=== PATIENT | male | born 1960 | race Caucasian/White ===

== ENCOUNTER 2016-06-06 19:39 | Inpatient (IN) | payer MEDICAID, OTHER ==
[~2016-06-06] VITALS: Ht 177.8 cm; Wt 57.0 kg
[~2016-06-06 19:39] MED LIST: DULO30CA2 PO; FOLI1 PO; GABA-533 PO; LEVE500T53 PO; QUET200T29 PO
[2016-06-06 20:16] LABS: BASOPHILS % (AUTO) 0.7 % (0.0-2.0); EOSINOPHILS % (AUTO) 5.2 % (1.0-6.0); HEMATOCRIT 40.2 % (41-53); HEMOGLOBIN 13.3 g/dL (13.5-17.5); LYMPHOCYTES # (AUTO) 2.5 K/uL (1.0-4.8); LYMPHOCYTES % (AUTO) 46.8 % (22.0-44.0); MEAN CORPUSCULAR HEMOGLOBIN 31.3 pg (26.0-34.0); MEAN CORPUSCULAR HGB CONC 33.2 G/dL (31.0-37.0); MEAN CORPUSCULAR VOLUME 94 fL (80-100); MONOCYTES # (AUTO) 0.4 K/uL (0.1-1.0); MONOCYTES % (AUTO) 8.1 % (2.0-9.0); NEUTROPHILS # (AUTO) 2.1 K/uL (1.8-7.7); NEUTROPHILS % (AUTO) 39.2 % (40.0-70.0); PLATELET COUNT (AUTO) 180 K/uL (150-450); RED BLOOD CELL COUNT(AUTO) 4.25 MIL/uL (4.50-5.90); RED CELL DISTRIBUTION WIDTH 13.9 % (11.5-14.5); WHITE BLOOD COUNT (AUTO) 5.4 K/uL (4.5-11.0)
[2016-06-06 20:26] LABS: ANION GAP 9 mmol/L (8-16); CALCIUM, TOTAL 9.1 mg/dL (8.8-10.5); CARBON DIOXIDE 29 mmol/L (22-29); CHLORIDE 105 mmol/L (98-107); CREATININE 0.81 mg/dL (0.60-1.30); GLOMERULAR FILTR. RATE CALC > 60 mL/min (>60); POTASSIUM 3.5 mmol/L (3.5-5.1); SODIUM SERUM 143 mmol/L (136-145); UREA NITROGEN, BLOOD 10 mg/dL (7-18)
[2016-06-06 20:31] LABS: ALANINE AMINOTRANSFERASE 100 U/L (12-78); ALBUMIN 3.5 g/dL (3.4-5.0); ASPARTATE AMINOTRANSFERASE 111 U/L (15-37); BILIRUBIN,TOTAL 0.5 mg/dL (0.1-1.0); TOTAL PROTEIN, SERUM 6.9 g/dL (6.4-8.2)
[2016-06-06] MEDS ORDERED: ZOLPIDEM TARTRATE 10 MG TABLET PO PRN (21:15)
[2016-06-06] MEDS ORDERED: OLANZapine 5 MG RAPDIS TABLET PO PRN (21:15)
[2016-06-07 00:09] VITALS: BP 123/79
[2016-06-07] MEDS ORDERED: MAGNESIUM HYDROXIDE SUSPENSION 30 ML UDCUP PO PRN ×2 (06:45→11:15)
[2016-06-07 08:30] VITALS: BP 121/75
[2016-06-07] MEDS: BACITRACIN 28.4 GM OINTMENT TP SCH ×2 (09:00→17:00)
[2016-06-07] MEDS ORDERED: MAG HYDROX/AL HYDROX/SIMETH ES 30 ML SUSPENSION UDCUP PO PRN ×2 (09:30→11:15)
[2016-06-07] MEDS ORDERED: ONDANSETRON HCL 4 MG TABLET PO PRN (09:30)
[2016-06-07] MEDS ORDERED: BENZOCAINE/MENTHOL LOZENGE [8 LOZENGES/PACKET] MM PRN (09:30)
[2016-06-07] MEDS ORDERED: PETROLATUM,WHITE 71 GM JELLY TP PRN (09:30)
[2016-06-07] MEDS ORDERED: BACITRACIN 28.4 GM OINTMENT TP PRN (09:30)
[2016-06-07] MEDS ORDERED: ACETAMINOPHEN 325 MG TABLET PO PRN ×2 (09:30→11:15)
[2016-06-07] MEDS ORDERED: CloNIDine HCL 0.1 MG TABLET PO PRN (09:30)
[2016-06-07] MEDS ORDERED: LOPERAMIDE HCL 2 MG CAPSULE PO PRN ×2 (09:30→11:15)
[2016-06-07] MEDS ORDERED: ALBUTEROL SULFATE HFA 90 MCG/PUFF 8 GM INHALER IH PRN (09:30)
[2016-06-07] MEDS: LevETIRAcetam 500 MG TABLET PO SCH ×2 (10:16→16:39)
[2016-06-07] MEDS: DOCUSATE SODIUM 250 MG CAPSULE PO SCH ×2 (10:16→16:39)
[2016-06-07] MEDS: NICOTINE 21 MG/24 HOUR PATCH TD SCH (10:16)
[2016-06-07] MEDS: METHADONE HCL 10 MG TABLET PO SCH (10:17)
[2016-06-07] MEDS: LORazepam 2 MG TABLET PO PRN ×2 (10:25→14:29)
[2016-06-07] MEDS ORDERED: HydrOXYzine PAMOATE 50 MG CAPSULE PO PRN (11:15)
[2016-06-07] MEDS ORDERED: GuaiFENesin/D-METHORPHAN [SUGAR-FREE] 200-20MG/10 ML SYRUP UDCUP PO PRN (11:15)
[2016-06-07] MEDS ORDERED: PROMETHAZINE HCL 25 MG TABLET PO PRN (11:15)
[2016-06-07] MEDS: GABAPENTIN 400 MG CAPSULE PO SCH ×3 (14:03→19:55)
[2016-06-07] MEDS ORDERED: GABAPENTIN 300 MG CAPSULE PO PRN (15:15)
[2016-06-07 16:00] VITALS: BP 107/57
[2016-06-07] MEDS: THIAMINE HCL 100 MG TABLET PO SCH (16:39)
[2016-06-07] MEDS: ARIPiprazole 15 MG TABLET PO SCH (19:55)
[2016-06-07] MEDS: QUEtiapine FUMARATE 100 MG TABLET PO PRN (19:57)
[2016-06-07] MEDS ORDERED: QUEtiapine FUMARATE 200 MG TABLET PO SCH (21:00)
[2016-06-08] MEDS: METHADONE HCL 10 MG TABLET PO SCH (05:53)
[2016-06-08 06:00] VITALS: BP 105/68
[2016-06-08 08:00] VITALS: BP 110/72
[2016-06-08] MEDS ORDERED: GuaiFENesin/D-METHORPHAN/PHENYLEPH 5 ML LIQUID ORAL.SYG PO PRN (08:30)
[2016-06-08] MEDS ORDERED: PERMETHRIN 5% 60 GM CREAM TP ONE ×2 (08:30→17:15)
[2016-06-08] MEDS: FOLIC ACID 1 MG TABLET PO SCH (08:57)
[2016-06-08] MEDS: LevETIRAcetam 500 MG TABLET PO SCH ×2 (08:57→16:09)
[2016-06-08] MEDS: MULTIVITAMINS WITH MINERALS, THERAPEUTIC TABLET PO SCH (08:58)
[2016-06-08] MEDS: GABAPENTIN 400 MG CAPSULE PO SCH (08:59)
[2016-06-08] MEDS: THIAMINE HCL 100 MG TABLET PO SCH ×2 (08:59→16:09)
[2016-06-08] MEDS ORDERED: DULoxetine HCL 30 MG CAPSULE PO SCH (09:00)
[2016-06-08] MEDS: DISULFIRAM 250 MG TABLET PO SCH (09:00)
[2016-06-08] MEDS: DOCUSATE SODIUM 250 MG CAPSULE PO SCH ×2 (09:00→16:09)
[2016-06-08] MEDS: BACITRACIN 28.4 GM OINTMENT TP SCH ×2 (09:00→16:08)
[2016-06-08] MEDS: NICOTINE 21 MG/24 HOUR PATCH TD SCH (09:01)
[2016-06-08 09:55] LABS: ADD UA MICROSCOPIC NO; APPEARANCE,URINE CLEAR (CLEAR); GLUCOSE, URINE (UA) NEGATIVE (NEGATIVE); KETONES,URINE NEGATIVE (NEGATIVE); LEUKOCYTE ESTERASE ,URINE NEGATIVE (NEGATIVE); OCCULT BLOOD,URINE NEGATIVE (NEGATIVE); PROTEIN,URINE NEGATIVE (NEGATIVE)
[2016-06-08 16:00] VITALS: BP 119/71
[2016-06-08] MEDS: GABAPENTIN 300 MG CAPSULE PO SCH ×2 (16:09→20:06)
[2016-06-08] MEDS: ARIPiprazole 15 MG TABLET PO SCH (20:06)
[2016-06-09 06:15] VITALS: BP 118/88
[2016-06-09] MEDS: METHADONE HCL 10 MG TABLET PO SCH (06:18)
[2016-06-09 08:02] VITALS: BP 119/73
[2016-06-09] MEDS: LevETIRAcetam 500 MG TABLET PO SCH ×2 (08:51→17:00)
[2016-06-09] MEDS: GABAPENTIN 300 MG CAPSULE PO SCH ×4 (08:51→21:15)
[2016-06-09] MEDS: DULoxetine HCL 20 MG CAPSULE PO SCH (08:51)
[2016-06-09] MEDS: FOLIC ACID 1 MG TABLET PO SCH (08:52)
[2016-06-09] MEDS: MULTIVITAMINS WITH MINERALS, THERAPEUTIC TABLET PO SCH (08:52)
[2016-06-09] MEDS: THIAMINE HCL 100 MG TABLET PO SCH ×2 (08:52→17:00)
[2016-06-09] MEDS: NICOTINE 21 MG/24 HOUR PATCH TD SCH (08:54)
[2016-06-09] MEDS: DOCUSATE SODIUM 250 MG CAPSULE PO SCH ×2 (08:55→17:00)
[2016-06-09] MEDS: DISULFIRAM 250 MG TABLET PO SCH (08:55)
[2016-06-09] MEDS: BACITRACIN 28.4 GM OINTMENT TP SCH ×2 (12:52→17:00)
[2016-06-09 16:00] VITALS: BP 124/72
[2016-06-09] MEDS: ARIPiprazole 15 MG TABLET PO SCH (21:15)
[2016-06-10] MEDS: METHADONE HCL 10 MG TABLET PO SCH (05:53)
[2016-06-10 08:01] VITALS: BP 124/68
[2016-06-10] MEDS: DOCUSATE SODIUM 250 MG CAPSULE PO SCH ×2 (09:00→17:00)
[2016-06-10] MEDS: DISULFIRAM 250 MG TABLET PO SCH (09:00)
[2016-06-10] MEDS: DULoxetine HCL 20 MG CAPSULE PO SCH (09:15)
[2016-06-10] MEDS: LevETIRAcetam 500 MG TABLET PO SCH ×2 (09:15→17:06)
[2016-06-10] MEDS: GABAPENTIN 300 MG CAPSULE PO SCH ×4 (09:16→21:21)
[2016-06-10] MEDS: MULTIVITAMINS WITH MINERALS, THERAPEUTIC TABLET PO SCH (09:16)
[2016-06-10] MEDS: FOLIC ACID 1 MG TABLET PO SCH (09:16)
[2016-06-10] MEDS: THIAMINE HCL 100 MG TABLET PO SCH ×2 (09:16→17:07)
[2016-06-10] MEDS: NICOTINE 21 MG/24 HOUR PATCH TD SCH (09:17)
[2016-06-10] MEDS: QUEtiapine FUMARATE 100 MG TABLET PO PRN ×2 (12:34→17:06)
[2016-06-10] MEDS: BACITRACIN 28.4 GM OINTMENT TP SCH ×2 (12:35→17:08)
[2016-06-10 18:12] VITALS: BP 106/76
[2016-06-10] MEDS: ARIPiprazole 15 MG TABLET PO SCH (21:21)
[2016-06-11 05:38] VITALS: BP 140/89
[2016-06-11] MEDS: METHADONE HCL 10 MG TABLET PO SCH (06:06)
[2016-06-11] MEDS: FOLIC ACID 1 MG TABLET PO SCH (08:19)
[2016-06-11] MEDS: DULoxetine HCL 20 MG CAPSULE PO SCH (08:19)
[2016-06-11] MEDS: LevETIRAcetam 500 MG TABLET PO SCH ×2 (08:20→16:45)
[2016-06-11] MEDS: THIAMINE HCL 100 MG TABLET PO SCH ×2 (08:21→16:46)
[2016-06-11] MEDS: GABAPENTIN 300 MG CAPSULE PO SCH ×4 (08:21→21:25)
[2016-06-11] MEDS: MULTIVITAMINS WITH MINERALS, THERAPEUTIC TABLET PO SCH (08:21)
[2016-06-11] MEDS: NICOTINE 21 MG/24 HOUR PATCH TD SCH (08:23)
[2016-06-11 08:30] VITALS: BP 133/83
[2016-06-11] MEDS: DOCUSATE SODIUM 250 MG CAPSULE PO SCH ×2 (09:00→16:45)
[2016-06-11] MEDS: BACITRACIN 28.4 GM OINTMENT TP SCH ×2 (09:00→16:46)
[2016-06-11] MEDS: DISULFIRAM 250 MG TABLET PO SCH (09:00)
[2016-06-11] MEDS: QUEtiapine FUMARATE 100 MG TABLET PO PRN (12:57)
[2016-06-11 16:30] VITALS: BP 108/64
[2016-06-11] MEDS ORDERED: MIRTAZAPINE 15 MG TABLET PO SCH (21:00)
[2016-06-11] MEDS: ARIPiprazole 10 MG TABLET PO SCH (21:24)
[2016-06-12 05:32] VITALS: BP 124/74
[2016-06-12] MEDS: METHADONE HCL 10 MG TABLET PO SCH (05:59)
[2016-06-12 08:05] VITALS: BP 127/75
[2016-06-12] MEDS: DISULFIRAM 250 MG TABLET PO SCH (09:00)
[2016-06-12] MEDS: BACITRACIN 28.4 GM OINTMENT TP SCH ×2 (09:00→16:32)
[2016-06-12] MEDS: DOCUSATE SODIUM 250 MG CAPSULE PO SCH ×2 (09:00→16:37)
[2016-06-12] MEDS: DULoxetine HCL 20 MG CAPSULE PO SCH (09:05)
[2016-06-12] MEDS: FOLIC ACID 1 MG TABLET PO SCH (09:06)
[2016-06-12] MEDS: MULTIVITAMINS WITH MINERALS, THERAPEUTIC TABLET PO SCH (09:06)
[2016-06-12] MEDS: THIAMINE HCL 100 MG TABLET PO SCH ×2 (09:06→16:31)
[2016-06-12] MEDS: GABAPENTIN 300 MG CAPSULE PO SCH ×4 (09:07→20:52)
[2016-06-12] MEDS: LevETIRAcetam 500 MG TABLET PO SCH ×2 (09:08→16:31)
[2016-06-12] MEDS: NICOTINE 21 MG/24 HOUR PATCH TD SCH (09:11)
[2016-06-12] MEDS: QUEtiapine FUMARATE 100 MG TABLET PO PRN ×2 (14:31→20:56)
[2016-06-12 16:10] VITALS: BP 117/76
[2016-06-12] MEDS: ARIPiprazole 10 MG TABLET PO SCH (20:52)
[2016-06-12] MEDS ORDERED: MIRTAZAPINE 15 MG TABLET PO SCH (21:00)
[2016-06-13] MEDS: METHADONE HCL 10 MG TABLET PO SCH (06:13)
[2016-06-13 06:22] VITALS: BP 113/72
[2016-06-13 08:00] VITALS: BP 112/78
[2016-06-13] MEDS: GABAPENTIN 300 MG CAPSULE PO SCH (08:44)
[2016-06-13] MEDS: MULTIVITAMINS WITH MINERALS, THERAPEUTIC TABLET PO SCH (08:44)
[2016-06-13] MEDS: DULoxetine HCL 60 MG CAPSULE PO SCH (08:44)
[2016-06-13] MEDS: LevETIRAcetam 500 MG TABLET PO SCH ×2 (08:45→16:27)
[2016-06-13] MEDS: FOLIC ACID 1 MG TABLET PO SCH (08:46)
[2016-06-13] MEDS: NICOTINE 21 MG/24 HOUR PATCH TD SCH (08:48)
[2016-06-13] MEDS: THIAMINE HCL 100 MG TABLET PO SCH ×2 (08:49→16:28)
[2016-06-13] MEDS: BACITRACIN 28.4 GM OINTMENT TP SCH ×2 (09:00→16:28)
[2016-06-13] MEDS: DISULFIRAM 250 MG TABLET PO SCH (09:00)
[2016-06-13] MEDS: DOCUSATE SODIUM 250 MG CAPSULE PO SCH ×2 (09:00→16:27)
[2016-06-13] MEDS: GABAPENTIN 400 MG CAPSULE PO SCH ×2 (12:49→16:27)
[2016-06-13] MEDS: QUEtiapine FUMARATE 100 MG TABLET PO PRN (14:16)
[2016-06-13 17:53] VITALS: BP 115/76
[2016-06-13] MEDS: ARIPiprazole 10 MG TABLET PO SCH (20:10)
[2016-06-13] MEDS: MIRTAZAPINE 15 MG TABLET PO SCH (20:11)
[2016-06-14 04:49] VITALS: BP 122/84
[2016-06-14] MEDS: METHADONE HCL 10 MG TABLET PO SCH (06:03)
[2016-06-14 08:30] VITALS: BP 136/79
[2016-06-14] MEDS: MULTIVITAMINS WITH MINERALS, THERAPEUTIC TABLET PO SCH (08:53)
[2016-06-14] MEDS: FOLIC ACID 1 MG TABLET PO SCH (08:53)
[2016-06-14] MEDS: LevETIRAcetam 500 MG TABLET PO SCH ×2 (08:53→16:16)
[2016-06-14] MEDS: GABAPENTIN 400 MG CAPSULE PO SCH ×3 (08:53→16:17)
[2016-06-14] MEDS: THIAMINE HCL 100 MG TABLET PO SCH ×2 (08:54→16:17)
[2016-06-14] MEDS: DULoxetine HCL 60 MG CAPSULE PO SCH (08:54)
[2016-06-14] MEDS: NICOTINE 21 MG/24 HOUR PATCH TD SCH (08:56)
[2016-06-14] MEDS: BACITRACIN 28.4 GM OINTMENT TP SCH ×2 (08:56→16:17)
[2016-06-14] MEDS: DISULFIRAM 250 MG TABLET PO SCH (09:00)
[2016-06-14] MEDS: DOCUSATE SODIUM 250 MG CAPSULE PO SCH ×2 (09:00→16:17)
[2016-06-14 20:23] VITALS: BP 139/77
[2016-06-14] MEDS: ARIPiprazole 10 MG TABLET PO SCH (21:31)
[2016-06-14] MEDS: MIRTAZAPINE 15 MG TABLET PO SCH (21:32)
[2016-06-15] MEDS: METHADONE HCL 10 MG TABLET PO SCH (05:54)
[2016-06-15] MEDS: DISULFIRAM 250 MG TABLET PO SCH (09:00)
[2016-06-15] MEDS: DOCUSATE SODIUM 250 MG CAPSULE PO SCH (09:00)
[2016-06-15] MEDS: THIAMINE HCL 100 MG TABLET PO SCH (09:02)
[2016-06-15] MEDS: GABAPENTIN 400 MG CAPSULE PO SCH ×2 (09:02→12:54)
[2016-06-15] MEDS: DULoxetine HCL 60 MG CAPSULE PO SCH (09:02)
[2016-06-15] MEDS: LevETIRAcetam 500 MG TABLET PO SCH (09:02)
[2016-06-15] MEDS: MULTIVITAMINS WITH MINERALS, THERAPEUTIC TABLET PO SCH (09:02)
[2016-06-15] MEDS: FOLIC ACID 1 MG TABLET PO SCH (09:02)
[2016-06-15] MEDS: NICOTINE 21 MG/24 HOUR PATCH TD SCH (09:03)
[2016-06-15] MEDS: BACITRACIN 28.4 GM OINTMENT TP SCH (09:03)
[2016-06-15 10:09] VITALS: BP 147/90
[2016-06-15] MEDS ORDERED: GABA-533 PO (10:27)
[2016-06-15] MEDS ORDERED: ARIP10TA14 PO (10:27)
[2016-06-15] MEDS ORDERED: DISU250 PO (10:27)
[2016-06-15] MEDS ORDERED: MIRT15 PO (10:27)
[2016-06-15] MEDS ORDERED: DULO60CA44 PO (10:27)
[2016-06-15] MEDS ORDERED: LEVE500T53 PO (10:27)
[2016-06-15] MEDS ORDERED: DOCU250C91 PO (13:37)
[2016-06-15] MEDS ORDERED: BACI120O TP (13:37)
== END 2016-06-15 14:00 | disposition home or self-care (01) | DRG 750 ==
LOC: EMS 19:43 → 3EI 22:15
PROVIDERS: ADMIT Psychiatry & Neurology Psychiatry; ATTEND Psychiatry & Neurology Psychiatry
DX: F25.0 Schizoaffective disorder, bipolar type (principal); R45.851 Suicidal ideations; J44.9 Chronic obstructive pulmonary disease, unspecified; B86 Scabies; B18.2 Chronic viral hepatitis C; F17.210 Nicotine dependence, cigarettes, uncomplicated; G40.909 Epilepsy, unspecified, not intractable, without status epilepticus; F12.90 Cannabis use, unspecified, uncomplicated; F11.90 Opioid use, unspecified, uncomplicated; S50.812A Abrasion of left forearm, initial encounter; G89.4 Chronic pain syndrome; R21 Rash and other nonspecific skin eruption; M19.90 Unspecified osteoarthritis, unspecified site; N40.0 Benign prostatic hyperplasia without lower urinary tract symptoms; S61.512A Laceration without foreign body of left wrist, initial encounter; Z91.19 Patient's noncompliance with other medical treatment and regimen; Z59.0 Homelessness; Z88.8 Allergy status to other drugs, medicaments and biological substances; Z79.899 Other long term (current) drug therapy; Z98.890 Other specified postprocedural states; X58.XXXA Exposure to other specified factors, initial encounter; Y93.89 Activity, other specified; Y92.89 Other specified places as the place of occurrence of the external cause; Y99.8 Other external cause status
CPT/HCPCS: 71020; 80307; 87081; 99285; G0480; Q0162

== ENCOUNTER 2016-07-03 15:42 | Inpatient (IN) | payer MEDICAID, OTHER ==
[~2016-07-03] VITALS: Ht 177.8 cm; Wt 58.8 kg
[~2016-07-03 15:42] MED LIST changes: +ARIP10TA14 PO; +BACI120O TP; +DISU250 PO; +DOCU250C91 PO; -DULO30CA2 PO; +DULO60CA44 PO; -FOLI1 PO; +MIRT15 PO; -QUET200T29 PO
[2016-07-03 17:21] LABS: BASOPHILS % (AUTO) 0.4 % (0.0-2.0); EOSINOPHILS % (AUTO) 2.5 % (1.0-6.0); HEMATOCRIT 42.1 % (41-53); HEMOGLOBIN 13.8 g/dL (13.5-17.5); LYMPHOCYTES % (AUTO) 55.3 % (22.0-44.0); MEAN CORPUSCULAR HEMOGLOBIN 30.8 pg (26.0-34.0); MEAN CORPUSCULAR HGB CONC 32.8 G/dL (31.0-37.0); MEAN CORPUSCULAR VOLUME 94 fL (80-100); MONOCYTES # (AUTO) 0.4 K/uL (0.1-1.0); MONOCYTES % (AUTO) 6.7 % (2.0-9.0); NEUTROPHILS # (AUTO) 1.9 K/uL (1.8-7.7); NEUTROPHILS % (AUTO) 35.1 % (40.0-70.0); PLATELET COUNT (AUTO) 200 K/uL (150-450); RED BLOOD CELL COUNT(AUTO) 4.49 MIL/uL (4.50-5.90); RED CELL DISTRIBUTION WIDTH 13.7 % (11.5-14.5); WHITE BLOOD COUNT (AUTO) 5.5 K/uL (4.5-11.0)
[2016-07-03 17:31] LABS: ANION GAP 8 mmol/L (8-16); CALCIUM, TOTAL 8.4 mg/dL (8.8-10.5); CARBON DIOXIDE 31 mmol/L (22-29); CHLORIDE 106 mmol/L (98-107); CREATININE 0.79 mg/dL (0.60-1.30); GLOMERULAR FILTR. RATE CALC > 60 mL/min (>60); POTASSIUM 3.6 mmol/L (3.5-5.1); SODIUM SERUM 145 mmol/L (136-145); UREA NITROGEN, BLOOD 7 mg/dL (7-18)
[2016-07-03 17:39] LABS: ALANINE AMINOTRANSFERASE 73 U/L (12-78); ALBUMIN 3.4 g/dL (3.4-5.0); ASPARTATE AMINOTRANSFERASE 97 U/L (15-37); BILIRUBIN,TOTAL 0.2 mg/dL (0.1-1.0); TOTAL PROTEIN, SERUM 6.9 g/dL (6.4-8.2)
[2016-07-03] MEDS ORDERED: DiphenhydrAMINE HCL 25 MG CAPSULE PO ONE (20:15)
[2016-07-03] MEDS ORDERED: LORazepam 2 MG TABLET PO ONE (20:15)
[2016-07-03] MEDS ORDERED: MIRT30 PO (20:27)
[2016-07-03] MEDS ORDERED: HALOPERIDOL 5 MG TABLET PO PRN (21:15)
[2016-07-03 21:54] VITALS: BP 115/75
[2016-07-04] VITALS: BP 129/84
[2016-07-04] MEDS: ZOLPIDEM TARTRATE 10 MG TABLET PO PRN ×2 (00:08→21:15)
[2016-07-04] MEDS: DULoxetine HCL 60 MG CAPSULE PO SCH (08:55)
[2016-07-04] MEDS: LORazepam 2 MG TABLET PO PRN ×3 (08:55→21:15)
[2016-07-04 09:00] VITALS: BP 126/68
[2016-07-04] MEDS ORDERED: GABAPENTIN 300 MG CAPSULE PO SCH (09:00)
[2016-07-04] MEDS ORDERED: METHADONE HCL 10 MG TABLET PO SCH (09:30)
[2016-07-04] MEDS: NICOTINE 21 MG/24 HOUR PATCH TD SCH (09:48)
[2016-07-04 10:30] VITALS: BP 122/73
[2016-07-04] MEDS ORDERED: MAG HYDROX/AL HYDROX/SIMETH ES 30 ML SUSPENSION UDCUP PO PRN (10:30)
[2016-07-04] MEDS ORDERED: ACETAMINOPHEN 325 MG TABLET PO PRN (10:30)
[2016-07-04] MEDS ORDERED: GuaiFENesin/D-METHORPHAN [SUGAR-FREE] 200-20MG/10 ML SYRUP UDCUP PO PRN (10:30)
[2016-07-04] MEDS ORDERED: LOPERAMIDE HCL 2 MG CAPSULE PO PRN ×2 (10:30)
[2016-07-04] MEDS ORDERED: CYANOCOBALAMIN 1,000 MCG/ML VIAL IM ONE (10:30)
[2016-07-04] MEDS ORDERED: PETROLATUM,WHITE 71 GM JELLY TP PRN (10:30)
[2016-07-04] MEDS ORDERED: BACITRACIN 28.4 GM OINTMENT TP PRN (10:30)
[2016-07-04] MEDS ORDERED: MAGNESIUM HYDROXIDE SUSPENSION 30 ML UDCUP PO PRN (10:30)
[2016-07-04] MEDS ORDERED: BENZOCAINE/MENTHOL LOZENGE MM PRN (10:30)
[2016-07-04] MEDS ORDERED: ALBUTEROL SULFATE HFA 90 MCG/PUFF 8 GM INHALER IH PRN (10:30)
[2016-07-04] MEDS ORDERED: CloNIDine HCL 0.1 MG TABLET PO PRN (10:30)
[2016-07-04] MEDS ORDERED: ONDANSETRON HCL 4 MG TABLET PO PRN (10:30)
[2016-07-04] MEDS ORDERED: HydrOXYzine PAMOATE 50 MG CAPSULE PO PRN (10:30)
[2016-07-04] MEDS: GABAPENTIN 400 MG CAPSULE PO SCH ×2 (12:12→16:44)
[2016-07-04] MEDS: ACAMPROSATE CALCIUM 333 MG DR TABLET PO SCH ×2 (12:12→16:45)
[2016-07-04 16:13] VITALS: BP 131/71
[2016-07-04] MEDS: THIAMINE HCL 100 MG TABLET PO SCH (16:44)
[2016-07-04] MEDS: LevETIRAcetam 500 MG TABLET PO SCH (16:44)
[2016-07-04] MEDS ORDERED: MIRTAZAPINE 15 MG TABLET PO SCH (21:00)
[2016-07-04] MEDS: ARIPiprazole 10 MG TABLET PO SCH (21:14)
[2016-07-04 23:30] VITALS: BP 132/78
[2016-07-05] VITALS (7 sets, daily range): BP systolic 117–140; BP diastolic 69–87
[2016-07-05] MEDS: METHADONE HCL 10 MG TABLET PO SCH (05:56)
[2016-07-05] MEDS: ACAMPROSATE CALCIUM 333 MG DR TABLET PO SCH ×4 (09:00→16:37)
[2016-07-05] MEDS: GABAPENTIN 400 MG CAPSULE PO SCH ×3 (09:10→16:31)
[2016-07-05] MEDS: THIAMINE HCL 100 MG TABLET PO SCH ×2 (09:11→16:34)
[2016-07-05] MEDS: MULTIVITAMINS WITH MINERALS, THERAPEUTIC TABLET PO SCH (09:11)
[2016-07-05] MEDS: FOLIC ACID 1 MG TABLET PO SCH (09:11)
[2016-07-05] MEDS: NICOTINE 21 MG/24 HOUR PATCH TD SCH (09:11)
[2016-07-05] MEDS: LORazepam 2 MG TABLET PO PRN ×2 (09:11→18:43)
[2016-07-05] MEDS: LevETIRAcetam 500 MG TABLET PO SCH ×2 (09:12→16:31)
[2016-07-05] MEDS: DULoxetine HCL 60 MG CAPSULE PO SCH (09:12)
[2016-07-05] MEDS ORDERED: ACAM333T7 PO (11:55)
[2016-07-05] MEDS ORDERED: GABA-533 PO (11:55)
[2016-07-05] MEDS ORDERED: ARIP10TA14 PO (11:55)
[2016-07-05] MEDS ORDERED: DULO60CA44 PO (11:55)
[2016-07-05] MEDS ORDERED: MIRT15 PO (11:55)
[2016-07-05] MEDS ORDERED: LEVE500T53 PO (11:55)
[2016-07-05] MEDS ORDERED: MIRTAZAPINE 15 MG TABLET PO SCH (21:00)
[2016-07-05] MEDS: ARIPiprazole 10 MG TABLET PO SCH (21:16)
[2016-07-05] MEDS: ZOLPIDEM TARTRATE 10 MG TABLET PO PRN (21:21)
[2016-07-06 04:35] VITALS: BP 136/82
[2016-07-06 05:35] VITALS: BP 130/84
[2016-07-06] MEDS: METHADONE HCL 10 MG TABLET PO SCH (05:42)
[2016-07-06 06:55] VITALS: BP 118/83
[2016-07-06] MEDS: LORazepam 2 MG TABLET PO PRN (06:57)
[2016-07-06] MEDS: FOLIC ACID 1 MG TABLET PO SCH (08:51)
[2016-07-06] MEDS: THIAMINE HCL 100 MG TABLET PO SCH (08:52)
[2016-07-06] MEDS: LevETIRAcetam 500 MG TABLET PO SCH (08:52)
[2016-07-06] MEDS: GABAPENTIN 400 MG CAPSULE PO SCH (08:52)
[2016-07-06] MEDS: DULoxetine HCL 60 MG CAPSULE PO SCH (08:52)
[2016-07-06] MEDS: MULTIVITAMINS WITH MINERALS, THERAPEUTIC TABLET PO SCH (08:52)
[2016-07-06] MEDS: NICOTINE 21 MG/24 HOUR PATCH TD SCH (08:53)
[2016-07-06] MEDS: ACAMPROSATE CALCIUM 333 MG DR TABLET PO SCH (08:55)
[2016-07-06] MEDS ORDERED: ACAM333T7 PO (09:05)
[2016-07-06] MEDS ORDERED: MIRT30 PO (09:05)
[2016-07-06 09:45] VITALS: BP 107/79
== END 2016-07-06 10:10 | disposition home or self-care (01) | DRG 750 ==
LOC: EMS 15:45 → EEVIPCON 15:45 → B2S 21:17
PROVIDERS: ATTEND Psychiatry & Neurology Psychiatry
DX: F25.9 Schizoaffective disorder, unspecified (principal); R45.851 Suicidal ideations; F11.20 Opioid dependence, uncomplicated; B18.2 Chronic viral hepatitis C; G89.29 Other chronic pain; F31.9 Bipolar disorder, unspecified; K59.00 Constipation, unspecified; K21.9 Gastro-esophageal reflux disease without esophagitis; J44.9 Chronic obstructive pulmonary disease, unspecified; G40.909 Epilepsy, unspecified, not intractable, without status epilepticus; F17.210 Nicotine dependence, cigarettes, uncomplicated; Z71.6 Tobacco abuse counseling; Z88.6 Allergy status to analgesic agent; Z88.8 Allergy status to other drugs, medicaments and biological substances; Z79.899 Other long term (current) drug therapy; Z59.0 Homelessness; Z98.890 Other specified postprocedural states; Z91.19 Patient's noncompliance with other medical treatment and regimen; Z72.89 Other problems related to lifestyle
CPT/HCPCS: 87081; 99285; G0480; J3420

== ENCOUNTER 2016-07-18 17:38 | Emergency (ER) | payer MEDICAID ==
[~2016-07-18 17:38] MED LIST changes: +ACAM333T7 PO; -BACI120O TP; -DISU250 PO; -DOCU250C91 PO; +MIRT30 PO
== END 2016-07-18 18:29 | disposition left against medical advice (07) ==
LOC: EMS 17:41 → EEVIPCON 17:41 → EMS 18:29
DX: Z00.8 Encounter for other general examination (principal); Z53.21 Procedure and treatment not carried out due to patient leaving prior to being seen by health care provider

== ENCOUNTER 2016-07-19 15:13 | Inpatient (IN) | payer MEDICAID, OTHER ==
[~2016-07-19] VITALS: Ht 167.6 cm; Wt 59.9 kg
[2016-07-19 16:01] LABS: BASOPHILS % (AUTO) 0.7 % (0.0-2.0); EOSINOPHILS % (AUTO) 3.8 % (1.0-6.0); HEMATOCRIT 35.7 % (41-53); HEMOGLOBIN 11.6 g/dL (13.5-17.5); LYMPHOCYTES # (AUTO) 1.7 K/uL (1.0-4.8); LYMPHOCYTES % (AUTO) 35.4 % (22.0-44.0); MEAN CORPUSCULAR HEMOGLOBIN 30.8 pg (26.0-34.0); MEAN CORPUSCULAR HGB CONC 32.5 G/dL (31.0-37.0); MEAN CORPUSCULAR VOLUME 95 fL (80-100); MONOCYTES # (AUTO) 0.4 K/uL (0.1-1.0); MONOCYTES % (AUTO) 8.9 % (2.0-9.0); NEUTROPHILS # (AUTO) 2.5 K/uL (1.8-7.7); NEUTROPHILS % (AUTO) 51.2 % (40.0-70.0); PLATELET COUNT (AUTO) 155 K/uL (150-450); RED BLOOD CELL COUNT(AUTO) 3.77 MIL/uL (4.50-5.90); RED CELL DISTRIBUTION WIDTH 13.7 % (11.5-14.5); WHITE BLOOD COUNT (AUTO) 4.9 K/uL (4.5-11.0)
[2016-07-19 16:22] LABS: ANION GAP 5 mmol/L (8-16); CALCIUM, TOTAL 8.6 mg/dL (8.8-10.5); CARBON DIOXIDE 32 mmol/L (22-29); CHLORIDE 108 mmol/L (98-107); CREATININE 0.78 mg/dL (0.60-1.30); GLOMERULAR FILTR. RATE CALC > 60 mL/min (>60); POTASSIUM 3.6 mmol/L (3.5-5.1); SODIUM SERUM 145 mmol/L (136-145); UREA NITROGEN, BLOOD 8 mg/dL (7-18)
[2016-07-19 16:27] LABS: ALANINE AMINOTRANSFERASE 66 U/L (12-78); ALBUMIN 3.2 g/dL (3.4-5.0); ASPARTATE AMINOTRANSFERASE 82 U/L (15-37); BILIRUBIN,TOTAL 0.2 mg/dL (0.1-1.0); TOTAL PROTEIN, SERUM 6.2 g/dL (6.4-8.2)
[2016-07-19] MEDS ORDERED: ZOLPIDEM TARTRATE 10 MG TABLET PO PRN (19:45)
[2016-07-19] MEDS ORDERED: QUEtiapine FUMARATE 100 MG TABLET PO PRN (19:45)
[2016-07-19 22:17] VITALS: BP 131/83
[2016-07-19] MEDS: DULoxetine HCL 60 MG CAPSULE PO SCH (22:18)
[2016-07-19] MEDS: LevETIRAcetam 500 MG TABLET PO SCH (22:19)
[2016-07-19] MEDS: GABAPENTIN 400 MG CAPSULE PO SCH (22:19)
[2016-07-19] MEDS: ARIPiprazole 10 MG TABLET PO SCH (22:19)
[2016-07-19] MEDS: MIRTAZAPINE 15 MG TABLET PO SCH (22:19)
[2016-07-19] MEDS: ACAMPROSATE CALCIUM 333 MG DR TABLET PO SCH (22:19)
[2016-07-19] MEDS ORDERED: PNEUMOCOCCAL VACCINE POLYVALENT 0.5 ML VIAL [PPSV23] IM ONE (22:30)
[2016-07-19] MEDS ORDERED: INFLUENZA VIRUS VACCINE QVS 2016-17 (3YR+)/PF 60 MCG/0.5 ML SYRINGE IM ONE (22:30)
[2016-07-19] MEDS ORDERED: PERMETHRIN 5% 60 GM CREAM TP ONE (22:45)
[2016-07-20 08:00] VITALS: BP 131/77
[2016-07-20] MEDS: DULoxetine HCL 60 MG CAPSULE PO SCH (09:00)
[2016-07-20] MEDS: LevETIRAcetam 500 MG TABLET PO SCH ×2 (09:35→16:23)
[2016-07-20] MEDS: GABAPENTIN 400 MG CAPSULE PO SCH ×3 (09:35→16:17)
[2016-07-20] MEDS: ACAMPROSATE CALCIUM 333 MG DR TABLET PO SCH ×3 (09:35→16:16)
[2016-07-20] MEDS: NICOTINE 21 MG/24 HOUR PATCH TD SCH (09:38)
[2016-07-20] MEDS ORDERED: ACETAMINOPHEN 325 MG TABLET PO PRN (10:30)
[2016-07-20] MEDS ORDERED: PERMETHRIN 5% 60 GM CREAM TP ONE (11:17)
[2016-07-20] MEDS: METHADONE HCL 10 MG TABLET PO SCH (11:23)
[2016-07-20] MEDS ORDERED: HydrOXYzine PAMOATE 50 MG CAPSULE PO PRN (12:15)
[2016-07-20] MEDS ORDERED: PROMETHAZINE HCL 25 MG TABLET PO PRN (12:15)
[2016-07-20] MEDS ORDERED: GuaiFENesin/D-METHORPHAN [SUGAR-FREE] 200-20MG/10 ML SYRUP UDCUP PO PRN (12:15)
[2016-07-20] MEDS ORDERED: LOPERAMIDE HCL 2 MG CAPSULE PO PRN (12:15)
[2016-07-20] MEDS ORDERED: MAGNESIUM HYDROXIDE SUSPENSION 30 ML UDCUP PO PRN (12:15)
[2016-07-20] MEDS ORDERED: MAG HYDROX/AL HYDROX/SIMETH ES 30 ML SUSPENSION UDCUP PO PRN (12:15)
[2016-07-20] MEDS ORDERED: ARIPiprazole ER SUSPENSION 400 MG PRE-FILLED DUAL CHAMBER SYRINGE IM ONE (13:15)
[2016-07-20 16:06] VITALS: BP 132/84
[2016-07-20] MEDS: THIAMINE HCL 100 MG TABLET PO SCH (16:17)
[2016-07-20] MEDS: LORazepam 2 MG TABLET PO PRN (16:23)
[2016-07-20 20:11] VITALS: BP 131/74
[2016-07-20] MEDS: ARIPiprazole 10 MG TABLET PO SCH (20:27)
[2016-07-20] MEDS: MIRTAZAPINE 15 MG TABLET PO SCH (20:27)
[2016-07-21 05:55] VITALS: BP 140/90
[2016-07-21 08:19] VITALS: BP 120/78
[2016-07-21] MEDS: ACAMPROSATE CALCIUM 333 MG DR TABLET PO SCH ×3 (09:19→16:46)
[2016-07-21] MEDS: DULoxetine HCL 60 MG CAPSULE PO SCH (09:20)
[2016-07-21] MEDS: MULTIVITAMINS WITH MINERALS, THERAPEUTIC TABLET PO SCH (09:20)
[2016-07-21] MEDS: FOLIC ACID 1 MG TABLET PO SCH (09:20)
[2016-07-21] MEDS: GABAPENTIN 400 MG CAPSULE PO SCH ×3 (09:20→16:45)
[2016-07-21] MEDS: METHADONE HCL 10 MG TABLET PO SCH (09:25)
[2016-07-21] MEDS: NICOTINE 21 MG/24 HOUR PATCH TD SCH (10:08)
[2016-07-21] MEDS: THIAMINE HCL 100 MG TABLET PO SCH ×2 (10:08→16:46)
[2016-07-21] MEDS: LevETIRAcetam 500 MG TABLET PO SCH ×2 (10:08→16:45)
[2016-07-21 16:15] VITALS: BP 123/76
[2016-07-21] MEDS: ARIPiprazole 10 MG TABLET PO SCH (20:50)
[2016-07-21] MEDS: MIRTAZAPINE 15 MG TABLET PO SCH (20:50)
[2016-07-22 00:02] VITALS: BP 120/75
[2016-07-22 08:42] VITALS: BP 107/64
[2016-07-22] MEDS: ACAMPROSATE CALCIUM 333 MG DR TABLET PO SCH ×3 (09:00→16:58)
[2016-07-22] MEDS: THIAMINE HCL 100 MG TABLET PO SCH ×2 (09:38→16:56)
[2016-07-22] MEDS: FOLIC ACID 1 MG TABLET PO SCH (09:38)
[2016-07-22 09:40] VITALS: BP 125/80
[2016-07-22] MEDS: LevETIRAcetam 500 MG TABLET PO SCH ×2 (09:41→16:56)
[2016-07-22] MEDS: MULTIVITAMINS WITH MINERALS, THERAPEUTIC TABLET PO SCH (09:41)
[2016-07-22] MEDS: DULoxetine HCL 60 MG CAPSULE PO SCH (09:41)
[2016-07-22] MEDS: GABAPENTIN 400 MG CAPSULE PO SCH ×3 (09:41→16:56)
[2016-07-22] MEDS: NICOTINE 21 MG/24 HOUR PATCH TD SCH (09:42)
[2016-07-22] MEDS: METHADONE HCL 10 MG TABLET PO SCH (09:42)
[2016-07-22] MEDS: LORazepam 2 MG TABLET PO PRN (12:19)
[2016-07-22 16:27] VITALS: BP 103/65
[2016-07-22] MEDS: ARIPiprazole 10 MG TABLET PO SCH (20:13)
[2016-07-22] MEDS: MIRTAZAPINE 15 MG TABLET PO SCH (20:13)
[2016-07-23 05:53] VITALS: BP 140/81
[2016-07-23] MEDS: NICOTINE 21 MG/24 HOUR PATCH TD SCH (08:28)
[2016-07-23] MEDS: GABAPENTIN 400 MG CAPSULE PO SCH ×3 (08:28→16:24)
[2016-07-23] MEDS: DULoxetine HCL 60 MG CAPSULE PO SCH (08:29)
[2016-07-23] MEDS: FOLIC ACID 1 MG TABLET PO SCH (08:29)
[2016-07-23] MEDS: THIAMINE HCL 100 MG TABLET PO SCH ×2 (08:29→16:25)
[2016-07-23] MEDS: MULTIVITAMINS WITH MINERALS, THERAPEUTIC TABLET PO SCH (08:29)
[2016-07-23] MEDS: LevETIRAcetam 500 MG TABLET PO SCH ×2 (08:33→16:24)
[2016-07-23] MEDS: METHADONE HCL 10 MG TABLET PO SCH (08:39)
[2016-07-23 08:56] VITALS: BP 106/71
[2016-07-23] MEDS: ACAMPROSATE CALCIUM 333 MG DR TABLET PO SCH ×4 (09:00→17:00)
[2016-07-23] MEDS: LORazepam 2 MG TABLET PO PRN ×2 (11:07→16:25)
[2016-07-23] MEDS ORDERED: DULO60CA44 PO (15:01)
[2016-07-23] MEDS ORDERED: ARIP10TA14 PO (15:01)
[2016-07-23] MEDS ORDERED: GABA-533 PO (15:01)
[2016-07-23] MEDS ORDERED: MIRT15 PO (15:01)
[2016-07-23] MEDS ORDERED: ARIP400S3 IM (15:01)
[2016-07-23] MEDS ORDERED: ACAM333T7 PO (15:01)
[2016-07-23] MEDS ORDERED: LEVE500T53 PO (15:01)
[2016-07-23 16:30] VITALS: BP 119/71
[2016-07-23] MEDS: MIRTAZAPINE 15 MG TABLET PO SCH (20:26)
[2016-07-23] MEDS: ARIPiprazole 10 MG TABLET PO SCH (20:26)
[2016-07-24] MEDS: ACETAMINOPHEN 325 MG TABLET PO PRN (06:05)
[2016-07-24] MEDS: LORazepam 2 MG TABLET PO PRN ×3 (06:05→17:18)
[2016-07-24 07:03] VITALS: BP 115/75
[2016-07-24 08:38] VITALS: BP 120/77
[2016-07-24] MEDS: GABAPENTIN 400 MG CAPSULE PO SCH ×3 (08:40→16:37)
[2016-07-24] MEDS: THIAMINE HCL 100 MG TABLET PO SCH ×2 (08:41→16:37)
[2016-07-24] MEDS: METHADONE HCL 10 MG TABLET PO SCH (08:41)
[2016-07-24] MEDS: NICOTINE 21 MG/24 HOUR PATCH TD SCH (08:42)
[2016-07-24] MEDS: MULTIVITAMINS WITH MINERALS, THERAPEUTIC TABLET PO SCH (08:42)
[2016-07-24] MEDS: LevETIRAcetam 500 MG TABLET PO SCH ×2 (08:42→16:37)
[2016-07-24] MEDS: DULoxetine HCL 60 MG CAPSULE PO SCH (08:42)
[2016-07-24] MEDS: FOLIC ACID 1 MG TABLET PO SCH (08:42)
[2016-07-24] MEDS: ACAMPROSATE CALCIUM 333 MG DR TABLET PO SCH ×3 (08:48→16:38)
[2016-07-24] MEDS ORDERED: ARIPiprazole ER SUSPENSION 400 MG PRE-FILLED DUAL CHAMBER SYRINGE IM ONE (10:00)
[2016-07-24 16:10] VITALS: BP 109/68
[2016-07-24] MEDS: ARIPiprazole 10 MG TABLET PO SCH (20:36)
[2016-07-24] MEDS: MIRTAZAPINE 15 MG TABLET PO SCH (20:36)
[2016-07-25 05:44] VITALS: BP 108/73
[2016-07-25] MEDS: LORazepam 2 MG TABLET PO PRN ×2 (05:47→09:48)
[2016-07-25] MEDS: ACETAMINOPHEN 325 MG TABLET PO PRN (05:47)
[2016-07-25 08:21] VITALS: BP 112/73
[2016-07-25] MEDS: METHADONE HCL 10 MG TABLET PO SCH (08:34)
[2016-07-25] MEDS: MULTIVITAMINS WITH MINERALS, THERAPEUTIC TABLET PO SCH (08:35)
[2016-07-25] MEDS: LevETIRAcetam 500 MG TABLET PO SCH (08:35)
[2016-07-25] MEDS: THIAMINE HCL 100 MG TABLET PO SCH (08:35)
[2016-07-25] MEDS: GABAPENTIN 400 MG CAPSULE PO SCH ×2 (08:35→12:35)
[2016-07-25] MEDS: FOLIC ACID 1 MG TABLET PO SCH (08:35)
[2016-07-25] MEDS: DULoxetine HCL 60 MG CAPSULE PO SCH (08:35)
[2016-07-25] MEDS: NICOTINE 21 MG/24 HOUR PATCH TD SCH (08:36)
[2016-07-25] MEDS: ACAMPROSATE CALCIUM 333 MG DR TABLET PO SCH ×2 (08:39→12:35)
[2016-08-17] MEDS ORDERED: ARIPiprazole ER SUSPENSION 400 MG PRE-FILLED DUAL CHAMBER SYRINGE IM SCH (09:00)
== END 2016-07-25 13:30 | disposition home or self-care (01) | DRG 750 ==
LOC: EEVIPCON 15:19 → EMS 15:19 → B2S 20:22
PROVIDERS: ADMIT Psychiatry & Neurology Psychiatry; ATTEND Psychiatry & Neurology Psychiatry
DX: F25.0 Schizoaffective disorder, bipolar type (principal); E46 Unspecified protein-calorie malnutrition; F11.20 Opioid dependence, uncomplicated; J44.9 Chronic obstructive pulmonary disease, unspecified; R45.851 Suicidal ideations; G40.909 Epilepsy, unspecified, not intractable, without status epilepticus; B18.2 Chronic viral hepatitis C; G47.00 Insomnia, unspecified; N40.0 Benign prostatic hyperplasia without lower urinary tract symptoms; L30.9 Dermatitis, unspecified; K21.9 Gastro-esophageal reflux disease without esophagitis; F31.9 Bipolar disorder, unspecified; G89.29 Other chronic pain; M19.90 Unspecified osteoarthritis, unspecified site; Z98.890 Other specified postprocedural states; Z88.8 Allergy status to other drugs, medicaments and biological substances; Z91.19 Patient's noncompliance with other medical treatment and regimen; Z79.899 Other long term (current) drug therapy; Z68.21 Body mass index [BMI] 21.0-21.9, adult; Z82.1 Family history of blindness and visual loss
CPT/HCPCS: 87081; 93005; 99285; G0480; J0401

== ENCOUNTER 2016-08-16 18:40 | Inpatient (IN) | payer MEDICAID, OTHER ==
[~2016-08-16] VITALS: Ht 177.8 cm; Wt 59.4 kg
[~2016-08-16 18:40] MED LIST changes: +ARIP400S3 IM; -MIRT30 PO
[2016-08-16 19:06] LABS: BASOPHILS # (AUTO) 0.05 K/uL (0.00-0.20); EOSINOPHILS # (AUTO) 0.22 K/uL (0.00-0.70); EOSINOPHILS % (AUTO) 4.58 % (1.0-6.0); HEMATOCRIT 36.5 % (41-53); HEMOGLOBIN 12.5 g/dL (13.5-17.5); LYMPHOCYTES # (AUTO) 1.8 K/uL (1.0-4.8); LYMPHOCYTES % (AUTO) 37.3 % (22.0-44.0); MEAN CORPUSCULAR HEMOGLOBIN 31.9 pg (26.0-34.0); MEAN CORPUSCULAR HGB CONC 34.2 G/dL (31.0-37.0); MEAN CORPUSCULAR VOLUME 93 fL (80-100); MONOCYTES # (AUTO) 0.3 K/uL (0.1-1.0); MONOCYTES % (AUTO) 6.7 % (2.0-9.0); NEUTROPHILS # (AUTO) 2.4 K/uL (1.8-7.7); NEUTROPHILS % (AUTO) 50.4 % (40.0-70.0); PLATELET COUNT (AUTO) 144 K/uL (150-450); RED BLOOD CELL COUNT(AUTO) 3.91 MIL/uL (4.50-5.90); RED CELL DISTRIBUTION WIDTH 13.4 % (11.5-14.5); WHITE BLOOD COUNT (AUTO) 4.8 K/uL (4.5-11.0)
[2016-08-16 19:14] LABS: ANION GAP 8 mmol/L (8-16); CALCIUM, TOTAL 8.4 mg/dL (8.8-10.5); CARBON DIOXIDE 30 mmol/L (22-29); CHLORIDE 108 mmol/L (98-107); CREATININE 0.81 mg/dL (0.60-1.30); GLOMERULAR FILTR. RATE CALC > 60 mL/min (>60); POTASSIUM 3.6 mmol/L (3.5-5.1); SODIUM SERUM 146 mmol/L (136-145); UREA NITROGEN, BLOOD 9 mg/dL (7-18)
[2016-08-16 19:21] LABS: ALANINE AMINOTRANSFERASE 64 U/L (12-78); ALBUMIN 3.3 g/dL (3.4-5.0); BILIRUBIN,TOTAL 0.2 mg/dL (0.1-1.0); TOTAL PROTEIN, SERUM 6.4 g/dL (6.4-8.2)
[2016-08-16 19:39] LABS: ASPARTATE AMINOTRANSFERASE 85 U/L (15-37)
[2016-08-16] MEDS ORDERED: LevETIRAcetam 500 MG TABLET PO ONE (21:45)
[2016-08-16] MEDS ORDERED: MAG HYDROX/AL HYDROX/SIMETH ES 30 ML SUSPENSION UDCUP PO PRN (22:00)
[2016-08-16] MEDS ORDERED: MAGNESIUM HYDROXIDE SUSPENSION 30 ML UDCUP PO PRN (22:00)
[2016-08-16] MEDS ORDERED: HALOPERIDOL 5 MG TABLET PO PRN (22:00)
[2016-08-16] MEDS ORDERED: ACETAMINOPHEN 325 MG TABLET PO PRN (22:00)
[2016-08-16] MEDS ORDERED: ZOLPIDEM TARTRATE 10 MG TABLET PO PRN (22:00)
[2016-08-17 00:42] VITALS: BP 118/68
[2016-08-17] MEDS ORDERED: PNEUMOCOCCAL VACCINE POLYVALENT 0.5 ML VIAL [PPSV23] IM ONE (01:30)
[2016-08-17] MEDS ORDERED: LOPERAMIDE HCL 2 MG CAPSULE PO PRN (09:15)
[2016-08-17] MEDS ORDERED: BENZOCAINE/MENTHOL LOZENGE [8 LOZENGES/PACKET] MM PRN (09:15)
[2016-08-17] MEDS ORDERED: BACITRACIN 28.4 GM OINTMENT TP PRN (09:15)
[2016-08-17] MEDS ORDERED: IBUPROFEN 600 MG TABLET PO PRN (09:15)
[2016-08-17] MEDS ORDERED: MAGNESIUM HYDROXIDE SUSPENSION 30 ML UDCUP PO PRN (09:15)
[2016-08-17] MEDS ORDERED: MAG HYDROX/AL HYDROX/SIMETH ES 30 ML SUSPENSION UDCUP PO PRN (09:15)
[2016-08-17] MEDS ORDERED: CloNIDine HCL 0.1 MG TABLET PO PRN (09:15)
[2016-08-17] MEDS ORDERED: PETROLATUM,WHITE 71 GM JELLY TP PRN (09:15)
[2016-08-17] MEDS ORDERED: ACETAMINOPHEN 325 MG TABLET PO PRN (09:15)
[2016-08-17] MEDS ORDERED: ONDANSETRON HCL 4 MG TABLET PO PRN (09:15)
[2016-08-17] MEDS ORDERED: ALBUTEROL SULFATE HFA 90 MCG/PUFF 8 GM INHALER IH PRN (09:15)
[2016-08-17] MEDS ORDERED: METHADONE HCL 10 MG TABLET PO ONE (09:15)
[2016-08-17] MEDS: LORazepam 2 MG TABLET PO PRN ×3 (09:54→19:38)
[2016-08-17 10:23] LABS: APPEARANCE,URINE CLOUDY (CLEAR); GLUCOSE, URINE (UA) NEGATIVE (NEGATIVE); KETONES,URINE NEGATIVE (NEGATIVE); LEUKOCYTE ESTERASE ,URINE NEGATIVE (NEGATIVE); OCCULT BLOOD,URINE NEGATIVE (NEGATIVE); PH,URINE 5.5 (5.0-8.0); PROTEIN,URINE NEGATIVE (NEGATIVE)
[2016-08-17] MEDS: NICOTINE 21 MG/24 HOUR PATCH TD SCH (10:23)
[2016-08-17 10:41] LABS: CALCIUM OXALATE CRYSTALS,UR Moderate /LPF (None Seen); RBC,URINE 0-2 /HPF (0-2); WBC,URINE 0-2 /HPF (0-5)
[2016-08-17 11:07] VITALS: BP 117/74
[2016-08-17] MEDS: GABAPENTIN 400 MG CAPSULE PO SCH ×2 (12:55→16:32)
[2016-08-17] MEDS: ACAMPROSATE CALCIUM 333 MG DR TABLET PO SCH ×2 (13:21→16:32)
[2016-08-17] MEDS ORDERED: QUEtiapine FUMARATE 100 MG TABLET PO PRN (16:15)
[2016-08-17] MEDS ORDERED: ARIPiprazole ER SUSPENSION 400 MG PRE-FILLED DUAL CHAMBER SYRINGE IM ONE (16:15)
[2016-08-17] MEDS ORDERED: QUEtiapine FUMARATE 200 MG TABLET PO PRN (16:15)
[2016-08-17 16:28] VITALS: BP 117/66
[2016-08-17] MEDS ORDERED: CYANOCOBALAMIN 1,000 MCG/ML VIAL IM ONE (17:15)
[2016-08-17] MEDS: MIRTAZAPINE 15 MG TABLET PO SCH (20:56)
[2016-08-17] MEDS: ESZOPICLONE 3 MG TABLET PO SCH (20:56)
[2016-08-18] MEDS: METHADONE HCL 10 MG TABLET PO SCH (05:46)
[2016-08-18] MEDS: OMEPRAZOLE 20 MG CAPSULE PO SCH (10:09)
[2016-08-18] MEDS: DULoxetine HCL 60 MG CAPSULE PO SCH (10:09)
[2016-08-18] MEDS: DOCUSATE SODIUM 100 MG CAPSULE PO SCH (10:09)
[2016-08-18] MEDS: GABAPENTIN 400 MG CAPSULE PO SCH ×3 (10:10→17:32)
[2016-08-18] MEDS: ARIPiprazole 10 MG TABLET PO SCH (10:10)
[2016-08-18] MEDS: ACAMPROSATE CALCIUM 333 MG DR TABLET PO SCH ×3 (10:10→17:32)
[2016-08-18] MEDS: NICOTINE 21 MG/24 HOUR PATCH TD SCH (10:14)
[2016-08-18] MEDS: LORazepam 2 MG TABLET PO PRN (11:25)
[2016-08-18 12:04] VITALS: BP 117/79
[2016-08-18 16:00] VITALS: BP 124/82
[2016-08-18] MEDS: MIRTAZAPINE 15 MG TABLET PO SCH (21:00)
[2016-08-18] MEDS: ESZOPICLONE 3 MG TABLET PO SCH (21:00)
[2016-08-19] MEDS: LORazepam 2 MG TABLET PO PRN ×3 (05:03→17:26)
[2016-08-19] MEDS: METHADONE HCL 10 MG TABLET PO SCH (05:25)
[2016-08-19] MEDS: ARIPiprazole 10 MG TABLET PO SCH (08:32)
[2016-08-19] MEDS: OMEPRAZOLE 20 MG CAPSULE PO SCH (08:33)
[2016-08-19] MEDS: GABAPENTIN 400 MG CAPSULE PO SCH ×3 (08:33→17:14)
[2016-08-19] MEDS: DOCUSATE SODIUM 100 MG CAPSULE PO SCH (08:33)
[2016-08-19] MEDS: DULoxetine HCL 60 MG CAPSULE PO SCH (08:33)
[2016-08-19 08:34] VITALS: BP 132/81
[2016-08-19] MEDS: NICOTINE 21 MG/24 HOUR PATCH TD SCH (08:35)
[2016-08-19] MEDS: ACAMPROSATE CALCIUM 333 MG DR TABLET PO SCH ×3 (08:35→17:14)
[2016-08-19 18:00] VITALS: BP 134/76
[2016-08-19] MEDS: ESZOPICLONE 3 MG TABLET PO SCH (21:17)
[2016-08-19] MEDS: MIRTAZAPINE 15 MG TABLET PO SCH (21:17)
[2016-08-20 05:40] VITALS: BP 103/67
[2016-08-20] MEDS: METHADONE HCL 10 MG TABLET PO SCH (05:54)
[2016-08-20] MEDS: LORazepam 2 MG TABLET PO PRN ×3 (06:29→17:29)
[2016-08-20 09:04] VITALS: BP 114/80
[2016-08-20] MEDS: GABAPENTIN 400 MG CAPSULE PO SCH ×3 (09:07→16:19)
[2016-08-20] MEDS: DULoxetine HCL 60 MG CAPSULE PO SCH (09:07)
[2016-08-20] MEDS: OMEPRAZOLE 20 MG CAPSULE PO SCH (09:07)
[2016-08-20] MEDS: DOCUSATE SODIUM 100 MG CAPSULE PO SCH (09:07)
[2016-08-20] MEDS: ARIPiprazole 10 MG TABLET PO SCH (09:07)
[2016-08-20] MEDS: NICOTINE 21 MG/24 HOUR PATCH TD SCH (09:07)
[2016-08-20] MEDS: ACAMPROSATE CALCIUM 333 MG DR TABLET PO SCH ×3 (09:08→16:19)
[2016-08-20] MEDS ORDERED: ARIP10TA14 PO (17:11)
[2016-08-20] MEDS ORDERED: ACAM333T7 PO (17:11)
[2016-08-20] MEDS ORDERED: ARIP400S3 IM (17:11)
[2016-08-20] MEDS ORDERED: DULO60CA44 PO (17:11)
[2016-08-20] MEDS ORDERED: MIRT15 PO (17:11)
[2016-08-20] MEDS ORDERED: ESZO3 PO (17:11)
[2016-08-20] MEDS ORDERED: GABA-533 PO (17:11)
[2016-08-20 17:17] VITALS: BP 114/76
[2016-08-20] MEDS: MIRTAZAPINE 15 MG TABLET PO SCH (21:17)
[2016-08-20] MEDS: ESZOPICLONE 3 MG TABLET PO SCH (21:17)
[2016-08-21 06:19] VITALS: BP 112/80
[2016-08-21] MEDS: METHADONE HCL 10 MG TABLET PO SCH (06:20)
[2016-08-21] MEDS: LORazepam 2 MG TABLET PO PRN ×2 (06:54→10:58)
[2016-08-21] MEDS: OMEPRAZOLE 20 MG CAPSULE PO SCH (08:08)
[2016-08-21] MEDS: DULoxetine HCL 60 MG CAPSULE PO SCH (08:08)
[2016-08-21] MEDS: DOCUSATE SODIUM 100 MG CAPSULE PO SCH (08:09)
[2016-08-21] MEDS: ARIPiprazole 10 MG TABLET PO SCH (08:09)
[2016-08-21] MEDS: ACAMPROSATE CALCIUM 333 MG DR TABLET PO SCH ×3 (08:09→13:00)
[2016-08-21] MEDS: GABAPENTIN 400 MG CAPSULE PO SCH ×2 (08:09→13:18)
[2016-08-21] MEDS: NICOTINE 21 MG/24 HOUR PATCH TD SCH (08:14)
[2016-08-21] MEDS ORDERED: OMEP20 PO (08:25)
[2016-08-21] MEDS ORDERED: ARIP10TA14 PO (08:25)
[2016-08-21] MEDS ORDERED: DSS100 PO (08:25)
[2016-08-21] MEDS ORDERED: ESZO3 PO (08:25)
[2016-08-21 09:38] VITALS: BP 104/80
[2016-09-14] MEDS ORDERED: ARIPiprazole ER SUSPENSION 400 MG PRE-FILLED DUAL CHAMBER SYRINGE IM SCH (09:00)
== END 2016-08-21 15:38 | disposition home or self-care (01) | DRG 750 ==
LOC: EMS 18:41 → 3EI 21:51
PROVIDERS: ADMIT Psychiatry & Neurology Psychiatry; ATTEND Psychiatry & Neurology Psychiatry
DX: F25.9 Schizoaffective disorder, unspecified (principal); E44.0 Moderate protein-calorie malnutrition; R45.851 Suicidal ideations; F11.20 Opioid dependence, uncomplicated; J44.9 Chronic obstructive pulmonary disease, unspecified; G40.909 Epilepsy, unspecified, not intractable, without status epilepticus; F17.210 Nicotine dependence, cigarettes, uncomplicated; B18.2 Chronic viral hepatitis C; K21.9 Gastro-esophageal reflux disease without esophagitis; Z96.641 Presence of right artificial hip joint; G89.29 Other chronic pain; F31.9 Bipolar disorder, unspecified; N40.0 Benign prostatic hyperplasia without lower urinary tract symptoms; Z72.89 Other problems related to lifestyle; Z71.41 Alcohol abuse counseling and surveillance of alcoholic; Z71.6 Tobacco abuse counseling; Z68.1 Body mass index [BMI] 19.9 or less, adult; Z59.0 Homelessness; Z88.8 Allergy status to other drugs, medicaments and biological substances; Z91.19 Patient's noncompliance with other medical treatment and regimen; Z76.5 Malingerer [conscious simulation]; Z28.21 Immunization not carried out because of patient refusal
CPT/HCPCS: 80307; 87081; 99285; G0480; J0401; J3420; J3535

== ENCOUNTER 2016-09-15 19:02 | Inpatient (IN) | payer MEDICAID, OTHER ==
[~2016-09-15] VITALS: Ht 175.3 cm; Wt 58.6 kg
[~2016-09-15 19:02] MED LIST changes: +DSS100 PO; +ESZO3 PO; -LEVE500T53 PO; +OMEP20 PO
[2016-09-15] MEDS ORDERED: CLON2 PO (20:35)
[2016-09-15] MEDS ORDERED: LORA2TAB2 PO ×2 (20:35)
[2016-09-15 21:17] LABS: BASOPHILS % (AUTO) 0.6 % (0.0-2.0); EOSINOPHILS % (AUTO) 4.4 % (1.0-6.0); HEMATOCRIT 39.9 % (41-53); LYMPHOCYTES # (AUTO) 2.2 K/uL (1.0-4.8); LYMPHOCYTES % (AUTO) 39.7 % (22.0-44.0); MEAN CORPUSCULAR HEMOGLOBIN 30.5 pg (26.0-34.0); MEAN CORPUSCULAR HGB CONC 32.5 G/dL (31.0-37.0); MEAN CORPUSCULAR VOLUME 94 fL (80-100); MONOCYTES # (AUTO) 0.6 K/uL (0.1-1.0); MONOCYTES % (AUTO) 10.4 % (2.0-9.0); NEUTROPHILS # (AUTO) 2.5 K/uL (1.8-7.7); NEUTROPHILS % (AUTO) 44.9 % (40.0-70.0); PLATELET COUNT (AUTO) 141 K/uL (150-450); RED BLOOD CELL COUNT(AUTO) 4.26 MIL/uL (4.50-5.90); RED CELL DISTRIBUTION WIDTH 13.2 % (11.5-14.5); WHITE BLOOD COUNT (AUTO) 5.5 K/uL (4.5-11.0)
[2016-09-15 21:31] LABS: ANION GAP 6 mmol/L (8-16); CALCIUM, TOTAL 8.9 mg/dL (8.8-10.5); CARBON DIOXIDE 35 mmol/L (22-29); CHLORIDE 105 mmol/L (98-107); GLOMERULAR FILTR. RATE CALC > 60 mL/min (>60); POTASSIUM 4.2 mmol/L (3.5-5.1); SODIUM SERUM 146 mmol/L (136-145); UREA NITROGEN, BLOOD 7 mg/dL (7-18)
[2016-09-15 21:38] LABS: ALANINE AMINOTRANSFERASE 53 U/L (12-78); ALBUMIN 3.4 g/dL (3.4-5.0); ASPARTATE AMINOTRANSFERASE 66 U/L (15-37); BILIRUBIN,TOTAL 0.4 mg/dL (0.1-1.0); TOTAL PROTEIN, SERUM 6.5 g/dL (6.4-8.2)
[2016-09-15] MEDS ORDERED: ZOLPIDEM TARTRATE 10 MG TABLET PO PRN (21:45)
[2016-09-16] MEDS: LORazepam 2 MG TABLET PO PRN ×3 (05:10→13:56)
[2016-09-16] MEDS: HALOPERIDOL 5 MG TABLET PO PRN ×3 (05:14→13:56)
[2016-09-16] MEDS: NICOTINE 21 MG/24 HOUR PATCH TD SCH (09:23)
[2016-09-16 12:07] LABS: ADD UA MICROSCOPIC YES; APPEARANCE,URINE CLEAR (CLEAR); GLUCOSE, URINE (UA) NEGATIVE (NEGATIVE); KETONES,URINE NEGATIVE (NEGATIVE); LEUKOCYTE ESTERASE ,URINE TRACE (NEGATIVE); OCCULT BLOOD,URINE LARGE (NEGATIVE); PROTEIN,URINE NEGATIVE (NEGATIVE)
[2016-09-16 12:28] LABS: SQUAMOUS EPITHELIAL CELL,UR Few /LPF (None Seen)
[2016-09-16 18:08] VITALS: BP 114/74
[2016-09-17 07:14] VITALS: BP 102/68
[2016-09-17] MEDS: LORazepam 2 MG TABLET PO PRN ×2 (07:40→11:54)
[2016-09-17] MEDS ORDERED: PETROLATUM,WHITE 71 GM JELLY TP PRN (07:45)
[2016-09-17] MEDS ORDERED: LOPERAMIDE HCL 2 MG CAPSULE PO PRN ×2 (07:45→12:30)
[2016-09-17] MEDS ORDERED: ALBUTEROL SULFATE HFA 90 MCG/PUFF 8 GM INHALER IH PRN (07:45)
[2016-09-17] MEDS ORDERED: ACETAMINOPHEN 325 MG TABLET PO PRN ×2 (07:45→12:30)
[2016-09-17] MEDS ORDERED: BACITRACIN 28.4 GM OINTMENT TP PRN (07:45)
[2016-09-17] MEDS ORDERED: MAG HYDROX/AL HYDROX/SIMETH ES 30 ML SUSPENSION UDCUP PO PRN ×2 (07:45→12:30)
[2016-09-17] MEDS ORDERED: ONDANSETRON HCL 4 MG TABLET PO PRN (07:45)
[2016-09-17] MEDS ORDERED: MAGNESIUM HYDROXIDE SUSPENSION 30 ML UDCUP PO PRN ×2 (07:45→12:30)
[2016-09-17] MEDS ORDERED: CloNIDine HCL 0.1 MG TABLET PO PRN (07:45)
[2016-09-17] MEDS ORDERED: BENZOCAINE/MENTHOL LOZENGE [8 LOZENGES/PACKET] MM PRN (08:00)
[2016-09-17 08:45] VITALS: BP 118/70
[2016-09-17] MEDS: METHADONE HCL 10 MG TABLET PO SCH (09:51)
[2016-09-17] MEDS: LevETIRAcetam 500 MG TABLET PO SCH (09:51)
[2016-09-17] MEDS: NICOTINE 21 MG/24 HOUR PATCH TD SCH (09:52)
[2016-09-17] MEDS: OMEPRAZOLE 20 MG CAPSULE PO SCH (09:52)
[2016-09-17] MEDS: HALOPERIDOL 5 MG TABLET PO PRN (11:54)
[2016-09-17] MEDS ORDERED: GuaiFENesin/D-METHORPHAN [SUGAR-FREE] 200-20MG/10 ML SYRUP UDCUP PO PRN (12:30)
[2016-09-17] MEDS ORDERED: PROMETHAZINE HCL 25 MG TABLET PO PRN (12:30)
[2016-09-17] MEDS ORDERED: HydrOXYzine PAMOATE 50 MG CAPSULE PO PRN (12:30)
[2016-09-17] MEDS ORDERED: GABAPENTIN 400 MG CAPSULE PO PRN (12:30)
[2016-09-17] MEDS: GABAPENTIN 400 MG CAPSULE PO SCH ×3 (13:30→21:39)
[2016-09-17] MEDS: THIAMINE HCL 100 MG TABLET PO SCH (17:24)
[2016-09-17] MEDS: ACAMPROSATE CALCIUM 333 MG DR TABLET PO SCH (17:25)
[2016-09-17] MEDS ORDERED: QUEtiapine FUMARATE 200 MG TABLET PO PRN (17:30)
[2016-09-17] MEDS ORDERED: QUEtiapine FUMARATE 100 MG TABLET PO PRN (17:30)
[2016-09-17 19:47] VITALS: BP 122/86
[2016-09-17] MEDS ORDERED: MIRTAZAPINE 15 MG TABLET PO SCH (21:00)
[2016-09-17] MEDS ORDERED: ESZOPICLONE 3 MG TABLET PO SCH (21:00)
[2016-09-18] MEDS: METHADONE HCL 10 MG TABLET PO SCH (06:40)
[2016-09-18] MEDS ORDERED: ARIPiprazole 15 MG TABLET PO SCH (09:00)
[2016-09-18] MEDS ORDERED: MULTIVITAMINS WITH MINERALS, THERAPEUTIC TABLET PO SCH (09:00)
[2016-09-18] MEDS ORDERED: DULoxetine HCL 60 MG CAPSULE PO SCH (09:00)
[2016-09-18] MEDS ORDERED: FOLIC ACID 1 MG TABLET PO SCH (09:00)
[2016-09-18 10:02] VITALS: BP 100/76
[2016-09-18] MEDS: ACAMPROSATE CALCIUM 333 MG DR TABLET PO SCH ×3 (10:05→16:03)
[2016-09-18] MEDS: OMEPRAZOLE 20 MG CAPSULE PO SCH (10:06)
[2016-09-18] MEDS: GABAPENTIN 400 MG CAPSULE PO SCH ×3 (10:06→16:03)
[2016-09-18] MEDS: THIAMINE HCL 100 MG TABLET PO SCH ×2 (10:06→16:02)
[2016-09-18] MEDS: LevETIRAcetam 500 MG TABLET PO SCH ×2 (10:07→16:02)
[2016-09-18] MEDS: NICOTINE 21 MG/24 HOUR PATCH TD SCH (10:10)
[2016-09-18] MEDS ORDERED: ACAM333T7 PO (16:02)
[2016-09-18] MEDS ORDERED: ARIP15TA3 PO ×3 (16:02→17:13)
[2016-09-18] MEDS ORDERED: MIRT15 PO (16:02)
[2016-09-18] MEDS ORDERED: DULO60CA44 PO (16:02)
[2016-09-18] MEDS ORDERED: ESZO3 PO (16:02)
[2016-09-18] MEDS ORDERED: GABA-533 PO ×2 (16:02→17:12)
[2016-09-18] MEDS ORDERED: LEVE500T53 PO (16:02)
[2016-09-18] MEDS ORDERED: OMEP20 PO (16:27)
[2016-09-18] MEDS ORDERED: ARIP10TA14 PO (16:34)
[2016-09-18] MEDS ORDERED: CIPROFLOXACIN HCL 250 MG TABLET PO SCH (18:00)
== END 2016-09-18 17:30 | disposition home or self-care (01) | DRG 750 ==
LOC: EEVIPCON 19:06 → EMS 19:06 → AHU 09-16 14:39 → 3EI 09-17 17:00
PROVIDERS: ADMIT Psychiatry & Neurology Psychiatry; ATTEND Psychiatry & Neurology Psychiatry
PROC: GZ51ZZZ Individual Psychotherapy, Behavioral (ICD-10-PCS; principal; 2016-09-16)
DX: F25.9 Schizoaffective disorder, unspecified (principal); E87.0 Hyperosmolality and hypernatremia; R45.851 Suicidal ideations; F11.20 Opioid dependence, uncomplicated; N39.0 Urinary tract infection, site not specified; J44.9 Chronic obstructive pulmonary disease, unspecified; D64.9 Anemia, unspecified; S61.512A Laceration without foreign body of left wrist, initial encounter; F17.210 Nicotine dependence, cigarettes, uncomplicated; G40.909 Epilepsy, unspecified, not intractable, without status epilepticus; K21.9 Gastro-esophageal reflux disease without esophagitis; Z96.698 Presence of other orthopedic joint implants; F12.90 Cannabis use, unspecified, uncomplicated; B18.2 Chronic viral hepatitis C; F31.9 Bipolar disorder, unspecified; G47.00 Insomnia, unspecified; X58.XXXA Exposure to other specified factors, initial encounter; F22 Delusional disorders; M17.9 Osteoarthritis of knee, unspecified; D72.829 Elevated white blood cell count, unspecified; Z53.29 Procedure and treatment not carried out because of patient's decision for other reasons; Z79.899 Other long term (current) drug therapy; Z79.2 Long term (current) use of antibiotics; Z88.8 Allergy status to other drugs, medicaments and biological substances; Z59.0 Homelessness; Z71.6 Tobacco abuse counseling; Y93.89 Activity, other specified; Y92.89 Other specified places as the place of occurrence of the external cause; Y99.8 Other external cause status
CPT/HCPCS: 99285; G0482

== ENCOUNTER 2016-10-16 20:27 | Inpatient (IN) | payer MEDICAID, OTHER ==
[~2016-10-16] VITALS: Ht 177.8 cm; Wt 59.9 kg
[~2016-10-16 20:27] MED LIST changes: -ARIP10TA14 PO; +ARIP15TA3 PO; -ARIP400S3 IM; -DSS100 PO; +LEVE500T53 PO
[2016-10-16 21:23] LABS: BASOPHILS # (AUTO) 0.04 K/uL (0.00-0.20); BASOPHILS % (AUTO) 0.4 % (0.0-2.0); EOSINOPHILS # (AUTO) 0.29 K/uL (0.00-0.70); EOSINOPHILS % (AUTO) 3.36 % (1.0-6.0); HEMATOCRIT 41.5 % (41-53); HEMOGLOBIN 13.7 g/dL (13.5-17.5); LYMPHOCYTES # (AUTO) 1.8 K/uL (1.0-4.8); LYMPHOCYTES % (AUTO) 20.3 % (22.0-44.0); MEAN CORPUSCULAR VOLUME 94 fL (80-100); MONOCYTES # (AUTO) 0.7 K/uL (0.1-1.0); MONOCYTES % (AUTO) 8.2 % (2.0-9.0); NEUTROPHILS # (AUTO) 5.9 K/uL (1.8-7.7); NEUTROPHILS % (AUTO) 67.7 % (40.0-70.0); PLATELET COUNT (AUTO) 138 K/uL (150-450); RED BLOOD CELL COUNT(AUTO) 4.41 MIL/uL (4.50-5.90); RED CELL DISTRIBUTION WIDTH 13.7 % (11.5-14.5); WHITE BLOOD COUNT (AUTO) 8.7 K/uL (4.5-11.0)
[2016-10-16] MEDS ORDERED: BACITRACIN 0.9 GM PACKET OINTMENT TP ONE (21:30)
[2016-10-16 21:31] LABS: ANION GAP 4 mmol/L (8-16); CALCIUM, TOTAL 9.3 mg/dL (8.8-10.5); CARBON DIOXIDE 36 mmol/L (22-29); CHLORIDE 100 mmol/L (98-107); CREATININE 0.89 mg/dL (0.60-1.30); GLOMERULAR FILTR. RATE CALC > 60 mL/min (>60); POTASSIUM 3.9 mmol/L (3.5-5.1); SODIUM SERUM 140 mmol/L (136-145); UREA NITROGEN, BLOOD 7 mg/dL (7-18)
[2016-10-16 21:37] LABS: ALANINE AMINOTRANSFERASE 65 U/L (12-78); ALBUMIN 3.9 g/dL (3.4-5.0); ASPARTATE AMINOTRANSFERASE 74 U/L (15-37); BILIRUBIN,TOTAL 0.8 mg/dL (0.1-1.0); TOTAL PROTEIN, SERUM 7.3 g/dL (6.4-8.2)
[2016-10-17 01:49] VITALS: BP 119/70
[2016-10-17] MEDS ORDERED: HALOPERIDOL 5 MG TABLET PO PRN (03:00)
[2016-10-17] MEDS ORDERED: ZOLPIDEM TARTRATE 10 MG TABLET PO PRN (03:00)
[2016-10-17] MEDS: LORazepam 2 MG TABLET PO PRN ×3 (08:33→20:49)
[2016-10-17] MEDS ORDERED: CloNIDine HCL 0.1 MG TABLET PO PRN (09:00)
[2016-10-17] MEDS ORDERED: BACITRACIN 28.4 GM OINTMENT TP PRN (09:00)
[2016-10-17] MEDS ORDERED: ONDANSETRON HCL 4 MG TABLET PO PRN (09:00)
[2016-10-17] MEDS ORDERED: MAG HYDROX/AL HYDROX/SIMETH ES 30 ML SUSPENSION UDCUP PO PRN (09:00)
[2016-10-17] MEDS ORDERED: ALBUTEROL SULFATE HFA 90 MCG/PUFF 8 GM INHALER IH PRN (09:00)
[2016-10-17] MEDS ORDERED: MAGNESIUM HYDROXIDE SUSPENSION 30 ML UDCUP PO PRN (09:00)
[2016-10-17] MEDS ORDERED: LOPERAMIDE HCL 2 MG CAPSULE PO PRN (09:00)
[2016-10-17] MEDS ORDERED: PETROLATUM,WHITE 71 GM JELLY TP PRN (09:00)
[2016-10-17] MEDS ORDERED: ACETAMINOPHEN 325 MG TABLET PO PRN (09:00)
[2016-10-17] MEDS ORDERED: BENZOCAINE/MENTHOL LOZENGE MM PRN (09:00)
[2016-10-17] MEDS: LevETIRAcetam 500 MG TABLET PO SCH (09:21)
[2016-10-17] MEDS ORDERED: HydrOXYzine PAMOATE 50 MG CAPSULE PO PRN (12:15)
[2016-10-17] MEDS ORDERED: GuaiFENesin/D-METHORPHAN [SUGAR-FREE] 200-20MG/10 ML SYRUP UDCUP PO PRN (12:15)
[2016-10-17] MEDS: GABAPENTIN 400 MG CAPSULE PO SCH ×3 (14:29→20:49)
[2016-10-17] MEDS: ACAMPROSATE CALCIUM 333 MG DR TABLET PO SCH (16:00)
[2016-10-17 19:43] VITALS: BP 110/70
[2016-10-17] MEDS: MIRTAZAPINE 15 MG TABLET PO SCH (20:48)
[2016-10-17] MEDS: ESZOPICLONE 3 MG TABLET PO SCH (20:48)
[2016-10-17] MEDS: THIAMINE HCL 100 MG TABLET PO SCH (20:48)
[2016-10-18 06:00] VITALS: BP 110/68
[2016-10-18] MEDS: METHADONE HCL 10 MG TABLET PO SCH (06:05)
[2016-10-18] MEDS: OMEPRAZOLE 20 MG CAPSULE PO SCH (06:25)
[2016-10-18 08:22] VITALS: BP 105/66
[2016-10-18] MEDS: GABAPENTIN 400 MG CAPSULE PO SCH ×4 (08:45→20:17)
[2016-10-18] MEDS: FOLIC ACID 1 MG TABLET PO SCH (08:46)
[2016-10-18] MEDS: LORazepam 2 MG TABLET PO PRN ×3 (08:46→20:20)
[2016-10-18] MEDS: ARIPiprazole 15 MG TABLET PO SCH (08:46)
[2016-10-18] MEDS: DULoxetine HCL 60 MG CAPSULE PO SCH (08:46)
[2016-10-18] MEDS: THIAMINE HCL 100 MG TABLET PO SCH ×2 (08:47→17:45)
[2016-10-18] MEDS: NICOTINE 21 MG/24 HOUR PATCH TD SCH (08:47)
[2016-10-18] MEDS: MULTIVITAMINS WITH MINERALS, THERAPEUTIC TABLET PO SCH (08:48)
[2016-10-18] MEDS: ACAMPROSATE CALCIUM 333 MG DR TABLET PO SCH ×3 (08:51→17:00)
[2016-10-18] MEDS: LevETIRAcetam 500 MG TABLET PO SCH ×2 (09:36→17:45)
[2016-10-18] MEDS ORDERED: PERMETHRIN 5% 60 GM CREAM TP ONE (10:30)
[2016-10-18] MEDS ORDERED: GABA-533 PO (15:16)
[2016-10-18] MEDS ORDERED: DULO60CA44 PO (15:16)
[2016-10-18] MEDS ORDERED: ACAM333T7 PO (15:16)
[2016-10-18] MEDS ORDERED: ESZO3 PO (15:16)
[2016-10-18] MEDS ORDERED: LEVE500T53 PO (15:16)
[2016-10-18] MEDS ORDERED: MIRT15 PO (15:16)
[2016-10-18] MEDS ORDERED: ARIP15TA3 PO (15:16)
[2016-10-18 16:27] VITALS: BP 105/68
[2016-10-18] MEDS: MIRTAZAPINE 15 MG TABLET PO SCH (20:18)
[2016-10-18] MEDS: ESZOPICLONE 3 MG TABLET PO SCH (20:20)
[2016-10-19 05:06] VITALS: BP 112/73
[2016-10-19] MEDS: METHADONE HCL 10 MG TABLET PO SCH (05:18)
[2016-10-19 06:19] VITALS: BP 109/71
[2016-10-19] MEDS: OMEPRAZOLE 20 MG CAPSULE PO SCH (06:22)
[2016-10-19] MEDS: LORazepam 2 MG TABLET PO PRN ×2 (06:22→12:34)
[2016-10-19] MEDS: GABAPENTIN 400 MG CAPSULE PO SCH ×2 (08:25→12:34)
[2016-10-19] MEDS: MULTIVITAMINS WITH MINERALS, THERAPEUTIC TABLET PO SCH (08:25)
[2016-10-19] MEDS: ARIPiprazole 15 MG TABLET PO SCH (08:25)
[2016-10-19] MEDS: FOLIC ACID 1 MG TABLET PO SCH (08:25)
[2016-10-19] MEDS: DULoxetine HCL 60 MG CAPSULE PO SCH (08:25)
[2016-10-19] MEDS: NICOTINE 21 MG/24 HOUR PATCH TD SCH (08:25)
[2016-10-19] MEDS: THIAMINE HCL 100 MG TABLET PO SCH (08:25)
[2016-10-19 08:41] VITALS: BP 123/76
[2016-10-19] MEDS: ACAMPROSATE CALCIUM 333 MG DR TABLET PO SCH ×2 (09:00→12:50)
[2016-10-19] MEDS: LevETIRAcetam 500 MG TABLET PO SCH (09:09)
[2016-10-19 16:22] VITALS: BP 112/69
== END 2016-10-19 16:00 | disposition home or self-care (01) | DRG 750 ==
LOC: EMS 20:30 → EEVIPCON 20:30 → AHU 10-17 01:40 → B2S 10-17 18:02
PROVIDERS: ADMIT Psychiatry & Neurology Psychiatry; ATTEND Psychiatry & Neurology Psychiatry
DX: F25.9 Schizoaffective disorder, unspecified (principal); G93.41 Metabolic encephalopathy; R56.9 Unspecified convulsions; J44.9 Chronic obstructive pulmonary disease, unspecified; R45.851 Suicidal ideations; F19.20 Other psychoactive substance dependence, uncomplicated; F17.200 Nicotine dependence, unspecified, uncomplicated; B18.2 Chronic viral hepatitis C; M19.90 Unspecified osteoarthritis, unspecified site; Z88.5 Allergy status to narcotic agent; Z88.8 Allergy status to other drugs, medicaments and biological substances; K21.9 Gastro-esophageal reflux disease without esophagitis; K59.00 Constipation, unspecified; G47.00 Insomnia, unspecified; Z91.14 Patient's other noncompliance with medication regimen
CPT/HCPCS: 87081; 99285; G0480; G0482

== ENCOUNTER 2016-10-29 11:27 | Emergency (ER) | payer MEDICAID, OTHER ==
[~2016-10-29] VITALS: Ht 177.8 cm; Wt 68.2 kg
[~2016-10-29 11:27] MED LIST changes: -OMEP20 PO
[2016-10-29 12:18] LABS: BASOPHILS % (AUTO) 0.4 % (0.0-2.0); EOSINOPHILS % (AUTO) 2.1 % (1.0-6.0); HEMATOCRIT 43.2 % (41-53); HEMOGLOBIN 14.3 g/dL (13.5-17.5); LYMPHOCYTES # (AUTO) 1.8 K/uL (1.0-4.8); LYMPHOCYTES % (AUTO) 27.2 % (22.0-44.0); MEAN CORPUSCULAR HEMOGLOBIN 31.2 pg (26.0-34.0); MEAN CORPUSCULAR HGB CONC 33.2 G/dL (31.0-37.0); MEAN CORPUSCULAR VOLUME 94 fL (80-100); MONOCYTES # (AUTO) 0.4 K/uL (0.1-1.0); MONOCYTES % (AUTO) 5.6 % (2.0-9.0); NEUTROPHILS # (AUTO) 4.2 K/uL (1.8-7.7); NEUTROPHILS % (AUTO) 64.7 % (40.0-70.0); PLATELET COUNT (AUTO) 236 K/uL (150-450); RED CELL DISTRIBUTION WIDTH 13.8 % (11.5-14.5); WHITE BLOOD COUNT (AUTO) 6.5 K/uL (4.5-11.0)
[2016-10-29 12:30] LABS: ANION GAP 6 mmol/L (8-16); CALCIUM, TOTAL 9.3 mg/dL (8.8-10.5); CARBON DIOXIDE 31 mmol/L (22-29); CHLORIDE 104 mmol/L (98-107); CREATININE 0.89 mg/dL (0.60-1.30); GLOMERULAR FILTR. RATE CALC > 60 mL/min (>60); POTASSIUM 4.1 mmol/L (3.5-5.1); SODIUM SERUM 141 mmol/L (136-145); UREA NITROGEN, BLOOD 13 mg/dL (7-18)
[2016-10-29 12:36] LABS: ALANINE AMINOTRANSFERASE 56 U/L (12-78); ALBUMIN 3.8 g/dL (3.4-5.0); ASPARTATE AMINOTRANSFERASE 49 U/L (15-37); BILIRUBIN,TOTAL 0.4 mg/dL (0.1-1.0); TOTAL PROTEIN, SERUM 7.2 g/dL (6.4-8.2)
[2016-10-29] MEDS ORDERED: LORazepam 1 MG TABLET PO ONE (14:00)
[2016-10-29 14:12] VITALS: BP 111/64
== END 2016-10-29 15:22 | disposition home or self-care (01) ==
LOC: EMS 11:28
DX: F31.9 Bipolar disorder, unspecified (principal); F15.10 Other stimulant abuse, uncomplicated; F17.210 Nicotine dependence, cigarettes, uncomplicated; J44.9 Chronic obstructive pulmonary disease, unspecified; Z88.6 Allergy status to analgesic agent; Z88.8 Allergy status to other drugs, medicaments and biological substances
CPT/HCPCS: 36415; 80053; 80307; 85025; 99284; G0480

== ENCOUNTER 2017-06-26 13:06 | Emergency (ER) | payer MEDICAID ==
[~2017-06-26] VITALS: Ht 177.8 cm; Wt 70.0 kg
[~2017-06-26 13:06] MED LIST changes: -ARIP15TA3 PO; -ESZO3 PO; +GABA-531 PO; -GABA-533 PO; +MULT-29 PO; +OMEP20 PO; +TRAM50TA4 PO
[2017-06-26] MEDS ORDERED: KETOROLAC TROMETHAMINE 60 MG/2 ML VIAL IM ONE (14:00)
[2017-06-26] MEDS ORDERED: METHOCARBAMOL 500 MG TABLET PO ONE (14:00)
[2017-06-26 14:25] VITALS: BP 127/68
== END 2017-06-26 14:35 | disposition home or self-care (01) ==
LOC: EMS 13:07
DX: S29.012A Strain of muscle and tendon of back wall of thorax, initial encounter (principal); J44.9 Chronic obstructive pulmonary disease, unspecified; F17.210 Nicotine dependence, cigarettes, uncomplicated; G89.29 Other chronic pain; Z59.0 Homelessness; Z88.8 Allergy status to other drugs, medicaments and biological substances; X58.XXXA Exposure to other specified factors, initial encounter; Y93.73 Activity, racquet and hand sports; Y92.89 Other specified places as the place of occurrence of the external cause; Y99.8 Other external cause status
CPT/HCPCS: 96372; 99283; J1885

== ENCOUNTER 2017-07-02 12:28 | Emergency (ER) | payer MEDICAID, OTHER ==
[~2017-07-02] VITALS: Ht 177.8 cm; Wt 72.7 kg
[2017-07-02] MEDS ORDERED: OLAN5TAB2 PO (12:36)
[2017-07-02 12:38] VITALS: BP 145/100
== END 2017-07-02 16:25 | disposition home or self-care (01) ==
LOC: EMS 12:29 → EEVIPCON 12:29 → EMS 16:25
DX: F25.9 Schizoaffective disorder, unspecified (principal); F41.9 Anxiety disorder, unspecified; I10 Essential (primary) hypertension; J44.9 Chronic obstructive pulmonary disease, unspecified; Z59.0 Homelessness
CPT/HCPCS: 99284

== ENCOUNTER 2017-08-09 10:52 | Inpatient (IN) | payer MEDICAID, OTHER ==
[~2017-08-09] VITALS: Ht 177.8 cm; Wt 74.4 kg
[~2017-08-09 10:52] MED LIST changes: -ACAM333T7 PO; -DULO60CA44 PO; -MULT-29 PO; +OLAN5TAB2 PO
[2017-08-09 12:02] LABS: BASOPHILS % (AUTO) 0.5 % (0.0-2.0); EOSINOPHILS % (AUTO) 2.7 % (1.0-6.0); HEMOGLOBIN 14.3 g/dL (13.5-17.5); LYMPHOCYTES # (AUTO) 1.8 K/uL (1.0-4.8); LYMPHOCYTES % (AUTO) 23.8 % (22.0-44.0); MEAN CORPUSCULAR HGB CONC 34.8 G/dL (31.0-37.0); MEAN CORPUSCULAR VOLUME 92 fL (80-100); MONOCYTES % (AUTO) 12.5 % (2.0-9.0); NEUTROPHILS # (AUTO) 4.6 K/uL (1.8-7.7); NEUTROPHILS % (AUTO) 60.5 % (40.0-70.0); PLATELET COUNT (AUTO) 160 K/uL (150-450); RED BLOOD CELL COUNT(AUTO) 4.46 MIL/uL (4.50-5.90); RED CELL DISTRIBUTION WIDTH 12.5 % (11.5-14.5)
[2017-08-09 12:13] LABS: ANION GAP 10 mmol/L (8-16); CARBON DIOXIDE 28 mmol/L (22-29); CHLORIDE 105 mmol/L (98-107); CREATININE 1.18 mg/dL (0.60-1.30); GLOMERULAR FILTR. RATE CALC > 60 mL/min (>60); GLUCOSE,RANDOM 97 mg/dL (70-110); POTASSIUM 3.5 mmol/L (3.5-5.1); SODIUM SERUM 143 mmol/L (136-145); UREA NITROGEN, BLOOD 14 mg/dL (7-18)
[2017-08-09 12:18] LABS: ALANINE AMINOTRANSFERASE 35 U/L (12-78); ALBUMIN 3.7 g/dL (3.4-5.0); ALKALINE PHOSPHATASE 91 U/L (46-116); ASPARTATE AMINOTRANSFERASE 25 U/L (15-37); BILIRUBIN,TOTAL 0.5 mg/dL (0.1-1.0)
[2017-08-09] MEDS ORDERED: HALOPERIDOL LACTATE 5 MG/ML VIAL IM ONE (12:30)
[2017-08-09] MEDS ORDERED: LORazepam 2 MG/ML VIAL IM ONE (12:30)
[2017-08-09] MEDS ORDERED: DiphenhydrAMINE HCL 50 MG/ML VIAL IM ONE (12:30)
[2017-08-09] MEDS ORDERED: KETOROLAC TROMETHAMINE 60 MG/2 ML VIAL IM ONE (12:45)
[2017-08-09] MEDS ORDERED: HALOPERIDOL 5 MG TABLET PO ONE (13:00)
[2017-08-09] MEDS ORDERED: DiphenhydrAMINE HCL 25 MG CAPSULE PO ONE (13:00)
[2017-08-09] MEDS ORDERED: LORazepam 2 MG TABLET PO ONE (13:00)
[2017-08-09] MEDS ORDERED: HALOPERIDOL 5 MG TABLET PO PRN (14:45)
[2017-08-09] MEDS ORDERED: ZOLPIDEM TARTRATE 10 MG TABLET PO PRN (14:45)
[2017-08-09 17:12] VITALS: BP 120/88
[2017-08-09] MEDS ORDERED: PNEUMOCOCCAL VACCINE POLYVALENT 0.5 ML VIAL [PPSV23] IM ONE (18:30)
[2017-08-09] MEDS ORDERED: INFLUENZA VIRUS VACCINE QVS 2017-18 (3YR+)/PF 60 MCG/0.5 ML SYRINGE IM ONE (18:30)
[2017-08-09] MEDS ORDERED: IBUPROFEN 600 MG TABLET PO PRN (22:15)
[2017-08-10 06:20] VITALS: BP 126/95
[2017-08-10] MEDS: LORazepam 2 MG TABLET PO PRN ×3 (06:25→17:10)
[2017-08-10] MEDS ORDERED: CloNIDine HCL 0.1 MG TABLET PO PRN (08:15)
[2017-08-10] MEDS ORDERED: ALBUTEROL SULFATE HFA 90 MCG/PUFF 8 GM INHALER IH PRN (08:15)
[2017-08-10] MEDS ORDERED: MAG HYDROX/AL HYDROX/SIMETH ES 30 ML SUSPENSION UDCUP PO PRN (08:15)
[2017-08-10] MEDS ORDERED: LOPERAMIDE HCL 2 MG CAPSULE PO PRN (08:15)
[2017-08-10] MEDS ORDERED: BENZOCAINE/MENTHOL LOZENGE MM PRN (08:15)
[2017-08-10] MEDS ORDERED: MAGNESIUM HYDROXIDE SUSPENSION 30 ML UDCUP PO PRN (08:15)
[2017-08-10] MEDS ORDERED: ONDANSETRON HCL 4 MG TABLET PO PRN (08:15)
[2017-08-10] MEDS ORDERED: PETROLATUM,WHITE 71 GM JELLY TP PRN (08:15)
[2017-08-10] MEDS ORDERED: ACETAMINOPHEN 325 MG TABLET PO PRN (08:15)
[2017-08-10] MEDS ORDERED: BACITRACIN 28.4 GM OINTMENT TP PRN (08:15)
[2017-08-10] MEDS: AMOXICILLIN TRIHYDRATE 500 MG CAPSULE PO SCH ×3 (08:16→17:03)
[2017-08-10] MEDS: NICOTINE 21 MG/24 HOUR PATCH TD SCH (08:16)
[2017-08-10] MEDS: LevETIRAcetam 500 MG TABLET PO SCH ×2 (08:16→17:03)
[2017-08-10 08:29] VITALS: BP 122/79
[2017-08-10] MEDS: OMEPRAZOLE 20 MG CAPSULE PO SCH (10:18)
[2017-08-10] MEDS: OLANZapine 5 MG TABLET PO SCH ×2 (10:18→21:02)
[2017-08-10] MEDS: BusPIRone HCL 15 MG TABLET PO SCH ×3 (10:18→17:03)
[2017-08-10] MEDS: GABAPENTIN 300 MG CAPSULE PO SCH ×3 (10:19→17:03)
[2017-08-10 10:44] VITALS: BP 141/94
[2017-08-10] MEDS: IBUPROFEN 600 MG TABLET PO PRN (10:48)
[2017-08-10 16:16] VITALS: BP 122/82
[2017-08-10] MEDS: MIRTAZAPINE 15 MG TABLET PO SCH (21:02)
[2017-08-11] MEDS: LORazepam 2 MG TABLET PO PRN ×4 (00:05→17:41)
[2017-08-11] MEDS: IBUPROFEN 600 MG TABLET PO PRN ×2 (00:06→06:29)
[2017-08-11 00:43] VITALS: BP 129/80
[2017-08-11 06:06] VITALS: BP 121/82
[2017-08-11] MEDS: LevETIRAcetam 500 MG TABLET PO SCH ×2 (08:09→16:19)
[2017-08-11] MEDS: GABAPENTIN 300 MG CAPSULE PO SCH ×3 (08:09→16:19)
[2017-08-11] MEDS: OMEPRAZOLE 20 MG CAPSULE PO SCH (08:09)
[2017-08-11] MEDS: AMOXICILLIN TRIHYDRATE 500 MG CAPSULE PO SCH ×3 (08:10→16:18)
[2017-08-11] MEDS: NICOTINE 21 MG/24 HOUR PATCH TD SCH (08:10)
[2017-08-11] MEDS: BusPIRone HCL 15 MG TABLET PO SCH ×3 (08:10→16:19)
[2017-08-11] MEDS: OLANZapine 5 MG TABLET PO SCH ×2 (08:10→20:01)
[2017-08-11 08:21] VITALS: BP 118/84
[2017-08-11 16:27] VITALS: BP 120/84
[2017-08-11] MEDS: MIRTAZAPINE 15 MG TABLET PO SCH (20:01)
[2017-08-12 01:17] VITALS: BP 124/78
[2017-08-12] MEDS: LORazepam 2 MG TABLET PO PRN (05:26)
[2017-08-12 08:20] VITALS: BP 116/80
[2017-08-12 08:25] LABS: CHOL/HDL RATIO 4.1 (4.2-7.3)
[2017-08-12] MEDS: LevETIRAcetam 500 MG TABLET PO SCH ×2 (08:31→16:01)
[2017-08-12] MEDS: AMOXICILLIN TRIHYDRATE 500 MG CAPSULE PO SCH ×3 (08:31→16:01)
[2017-08-12] MEDS: GABAPENTIN 300 MG CAPSULE PO SCH ×3 (08:31→16:01)
[2017-08-12] MEDS: OLANZapine 5 MG TABLET PO SCH ×2 (08:31→20:35)
[2017-08-12] MEDS: NICOTINE 21 MG/24 HOUR PATCH TD SCH (08:31)
[2017-08-12] MEDS: OMEPRAZOLE 20 MG CAPSULE PO SCH (08:32)
[2017-08-12] MEDS: BusPIRone HCL 15 MG TABLET PO SCH ×3 (08:32→16:01)
[2017-08-12] MEDS: LORazepam 1 MG TABLET PO PRN (11:51)
[2017-08-12 16:12] VITALS: BP 114/80
[2017-08-12] MEDS: MIRTAZAPINE 15 MG TABLET PO SCH (20:35)
[2017-08-13] MEDS: LORazepam 1 MG TABLET PO PRN ×2 (05:31→12:14)
[2017-08-13] MEDS: IBUPROFEN 600 MG TABLET PO PRN (05:31)
[2017-08-13 05:39] VITALS: BP 135/82
[2017-08-13] MEDS: GABAPENTIN 300 MG CAPSULE PO SCH ×2 (08:18→12:00)
[2017-08-13] MEDS: OMEPRAZOLE 20 MG CAPSULE PO SCH (08:18)
[2017-08-13] MEDS: AMOXICILLIN TRIHYDRATE 500 MG CAPSULE PO SCH ×2 (08:18→12:00)
[2017-08-13] MEDS: OLANZapine 5 MG TABLET PO SCH (08:18)
[2017-08-13] MEDS: NICOTINE 21 MG/24 HOUR PATCH TD SCH (08:19)
[2017-08-13] MEDS: BusPIRone HCL 15 MG TABLET PO SCH ×2 (08:19→12:00)
[2017-08-13] MEDS: LevETIRAcetam 500 MG TABLET PO SCH (08:19)
[2017-08-13 08:20] VITALS: BP 122/78
[2017-08-13] MEDS ORDERED: AMOX250C4 PO (11:13)
[2017-08-13] MEDS ORDERED: LEVE500T53 PO (11:13)
[2017-08-13] MEDS ORDERED: BUSP15 PO (11:13)
== END 2017-08-13 14:45 | disposition home or self-care (01) | DRG 750 ==
LOC: EMS 10:54 → B2S 18:07
DX: F25.1 Schizoaffective disorder, depressive type (principal); R45.851 Suicidal ideations; F11.20 Opioid dependence, uncomplicated; B18.2 Chronic viral hepatitis C; I10 Essential (primary) hypertension; G40.909 Epilepsy, unspecified, not intractable, without status epilepticus; J44.9 Chronic obstructive pulmonary disease, unspecified; K21.9 Gastro-esophageal reflux disease without esophagitis; K59.00 Constipation, unspecified; M19.90 Unspecified osteoarthritis, unspecified site; F31.9 Bipolar disorder, unspecified; F17.200 Nicotine dependence, unspecified, uncomplicated; Z88.8 Allergy status to other drugs, medicaments and biological substances; Z79.899 Other long term (current) drug therapy; Z91.5 Personal history of self-harm; Z71.6 Tobacco abuse counseling
CPT/HCPCS: 96372; 99285; G0480; J1885

== ENCOUNTER 2017-09-06 07:54 | Inpatient (IN) | payer MEDICAID, OTHER ==
[~2017-09-06] VITALS: Ht 177.8 cm; Wt 71.9 kg
[~2017-09-06 07:54] MED LIST changes: +AMOX250C4 PO; +BUSP15 PO; -OMEP20 PO; -TRAM50TA4 PO
[2017-09-06] MEDS ORDERED: METH10 PO (08:05)
[2017-09-06] MEDS ORDERED: HALOPERIDOL 5 MG TABLET PO PRN (09:30)
[2017-09-06 10:08] LABS: BASOPHILS % (AUTO) 0.5 % (0.0-2.0); EOSINOPHILS % (AUTO) 4.7 % (1.0-6.0); HEMATOCRIT 40.6 % (41-53); HEMOGLOBIN 14.1 g/dL (13.5-17.5); LYMPHOCYTES # (AUTO) 1.2 K/uL (1.0-4.8); LYMPHOCYTES % (AUTO) 18.9 % (22.0-44.0); MEAN CORPUSCULAR HEMOGLOBIN 31.6 pg (26.0-34.0); MEAN CORPUSCULAR HGB CONC 34.7 G/dL (31.0-37.0); MEAN CORPUSCULAR VOLUME 91 fL (80-100); MONOCYTES # (AUTO) 0.7 K/uL (0.1-1.0); NEUTROPHILS # (AUTO) 4.1 K/uL (1.8-7.7); NEUTROPHILS % (AUTO) 64.9 % (40.0-70.0); PLATELET COUNT (AUTO) 186 K/uL (150-450); RED BLOOD CELL COUNT(AUTO) 4.45 MIL/uL (4.50-5.90); RED CELL DISTRIBUTION WIDTH 12.9 % (11.5-14.5)
[2017-09-06] MEDS ORDERED: CEPHALEXIN MONOHYDRATE 500 MG CAPSULE PO ONE (10:15)
[2017-09-06 10:20] LABS: ANION GAP 7 mmol/L (8-16); CALCIUM, TOTAL 9.1 mg/dL (8.8-10.5); CARBON DIOXIDE 33 mmol/L (22-29); CHLORIDE 99 mmol/L (98-107); CREATININE 0.77 mg/dL (0.60-1.30); GLOMERULAR FILTR. RATE CALC > 60 mL/min (>60); GLUCOSE,RANDOM 73 mg/dL (70-110); POTASSIUM 3.7 mmol/L (3.5-5.1); SODIUM SERUM 139 mmol/L (136-145); UREA NITROGEN, BLOOD 12 mg/dL (7-18)
[2017-09-06 10:28] LABS: ALANINE AMINOTRANSFERASE 54 U/L (12-78); ALBUMIN 3.6 g/dL (3.4-5.0); ALKALINE PHOSPHATASE 82 U/L (46-116); ASPARTATE AMINOTRANSFERASE 71 U/L (15-37); BILIRUBIN,TOTAL 0.7 mg/dL (0.1-1.0); TOTAL PROTEIN, SERUM 7.7 g/dL (6.4-8.2)
[2017-09-06 13:10] LABS: AMPHET/METH SCREEN,URINE NEGATIVE (NEGATIVE); BARBITURATE SCREEN, URINE NEGATIVE (NEGATIVE); BENZODIAZEPINES SCREEN,URINE POSITIVE (NEGATIVE); CANNABINOID SCREEN,URINE POSITIVE (NEGATIVE); COCAINE SCREEN,URINE NEGATIVE (NEGATIVE); METHADONE SCREEN, URINE POSITIVE (NEGATIVE); OPIATE SCREEN,URINE NEGATIVE (NEGATIVE)
[2017-09-06 13:12] LABS: PHENCYCLIDINE SCREEN,URINE NEGATIVE (NEGATIVE)
[2017-09-06] MEDS: LORazepam 1 MG TABLET PO PRN (14:17)
[2017-09-06] MEDS: BusPIRone HCL 15 MG TABLET PO SCH (16:19)
[2017-09-06] MEDS: LevETIRAcetam 500 MG TABLET PO SCH (16:19)
[2017-09-06] MEDS: GABAPENTIN 300 MG CAPSULE PO SCH (16:19)
[2017-09-06] MEDS ORDERED: INFLUENZA VIRUS VACCINE QVS 2017-18 (3YR+)/PF 60 MCG/0.5 ML SYRINGE IM ONE (17:45)
[2017-09-06] MEDS ORDERED: PNEUMOCOCCAL VACCINE POLYVALENT 0.5 ML VIAL [PPSV23] IM ONE (17:45)
[2017-09-06 17:47] VITALS: BP 123/67
[2017-09-06] MEDS ORDERED: MIRTAZAPINE 15 MG TABLET PO SCH (21:00)
[2017-09-06] MEDS: OLANZapine 5 MG TABLET PO SCH (21:55)
[2017-09-07 05:50] VITALS: BP 103/81
[2017-09-07] MEDS: LORazepam 1 MG TABLET PO PRN (06:02)
[2017-09-07] MEDS ORDERED: BACITRACIN 28.4 GM OINTMENT TP PRN (06:30)
[2017-09-07] MEDS ORDERED: BENZOCAINE/MENTHOL LOZENGE MM PRN (06:30)
[2017-09-07] MEDS ORDERED: CloNIDine HCL 0.1 MG TABLET PO PRN (06:30)
[2017-09-07] MEDS ORDERED: IBUPROFEN 600 MG TABLET PO PRN (06:30)
[2017-09-07] MEDS ORDERED: MAG HYDROX/AL HYDROX/SIMETH ES 30 ML SUSPENSION UDCUP PO PRN (06:30)
[2017-09-07] MEDS ORDERED: PETROLATUM,WHITE 71 GM JELLY TP PRN (06:30)
[2017-09-07] MEDS ORDERED: ALBUTEROL SULFATE HFA 90 MCG/PUFF 8 GM INHALER IH PRN (06:30)
[2017-09-07] MEDS ORDERED: ACETAMINOPHEN 325 MG TABLET PO PRN (06:30)
[2017-09-07] MEDS ORDERED: MAGNESIUM HYDROXIDE SUSPENSION 30 ML UDCUP PO PRN (06:30)
[2017-09-07] MEDS ORDERED: CEPHALEXIN MONOHYDRATE 500 MG CAPSULE PO SCH (09:00)
[2017-09-07] MEDS: DOCUSATE SODIUM 100 MG CAPSULE PO SCH (09:00)
[2017-09-07] MEDS: BusPIRone HCL 15 MG TABLET PO SCH ×3 (09:00→17:18)
[2017-09-07 09:26] VITALS: BP 100/75
[2017-09-07] MEDS: METHADONE HCL 10 MG TABLET PO SCH (09:29)
[2017-09-07] MEDS: GABAPENTIN 300 MG CAPSULE PO SCH ×3 (09:30→17:19)
[2017-09-07] MEDS: CEPHALEXIN MONOHYDRATE 500 MG CAPSULE PO SCH ×3 (09:30→17:18)
[2017-09-07] MEDS: LevETIRAcetam 500 MG TABLET PO SCH ×2 (09:30→17:18)
[2017-09-07] MEDS: OMEPRAZOLE 20 MG CAPSULE PO SCH (09:31)
[2017-09-07] MEDS: OLANZapine 5 MG TABLET PO SCH ×2 (09:31→20:35)
[2017-09-07] MEDS: BACITRACIN 28.4 GM OINTMENT TP SCH ×2 (09:35→17:22)
[2017-09-07 20:10] VITALS: BP 98/65
[2017-09-07] MEDS: MIRTAZAPINE 15 MG TABLET PO SCH (20:35)
[2017-09-08] VITALS: BP 94/63
[2017-09-08 06:15] VITALS: BP 99/64
[2017-09-08 08:15] VITALS: BP 107/69
[2017-09-08] MEDS: GABAPENTIN 300 MG CAPSULE PO SCH ×3 (08:17→16:08)
[2017-09-08] MEDS: BusPIRone HCL 15 MG TABLET PO SCH ×3 (08:17→16:08)
[2017-09-08] MEDS: LevETIRAcetam 500 MG TABLET PO SCH ×2 (08:18→16:07)
[2017-09-08] MEDS: OMEPRAZOLE 20 MG CAPSULE PO SCH (08:18)
[2017-09-08] MEDS: METHADONE HCL 10 MG TABLET PO SCH (08:18)
[2017-09-08] MEDS: CEPHALEXIN MONOHYDRATE 500 MG CAPSULE PO SCH ×3 (08:18→16:08)
[2017-09-08] MEDS: DOCUSATE SODIUM 100 MG CAPSULE PO SCH (09:00)
[2017-09-08] MEDS: OLANZapine 5 MG TABLET PO SCH ×2 (09:00→21:49)
[2017-09-08] MEDS: BACITRACIN 28.4 GM OINTMENT TP SCH ×2 (09:00→16:09)
[2017-09-08] MEDS: LOPERAMIDE HCL 2 MG CAPSULE PO PRN (16:37)
[2017-09-08 16:41] VITALS: BP 112/67
[2017-09-08] MEDS: LORazepam 1 MG TABLET PO PRN (17:00)
[2017-09-08] MEDS: MIRTAZAPINE 15 MG TABLET PO SCH (21:49)
[2017-09-09] MEDS: DOCUSATE SODIUM 100 MG CAPSULE PO SCH (08:28)
[2017-09-09] MEDS: METHADONE HCL 10 MG TABLET PO SCH (08:29)
[2017-09-09] MEDS: OMEPRAZOLE 20 MG CAPSULE PO SCH (08:30)
[2017-09-09] MEDS: BusPIRone HCL 15 MG TABLET PO SCH ×3 (08:30→16:42)
[2017-09-09] MEDS: GABAPENTIN 300 MG CAPSULE PO SCH ×3 (08:30→16:42)
[2017-09-09] MEDS: OLANZapine 5 MG TABLET PO SCH ×2 (08:30→21:13)
[2017-09-09] MEDS: LevETIRAcetam 500 MG TABLET PO SCH ×2 (08:30→16:42)
[2017-09-09] MEDS: CEPHALEXIN MONOHYDRATE 500 MG CAPSULE PO SCH ×3 (08:30→16:42)
[2017-09-09] MEDS: BACITRACIN 28.4 GM OINTMENT TP SCH ×2 (08:31→16:43)
[2017-09-09 09:22] VITALS: BP 102/68
[2017-09-09] MEDS: LORazepam 1 MG TABLET PO PRN ×2 (10:47→17:54)
[2017-09-09] MEDS: MIRTAZAPINE 15 MG TABLET PO SCH (21:13)
[2017-09-09] MEDS: ZOLPIDEM TARTRATE 10 MG TABLET PO PRN (21:16)
[2017-09-09 22:04] VITALS: BP 117/81
[2017-09-10] MEDS: LevETIRAcetam 500 MG TABLET PO SCH ×2 (08:19→16:09)
[2017-09-10] MEDS: GABAPENTIN 300 MG CAPSULE PO SCH ×3 (08:19→16:10)
[2017-09-10] MEDS: CEPHALEXIN MONOHYDRATE 500 MG CAPSULE PO SCH ×3 (08:19→16:09)
[2017-09-10] MEDS: OMEPRAZOLE 20 MG CAPSULE PO SCH (08:20)
[2017-09-10] MEDS: OLANZapine 5 MG TABLET PO SCH ×2 (08:20→20:03)
[2017-09-10] MEDS: METHADONE HCL 10 MG TABLET PO SCH (08:20)
[2017-09-10] MEDS: BusPIRone HCL 15 MG TABLET PO SCH ×3 (08:21→16:09)
[2017-09-10] MEDS: BACITRACIN 28.4 GM OINTMENT TP SCH ×2 (08:22→16:10)
[2017-09-10] MEDS: DOCUSATE SODIUM 100 MG CAPSULE PO SCH (09:00)
[2017-09-10 09:03] VITALS: BP 119/70
[2017-09-10] MEDS: LORazepam 1 MG TABLET PO PRN ×2 (10:33→16:26)
[2017-09-10 17:28] VITALS: BP 118/66
[2017-09-10] MEDS: MIRTAZAPINE 15 MG TABLET PO SCH (20:03)
[2017-09-11] MEDS: METHADONE HCL 10 MG TABLET PO SCH (05:58)
[2017-09-11] MEDS: GABAPENTIN 300 MG CAPSULE PO SCH ×3 (08:16→16:20)
[2017-09-11] MEDS: LevETIRAcetam 500 MG TABLET PO SCH ×2 (08:16→16:20)
[2017-09-11] MEDS: CEPHALEXIN MONOHYDRATE 500 MG CAPSULE PO SCH ×3 (08:16→16:20)
[2017-09-11] MEDS: OLANZapine 5 MG TABLET PO SCH (08:16)
[2017-09-11] MEDS: DOCUSATE SODIUM 100 MG CAPSULE PO SCH (08:16)
[2017-09-11] MEDS: BusPIRone HCL 15 MG TABLET PO SCH ×3 (08:17→16:20)
[2017-09-11] MEDS: OMEPRAZOLE 20 MG CAPSULE PO SCH (08:17)
[2017-09-11 08:30] VITALS: BP 116/68
[2017-09-11] MEDS: LORazepam 1 MG TABLET PO PRN ×2 (09:05→16:46)
[2017-09-11] MEDS: BACITRACIN 28.4 GM OINTMENT TP SCH ×2 (09:07→16:21)
[2017-09-11] MEDS: ARIPiprazole 10 MG TABLET PO SCH (13:09)
[2017-09-11 16:44] VITALS: BP 126/84
[2017-09-11] MEDS: MIRTAZAPINE 15 MG TABLET PO SCH (20:44)
[2017-09-12] MEDS: METHADONE HCL 10 MG TABLET PO SCH (06:13)
[2017-09-12 08:00] VITALS: BP 125/78
[2017-09-12] MEDS: DOCUSATE SODIUM 100 MG CAPSULE PO SCH (09:00)
[2017-09-12] MEDS ORDERED: ARIPiprazole LAUROXIL ER SUSPENSION 882 MG/3.2 ML SYRINGE IM SCH (09:00)
[2017-09-12] MEDS: CEPHALEXIN MONOHYDRATE 500 MG CAPSULE PO SCH ×3 (09:16→17:30)
[2017-09-12] MEDS: ONDANSETRON HCL 4 MG TABLET PO PRN (09:16)
[2017-09-12] MEDS: LevETIRAcetam 500 MG TABLET PO SCH ×2 (09:16→17:30)
[2017-09-12] MEDS: OMEPRAZOLE 20 MG CAPSULE PO SCH (09:16)
[2017-09-12] MEDS: LORazepam 1 MG TABLET PO PRN ×3 (09:16→19:02)
[2017-09-12] MEDS: ARIPiprazole 10 MG TABLET PO SCH (09:16)
[2017-09-12] MEDS: BusPIRone HCL 15 MG TABLET PO SCH ×3 (09:16→17:31)
[2017-09-12] MEDS: GABAPENTIN 300 MG CAPSULE PO SCH ×3 (09:16→17:30)
[2017-09-12] MEDS: BACITRACIN 28.4 GM OINTMENT TP SCH ×2 (10:29→17:34)
[2017-09-12 19:43] VITALS: BP 120/72
[2017-09-12] MEDS: MIRTAZAPINE 15 MG TABLET PO SCH (20:08)
[2017-09-13] MEDS: METHADONE HCL 10 MG TABLET PO SCH (06:15)
[2017-09-13 06:32] VITALS: BP 105/76
[2017-09-13 08:00] VITALS: BP 117/83
[2017-09-13] MEDS: DOCUSATE SODIUM 100 MG CAPSULE PO SCH (09:00)
[2017-09-13] MEDS: LORazepam 1 MG TABLET PO PRN ×2 (09:09→17:00)
[2017-09-13] MEDS: LevETIRAcetam 500 MG TABLET PO SCH ×2 (09:09→16:13)
[2017-09-13] MEDS: BusPIRone HCL 15 MG TABLET PO SCH ×3 (09:10→16:12)
[2017-09-13] MEDS: CEPHALEXIN MONOHYDRATE 500 MG CAPSULE PO SCH ×3 (09:10→16:12)
[2017-09-13] MEDS: GABAPENTIN 300 MG CAPSULE PO SCH ×3 (09:10→16:12)
[2017-09-13] MEDS: ARIPiprazole 10 MG TABLET PO SCH (09:10)
[2017-09-13] MEDS: OMEPRAZOLE 20 MG CAPSULE PO SCH (09:10)
[2017-09-13] MEDS: LOPERAMIDE HCL 2 MG CAPSULE PO PRN (09:12)
[2017-09-13] MEDS: ONDANSETRON HCL 4 MG TABLET PO PRN (09:12)
[2017-09-13 11:38] LABS: GLUCOMETER DEV NAME(LOC) 3EI B; GLUCOSE,POINT OF CARE 93 MG/DL (70-110)
[2017-09-13] MEDS: BACITRACIN 28.4 GM OINTMENT TP SCH ×2 (13:51→16:25)
[2017-09-13 19:10] VITALS: BP 110/70
[2017-09-13] MEDS: MIRTAZAPINE 15 MG TABLET PO SCH (20:17)
[2017-09-13] MEDS: ZOLPIDEM TARTRATE 10 MG TABLET PO PRN (22:41)
[2017-09-14 06:00] VITALS: BP 102/66
[2017-09-14] MEDS: METHADONE HCL 10 MG TABLET PO SCH (06:02)
[2017-09-14] MEDS: GABAPENTIN 300 MG CAPSULE PO SCH ×3 (08:49→16:15)
[2017-09-14] MEDS: OMEPRAZOLE 20 MG CAPSULE PO SCH (08:49)
[2017-09-14] MEDS: DOCUSATE SODIUM 100 MG CAPSULE PO SCH (08:49)
[2017-09-14] MEDS: CEPHALEXIN MONOHYDRATE 500 MG CAPSULE PO SCH (08:49)
[2017-09-14] MEDS: BusPIRone HCL 15 MG TABLET PO SCH ×3 (08:50→16:14)
[2017-09-14] MEDS: LevETIRAcetam 500 MG TABLET PO SCH ×2 (08:50→16:15)
[2017-09-14] MEDS: ARIPiprazole 10 MG TABLET PO SCH (08:50)
[2017-09-14] MEDS: BACITRACIN 28.4 GM OINTMENT TP SCH ×2 (08:51→16:16)
[2017-09-14] MEDS: LORazepam 1 MG TABLET PO PRN ×2 (08:53→15:19)
[2017-09-14 09:00] VITALS: BP 146/96
[2017-09-14 18:41] VITALS: BP 135/91
[2017-09-14] MEDS: MIRTAZAPINE 15 MG TABLET PO SCH (20:15)
[2017-09-15] MEDS: METHADONE HCL 10 MG TABLET PO SCH (06:15)
[2017-09-15] MEDS: LevETIRAcetam 500 MG TABLET PO SCH ×2 (08:48→16:00)
[2017-09-15] MEDS: GABAPENTIN 300 MG CAPSULE PO SCH ×3 (08:48→16:01)
[2017-09-15] MEDS: LORazepam 1 MG TABLET PO PRN ×2 (08:48→18:21)
[2017-09-15] MEDS: OMEPRAZOLE 20 MG CAPSULE PO SCH (08:48)
[2017-09-15] MEDS: ONDANSETRON HCL 4 MG TABLET PO PRN (08:48)
[2017-09-15] MEDS: ARIPiprazole 10 MG TABLET PO SCH (08:49)
[2017-09-15] MEDS: BusPIRone HCL 15 MG TABLET PO SCH ×3 (08:49→16:01)
[2017-09-15] MEDS: DOCUSATE SODIUM 100 MG CAPSULE PO SCH (09:00)
[2017-09-15] MEDS: BACITRACIN 28.4 GM OINTMENT TP SCH ×2 (09:15→16:03)
[2017-09-15 12:08] VITALS: BP 129/89
[2017-09-15] MEDS ORDERED: ARIP882S IM (12:57)
[2017-09-15] MEDS ORDERED: ARIP10TA8 PO (12:57)
[2017-09-15] MEDS ORDERED: MIRT15 PO (12:57)
[2017-09-15] MEDS ORDERED: BACI120O TP (13:02)
[2017-09-15] MEDS ORDERED: DSS100 PO (13:03)
[2017-09-15] MEDS ORDERED: OMEP20 PO (13:04)
[2017-09-15] MEDS ORDERED: GABA-531 PO (13:04)
[2017-09-15] MEDS: MIRTAZAPINE 15 MG TABLET PO SCH (20:20)
[2017-09-15] MEDS: ZOLPIDEM TARTRATE 10 MG TABLET PO PRN (20:46)
[2017-09-16] MEDS: METHADONE HCL 10 MG TABLET PO SCH (06:14)
[2017-09-16 08:51] VITALS: BP 112/70
[2017-09-16] MEDS: LORazepam 1 MG TABLET PO PRN (08:54)
[2017-09-16] MEDS: ARIPiprazole 10 MG TABLET PO SCH (08:54)
[2017-09-16] MEDS: BusPIRone HCL 15 MG TABLET PO SCH ×3 (08:54→16:01)
[2017-09-16] MEDS: GABAPENTIN 300 MG CAPSULE PO SCH ×3 (08:55→16:01)
[2017-09-16] MEDS: OMEPRAZOLE 20 MG CAPSULE PO SCH (08:55)
[2017-09-16] MEDS: LevETIRAcetam 500 MG TABLET PO SCH ×2 (08:55→16:01)
[2017-09-16] MEDS: BACITRACIN 28.4 GM OINTMENT TP SCH ×2 (09:00→16:02)
[2017-09-16] MEDS: DOCUSATE SODIUM 100 MG CAPSULE PO SCH (09:00)
[2017-09-16 17:00] VITALS: BP 115/68
[2017-09-16] MEDS: MIRTAZAPINE 15 MG TABLET PO SCH (21:11)
[2017-09-17] MEDS: METHADONE HCL 10 MG TABLET PO SCH (06:07)
[2017-09-17 08:30] VITALS: BP 110/66
[2017-09-17] MEDS: DOCUSATE SODIUM 100 MG CAPSULE PO SCH (09:00)
[2017-09-17] MEDS: BusPIRone HCL 15 MG TABLET PO SCH ×3 (09:17→16:24)
[2017-09-17] MEDS: OMEPRAZOLE 20 MG CAPSULE PO SCH (09:17)
[2017-09-17] MEDS: ARIPiprazole 10 MG TABLET PO SCH (09:17)
[2017-09-17] MEDS: GABAPENTIN 300 MG CAPSULE PO SCH ×3 (09:18→16:25)
[2017-09-17] MEDS: LORazepam 1 MG TABLET PO PRN ×2 (09:19→16:59)
[2017-09-17] MEDS: LevETIRAcetam 500 MG TABLET PO SCH ×2 (09:19→16:24)
[2017-09-17] MEDS: BACITRACIN 28.4 GM OINTMENT TP SCH ×2 (09:22→16:25)
[2017-09-17] MEDS: MIRTAZAPINE 15 MG TABLET PO SCH (20:06)
[2017-09-18] MEDS: METHADONE HCL 10 MG TABLET PO SCH (06:01)
[2017-09-18 08:51] VITALS: BP 102/75
[2017-09-18] MEDS: LevETIRAcetam 500 MG TABLET PO SCH (09:00)
[2017-09-18] MEDS: BusPIRone HCL 15 MG TABLET PO SCH ×2 (09:00→12:30)
[2017-09-18] MEDS: GABAPENTIN 300 MG CAPSULE PO SCH ×2 (09:00→12:30)
[2017-09-18] MEDS: DOCUSATE SODIUM 100 MG CAPSULE PO SCH (09:00)
[2017-09-18] MEDS: LORazepam 1 MG TABLET PO PRN (09:00)
[2017-09-18] MEDS: OMEPRAZOLE 20 MG CAPSULE PO SCH (09:00)
[2017-09-18] MEDS: ARIPiprazole 10 MG TABLET PO SCH (09:00)
[2017-09-18] MEDS: BACITRACIN 28.4 GM OINTMENT TP SCH (09:02)
== END 2017-09-18 13:52 | disposition home or self-care (01) | DRG 750 ==
LOC: EMS 07:55 → 3EI 14:12
DX: F25.1 Schizoaffective disorder, depressive type (principal); R45.851 Suicidal ideations; F11.20 Opioid dependence, uncomplicated; B18.2 Chronic viral hepatitis C; I10 Essential (primary) hypertension; F41.9 Anxiety disorder, unspecified; G40.909 Epilepsy, unspecified, not intractable, without status epilepticus; G47.00 Insomnia, unspecified; J44.9 Chronic obstructive pulmonary disease, unspecified; K21.9 Gastro-esophageal reflux disease without esophagitis; M19.90 Unspecified osteoarthritis, unspecified site; F12.20 Cannabis dependence, uncomplicated; F17.210 Nicotine dependence, cigarettes, uncomplicated; Z88.8 Allergy status to other drugs, medicaments and biological substances; Z79.899 Other long term (current) drug therapy
CPT/HCPCS: 82962; 87081; 99285; G0480; Q0162

== ENCOUNTER 2017-09-25 15:51 | Inpatient (IN) | payer MEDICAID, OTHER ==
[~2017-09-25] VITALS: Ht 177.8 cm; Wt 68.8 kg
[~2017-09-25 15:51] MED LIST changes: -AMOX250C4 PO; +ARIP10TA8 PO; +ARIP882S IM; +BACI120O TP; +DSS100 PO; -OLAN5TAB2 PO; +OMEP20 PO
[2017-09-25] MEDS ORDERED: METH10 PO (16:11)
[2017-09-25 17:08] LABS: EOSINOPHILS % (AUTO) 2.9 % (1.0-6.0); HEMATOCRIT 38.7 % (41-53); HEMOGLOBIN 13.4 g/dL (13.5-17.5); LYMPHOCYTES # (AUTO) 2.1 K/uL (1.0-4.8); LYMPHOCYTES % (AUTO) 25.5 % (22.0-44.0); MEAN CORPUSCULAR HEMOGLOBIN 31.4 pg (26.0-34.0); MEAN CORPUSCULAR HGB CONC 34.7 G/dL (31.0-37.0); MEAN CORPUSCULAR VOLUME 91 fL (80-100); MONOCYTES # (AUTO) 0.5 K/uL (0.1-1.0); MONOCYTES % (AUTO) 6.2 % (2.0-9.0); NEUTROPHILS # (AUTO) 5.4 K/uL (1.8-7.7); NEUTROPHILS % (AUTO) 64.4 % (40.0-70.0); PLATELET COUNT (AUTO) 326 K/uL (150-450); RED BLOOD CELL COUNT(AUTO) 4.27 MIL/uL (4.50-5.90); RED CELL DISTRIBUTION WIDTH 12.9 % (11.5-14.5)
[2017-09-25 17:16] LABS: AMPHET/METH SCREEN,URINE POSITIVE (NEGATIVE); BARBITURATE SCREEN, URINE NEGATIVE (NEGATIVE); BENZODIAZEPINES SCREEN,URINE POSITIVE (NEGATIVE); CANNABINOID SCREEN,URINE POSITIVE (NEGATIVE); COCAINE SCREEN,URINE NEGATIVE (NEGATIVE); METHADONE SCREEN, URINE POSITIVE (NEGATIVE); OPIATE SCREEN,URINE NEGATIVE (NEGATIVE); PHENCYCLIDINE SCREEN,URINE NEGATIVE (NEGATIVE)
[2017-09-25 17:16] LABS: ANION GAP 6 mmol/L (8-16); CARBON DIOXIDE 31 mmol/L (22-29); CHLORIDE 103 mmol/L (98-107); CREATININE 0.87 mg/dL (0.60-1.30); GLOMERULAR FILTR. RATE CALC > 60 mL/min (>60); GLUCOSE,RANDOM 86 mg/dL (70-110); POTASSIUM 3.4 mmol/L (3.5-5.1); SODIUM SERUM 140 mmol/L (136-145); UREA NITROGEN, BLOOD 8 mg/dL (7-18)
[2017-09-25 17:22] LABS: ALANINE AMINOTRANSFERASE 45 U/L (12-78); ALBUMIN 3.5 g/dL (3.4-5.0); ALKALINE PHOSPHATASE 103 U/L (46-116); ASPARTATE AMINOTRANSFERASE 43 U/L (15-37); BILIRUBIN,TOTAL 0.4 mg/dL (0.1-1.0); TOTAL PROTEIN, SERUM 7.1 g/dL (6.4-8.2)
[2017-09-25 17:30] LABS: SALICYLATE 1.3 mg/dL (2.8-20.0)
[2017-09-25 17:34] LABS: ACETAMINOPHEN < 2 mcg/mL (10-30)
[2017-09-25] MEDS ORDERED: POTASSIUM CHLORIDE 20 MEQ ER TABLET PO ONE (21:00)
[2017-09-26] VITALS: BP 110/72
[2017-09-26] MEDS: METHADONE HCL 10 MG TABLET PO SCH (08:03)
[2017-09-26] MEDS: LORazepam 2 MG TABLET PO PRN ×2 (08:03→17:50)
[2017-09-26] MEDS: HALOPERIDOL 5 MG TABLET PO PRN (08:03)
[2017-09-26] MEDS ORDERED: MAG HYDROX/AL HYDROX/SIMETH ES 30 ML SUSPENSION UDCUP PO PRN (08:15)
[2017-09-26] MEDS ORDERED: ONDANSETRON HCL 4 MG TABLET PO PRN (08:15)
[2017-09-26] MEDS ORDERED: BENZOCAINE/MENTHOL LOZENGE MM PRN (08:15)
[2017-09-26] MEDS ORDERED: MAGNESIUM HYDROXIDE SUSPENSION 30 ML UDCUP PO PRN (08:15)
[2017-09-26] MEDS ORDERED: PETROLATUM,WHITE 71 GM JELLY TP PRN (08:15)
[2017-09-26] MEDS ORDERED: ALBUTEROL SULFATE HFA 90 MCG/PUFF 8 GM INHALER IH PRN (08:15)
[2017-09-26] MEDS ORDERED: LOPERAMIDE HCL 2 MG CAPSULE PO PRN (08:15)
[2017-09-26] MEDS ORDERED: CloNIDine HCL 0.1 MG TABLET PO PRN (08:15)
[2017-09-26] MEDS: NICOTINE 21 MG/24 HOUR PATCH TD SCH ×2 (10:01→10:10)
[2017-09-26] MEDS: LevETIRAcetam 500 MG TABLET PO SCH ×2 (10:03→17:50)
[2017-09-26 10:27] VITALS: BP 105/71
[2017-09-26] MEDS: BusPIRone HCL 15 MG TABLET PO SCH ×2 (11:31→16:30)
[2017-09-26] MEDS: GABAPENTIN 300 MG CAPSULE PO SCH ×2 (11:32→17:50)
[2017-09-26 17:57] VITALS: BP 120/66
[2017-09-26] MEDS: MIRTAZAPINE 15 MG TABLET PO SCH (21:41)
[2017-09-27] MEDS: METHADONE HCL 10 MG TABLET PO SCH (06:05)
[2017-09-27 07:09] LABS: ANION GAP 4 mmol/L (8-16); CALCIUM, TOTAL 8.7 mg/dL (8.8-10.5); CARBON DIOXIDE 31 mmol/L (22-29); CHLORIDE 107 mmol/L (98-107); GLOMERULAR FILTR. RATE CALC > 60 mL/min (>60); GLUCOSE,RANDOM 109 mg/dL (70-110); POTASSIUM 4.1 mmol/L (3.5-5.1); SODIUM SERUM 142 mmol/L (136-145); UREA NITROGEN, BLOOD 14 mg/dL (7-18)
[2017-09-27] MEDS: NICOTINE 21 MG/24 HOUR PATCH TD SCH (08:25)
[2017-09-27] MEDS: LORazepam 2 MG TABLET PO PRN ×2 (08:26→16:10)
[2017-09-27] MEDS: BusPIRone HCL 15 MG TABLET PO SCH ×3 (08:26→16:08)
[2017-09-27] MEDS: LevETIRAcetam 500 MG TABLET PO SCH ×2 (08:26→16:11)
[2017-09-27] MEDS: GABAPENTIN 300 MG CAPSULE PO SCH ×3 (08:31→16:11)
[2017-09-27] MEDS: BACITRACIN 28.4 GM OINTMENT TP PRN (09:13)
[2017-09-27 09:22] VITALS: BP 98/68
[2017-09-27] MEDS: MUPIROCIN CALCIUM 2% 22 GM OINTMENT NASAL SCH (16:08)
[2017-09-27] MEDS: HALOPERIDOL 5 MG TABLET PO PRN (16:10)
[2017-09-27 17:53] VITALS: BP 100/66
[2017-09-27] MEDS: MIRTAZAPINE 15 MG TABLET PO SCH (21:07)
[2017-09-28] MEDS: METHADONE HCL 10 MG TABLET PO SCH (06:33)
[2017-09-28 06:37] VITALS: BP 121/72
[2017-09-28 08:49] VITALS: BP 124/86
[2017-09-28] MEDS: BusPIRone HCL 15 MG TABLET PO SCH ×3 (08:51→16:36)
[2017-09-28] MEDS: GABAPENTIN 300 MG CAPSULE PO SCH ×3 (08:51→16:36)
[2017-09-28] MEDS: LevETIRAcetam 500 MG TABLET PO SCH ×2 (08:51→16:36)
[2017-09-28] MEDS: NICOTINE 21 MG/24 HOUR PATCH TD SCH (08:52)
[2017-09-28] MEDS: MUPIROCIN CALCIUM 2% 22 GM OINTMENT NASAL SCH ×2 (08:52→16:38)
[2017-09-28] MEDS: LORazepam 2 MG TABLET PO PRN ×2 (08:53→14:25)
[2017-09-28 16:00] VITALS: BP 126/74
[2017-09-28] MEDS: MIRTAZAPINE 15 MG TABLET PO SCH (20:23)
[2017-09-29] MEDS: METHADONE HCL 10 MG TABLET PO SCH (06:03)
[2017-09-29 06:29] VITALS: BP 115/74
[2017-09-29] MEDS: LORazepam 2 MG TABLET PO PRN ×3 (09:06→18:26)
[2017-09-29] MEDS: NICOTINE 21 MG/24 HOUR PATCH TD SCH (09:06)
[2017-09-29] MEDS: BusPIRone HCL 15 MG TABLET PO SCH ×3 (09:07→17:43)
[2017-09-29] MEDS: MUPIROCIN CALCIUM 2% 22 GM OINTMENT NASAL SCH ×2 (09:07→17:43)
[2017-09-29] MEDS: LevETIRAcetam 500 MG TABLET PO SCH ×2 (09:07→17:43)
[2017-09-29] MEDS: GABAPENTIN 300 MG CAPSULE PO SCH ×3 (09:07→17:43)
[2017-09-29 10:16] VITALS: BP 121/77
[2017-09-29 16:00] VITALS: BP 120/59
[2017-09-29] MEDS: MIRTAZAPINE 15 MG TABLET PO SCH (21:41)
[2017-09-30 05:50] VITALS: BP 105/75
[2017-09-30] MEDS: METHADONE HCL 10 MG TABLET PO SCH (06:04)
[2017-09-30] MEDS: BusPIRone HCL 15 MG TABLET PO SCH ×3 (08:07→16:32)
[2017-09-30] MEDS: NICOTINE 21 MG/24 HOUR PATCH TD SCH (08:07)
[2017-09-30] MEDS: GABAPENTIN 300 MG CAPSULE PO SCH ×3 (08:07→16:32)
[2017-09-30] MEDS: LevETIRAcetam 500 MG TABLET PO SCH ×2 (08:08→16:33)
[2017-09-30] MEDS: LORazepam 2 MG TABLET PO PRN ×2 (08:10→12:52)
[2017-09-30] MEDS: MUPIROCIN CALCIUM 2% 22 GM OINTMENT NASAL SCH ×2 (08:10→16:33)
[2017-09-30 09:55] VITALS: BP 108/72
[2017-09-30] MEDS ORDERED: LOPERAMIDE HCL 2 MG CAPSULE PO PRN (13:30)
[2017-09-30] MEDS ORDERED: GuaiFENesin/D-METHORPHAN [SUGAR-FREE] 200-20MG/10 ML SYRUP UDCUP PO PRN (13:30)
[2017-09-30] MEDS ORDERED: HydrOXYzine PAMOATE 50 MG CAPSULE PO PRN (13:30)
[2017-09-30] MEDS: THIAMINE HCL 100 MG TABLET PO SCH (16:32)
[2017-09-30] MEDS ORDERED: IBUPROFEN 600 MG TABLET PO PRN (16:45)
[2017-09-30] MEDS ORDERED: MAG HYDROX/AL HYDROX/SIMETH ES 30 ML SUSPENSION UDCUP PO PRN (16:45)
[2017-09-30] MEDS ORDERED: OLANZapine 5 MG RAPDIS TABLET PO PRN (17:00)
[2017-09-30] MEDS ORDERED: HALOPERIDOL LACTATE 5 MG/ML VIAL IM ONE (17:00)
[2017-09-30] MEDS ORDERED: LORazepam 2 MG/ML VIAL IM ONE (17:00)
[2017-09-30] MEDS ORDERED: DiphenhydrAMINE HCL 50 MG/ML VIAL IM ONE (17:00)
[2017-09-30 18:00] VITALS: BP 134/75
[2017-09-30] MEDS: CloNIDine HCL 0.1 MG TABLET PO SCH ×2 (18:34→22:30)
[2017-09-30] MEDS: MIRTAZAPINE 15 MG TABLET PO SCH (20:35)
[2017-10-01 05:00] VITALS: BP 121/60
[2017-10-01] MEDS: CloNIDine HCL 0.1 MG TABLET PO SCH ×5 (06:00→21:57)
[2017-10-01 06:47] VITALS: BP 134/76
[2017-10-01 08:05] VITALS: BP 95/63
[2017-10-01] MEDS: BusPIRone HCL 15 MG TABLET PO SCH ×3 (08:55→16:08)
[2017-10-01] MEDS: THIAMINE HCL 100 MG TABLET PO SCH ×2 (08:55→16:08)
[2017-10-01] MEDS: GABAPENTIN 300 MG CAPSULE PO SCH ×3 (08:55→16:08)
[2017-10-01] MEDS: LevETIRAcetam 500 MG TABLET PO SCH ×2 (08:55→16:08)
[2017-10-01] MEDS: MULTIVITAMINS WITH MINERALS, THERAPEUTIC TABLET PO SCH (08:56)
[2017-10-01] MEDS: NICOTINE 21 MG/24 HOUR PATCH TD SCH (08:57)
[2017-10-01] MEDS: BACITRACIN 28.4 GM OINTMENT TP PRN (08:57)
[2017-10-01 09:00] VITALS: BP 132/88
[2017-10-01] MEDS: FOLIC ACID 1 MG TABLET PO SCH (09:53)
[2017-10-01] MEDS: MUPIROCIN CALCIUM 2% 22 GM OINTMENT NASAL SCH ×2 (09:53→16:09)
[2017-10-01 13:00] VITALS: BP 127/82
[2017-10-01] MEDS: LORazepam 2 MG TABLET PO PRN (15:50)
[2017-10-01 17:00] VITALS: BP 120/64
[2017-10-01] MEDS ORDERED: ClonazePAM 1 MG TABLET PO PRN (17:45)
[2017-10-01] MEDS: MIRTAZAPINE 15 MG TABLET PO SCH (21:58)
[2017-10-02] MEDS: CloNIDine HCL 0.1 MG TABLET PO SCH ×4 (06:00→22:25)
[2017-10-02 06:09] VITALS: BP 102/81
[2017-10-02 08:00] VITALS: BP_SYST 107; BP_SYST 112; BP_DIAS 77; BP_DIAS 92
[2017-10-02] MEDS: ClonazePAM 1 MG TABLET PO PRN ×3 (08:05→16:45)
[2017-10-02] MEDS: FOLIC ACID 1 MG TABLET PO SCH (08:06)
[2017-10-02] MEDS: MULTIVITAMINS WITH MINERALS, THERAPEUTIC TABLET PO SCH (08:06)
[2017-10-02] MEDS: CloNIDine HCL 0.1 MG TABLET PO PRN (08:06)
[2017-10-02] MEDS: LevETIRAcetam 500 MG TABLET PO SCH ×2 (08:07→16:07)
[2017-10-02] MEDS: GABAPENTIN 300 MG CAPSULE PO SCH ×4 (08:07→16:06)
[2017-10-02] MEDS: THIAMINE HCL 100 MG TABLET PO SCH ×2 (08:07→16:07)
[2017-10-02] MEDS: NICOTINE 21 MG/24 HOUR PATCH TD SCH (08:10)
[2017-10-02] MEDS: MUPIROCIN CALCIUM 2% 22 GM OINTMENT NASAL SCH (08:11)
[2017-10-02 12:06] VITALS: BP 101/67
[2017-10-02] MEDS: GABAPENTIN 100 MG CAPSULE PO SCH ×2 (13:16→16:06)
[2017-10-02] MEDS ORDERED: HALOPERIDOL LACTATE 5 MG/ML VIAL IM ONE (18:15)
[2017-10-02] MEDS ORDERED: DiphenhydrAMINE HCL 50 MG/ML VIAL IM ONE (18:15)
[2017-10-02 19:00] VITALS: BP 90/62
[2017-10-02] MEDS: MIRTAZAPINE 15 MG TABLET PO SCH (20:07)
[2017-10-03] VITALS (8 sets, daily range): BP systolic 86–113; BP diastolic 56–69
[2017-10-03] MEDS: ClonazePAM 1 MG TABLET PO PRN ×2 (03:38→08:32)
[2017-10-03] MEDS: CloNIDine HCL 0.1 MG TABLET PO SCH ×5 (06:00→22:44)
[2017-10-03] MEDS: LevETIRAcetam 500 MG TABLET PO SCH ×2 (08:32→16:17)
[2017-10-03] MEDS: THIAMINE HCL 100 MG TABLET PO SCH ×2 (08:32→16:17)
[2017-10-03] MEDS: GABAPENTIN 100 MG CAPSULE PO SCH ×3 (08:32→16:17)
[2017-10-03] MEDS: FOLIC ACID 1 MG TABLET PO SCH (08:32)
[2017-10-03] MEDS: MULTIVITAMINS WITH MINERALS, THERAPEUTIC TABLET PO SCH (08:32)
[2017-10-03] MEDS: CloNIDine HCL 0.1 MG TABLET PO PRN (08:32)
[2017-10-03] MEDS: GABAPENTIN 300 MG CAPSULE PO SCH ×3 (08:33→16:17)
[2017-10-03] MEDS: NICOTINE 21 MG/24 HOUR PATCH TD SCH (08:37)
[2017-10-03] MEDS ORDERED: HALOPERIDOL LACTATE 5 MG/ML VIAL IM ONE (16:30)
[2017-10-03] MEDS ORDERED: LORazepam 2 MG/ML VIAL IM ONE (16:30)
[2017-10-03] MEDS ORDERED: DiphenhydrAMINE HCL 50 MG/ML VIAL IM ONE (16:30)
[2017-10-03] MEDS ORDERED: QUEtiapine FUMARATE 100 MG TABLET PO PRN (17:00)
[2017-10-03] MEDS: QUEtiapine FUMARATE 25 MG TABLET PO SCH (18:26)
[2017-10-03] MEDS ORDERED: QUEtiapine FUMARATE 200 MG TABLET PO SCH (21:00)
[2017-10-03] MEDS: MIRTAZAPINE 15 MG TABLET PO SCH (21:27)
[2017-10-04] VITALS (7 sets, daily range): BP systolic 105–142; BP diastolic 71–92
[2017-10-04] MEDS: ClonazePAM 1 MG TABLET PO PRN ×4 (02:15→16:05)
[2017-10-04] MEDS: CloNIDine HCL 0.1 MG TABLET PO SCH ×4 (06:18→22:17)
[2017-10-04] MEDS: QUEtiapine FUMARATE 25 MG TABLET PO SCH ×4 (09:08→17:00)
[2017-10-04] MEDS: THIAMINE HCL 100 MG TABLET PO SCH ×2 (09:08→16:06)
[2017-10-04] MEDS: FOLIC ACID 1 MG TABLET PO SCH (09:08)
[2017-10-04] MEDS: MULTIVITAMINS WITH MINERALS, THERAPEUTIC TABLET PO SCH (09:08)
[2017-10-04] MEDS: LevETIRAcetam 500 MG TABLET PO SCH ×2 (09:08→16:07)
[2017-10-04] MEDS: NICOTINE 21 MG/24 HOUR PATCH TD SCH (09:10)
[2017-10-04] MEDS ORDERED: HALOPERIDOL LACTATE 5 MG/ML VIAL IM ONE (16:45)
[2017-10-04] MEDS ORDERED: LORazepam 2 MG/ML VIAL IM ONE (16:45)
[2017-10-04] MEDS ORDERED: DiphenhydrAMINE HCL 50 MG/ML VIAL IM ONE (16:45)
[2017-10-04] MEDS: GABAPENTIN 300 MG CAPSULE PO SCH (17:26)
[2017-10-04] MEDS: MIRTAZAPINE 15 MG TABLET PO SCH (20:48)
[2017-10-04] MEDS: QUEtiapine FUMARATE 300 MG TABLET PO SCH (20:48)
[2017-10-05] VITALS (11 sets, daily range): BP systolic 106–131; BP diastolic 54–104
[2017-10-05] MEDS: ClonazePAM 1 MG TABLET PO PRN ×4 (00:03→14:50)
[2017-10-05] MEDS: ZOLPIDEM TARTRATE 10 MG TABLET PO PRN (00:03)
[2017-10-05] MEDS: FOLIC ACID 1 MG TABLET PO SCH (08:53)
[2017-10-05] MEDS: LevETIRAcetam 500 MG TABLET PO SCH ×2 (08:54→16:53)
[2017-10-05] MEDS: GABAPENTIN 300 MG CAPSULE PO SCH ×3 (08:54→16:54)
[2017-10-05] MEDS: THIAMINE HCL 100 MG TABLET PO SCH ×2 (08:55→16:54)
[2017-10-05] MEDS: QUEtiapine FUMARATE 25 MG TABLET PO SCH ×3 (08:55→16:54)
[2017-10-05] MEDS: MULTIVITAMINS WITH MINERALS, THERAPEUTIC TABLET PO SCH (08:55)
[2017-10-05] MEDS: NICOTINE 21 MG/24 HOUR PATCH TD SCH (09:00)
[2017-10-05] MEDS: ClonazePAM 0.5 MG TABLET PO PRN (19:57)
[2017-10-05] MEDS: QUEtiapine FUMARATE 300 MG TABLET PO SCH (20:56)
[2017-10-05] MEDS: MIRTAZAPINE 15 MG TABLET PO SCH (20:56)
[2017-10-06 02:45] VITALS: BP 109/75
[2017-10-06] MEDS: IBUPROFEN 600 MG TABLET PO PRN ×3 (02:49→23:45)
[2017-10-06] MEDS: ZOLPIDEM TARTRATE 10 MG TABLET PO PRN ×2 (02:49→20:22)
[2017-10-06] MEDS: ClonazePAM 0.5 MG TABLET PO PRN ×3 (04:00→23:44)
[2017-10-06] MEDS: QUEtiapine FUMARATE 25 MG TABLET PO SCH ×3 (09:02→16:15)
[2017-10-06] MEDS: MULTIVITAMINS WITH MINERALS, THERAPEUTIC TABLET PO SCH (09:02)
[2017-10-06] MEDS: FOLIC ACID 1 MG TABLET PO SCH (09:02)
[2017-10-06] MEDS: LevETIRAcetam 500 MG TABLET PO SCH ×2 (09:02→16:14)
[2017-10-06] MEDS: THIAMINE HCL 100 MG TABLET PO SCH ×2 (09:02→16:15)
[2017-10-06] MEDS: GABAPENTIN 300 MG CAPSULE PO SCH ×3 (09:02→16:14)
[2017-10-06] MEDS: NICOTINE 21 MG/24 HOUR PATCH TD SCH (09:05)
[2017-10-06 09:49] VITALS: BP 108/77
[2017-10-06 16:30] VITALS: BP 117/87
[2017-10-06] MEDS: HydrOXYzine PAMOATE 50 MG CAPSULE PO PRN (17:08)
[2017-10-06] MEDS: QUEtiapine FUMARATE 300 MG TABLET PO SCH (20:23)
[2017-10-06] MEDS: MIRTAZAPINE 15 MG TABLET PO SCH (20:23)
[2017-10-06 23:40] VITALS: BP 111/85
[2017-10-07] MEDS: HydrOXYzine PAMOATE 50 MG CAPSULE PO PRN (02:11)
[2017-10-07 05:20] VITALS: BP 126/100
[2017-10-07] MEDS: ACETAMINOPHEN 325 MG TABLET PO PRN ×2 (05:24→10:00)
[2017-10-07] MEDS: FOLIC ACID 1 MG TABLET PO SCH (08:19)
[2017-10-07] MEDS: THIAMINE HCL 100 MG TABLET PO SCH (08:20)
[2017-10-07] MEDS: QUEtiapine FUMARATE 25 MG TABLET PO SCH ×2 (08:20→12:51)
[2017-10-07] MEDS: LevETIRAcetam 500 MG TABLET PO SCH (08:20)
[2017-10-07] MEDS: MULTIVITAMINS WITH MINERALS, THERAPEUTIC TABLET PO SCH (08:20)
[2017-10-07] MEDS: GABAPENTIN 300 MG CAPSULE PO SCH ×2 (08:20→12:50)
[2017-10-07] MEDS: NICOTINE 21 MG/24 HOUR PATCH TD SCH (08:21)
[2017-10-07] MEDS: ClonazePAM 0.5 MG TABLET PO PRN (08:22)
[2017-10-07 09:50] VITALS: BP 131/95
[2017-10-07] MEDS ORDERED: QUET300T2 PO (11:41)
[2017-10-07] MEDS ORDERED: DISU250 PO (11:41)
[2017-10-07] MEDS ORDERED: QUET25TA PO (11:42)
[2017-10-08] MEDS ORDERED: DISULFIRAM 250 MG TABLET PO SCH (09:00)
[2017-10-10] MEDS ORDERED: ARIPiprazole LAUROXIL ER SUSPENSION 882 MG/3.2 ML SYRINGE IM SCH (09:00)
== END 2017-10-07 14:15 | disposition home or self-care (01) | DRG 750 ==
LOC: EMS 15:52 → 3EI 22:12
PROVIDERS: ATTEND Psychiatry & Neurology Psychiatry
DX: F25.1 Schizoaffective disorder, depressive type (principal); F11.20 Opioid dependence, uncomplicated; I10 Essential (primary) hypertension; B18.2 Chronic viral hepatitis C; T42.6X2A Poisoning by other antiepileptic and sedative-hypnotic drugs, intentional self-harm, initial encounter; E87.6 Hypokalemia; F17.210 Nicotine dependence, cigarettes, uncomplicated; F15.20 Other stimulant dependence, uncomplicated; D64.9 Anemia, unspecified; F12.20 Cannabis dependence, uncomplicated; F32.9 Major depressive disorder, single episode, unspecified; R21 Rash and other nonspecific skin eruption; F41.9 Anxiety disorder, unspecified; G40.909 Epilepsy, unspecified, not intractable, without status epilepticus; G47.00 Insomnia, unspecified; J44.9 Chronic obstructive pulmonary disease, unspecified; K21.9 Gastro-esophageal reflux disease without esophagitis; M19.90 Unspecified osteoarthritis, unspecified site; Z59.0 Homelessness; Z91.5 Personal history of self-harm; Y92.89 Other specified places as the place of occurrence of the external cause; Z88.8 Allergy status to other drugs, medicaments and biological substances; Z79.899 Other long term (current) drug therapy; Z71.41 Alcohol abuse counseling and surveillance of alcoholic; Z72.89 Other problems related to lifestyle; Z22.322 Carrier or suspected carrier of Methicillin resistant Staphylococcus aureus
CPT/HCPCS: 70450; 87081; 99285; G0480; G0481; G0482; J1200; J1630; J2060

== ENCOUNTER 2017-10-26 15:38 | Inpatient (IN) | payer MEDICAID, OTHER ==
[~2017-10-26] VITALS: Ht 177.8 cm; Wt 66.8 kg
[~2017-10-26 15:38] MED LIST changes: -ARIP10TA8 PO; -ARIP882S IM; -BACI120O TP; -BUSP15 PO; +DISU250 PO; -DSS100 PO; -OMEP20 PO; +QUET25TA PO; +QUET300T2 PO
[2017-10-26] MEDS ORDERED: GABA-529 PO (15:50)
[2017-10-26 17:10] LABS: BASOPHILS % (AUTO) 0.5 % (0.0-2.0); EOSINOPHILS % (AUTO) 6.5 % (1.0-6.0); HEMATOCRIT 39.4 % (41-53); HEMOGLOBIN 13.5 g/dL (13.5-17.5); LYMPHOCYTES # (AUTO) 1.7 K/uL (1.0-4.8); MEAN CORPUSCULAR HEMOGLOBIN 30.9 pg (26.0-34.0); MEAN CORPUSCULAR HGB CONC 34.2 G/dL (31.0-37.0); MEAN CORPUSCULAR VOLUME 90 fL (80-100); MONOCYTES # (AUTO) 0.5 K/uL (0.1-1.0); MONOCYTES % (AUTO) 8.3 % (2.0-9.0); NEUTROPHILS # (AUTO) 3.1 K/uL (1.8-7.7); NEUTROPHILS % (AUTO) 54.7 % (40.0-70.0); PLATELET COUNT (AUTO) 183 K/uL (150-450); RED BLOOD CELL COUNT(AUTO) 4.36 MIL/uL (4.50-5.90); RED CELL DISTRIBUTION WIDTH 13.4 % (11.5-14.5)
[2017-10-26 17:20] LABS: ANION GAP 3 mmol/L (8-16); CALCIUM, TOTAL 8.7 mg/dL (8.8-10.5); CARBON DIOXIDE 36 mmol/L (22-29); CHLORIDE 107 mmol/L (98-107); CREATININE 0.88 mg/dL (0.60-1.30); GLOMERULAR FILTR. RATE CALC > 60 mL/min (>60); GLUCOSE,RANDOM 91 mg/dL (70-110); POTASSIUM 3.6 mmol/L (3.5-5.1); SODIUM SERUM 146 mmol/L (136-145); UREA NITROGEN, BLOOD 10 mg/dL (7-18)
[2017-10-26 17:25] LABS: SALICYLATE < 2.8 mg/dL (2.8-20.0)
[2017-10-26 17:26] LABS: ALANINE AMINOTRANSFERASE 45 U/L (12-78); ALBUMIN 3.3 g/dL (3.4-5.0); ALKALINE PHOSPHATASE 87 U/L (46-116); ASPARTATE AMINOTRANSFERASE 65 U/L (15-37); BILIRUBIN,TOTAL 0.5 mg/dL (0.1-1.0); TOTAL PROTEIN, SERUM 6.7 g/dL (6.4-8.2)
[2017-10-26 17:29] LABS: ACETAMINOPHEN < 2 mcg/mL (10-30)
[2017-10-26 18:13] LABS: GLUCOSE,POINT OF CARE 88 MG/DL (70-110)
[2017-10-26] MEDS ORDERED: HALOPERIDOL 5 MG TABLET PO PRN (23:45)
[2017-10-26] MEDS ORDERED: ZOLPIDEM TARTRATE 10 MG TABLET PO PRN (23:45)
[2017-10-27 02:10] VITALS: BP 126/83
[2017-10-27] MEDS ORDERED: PNEUMOCOCCAL VACCINE POLYVALENT 0.5 ML VIAL [PPSV23] IM ONE (03:45)
[2017-10-27] MEDS ORDERED: CloNIDine HCL 0.1 MG TABLET PO PRN (06:45)
[2017-10-27] MEDS ORDERED: PETROLATUM,WHITE 71 GM JELLY TP PRN (06:45)
[2017-10-27] MEDS ORDERED: LOPERAMIDE HCL 2 MG CAPSULE PO PRN (06:45)
[2017-10-27] MEDS ORDERED: ONDANSETRON HCL 4 MG TABLET PO PRN (06:45)
[2017-10-27] MEDS ORDERED: ACETAMINOPHEN 325 MG TABLET PO PRN (06:45)
[2017-10-27] MEDS ORDERED: IBUPROFEN 600 MG TABLET PO PRN (06:45)
[2017-10-27] MEDS ORDERED: BENZOCAINE/MENTHOL LOZENGE MM PRN (06:45)
[2017-10-27] MEDS ORDERED: MAGNESIUM HYDROXIDE SUSPENSION 30 ML UDCUP PO PRN (06:45)
[2017-10-27] MEDS ORDERED: BACITRACIN 28.4 GM OINTMENT TP PRN (06:45)
[2017-10-27] MEDS ORDERED: MAG HYDROX/AL HYDROX/SIMETH ES 30 ML SUSPENSION UDCUP PO PRN (06:45)
[2017-10-27] MEDS ORDERED: ALBUTEROL SULFATE HFA 90 MCG/PUFF 8 GM INHALER IH PRN (06:45)
[2017-10-27] MEDS ORDERED: METHADONE HCL 10 MG TABLET PO ONE (07:15)
[2017-10-27 08:05] VITALS: BP 116/82
[2017-10-27 08:08] LABS: CHOL/HDL RATIO 2.7 (4.2-7.3)
[2017-10-27] MEDS: LevETIRAcetam 500 MG TABLET PO SCH ×2 (09:59→17:53)
[2017-10-27] MEDS: GABAPENTIN 300 MG CAPSULE PO SCH ×3 (10:00→17:53)
[2017-10-27] MEDS: LORazepam 2 MG TABLET PO PRN ×2 (10:22→17:53)
[2017-10-27] MEDS: MIRTAZAPINE 15 MG TABLET PO SCH (20:33)
[2017-10-27] MEDS: QUEtiapine FUMARATE 300 MG TABLET PO SCH (20:33)
[2017-10-27 21:11] VITALS: BP 104/84
[2017-10-28 02:24] VITALS: BP 113/81
[2017-10-28 06:00] VITALS: BP 120/81
[2017-10-28] MEDS: METHADONE HCL 10 MG TABLET PO SCH (06:52)
[2017-10-28 08:00] VITALS: BP 142/89
[2017-10-28] MEDS: GABAPENTIN 300 MG CAPSULE PO SCH ×3 (10:14→17:55)
[2017-10-28] MEDS: LevETIRAcetam 500 MG TABLET PO SCH ×2 (10:14→17:55)
[2017-10-28] MEDS: QUEtiapine FUMARATE 200 MG TABLET PO SCH (10:14)
[2017-10-28 19:17] VITALS: BP 135/83
[2017-10-28] MEDS: QUEtiapine FUMARATE 300 MG TABLET PO SCH (21:00)
[2017-10-28] MEDS ORDERED: QUEtiapine FUMARATE 100 MG TABLET PO PRN (21:15)
[2017-10-28] MEDS ORDERED: ZOLPIDEM TARTRATE 10 MG TABLET PO PRN (21:15)
[2017-10-28] MEDS ORDERED: ZOLPIDEM TARTRATE 5 MG TABLET PO PRN (21:25)
[2017-10-28] MEDS: MIRTAZAPINE 15 MG TABLET PO SCH (22:11)
[2017-10-29] MEDS: METHADONE HCL 10 MG TABLET PO SCH (06:04)
[2017-10-29 08:00] VITALS: BP 132/91
[2017-10-29] MEDS: GABAPENTIN 300 MG CAPSULE PO SCH ×3 (08:57→16:32)
[2017-10-29] MEDS: LevETIRAcetam 500 MG TABLET PO SCH ×2 (08:58→16:32)
[2017-10-29] MEDS: QUEtiapine FUMARATE 200 MG TABLET PO SCH (08:58)
[2017-10-29] MEDS: LORazepam 1 MG TABLET PO PRN (09:04)
[2017-10-29] MEDS: QUEtiapine FUMARATE 300 MG TABLET PO SCH (20:13)
[2017-10-29] MEDS: MIRTAZAPINE 15 MG TABLET PO SCH (20:13)
[2017-10-29 20:40] VITALS: BP 128/86
[2017-10-30] MEDS: METHADONE HCL 10 MG TABLET PO SCH (06:07)
[2017-10-30 08:30] VITALS: BP 129/94
[2017-10-30] MEDS: GABAPENTIN 300 MG CAPSULE PO SCH ×3 (09:15→17:55)
[2017-10-30] MEDS: LevETIRAcetam 500 MG TABLET PO SCH ×2 (09:15→17:55)
[2017-10-30] MEDS: LORazepam 1 MG TABLET PO PRN ×2 (10:17→18:06)
[2017-10-30 16:45] VITALS: BP 118/76
[2017-10-30] MEDS: MIRTAZAPINE 15 MG TABLET PO SCH (21:53)
[2017-10-30] MEDS: QUEtiapine FUMARATE 300 MG TABLET PO SCH (21:53)
[2017-10-31 05:50] VITALS: BP 114/76
[2017-10-31] MEDS: METHADONE HCL 10 MG TABLET PO SCH (05:58)
[2017-10-31] MEDS: LORazepam 1 MG TABLET PO PRN ×3 (05:58→16:32)
[2017-10-31 06:22] LABS: BAND NEUTROPHILS % (MANUAL) 0 % (0-5)
[2017-10-31 06:40] LABS: HEMATOCRIT 37.7 % (41-53); HEMOGLOBIN 13.2 g/dL (13.5-17.5); MEAN CORPUSCULAR HEMOGLOBIN 31.2 pg (26.0-34.0); MEAN CORPUSCULAR VOLUME 89 fL (80-100); PLATELET COUNT (AUTO) 173 K/uL (150-450); RED BLOOD CELL COUNT(AUTO) 4.23 MIL/uL (4.50-5.90); RED CELL DISTRIBUTION WIDTH 13.2 % (11.5-14.5)
[2017-10-31 06:46] LABS: ANION GAP 3 mmol/L (8-16); CALCIUM, TOTAL 8.2 mg/dL (8.8-10.5); CARBON DIOXIDE 31 mmol/L (22-29); CHLORIDE 105 mmol/L (98-107); GLOMERULAR FILTR. RATE CALC > 60 mL/min (>60); GLUCOSE,RANDOM 94 mg/dL (70-110); PHOSPHORUS 3.9 mg/dL (2.5-4.9); SODIUM SERUM 139 mmol/L (136-145); UREA NITROGEN, BLOOD 9 mg/dL (7-18)
[2017-10-31 08:00] VITALS: BP 110/63
[2017-10-31 08:12] VITALS: BP 110/63
[2017-10-31 08:16] LABS: EOSINOPHILS % (MANUAL) 7 % (1-6); LYMPHOCYTES % (MANUAL) 28 % (22-44); MONOCYTES % (MANUAL) 4 % (2-9); SEGMENTED NEUTROPHILS % 61 % (40-70)
[2017-10-31] MEDS: GABAPENTIN 300 MG CAPSULE PO SCH ×3 (09:06→16:30)
[2017-10-31] MEDS: LevETIRAcetam 500 MG TABLET PO SCH ×2 (09:06→16:30)
[2017-10-31] MEDS: NICOTINE 21 MG/24 HOUR PATCH TD SCH (10:51)
[2017-10-31] MEDS: QUEtiapine FUMARATE 300 MG TABLET PO SCH (20:16)
[2017-10-31] MEDS: MIRTAZAPINE 15 MG TABLET PO SCH (20:16)
[2017-10-31 22:02] VITALS: BP 113/79
[2017-11-01] MEDS ORDERED: MIRT15 PO ×3 (04:18→04:21)
[2017-11-01] MEDS ORDERED: QUET300T2 PO (04:19)
[2017-11-01 05:44] VITALS: BP 108/74
[2017-11-01] MEDS: METHADONE HCL 10 MG TABLET PO SCH (05:47)
[2017-11-01] MEDS: LORazepam 1 MG TABLET PO PRN (05:47)
[2017-11-01] MEDS: NICOTINE 21 MG/24 HOUR PATCH TD SCH (09:00)
[2017-11-01] MEDS ORDERED: NICOTINE 21 MG/24 HOUR PATCH TD SCH (09:00)
[2017-11-01] MEDS: GABAPENTIN 300 MG CAPSULE PO SCH (09:06)
[2017-11-01] MEDS: LevETIRAcetam 500 MG TABLET PO SCH (09:06)
== END 2017-11-01 09:40 | disposition home or self-care (01) | DRG 750 ==
LOC: EMS 15:39 → 3EI 10-27 01:04
PROVIDERS: ATTEND Psychiatry & Neurology Psychiatry
DX: F25.0 Schizoaffective disorder, bipolar type (principal); E87.0 Hyperosmolality and hypernatremia; R45.851 Suicidal ideations; E44.1 Mild protein-calorie malnutrition; I10 Essential (primary) hypertension; G40.909 Epilepsy, unspecified, not intractable, without status epilepticus; F41.9 Anxiety disorder, unspecified; J44.9 Chronic obstructive pulmonary disease, unspecified; K21.9 Gastro-esophageal reflux disease without esophagitis; T43.592A Poisoning by other antipsychotics and neuroleptics, intentional self-harm, initial encounter; L20.9 Atopic dermatitis, unspecified; F17.210 Nicotine dependence, cigarettes, uncomplicated; F19.20 Other psychoactive substance dependence, uncomplicated; B18.2 Chronic viral hepatitis C; F11.20 Opioid dependence, uncomplicated; M19.90 Unspecified osteoarthritis, unspecified site; Z91.19 Patient's noncompliance with other medical treatment and regimen; Z59.0 Homelessness; Z88.8 Allergy status to other drugs, medicaments and biological substances; Z79.899 Other long term (current) drug therapy; Z28.21 Immunization not carried out because of patient refusal; Z91.5 Personal history of self-harm; Z81.8 Family history of other mental and behavioral disorders; Z80.9 Family history of malignant neoplasm, unspecified; Z68.21 Body mass index [BMI] 21.0-21.9, adult; Y92.89 Other specified places as the place of occurrence of the external cause
CPT/HCPCS: 82948; 83735; 84100; 85007; 87081; 93005; 99285; G0480; G0481; Q0162

== ENCOUNTER 2017-11-04 16:07 | Inpatient (IN) | payer MEDICAID, OTHER ==
[~2017-11-04] VITALS: Ht 177.8 cm; Wt 64.7 kg
[~2017-11-04 16:07] MED LIST changes: -DISU250 PO; -QUET25TA PO
[2017-11-04 16:48] LABS: BASOPHILS % (AUTO) 0.7 % (0.0-2.0); EOSINOPHILS % (AUTO) 4.8 % (1.0-6.0); HEMATOCRIT 42.8 % (41-53); HEMOGLOBIN 14.4 g/dL (13.5-17.5); LYMPHOCYTES % (AUTO) 40.9 % (22.0-44.0); MEAN CORPUSCULAR HEMOGLOBIN 30.8 pg (26.0-34.0); MEAN CORPUSCULAR HGB CONC 33.8 G/dL (31.0-37.0); MEAN CORPUSCULAR VOLUME 91 fL (80-100); MONOCYTES # (AUTO) 0.6 K/uL (0.1-1.0); MONOCYTES % (AUTO) 12.8 % (2.0-9.0); NEUTROPHILS # (AUTO) 1.9 K/uL (1.8-7.7); NEUTROPHILS % (AUTO) 40.8 % (40.0-70.0); PLATELET COUNT (AUTO) 236 K/uL (150-450); RED CELL DISTRIBUTION WIDTH 13.6 % (11.5-14.5)
[2017-11-04 16:58] LABS: ANION GAP 5 mmol/L (8-16); CARBON DIOXIDE 33 mmol/L (22-29); CHLORIDE 104 mmol/L (98-107); CREATININE 0.87 mg/dL (0.60-1.30); GLOMERULAR FILTR. RATE CALC > 60 mL/min (>60); GLUCOSE,RANDOM 75 mg/dL (70-110); POTASSIUM 3.9 mmol/L (3.5-5.1); SODIUM SERUM 142 mmol/L (136-145); UREA NITROGEN, BLOOD 19 mg/dL (7-18)
[2017-11-04 17:05] LABS: ALANINE AMINOTRANSFERASE 62 U/L (12-78); ALBUMIN 3.6 g/dL (3.4-5.0); ALKALINE PHOSPHATASE 95 U/L (46-116); ASPARTATE AMINOTRANSFERASE 68 U/L (15-37); BILIRUBIN,TOTAL 0.4 mg/dL (0.1-1.0); TOTAL PROTEIN, SERUM 7.7 g/dL (6.4-8.2)
[2017-11-04 19:19] LABS: AMPHET/METH SCREEN,URINE POSITIVE (NEGATIVE); BARBITURATE SCREEN, URINE NEGATIVE (NEGATIVE); BENZODIAZEPINES SCREEN,URINE POSITIVE (NEGATIVE); CANNABINOID SCREEN,URINE NEGATIVE (NEGATIVE); COCAINE SCREEN,URINE NEGATIVE (NEGATIVE); METHADONE SCREEN, URINE POSITIVE (NEGATIVE); OPIATE SCREEN,URINE POSITIVE (NEGATIVE)
[2017-11-04 19:24] LABS: PHENCYCLIDINE SCREEN,URINE NEGATIVE (NEGATIVE)
[2017-11-05] MEDS ORDERED: ZOLPIDEM TARTRATE 10 MG TABLET PO PRN (02:15)
[2017-11-05] MEDS ORDERED: HALOPERIDOL 5 MG TABLET PO PRN (02:15)
[2017-11-05] MEDS ORDERED: LORazepam 2 MG TABLET PO PRN (02:15)
[2017-11-05] MEDS ORDERED: METHADONE HCL 10 MG TABLET PO ONE (07:00)
[2017-11-05 09:46] VITALS: BP 109/70
[2017-11-05] MEDS ORDERED: PALIPERIDONE 1.5 MG ER TABLET PO PRN (18:30)
[2017-11-05] MEDS ORDERED: LOPERAMIDE HCL 2 MG CAPSULE PO PRN ×2 (18:30→20:15)
[2017-11-05] MEDS ORDERED: MAGNESIUM HYDROXIDE SUSPENSION 30 ML UDCUP PO PRN ×2 (18:30→20:15)
[2017-11-05] MEDS ORDERED: PALIPERIDONE PALMITATE 234 MG/1.5 ML SYRINGE IM ONE (18:30)
[2017-11-05] MEDS ORDERED: ACETAMINOPHEN 325 MG TABLET PO PRN (18:30)
[2017-11-05] MEDS ORDERED: GuaiFENesin/D-METHORPHAN [SUGAR-FREE] 200-20MG/10 ML SYRUP UDCUP PO PRN (18:30)
[2017-11-05] MEDS ORDERED: MAG HYDROX/AL HYDROX/SIMETH ES 30 ML SUSPENSION UDCUP PO PRN ×2 (18:30→20:15)
[2017-11-05] MEDS ORDERED: ESZOPICLONE 3 MG TABLET PO PRN (19:15)
[2017-11-05] MEDS ORDERED: ALBUTEROL SULFATE HFA 90 MCG/PUFF 8 GM INHALER IH PRN (20:15)
[2017-11-05] MEDS ORDERED: PETROLATUM,WHITE 71 GM JELLY TP PRN (20:15)
[2017-11-05] MEDS ORDERED: BACITRACIN 28.4 GM OINTMENT TP PRN (20:15)
[2017-11-05] MEDS ORDERED: BENZOCAINE/MENTHOL LOZENGE MM PRN (20:15)
[2017-11-05] MEDS ORDERED: ONDANSETRON HCL 4 MG TABLET PO PRN (20:15)
[2017-11-05] MEDS ORDERED: IBUPROFEN 600 MG TABLET PO PRN (20:15)
[2017-11-05] MEDS ORDERED: CloNIDine HCL 0.1 MG TABLET PO PRN (20:15)
[2017-11-05 20:47] VITALS: BP 128/78
[2017-11-05] MEDS ORDERED: PALIPERIDONE 3 MG ER TABLET PO SCH (21:00)
[2017-11-05] MEDS: LevETIRAcetam 500 MG TABLET PO SCH (21:19)
[2017-11-05] MEDS: MIRTAZAPINE 15 MG TABLET PO SCH (21:20)
[2017-11-05] MEDS: THIAMINE HCL 100 MG TABLET PO SCH (21:20)
[2017-11-05] MEDS: GABAPENTIN 300 MG CAPSULE PO SCH (21:20)
[2017-11-06] MEDS: METHADONE HCL 10 MG TABLET PO SCH (07:40)
[2017-11-06 08:33] LABS: CHOL/HDL RATIO 4.6 (4.2-7.3)
[2017-11-06 08:39] VITALS: BP 101/56
[2017-11-06] MEDS: DISULFIRAM 250 MG TABLET PO SCH (09:00)
[2017-11-06] MEDS: FOLIC ACID 1 MG TABLET PO SCH (10:16)
[2017-11-06] MEDS: THIAMINE HCL 100 MG TABLET PO SCH ×2 (10:16→16:22)
[2017-11-06] MEDS: MULTIVITAMINS WITH MINERALS, THERAPEUTIC TABLET PO SCH (10:16)
[2017-11-06] MEDS: DOCUSATE SODIUM 100 MG CAPSULE PO SCH (10:16)
[2017-11-06] MEDS: LevETIRAcetam 500 MG TABLET PO SCH ×2 (10:16→16:22)
[2017-11-06] MEDS: OMEPRAZOLE 20 MG CAPSULE PO SCH (10:16)
[2017-11-06] MEDS: GABAPENTIN 300 MG CAPSULE PO SCH ×4 (10:17→20:37)
[2017-11-06] MEDS ORDERED: GABAPENTIN 400 MG CAPSULE PO PRN (13:00)
[2017-11-06] MEDS: HydrOXYzine PAMOATE 50 MG CAPSULE PO PRN (13:49)
[2017-11-06 18:11] VITALS: BP 97/64
[2017-11-06] MEDS: MIRTAZAPINE 15 MG TABLET PO SCH (20:36)
[2017-11-07] MEDS: METHADONE HCL 10 MG TABLET PO SCH (06:25)
[2017-11-07 06:26] VITALS: BP 106/88
[2017-11-07 08:27] VITALS: BP 104/67
[2017-11-07] MEDS: DISULFIRAM 250 MG TABLET PO SCH (09:00)
[2017-11-07] MEDS: DOCUSATE SODIUM 100 MG CAPSULE PO SCH ×2 (09:00→09:28)
[2017-11-07] MEDS: MULTIVITAMINS WITH MINERALS, THERAPEUTIC TABLET PO SCH (09:28)
[2017-11-07] MEDS: GABAPENTIN 300 MG CAPSULE PO SCH ×3 (09:28→16:31)
[2017-11-07] MEDS: THIAMINE HCL 100 MG TABLET PO SCH ×2 (09:28→16:31)
[2017-11-07] MEDS: FOLIC ACID 1 MG TABLET PO SCH (09:28)
[2017-11-07] MEDS: LevETIRAcetam 500 MG TABLET PO SCH ×2 (09:28→16:31)
[2017-11-07] MEDS: OMEPRAZOLE 20 MG CAPSULE PO SCH (09:28)
[2017-11-07] MEDS: HydrOXYzine PAMOATE 50 MG CAPSULE PO PRN (09:28)
[2017-11-07] MEDS: NICOTINE 21 MG/24 HOUR PATCH TD SCH (13:19)
[2017-11-07 16:30] VITALS: BP 110/62
[2017-11-07] MEDS ORDERED: MIRTAZAPINE 30 MG TABLET PO SCH (21:00)
[2017-11-07] MEDS: ESZOPICLONE 3 MG TABLET PO SCH (22:00)
[2017-11-07] MEDS: TraZODone HCL 100 MG TABLET PO SCH (22:00)
[2017-11-07] MEDS: GABAPENTIN 400 MG CAPSULE PO SCH (22:00)
[2017-11-08 05:53] VITALS: BP 118/62
[2017-11-08] MEDS: METHADONE HCL 10 MG TABLET PO SCH (06:25)
[2017-11-08] MEDS: DOCUSATE SODIUM 100 MG CAPSULE PO SCH (09:00)
[2017-11-08] MEDS: DISULFIRAM 250 MG TABLET PO SCH (09:00)
[2017-11-08] MEDS: FOLIC ACID 1 MG TABLET PO SCH (10:00)
[2017-11-08] MEDS: GABAPENTIN 400 MG CAPSULE PO SCH ×3 (10:00→17:10)
[2017-11-08] MEDS: MULTIVITAMINS WITH MINERALS, THERAPEUTIC TABLET PO SCH (10:00)
[2017-11-08] MEDS: OMEPRAZOLE 20 MG CAPSULE PO SCH (10:00)
[2017-11-08] MEDS: THIAMINE HCL 100 MG TABLET PO SCH ×2 (10:00→17:10)
[2017-11-08] MEDS: NICOTINE 21 MG/24 HOUR PATCH TD SCH (10:01)
[2017-11-08] MEDS: LevETIRAcetam 500 MG TABLET PO SCH ×2 (10:01→17:10)
[2017-11-08 16:30] VITALS: BP 101/64
[2017-11-08] MEDS: TraZODone HCL 100 MG TABLET PO SCH (21:54)
[2017-11-08] MEDS: GABAPENTIN 300 MG CAPSULE PO SCH (21:54)
[2017-11-08] MEDS: MIRTAZAPINE 15 MG TABLET PO SCH (21:54)
[2017-11-08] MEDS: ESZOPICLONE 3 MG TABLET PO SCH (21:54)
[2017-11-09] MEDS: METHADONE HCL 10 MG TABLET PO SCH (06:26)
[2017-11-09] MEDS: OMEPRAZOLE 20 MG CAPSULE PO SCH (08:44)
[2017-11-09] MEDS: FOLIC ACID 1 MG TABLET PO SCH (08:44)
[2017-11-09] MEDS: GABAPENTIN 300 MG CAPSULE PO SCH ×4 (08:44→21:23)
[2017-11-09] MEDS: DOCUSATE SODIUM 100 MG CAPSULE PO SCH (08:44)
[2017-11-09] MEDS: LevETIRAcetam 500 MG TABLET PO SCH ×2 (08:44→18:11)
[2017-11-09] MEDS: THIAMINE HCL 100 MG TABLET PO SCH ×2 (08:44→18:12)
[2017-11-09] MEDS: MULTIVITAMINS WITH MINERALS, THERAPEUTIC TABLET PO SCH (08:44)
[2017-11-09] MEDS: NICOTINE 21 MG/24 HOUR PATCH TD SCH (08:45)
[2017-11-09] MEDS: DISULFIRAM 250 MG TABLET PO SCH (08:46)
[2017-11-09] MEDS ORDERED: PALIPERIDONE PALMITATE 156 MG/ML SYRINGE IM ONE (09:00)
[2017-11-09 10:40] VITALS: BP 110/62
[2017-11-09 17:00] VITALS: BP 116/69
[2017-11-09] MEDS: TraZODone HCL 100 MG TABLET PO SCH (21:23)
[2017-11-09] MEDS: ESZOPICLONE 3 MG TABLET PO SCH (21:23)
[2017-11-09] MEDS: MIRTAZAPINE 15 MG TABLET PO SCH (21:23)
[2017-11-10 06:11] VITALS: BP 108/61
[2017-11-10] MEDS: METHADONE HCL 10 MG TABLET PO SCH (06:17)
[2017-11-10] MEDS: DOCUSATE SODIUM 100 MG CAPSULE PO SCH (09:43)
[2017-11-10] MEDS: OMEPRAZOLE 20 MG CAPSULE PO SCH (09:43)
[2017-11-10] MEDS: DISULFIRAM 250 MG TABLET PO SCH (09:43)
[2017-11-10] MEDS: GABAPENTIN 300 MG CAPSULE PO SCH ×4 (09:43→22:02)
[2017-11-10] MEDS: FOLIC ACID 1 MG TABLET PO SCH (09:43)
[2017-11-10] MEDS: LevETIRAcetam 500 MG TABLET PO SCH ×2 (09:43→17:39)
[2017-11-10] MEDS: MULTIVITAMINS WITH MINERALS, THERAPEUTIC TABLET PO SCH (09:43)
[2017-11-10] MEDS: THIAMINE HCL 100 MG TABLET PO SCH ×2 (09:43→17:38)
[2017-11-10] MEDS: NICOTINE 21 MG/24 HOUR PATCH TD SCH (09:44)
[2017-11-10 10:11] VITALS: BP 105/60
[2017-11-10 20:56] VITALS: BP 107/64
[2017-11-10] MEDS: ESZOPICLONE 3 MG TABLET PO SCH (22:01)
[2017-11-10] MEDS: TraZODone HCL 100 MG TABLET PO SCH (22:01)
[2017-11-10] MEDS: MIRTAZAPINE 15 MG TABLET PO SCH (22:01)
[2017-11-11] MEDS: METHADONE HCL 10 MG TABLET PO SCH (06:02)
[2017-11-11] MEDS: NICOTINE 21 MG/24 HOUR PATCH TD SCH (09:00)
[2017-11-11 09:05] VITALS: BP 108/68
[2017-11-11] MEDS: OMEPRAZOLE 20 MG CAPSULE PO SCH (09:45)
[2017-11-11] MEDS: FOLIC ACID 1 MG TABLET PO SCH (09:45)
[2017-11-11] MEDS: DOCUSATE SODIUM 100 MG CAPSULE PO SCH (09:45)
[2017-11-11] MEDS: GABAPENTIN 300 MG CAPSULE PO SCH ×2 (09:45→13:46)
[2017-11-11] MEDS: LevETIRAcetam 500 MG TABLET PO SCH ×2 (09:45→17:22)
[2017-11-11] MEDS: MULTIVITAMINS WITH MINERALS, THERAPEUTIC TABLET PO SCH (09:45)
[2017-11-11] MEDS: DISULFIRAM 250 MG TABLET PO SCH (09:46)
[2017-11-11] MEDS: THIAMINE HCL 100 MG TABLET PO SCH ×2 (09:46→17:22)
[2017-11-11 17:52] VITALS: BP 96/62
[2017-11-11] MEDS: MIRTAZAPINE 15 MG TABLET PO SCH (20:48)
[2017-11-11] MEDS: TraZODone HCL 100 MG TABLET PO SCH (20:48)
[2017-11-11] MEDS: ESZOPICLONE 3 MG TABLET PO SCH (20:48)
[2017-11-12 06:43] VITALS: BP 124/75
[2017-11-12] MEDS: METHADONE HCL 10 MG TABLET PO SCH (06:43)
[2017-11-12] MEDS: NICOTINE 21 MG/24 HOUR PATCH TD SCH (08:16)
[2017-11-12] MEDS: FOLIC ACID 1 MG TABLET PO SCH (08:17)
[2017-11-12] MEDS: THIAMINE HCL 100 MG TABLET PO SCH ×2 (08:17→16:55)
[2017-11-12] MEDS: GABAPENTIN 400 MG CAPSULE PO SCH ×3 (08:17→16:55)
[2017-11-12] MEDS: MULTIVITAMINS WITH MINERALS, THERAPEUTIC TABLET PO SCH (08:17)
[2017-11-12] MEDS: DISULFIRAM 250 MG TABLET PO SCH (08:17)
[2017-11-12] MEDS: LevETIRAcetam 500 MG TABLET PO SCH ×2 (08:17→16:55)
[2017-11-12] MEDS: OMEPRAZOLE 20 MG CAPSULE PO SCH (08:17)
[2017-11-12] MEDS: DOCUSATE SODIUM 100 MG CAPSULE PO SCH (08:17)
[2017-11-12 10:14] VITALS: BP 103/60
[2017-11-12] MEDS: MIRTAZAPINE 15 MG TABLET PO SCH (20:31)
[2017-11-12] MEDS: TraZODone HCL 100 MG TABLET PO SCH (20:31)
[2017-11-12] MEDS: ESZOPICLONE 3 MG TABLET PO SCH (20:31)
[2017-11-12 21:08] VITALS: BP 101/74
[2017-11-13] MEDS: METHADONE HCL 10 MG TABLET PO SCH (06:30)
[2017-11-13 08:00] VITALS: BP 107/72
[2017-11-13] MEDS: NICOTINE 21 MG/24 HOUR PATCH TD SCH (09:00)
[2017-11-13] MEDS: DOCUSATE SODIUM 100 MG CAPSULE PO SCH (09:07)
[2017-11-13] MEDS: THIAMINE HCL 100 MG TABLET PO SCH (09:07)
[2017-11-13] MEDS: GABAPENTIN 400 MG CAPSULE PO SCH ×2 (09:07→13:02)
[2017-11-13] MEDS: LevETIRAcetam 500 MG TABLET PO SCH (09:08)
[2017-11-13] MEDS: OMEPRAZOLE 20 MG CAPSULE PO SCH (09:08)
[2017-11-13] MEDS: DISULFIRAM 250 MG TABLET PO SCH (09:08)
[2017-11-13] MEDS: FOLIC ACID 1 MG TABLET PO SCH (09:08)
[2017-11-13] MEDS: MULTIVITAMINS WITH MINERALS, THERAPEUTIC TABLET PO SCH (09:08)
[2017-11-13] MEDS ORDERED: DISU250 PO (12:16)
[2017-11-13] MEDS ORDERED: TRAZ-147 PO (12:16)
[2017-11-13] MEDS ORDERED: LEVE500T53 PO (12:16)
[2017-11-13] MEDS ORDERED: PALI156D IM (12:16)
[2017-11-13] MEDS ORDERED: GABA-533 PO (12:16)
[2017-11-13] MEDS ORDERED: MIRT15 PO (12:16)
[2017-11-13] MEDS ORDERED: ESZO3 PO (12:16)
[2017-11-13] MEDS ORDERED: DSS100 PO (13:11)
[2017-11-13] MEDS ORDERED: OMEP20 PO (13:12)
[2017-11-13] MEDS ORDERED: TraZODone HCL 100 MG TABLET PO SCH (21:00)
== END 2017-11-13 16:30 | disposition home or self-care (01) | DRG 750 ==
LOC: EMS 16:08 → AHU 11-05 07:54 → 3EI 11-05 18:48
PROVIDERS: ADMIT Psychiatry & Neurology Psychiatry; ATTEND Psychiatry & Neurology Psychiatry
DX: F25.9 Schizoaffective disorder, unspecified (principal); E44.1 Mild protein-calorie malnutrition; R45.851 Suicidal ideations; I10 Essential (primary) hypertension; G40.909 Epilepsy, unspecified, not intractable, without status epilepticus; J44.9 Chronic obstructive pulmonary disease, unspecified; M19.90 Unspecified osteoarthritis, unspecified site; K21.9 Gastro-esophageal reflux disease without esophagitis; B18.2 Chronic viral hepatitis C; F15.90 Other stimulant use, unspecified, uncomplicated; F12.90 Cannabis use, unspecified, uncomplicated; Z96.641 Presence of right artificial hip joint; F17.200 Nicotine dependence, unspecified, uncomplicated; F31.9 Bipolar disorder, unspecified; F11.20 Opioid dependence, uncomplicated; Z71.51 Drug abuse counseling and surveillance of drug abuser; Z71.6 Tobacco abuse counseling; Z56.0 Unemployment, unspecified; Z59.0 Homelessness; Z68.20 Body mass index [BMI] 20.0-20.9, adult; Z91.14 Patient's other noncompliance with medication regimen; Z88.8 Allergy status to other drugs, medicaments and biological substances
CPT/HCPCS: 87081; 93005; 99285; G0480

== ENCOUNTER 2017-12-18 10:21 | Inpatient (IN) | payer MEDICAID, OTHER ==
[~2017-12-18] VITALS: Ht 177.8 cm; Wt 61.9 kg
[~2017-12-18 10:21] MED LIST changes: +DISU250 PO; +DSS100 PO; +ESZO3 PO; -GABA-531 PO; +GABA-533 PO; +OMEP20 PO; +PALI156D IM; -QUET300T2 PO; +TRAZ-220 PO
[2017-12-18] MEDS ORDERED: LevETIRAcetam 500 MG TABLET PO ONE (11:15)
[2017-12-18] MEDS ORDERED: QUEtiapine FUMARATE 200 MG TABLET PO ONE (11:15)
[2017-12-18] MEDS ORDERED: LORazepam 1 MG TABLET PO ONE (11:15)
[2017-12-18 11:18] LABS: BASOPHILS % (AUTO) 0.7 % (0.0-2.0); HEMATOCRIT 45.3 % (41-53); HEMOGLOBIN 15.8 g/dL (13.5-17.5); LYMPHOCYTES # (AUTO) 1.5 K/uL (1.0-4.8); LYMPHOCYTES % (AUTO) 21.3 % (22.0-44.0); MEAN CORPUSCULAR HEMOGLOBIN 30.7 pg (26.0-34.0); MEAN CORPUSCULAR HGB CONC 34.8 G/dL (31.0-37.0); MEAN CORPUSCULAR VOLUME 88 fL (80-100); MONOCYTES # (AUTO) 0.5 K/uL (0.1-1.0); MONOCYTES % (AUTO) 7.6 % (2.0-9.0); NEUTROPHILS # (AUTO) 4.9 K/uL (1.8-7.7); NEUTROPHILS % (AUTO) 69.4 % (40.0-70.0); PLATELET COUNT (AUTO) 217 K/uL (150-450); RED BLOOD CELL COUNT(AUTO) 5.14 MIL/uL (4.50-5.90); RED CELL DISTRIBUTION WIDTH 13.9 % (11.5-14.5)
[2017-12-18] MEDS ORDERED: OLANZapine 5 MG RAPDIS TABLET PO PRN (11:30)
[2017-12-18] MEDS ORDERED: ZOLPIDEM TARTRATE 10 MG TABLET PO PRN (11:30)
[2017-12-18 11:33] LABS: ANION GAP 12 mmol/L (8-16); CALCIUM, TOTAL 9.3 mg/dL (8.8-10.5); CARBON DIOXIDE 25 mmol/L (22-29); CHLORIDE 105 mmol/L (98-107); CREATININE 0.65 mg/dL (0.60-1.30); GLOMERULAR FILTR. RATE CALC > 60 mL/min (>60); GLUCOSE,RANDOM 107 mg/dL (70-110); POTASSIUM 3.8 mmol/L (3.5-5.1); SODIUM SERUM 142 mmol/L (136-145); UREA NITROGEN, BLOOD 17 mg/dL (7-18)
[2017-12-18 11:38] LABS: ALANINE AMINOTRANSFERASE 56 U/L (12-78); ALBUMIN 3.7 g/dL (3.4-5.0); ALKALINE PHOSPHATASE 112 U/L (46-116); ASPARTATE AMINOTRANSFERASE 31 U/L (15-37); BILIRUBIN,TOTAL 0.3 mg/dL (0.1-1.0); TOTAL PROTEIN, SERUM 7.3 g/dL (6.4-8.2)
[2017-12-18 12:22] LABS: APPEARANCE,URINE CLEAR (CLEAR); BILIRUBIN,URINE NEGATIVE (NEGATIVE); GLUCOSE, URINE (UA) NEGATIVE (NEGATIVE); KETONES,URINE NEGATIVE (NEGATIVE); LEUKOCYTE ESTERASE ,URINE NEGATIVE (NEGATIVE); NITRATE,URINE NEGATIVE (NEGATIVE); OCCULT BLOOD,URINE NEGATIVE (NEGATIVE); PH,URINE 5.5 (5.0-8.0); PROTEIN,URINE NEGATIVE (NEGATIVE); UROBILINOGEN,URINE 0.2 mg/dL (<=1.0)
[2017-12-18 12:27] LABS: AMPHET/METH SCREEN,URINE NEGATIVE (NEGATIVE); BARBITURATE SCREEN, URINE NEGATIVE (NEGATIVE); BENZODIAZEPINES SCREEN,URINE NEGATIVE (NEGATIVE); CANNABINOID SCREEN,URINE NEGATIVE (NEGATIVE); COCAINE SCREEN,URINE NEGATIVE (NEGATIVE); METHADONE SCREEN, URINE NEGATIVE (NEGATIVE); OPIATE SCREEN,URINE NEGATIVE (NEGATIVE); PHENCYCLIDINE SCREEN,URINE NEGATIVE (NEGATIVE)
[2017-12-18] MEDS ORDERED: GuaiFENesin/D-METHORPHAN [SUGAR-FREE] 200-20MG/10 ML SYRUP UDCUP PO PRN (12:30)
[2017-12-18] MEDS ORDERED: LOPERAMIDE HCL 2 MG CAPSULE PO PRN ×2 (12:30→20:15)
[2017-12-18] MEDS ORDERED: ACETAMINOPHEN 325 MG TABLET PO PRN (12:30)
[2017-12-18] MEDS ORDERED: HydrOXYzine PAMOATE 50 MG CAPSULE PO PRN (12:30)
[2017-12-18] MEDS ORDERED: MAGNESIUM HYDROXIDE SUSPENSION 30 ML UDCUP PO PRN (12:30)
[2017-12-18] MEDS ORDERED: PALIPERIDONE 1.5 MG ER TABLET PO PRN (12:30)
[2017-12-18] MEDS ORDERED: PROMETHAZINE HCL 25 MG TABLET PO PRN (12:30)
[2017-12-18] MEDS ORDERED: MAG HYDROX/AL HYDROX/SIMETH ES 30 ML SUSPENSION UDCUP PO PRN (12:30)
[2017-12-18] MEDS ORDERED: PALIPERIDONE PALMITATE 234 MG/1.5 ML SYRINGE IM ONE (12:30)
[2017-12-18] MEDS ORDERED: GABAPENTIN 400 MG CAPSULE PO SCH (16:00)
[2017-12-18] MEDS: LevETIRAcetam 500 MG TABLET PO SCH (16:32)
[2017-12-18] MEDS: GABAPENTIN 300 MG CAPSULE PO SCH (16:32)
[2017-12-18] MEDS: THIAMINE HCL 100 MG TABLET PO SCH (16:32)
[2017-12-18] MEDS: LORazepam 2 MG TABLET PO PRN (16:35)
[2017-12-18 17:11] VITALS: BP 106/78
[2017-12-18 18:01] VITALS: BP 106/97
[2017-12-18] MEDS ORDERED: IBUPROFEN 600 MG TABLET PO PRN (20:15)
[2017-12-18] MEDS ORDERED: BENZOCAINE/MENTHOL LOZENGE MM PRN (20:15)
[2017-12-18] MEDS ORDERED: BACITRACIN 28.4 GM OINTMENT TP PRN (20:15)
[2017-12-18] MEDS ORDERED: ALBUTEROL SULFATE HFA 90 MCG/PUFF 8 GM INHALER IH PRN (20:15)
[2017-12-18] MEDS ORDERED: CloNIDine HCL 0.1 MG TABLET PO PRN (20:15)
[2017-12-18] MEDS ORDERED: PETROLATUM,WHITE 71 GM JELLY TP PRN (20:15)
[2017-12-18] MEDS ORDERED: ONDANSETRON HCL 4 MG TABLET PO PRN (20:15)
[2017-12-18] MEDS ORDERED: PALIPERIDONE 3 MG ER TABLET PO SCH (21:00)
[2017-12-18] MEDS ORDERED: MIRTAZAPINE 15 MG TABLET PO SCH (21:00)
[2017-12-18] MEDS ORDERED: TraZODone HCL 100 MG TABLET PO SCH (21:00)
[2017-12-18] MEDS: ESZOPICLONE 3 MG TABLET PO SCH (21:35)
[2017-12-18] MEDS: MIRTAZAPINE 15 MG TABLET PO SCH (21:35)
[2017-12-18] MEDS: TraZODone HCL 100 MG TABLET PO SCH (21:35)
[2017-12-19 05:57] VITALS: BP 110/77
[2017-12-19] MEDS: LORazepam 2 MG TABLET PO PRN ×3 (06:13→15:13)
[2017-12-19 08:12] VITALS: BP 100/60
[2017-12-19 08:54] LABS: BASOPHILS % (AUTO) 0.7 % (0.0-2.0); EOSINOPHILS % (AUTO) 2.9 % (1.0-6.0); HEMATOCRIT 45.4 % (41-53); HEMOGLOBIN 15.6 g/dL (13.5-17.5); LYMPHOCYTES # (AUTO) 1.8 K/uL (1.0-4.8); LYMPHOCYTES % (AUTO) 30.6 % (22.0-44.0); MEAN CORPUSCULAR HEMOGLOBIN 30.7 pg (26.0-34.0); MEAN CORPUSCULAR HGB CONC 34.3 G/dL (31.0-37.0); MEAN CORPUSCULAR VOLUME 89 fL (80-100); MONOCYTES # (AUTO) 0.4 K/uL (0.1-1.0); MONOCYTES % (AUTO) 7.1 % (2.0-9.0); NEUTROPHILS # (AUTO) 3.4 K/uL (1.8-7.7); NEUTROPHILS % (AUTO) 58.7 % (40.0-70.0); PLATELET COUNT (AUTO) 198 K/uL (150-450); RED BLOOD CELL COUNT(AUTO) 5.07 MIL/uL (4.50-5.90); RED CELL DISTRIBUTION WIDTH 14.1 % (11.5-14.5)
[2017-12-19] MEDS ORDERED: DISULFIRAM 250 MG TABLET PO SCH (09:00)
[2017-12-19] MEDS ORDERED: PALIPERIDONE PALMITATE 234 MG/1.5 ML SYRINGE IM SCH (09:00)
[2017-12-19] MEDS: NALTREXONE HCL 50 MG TABLET PO SCH (09:27)
[2017-12-19] MEDS: OMEPRAZOLE 20 MG CAPSULE PO SCH (09:27)
[2017-12-19] MEDS: MULTIVITAMINS WITH MINERALS, THERAPEUTIC TABLET PO SCH (09:27)
[2017-12-19] MEDS: GABAPENTIN 300 MG CAPSULE PO SCH ×3 (09:27→16:42)
[2017-12-19] MEDS: DOCUSATE SODIUM 100 MG CAPSULE PO SCH (09:27)
[2017-12-19] MEDS: THIAMINE HCL 100 MG TABLET PO SCH ×2 (09:28→16:42)
[2017-12-19] MEDS: FOLIC ACID 1 MG TABLET PO SCH (09:28)
[2017-12-19] MEDS: LevETIRAcetam 500 MG TABLET PO SCH ×2 (09:28→16:42)
[2017-12-19 09:43] LABS: ANION GAP 11 mmol/L (8-16); CALCIUM, TOTAL 9.2 mg/dL (8.8-10.5); CARBON DIOXIDE 24 mmol/L (22-29); CHLORIDE 105 mmol/L (98-107); CHOL/HDL RATIO 3.1 (4.2-7.3); CHOLESTEROL 142 mg/dL (131-200); CREATININE 0.75 mg/dL (0.60-1.30); GLOMERULAR FILTR. RATE CALC > 60 mL/min (>60); GLUCOSE,RANDOM 138 mg/dL (70-110); HDL CHOLESTEROL 46 mg/dL (40-60); LDL CHOL (CALC.) 75 mg/dL (0-130); PHOSPHORUS 3.9 mg/dL (2.5-4.9); POTASSIUM 4.3 mmol/L (3.5-5.1); SODIUM SERUM 140 mmol/L (136-145); THYROID STIMULATING HORMONE 1.12 uIU/mL (0.36-3.74); TRIGLYCERIDES 104 mg/dL (15-150); UREA NITROGEN, BLOOD 24 mg/dL (7-18)
[2017-12-19] MEDS: NICOTINE 21 MG/24 HOUR PATCH TD SCH (13:15)
[2017-12-19] MEDS ORDERED: QUEtiapine FUMARATE 100 MG TABLET PO PRN (14:45)
[2017-12-19 16:10] VITALS: BP 110/74
[2017-12-19] MEDS ORDERED: QUEtiapine FUMARATE 200 MG TABLET PO SCH (21:00)
[2017-12-19] MEDS: TraZODone HCL 100 MG TABLET PO SCH (21:06)
[2017-12-19] MEDS: MIRTAZAPINE 15 MG TABLET PO SCH (21:06)
[2017-12-19] MEDS: ESZOPICLONE 3 MG TABLET PO SCH (21:07)
[2017-12-20 02:29] VITALS: BP 112/75
[2017-12-20] MEDS: LORazepam 2 MG TABLET PO PRN ×3 (05:03→13:08)
[2017-12-20 05:04] VITALS: BP 111/99
[2017-12-20 08:41] VITALS: BP 106/77
[2017-12-20] MEDS: LevETIRAcetam 500 MG TABLET PO SCH ×2 (08:47→16:27)
[2017-12-20] MEDS: THIAMINE HCL 100 MG TABLET PO SCH ×2 (08:47→16:26)
[2017-12-20] MEDS: MULTIVITAMINS WITH MINERALS, THERAPEUTIC TABLET PO SCH (08:47)
[2017-12-20] MEDS: DOCUSATE SODIUM 100 MG CAPSULE PO SCH (08:47)
[2017-12-20] MEDS: NICOTINE 21 MG/24 HOUR PATCH TD SCH (08:47)
[2017-12-20] MEDS: FOLIC ACID 1 MG TABLET PO SCH (08:47)
[2017-12-20] MEDS: OMEPRAZOLE 20 MG CAPSULE PO SCH (08:47)
[2017-12-20] MEDS: GABAPENTIN 300 MG CAPSULE PO SCH ×2 (08:47→13:00)
[2017-12-20] MEDS: NALTREXONE HCL 50 MG TABLET PO SCH (08:47)
[2017-12-20 16:06] VITALS: BP 111/79
[2017-12-20] MEDS: GABAPENTIN 400 MG CAPSULE PO SCH (16:26)
[2017-12-20] MEDS: BusPIRone HCL 5 MG TABLET PO SCH (16:27)
[2017-12-20] MEDS: QUEtiapine FUMARATE 25 MG TABLET PO SCH (16:27)
[2017-12-20] MEDS: TraZODone HCL 100 MG TABLET PO SCH (20:07)
[2017-12-20] MEDS: MIRTAZAPINE 15 MG TABLET PO SCH (20:07)
[2017-12-20] MEDS: QUEtiapine FUMARATE 200 MG TABLET PO SCH (20:08)
[2017-12-20] MEDS: ESZOPICLONE 3 MG TABLET PO SCH (20:25)
[2017-12-21 00:41] VITALS: BP 109/63
[2017-12-21] MEDS: ClonazePAM 0.5 MG TABLET PO PRN ×3 (05:44→16:14)
[2017-12-21 08:00] VITALS: BP 109/74
[2017-12-21] MEDS: OMEPRAZOLE 20 MG CAPSULE PO SCH (08:48)
[2017-12-21] MEDS: MULTIVITAMINS WITH MINERALS, THERAPEUTIC TABLET PO SCH (08:48)
[2017-12-21] MEDS: DOCUSATE SODIUM 100 MG CAPSULE PO SCH (08:48)
[2017-12-21] MEDS: LevETIRAcetam 500 MG TABLET PO SCH ×2 (08:48→16:04)
[2017-12-21] MEDS: BusPIRone HCL 5 MG TABLET PO SCH ×3 (08:48→16:04)
[2017-12-21] MEDS: NALTREXONE HCL 50 MG TABLET PO SCH (08:48)
[2017-12-21] MEDS: QUEtiapine FUMARATE 25 MG TABLET PO SCH ×3 (08:48→16:04)
[2017-12-21] MEDS: THIAMINE HCL 100 MG TABLET PO SCH ×2 (08:49→16:04)
[2017-12-21] MEDS: GABAPENTIN 400 MG CAPSULE PO SCH ×3 (08:49→16:04)
[2017-12-21] MEDS: FOLIC ACID 1 MG TABLET PO SCH (08:49)
[2017-12-21] MEDS: NICOTINE 21 MG/24 HOUR PATCH TD SCH (08:51)
[2017-12-21 16:03] VITALS: BP 107/71
[2017-12-21] MEDS: TraZODone HCL 100 MG TABLET PO SCH (20:26)
[2017-12-21] MEDS: MIRTAZAPINE 15 MG TABLET PO SCH (20:26)
[2017-12-21] MEDS: QUEtiapine FUMARATE 200 MG TABLET PO SCH (20:26)
[2017-12-21] MEDS: ESZOPICLONE 3 MG TABLET PO SCH (20:26)
[2017-12-22 00:29] VITALS: BP 110/68
[2017-12-22] MEDS: ClonazePAM 0.5 MG TABLET PO PRN ×2 (06:51→14:08)
[2017-12-22 08:24] VITALS: BP 101/64
[2017-12-22] MEDS: NALTREXONE HCL 50 MG TABLET PO SCH (08:41)
[2017-12-22] MEDS: NICOTINE 21 MG/24 HOUR PATCH TD SCH (08:41)
[2017-12-22] MEDS: DOCUSATE SODIUM 100 MG CAPSULE PO SCH (08:42)
[2017-12-22] MEDS: MULTIVITAMINS WITH MINERALS, THERAPEUTIC TABLET PO SCH (08:42)
[2017-12-22] MEDS: QUEtiapine FUMARATE 25 MG TABLET PO SCH ×3 (08:42→16:03)
[2017-12-22] MEDS: THIAMINE HCL 100 MG TABLET PO SCH ×2 (08:42→16:03)
[2017-12-22] MEDS: BusPIRone HCL 5 MG TABLET PO SCH ×3 (08:42→16:03)
[2017-12-22] MEDS: LevETIRAcetam 500 MG TABLET PO SCH ×2 (08:42→16:03)
[2017-12-22] MEDS: GABAPENTIN 400 MG CAPSULE PO SCH ×3 (08:42→16:03)
[2017-12-22] MEDS: OMEPRAZOLE 20 MG CAPSULE PO SCH (08:42)
[2017-12-22] MEDS: FOLIC ACID 1 MG TABLET PO SCH (08:42)
[2017-12-22] MEDS ORDERED: PALIPERIDONE PALMITATE 156 MG/ML SYRINGE IM ONE (09:00)
[2017-12-22 16:10] VITALS: BP 104/76
[2017-12-22] MEDS: TraZODone HCL 100 MG TABLET PO SCH (20:14)
[2017-12-22] MEDS: MIRTAZAPINE 15 MG TABLET PO SCH (20:14)
[2017-12-22] MEDS: QUEtiapine FUMARATE 200 MG TABLET PO SCH (20:14)
[2017-12-22] MEDS: ESZOPICLONE 3 MG TABLET PO SCH (20:14)
[2017-12-23 05:17] VITALS: BP 110/68
[2017-12-23 06:27] VITALS: BP 112/63
[2017-12-23] MEDS: ClonazePAM 0.5 MG TABLET PO PRN (06:34)
[2017-12-23 08:17] VITALS: BP 103/77
[2017-12-23] MEDS: QUEtiapine FUMARATE 25 MG TABLET PO SCH ×3 (08:49→16:29)
[2017-12-23] MEDS: GABAPENTIN 400 MG CAPSULE PO SCH ×3 (08:49→16:28)
[2017-12-23] MEDS: BusPIRone HCL 5 MG TABLET PO SCH ×3 (08:49→16:28)
[2017-12-23] MEDS: DOCUSATE SODIUM 100 MG CAPSULE PO SCH (08:49)
[2017-12-23] MEDS: THIAMINE HCL 100 MG TABLET PO SCH ×2 (08:50→16:29)
[2017-12-23] MEDS: FOLIC ACID 1 MG TABLET PO SCH (08:50)
[2017-12-23] MEDS: MULTIVITAMINS WITH MINERALS, THERAPEUTIC TABLET PO SCH (08:50)
[2017-12-23] MEDS: OMEPRAZOLE 20 MG CAPSULE PO SCH (08:50)
[2017-12-23] MEDS: NALTREXONE HCL 50 MG TABLET PO SCH (08:50)
[2017-12-23] MEDS: NICOTINE 21 MG/24 HOUR PATCH TD SCH (08:58)
[2017-12-23] MEDS: LevETIRAcetam 500 MG TABLET PO SCH ×2 (09:09→16:28)
[2017-12-23] MEDS: ClonazePAM 1 MG TABLET PO PRN (15:49)
[2017-12-23 16:35] VITALS: BP 108/70
[2017-12-23 20:20] VITALS: BP 112/81
[2017-12-23] MEDS: TraZODone HCL 100 MG TABLET PO SCH (20:25)
[2017-12-23] MEDS: ESZOPICLONE 3 MG TABLET PO SCH (20:25)
[2017-12-23] MEDS: MIRTAZAPINE 15 MG TABLET PO SCH (20:25)
[2017-12-23] MEDS: QUEtiapine FUMARATE 200 MG TABLET PO SCH (20:25)
[2017-12-24 00:01] VITALS: BP 110/63
[2017-12-24] MEDS: ClonazePAM 1 MG TABLET PO PRN ×4 (00:05→21:01)
[2017-12-24 08:32] VITALS: BP 109/69
[2017-12-24] MEDS: NALTREXONE HCL 50 MG TABLET PO SCH (09:09)
[2017-12-24] MEDS: NICOTINE 21 MG/24 HOUR PATCH TD SCH (09:09)
[2017-12-24] MEDS: FOLIC ACID 1 MG TABLET PO SCH (09:10)
[2017-12-24] MEDS: LevETIRAcetam 500 MG TABLET PO SCH ×2 (09:10→16:03)
[2017-12-24] MEDS: OMEPRAZOLE 20 MG CAPSULE PO SCH (09:10)
[2017-12-24] MEDS: DOCUSATE SODIUM 100 MG CAPSULE PO SCH (09:10)
[2017-12-24] MEDS: THIAMINE HCL 100 MG TABLET PO SCH ×2 (09:10→16:03)
[2017-12-24] MEDS: BusPIRone HCL 5 MG TABLET PO SCH ×3 (09:10→16:03)
[2017-12-24] MEDS: QUEtiapine FUMARATE 25 MG TABLET PO SCH ×3 (09:10→16:03)
[2017-12-24] MEDS: GABAPENTIN 400 MG CAPSULE PO SCH ×3 (09:10→16:03)
[2017-12-24] MEDS: MULTIVITAMINS WITH MINERALS, THERAPEUTIC TABLET PO SCH (09:10)
[2017-12-24] MEDS: QUEtiapine FUMARATE 200 MG TABLET PO SCH (20:33)
[2017-12-24] MEDS: TraZODone HCL 100 MG TABLET PO SCH (20:33)
[2017-12-24] MEDS: ESZOPICLONE 3 MG TABLET PO SCH (20:33)
[2017-12-24] MEDS: MIRTAZAPINE 15 MG TABLET PO SCH (20:33)
[2017-12-25 05:38] VITALS: BP 106/62
[2017-12-25] MEDS: ClonazePAM 1 MG TABLET PO PRN ×2 (06:51→13:37)
[2017-12-25 08:05] VITALS: BP 100/60
[2017-12-25] MEDS: DOCUSATE SODIUM 100 MG CAPSULE PO SCH (08:40)
[2017-12-25] MEDS: MULTIVITAMINS WITH MINERALS, THERAPEUTIC TABLET PO SCH (08:40)
[2017-12-25] MEDS: LevETIRAcetam 500 MG TABLET PO SCH ×2 (08:41→16:03)
[2017-12-25] MEDS: FOLIC ACID 1 MG TABLET PO SCH (08:41)
[2017-12-25] MEDS: THIAMINE HCL 100 MG TABLET PO SCH ×2 (08:41→16:03)
[2017-12-25] MEDS: OMEPRAZOLE 20 MG CAPSULE PO SCH (08:41)
[2017-12-25] MEDS: QUEtiapine FUMARATE 25 MG TABLET PO SCH ×3 (08:41→16:03)
[2017-12-25] MEDS: NALTREXONE HCL 50 MG TABLET PO SCH (08:41)
[2017-12-25] MEDS: BusPIRone HCL 5 MG TABLET PO SCH ×3 (08:41→16:03)
[2017-12-25] MEDS: GABAPENTIN 400 MG CAPSULE PO SCH ×3 (08:41→16:03)
[2017-12-25] MEDS: NICOTINE 21 MG/24 HOUR PATCH TD SCH (08:43)
[2017-12-25 08:58] VITALS: BP 119/67
[2017-12-25 13:35] VITALS: BP 118/82
[2017-12-25 17:32] VITALS: BP 107/72
[2017-12-25] MEDS: TraZODone HCL 100 MG TABLET PO SCH (20:28)
[2017-12-25] MEDS: MIRTAZAPINE 15 MG TABLET PO SCH (20:28)
[2017-12-25] MEDS: QUEtiapine FUMARATE 200 MG TABLET PO SCH (20:28)
[2017-12-25] MEDS: ESZOPICLONE 3 MG TABLET PO SCH (20:28)
[2017-12-26 05:30] VITALS: BP 116/60
[2017-12-26] MEDS: ClonazePAM 1 MG TABLET PO PRN (05:33)
[2017-12-26] MEDS: FOLIC ACID 1 MG TABLET PO SCH (08:26)
[2017-12-26] MEDS: MULTIVITAMINS WITH MINERALS, THERAPEUTIC TABLET PO SCH (08:26)
[2017-12-26] MEDS: BusPIRone HCL 5 MG TABLET PO SCH ×3 (08:26→16:00)
[2017-12-26] MEDS: LevETIRAcetam 500 MG TABLET PO SCH ×2 (08:26→16:00)
[2017-12-26] MEDS: QUEtiapine FUMARATE 25 MG TABLET PO SCH ×3 (08:26→16:02)
[2017-12-26] MEDS: NALTREXONE HCL 50 MG TABLET PO SCH (08:26)
[2017-12-26] MEDS: GABAPENTIN 400 MG CAPSULE PO SCH ×3 (08:27→16:00)
[2017-12-26] MEDS: NICOTINE 21 MG/24 HOUR PATCH TD SCH (08:27)
[2017-12-26] MEDS: THIAMINE HCL 100 MG TABLET PO SCH ×2 (08:27→16:00)
[2017-12-26] MEDS: OMEPRAZOLE 20 MG CAPSULE PO SCH (08:27)
[2017-12-26] MEDS: DOCUSATE SODIUM 100 MG CAPSULE PO SCH (08:27)
[2017-12-26 08:55] VITALS: BP 110/76
[2017-12-26] MEDS ORDERED: GABA-533 PO (12:40)
[2017-12-26] MEDS ORDERED: QUET50TA PO (12:40)
[2017-12-26] MEDS ORDERED: BUSP5TAB20 PO (12:40)
[2017-12-26] MEDS ORDERED: LEVE500T8 PO (12:41)
[2017-12-26] MEDS ORDERED: TRAZ-186 PO (12:43)
[2017-12-26] MEDS ORDERED: MIRT15 PO ×2 (12:44→12:56)
[2017-12-26] MEDS ORDERED: QUET400T PO (12:55)
[2017-12-26] MEDS ORDERED: NALT50TA6 PO (12:56)
== END 2017-12-26 16:05 | disposition home or self-care (01) | DRG 750 ==
LOC: EMS 10:23 → B2S 14:27
PROVIDERS: ADMIT Psychiatry & Neurology Psychiatry; ATTEND Psychiatry & Neurology Psychiatry
DX: F25.1 Schizoaffective disorder, depressive type (principal); R45.851 Suicidal ideations; E44.1 Mild protein-calorie malnutrition; Z59.0 Homelessness; B18.2 Chronic viral hepatitis C; F11.20 Opioid dependence, uncomplicated; F15.90 Other stimulant use, unspecified, uncomplicated; F17.200 Nicotine dependence, unspecified, uncomplicated; F41.9 Anxiety disorder, unspecified; G40.909 Epilepsy, unspecified, not intractable, without status epilepticus; G47.00 Insomnia, unspecified; I10 Essential (primary) hypertension; J44.9 Chronic obstructive pulmonary disease, unspecified; K21.9 Gastro-esophageal reflux disease without esophagitis; K59.09 Other constipation; M19.90 Unspecified osteoarthritis, unspecified site; Z65.3 Problems related to other legal circumstances; Z79.899 Other long term (current) drug therapy; Z91.14 Patient's other noncompliance with medication regimen; Z91.19 Patient's noncompliance with other medical treatment and regimen; M54.5 Low back pain; Z88.8 Allergy status to other drugs, medicaments and biological substances; Z56.0 Unemployment, unspecified; Z68.1 Body mass index [BMI] 19.9 or less, adult; Z71.51 Drug abuse counseling and surveillance of drug abuser; Z71.6 Tobacco abuse counseling; Z96.651 Presence of right artificial knee joint
CPT/HCPCS: 82306; 83735; 84100; 84439; 84443; 93005; 99285; G0480; G0482

== ENCOUNTER 2018-01-29 12:53 | Emergency (ER) | payer MEDICAID, OTHER ==
[~2018-01-29] VITALS: Ht 154.9 cm; Wt 68.2 kg
[~2018-01-29 12:53] MED LIST changes: +BUSP5TAB20 PO; -DISU250 PO; +LEVE500T8 PO; +NALT50TA6 PO; -PALI156D IM; +QUET400T PO; +QUET50TA PO; -TRAZ-220 PO
[2018-01-29] MEDS: ONDANSETRON HCL 4 MG/2 ML VIAL IVP ONE (14:38)
[2018-01-29] MEDS ORDERED: ONDANSETRON HCL 4 MG/2 ML VIAL IVP ONE (14:45)
[2018-01-29] MEDS: SODIUM CHLORIDE 0.9% 1,000 ML IV ONE ×2 (14:46→16:37)
[2018-01-29] MEDS: LORazepam 1 MG TABLET PO ONE (14:46)
[2018-01-29] MEDS: PB/HYOSCY/ATR/SCOP/LIDO/MAALOX 55 ML BOTTLE PO ONE (14:46)
[2018-01-29 14:55] LABS: ANION GAP 10 mmol/L (8-16); BASOPHILS % (AUTO) 0.5 % (0.0-2.0); CALCIUM, TOTAL 9.4 mg/dL (8.8-10.5); CARBON DIOXIDE 29 mmol/L (22-29); CHLORIDE 98 mmol/L (98-107); CREATININE 0.78 mg/dL (0.60-1.30); EOSINOPHILS % (AUTO) 1.6 % (1.0-6.0); GLOMERULAR FILTR. RATE CALC > 60 mL/min (>60); GLUCOSE,RANDOM 83 mg/dL (70-110); HEMATOCRIT 45.9 % (41-53); LYMPHOCYTES # (AUTO) 0.7 K/uL (1.0-4.8); LYMPHOCYTES % (AUTO) 21.6 % (22.0-44.0); MEAN CORPUSCULAR HEMOGLOBIN 30.7 pg (26.0-34.0); MEAN CORPUSCULAR HGB CONC 34.9 G/dL (31.0-37.0); MEAN CORPUSCULAR VOLUME 88 fL (80-100); MONOCYTES # (AUTO) 0.4 K/uL (0.1-1.0); MONOCYTES % (AUTO) 13.9 % (2.0-9.0); NEUTROPHILS % (AUTO) 62.4 % (40.0-70.0); PLATELET COUNT (AUTO) 139 K/uL (150-450); POTASSIUM 3.8 mmol/L (3.5-5.1); RED BLOOD CELL COUNT(AUTO) 5.22 MIL/uL (4.50-5.90); RED CELL DISTRIBUTION WIDTH 13.2 % (11.5-14.5); SODIUM SERUM 137 mmol/L (136-145); UREA NITROGEN, BLOOD 16 mg/dL (7-18)
[2018-01-29 15:01] LABS: ALANINE AMINOTRANSFERASE 32 U/L (12-78); ALBUMIN 3.1 g/dL (3.4-5.0); ALKALINE PHOSPHATASE 76 U/L (46-116); ASPARTATE AMINOTRANSFERASE 65 U/L (15-37); BILIRUBIN,TOTAL 0.5 mg/dL (0.1-1.0); LIPASE 77 U/L (73-393)
[2018-01-29 16:24] LABS: APPEARANCE,URINE CLEAR (CLEAR); GLUCOSE, URINE (UA) NEGATIVE (NEGATIVE); KETONES,URINE 40 mg/dL (NEGATIVE); LEUKOCYTE ESTERASE ,URINE NEGATIVE (NEGATIVE); NITRATE,URINE NEGATIVE (NEGATIVE); OCCULT BLOOD,URINE NEGATIVE (NEGATIVE); PH,URINE 5.5 (5.0-8.0); PROTEIN,URINE TRACE (NEGATIVE)
[2018-01-29 16:25] LABS: BILIRUBIN,URINE PRELIM. POSITIVE (NEGATIVE)
[2018-01-29 16:29] LABS: BACTERIA,URINE Few /HPF (None Seen); WBC,URINE 0-2 /HPF (0-5)
[2018-01-29 16:30] LABS: RBC,URINE None Seen /HPF (0-2); SQUAMOUS EPITHELIAL CELL,UR Rare /LPF (None Seen)
[2018-01-29 16:31] LABS: CALCIUM OXALATE CRYSTALS,UR Moderate /LPF (None Seen); MUCUS,URINE Moderate LPF (None Seen)
[2018-01-29 16:52] LABS: AMPHET/METH SCREEN,URINE POSITIVE (NEGATIVE); BARBITURATE SCREEN, URINE NEGATIVE (NEGATIVE); BENZODIAZEPINES SCREEN,URINE NEGATIVE (NEGATIVE); CANNABINOID SCREEN,URINE POSITIVE (NEGATIVE); COCAINE SCREEN,URINE NEGATIVE (NEGATIVE); METHADONE SCREEN, URINE POSITIVE (NEGATIVE); OPIATE SCREEN,URINE NEGATIVE (NEGATIVE)
[2018-01-29 16:54] LABS: PHENCYCLIDINE SCREEN,URINE NEGATIVE (NEGATIVE)
[2018-01-29 17:06] VITALS: BP 110/71
== END 2018-01-29 17:09 | disposition home or self-care (01) ==
LOC: EMS 12:55
DX: R11.2 Nausea with vomiting, unspecified (principal); R10.13 Epigastric pain; R19.7 Diarrhea, unspecified; F29 Unspecified psychosis not due to a substance or known physiological condition; F15.10 Other stimulant abuse, uncomplicated; F17.210 Nicotine dependence, cigarettes, uncomplicated; F31.9 Bipolar disorder, unspecified; J44.9 Chronic obstructive pulmonary disease, unspecified; F32.9 Major depressive disorder, single episode, unspecified; F20.9 Schizophrenia, unspecified; Z88.8 Allergy status to other drugs, medicaments and biological substances
CPT/HCPCS: 36415; 80053; 80307; 81001; 83690; 85025; 96361; 96374; 99285; 99406; J2405; J7030; Z7610

== ENCOUNTER 2018-03-10 11:42 | Inpatient (IN) | payer MEDICAID, OTHER ==
[~2018-03-10] VITALS: Ht 177.8 cm; Wt 62.1 kg
[2018-03-10 13:08] LABS: BASOPHILS % (AUTO) 0.9 % (0.0-2.0); EOSINOPHILS % (AUTO) 3.7 % (1.0-6.0); HEMATOCRIT 37.1 % (41-53); HEMOGLOBIN 12.6 g/dL (13.5-17.5); LYMPHOCYTES # (AUTO) 1.6 K/uL (1.0-4.8); MEAN CORPUSCULAR HEMOGLOBIN 31.2 pg (26.0-34.0); MEAN CORPUSCULAR VOLUME 92 fL (80-100); MONOCYTES # (AUTO) 0.4 K/uL (0.1-1.0); MONOCYTES % (AUTO) 7.9 % (2.0-9.0); NEUTROPHILS # (AUTO) 3.2 K/uL (1.8-7.7); NEUTROPHILS % (AUTO) 58.5 % (40.0-70.0); PLATELET COUNT (AUTO) 168 K/uL (150-450); RED BLOOD CELL COUNT(AUTO) 4.04 MIL/uL (4.50-5.90); RED CELL DISTRIBUTION WIDTH 13.3 % (11.5-14.5)
[2018-03-10] MEDS ORDERED: GuaiFENesin/D-METHORPHAN [SUGAR-FREE] 200-20MG/10 ML SYRUP UDCUP PO PRN (13:15)
[2018-03-10] MEDS ORDERED: LOPERAMIDE HCL 2 MG CAPSULE PO PRN (13:15)
[2018-03-10] MEDS ORDERED: ACETAMINOPHEN 325 MG TABLET PO PRN ×2 (13:15→20:00)
[2018-03-10] MEDS ORDERED: PROMETHAZINE HCL 25 MG TABLET PO PRN (13:15)
[2018-03-10] MEDS ORDERED: QUEtiapine FUMARATE 100 MG TABLET PO PRN (13:15)
[2018-03-10] MEDS ORDERED: MAG HYDROX/AL HYDROX/SIMETH ES 30 ML SUSPENSION UDCUP PO PRN ×2 (13:15→20:00)
[2018-03-10] MEDS ORDERED: LORazepam 2 MG TABLET PO PRN (13:15)
[2018-03-10] MEDS ORDERED: ZOLPIDEM TARTRATE 10 MG TABLET PO PRN (13:15)
[2018-03-10] MEDS ORDERED: HydrOXYzine PAMOATE 50 MG CAPSULE PO PRN (13:15)
[2018-03-10] MEDS ORDERED: MAGNESIUM HYDROXIDE SUSPENSION 30 ML UDCUP PO PRN (13:15)
[2018-03-10 13:17] LABS: ANION GAP 6 mmol/L (8-16); CALCIUM, TOTAL 8.1 mg/dL (8.8-10.5); CARBON DIOXIDE 33 mmol/L (22-29); CHLORIDE 103 mmol/L (98-107); CREATININE 0.78 mg/dL (0.60-1.30); GLOMERULAR FILTR. RATE CALC > 60 mL/min (>60); GLUCOSE,RANDOM 105 mg/dL (70-110); POTASSIUM 3.3 mmol/L (3.5-5.1); SODIUM SERUM 142 mmol/L (136-145); UREA NITROGEN, BLOOD 10 mg/dL (7-18)
[2018-03-10 13:20] LABS: ALANINE AMINOTRANSFERASE 39 U/L (12-78); ALKALINE PHOSPHATASE 88 U/L (46-116); ASPARTATE AMINOTRANSFERASE 69 U/L (15-37); BILIRUBIN,TOTAL 0.4 mg/dL (0.1-1.0); TOTAL PROTEIN, SERUM 5.9 g/dL (6.4-8.2)
[2018-03-10] MEDS ORDERED: HydrOXYzine HCL 25 MG TABLET PO ONE (13:30)
[2018-03-10] MEDS ORDERED: IBUPROFEN 600 MG TABLET PO ONE (13:30)
[2018-03-10 17:26] VITALS: BP 122/77
[2018-03-10] MEDS: GABAPENTIN 300 MG CAPSULE PO SCH ×2 (17:45→20:28)
[2018-03-10] MEDS: THIAMINE HCL 100 MG TABLET PO SCH (17:45)
[2018-03-10] MEDS: ACAMPROSATE CALCIUM 333 MG DR TABLET PO SCH (17:45)
[2018-03-10] MEDS: QUEtiapine FUMARATE 25 MG TABLET PO SCH (17:46)
[2018-03-10] MEDS: LevETIRAcetam 500 MG TABLET PO SCH (17:46)
[2018-03-10] MEDS ORDERED: ONDANSETRON HCL 4 MG TABLET PO PRN (20:00)
[2018-03-10] MEDS ORDERED: ALBUTEROL SULFATE HFA 90 MCG/PUFF 8 GM INHALER IH PRN (20:00)
[2018-03-10] MEDS ORDERED: BENZOCAINE/MENTHOL LOZENGE MM PRN (20:00)
[2018-03-10] MEDS ORDERED: PETROLATUM,WHITE 71 GM JELLY TP PRN (20:00)
[2018-03-10] MEDS ORDERED: IBUPROFEN 600 MG TABLET PO PRN (20:00)
[2018-03-10] MEDS ORDERED: CloNIDine HCL 0.1 MG TABLET PO PRN (20:00)
[2018-03-10] MEDS ORDERED: BACITRACIN 28.4 GM OINTMENT TP PRN (20:00)
[2018-03-10] MEDS: TraZODone HCL 100 MG TABLET PO SCH (20:28)
[2018-03-10] MEDS ORDERED: POTASSIUM CHLORIDE 20 MEQ ER TABLET PO ONE (20:30)
[2018-03-10] MEDS ORDERED: QUEtiapine FUMARATE 100 MG TABLET PO SCH (21:00)
[2018-03-11 07:05] LABS: ANION GAP 4 mmol/L (8-16); CALCIUM, TOTAL 8.6 mg/dL (8.8-10.5); CARBON DIOXIDE 34 mmol/L (22-29); CHLORIDE 110 mmol/L (98-107); CHOL/HDL RATIO 2.5 (4.2-7.3); CHOLESTEROL 110 mg/dL (131-200); CREATININE 0.71 mg/dL (0.60-1.30); GLOMERULAR FILTR. RATE CALC > 60 mL/min (>60); GLUCOSE,RANDOM 88 mg/dL (70-110); HDL CHOLESTEROL 44 mg/dL (40-60); LDL CHOL (CALC.) 52 mg/dL (0-130); POTASSIUM 4.4 mmol/L (3.5-5.1); SODIUM SERUM 148 mmol/L (136-145); TRIGLYCERIDES 70 mg/dL (15-150); UREA NITROGEN, BLOOD 9 mg/dL (7-18)
[2018-03-11 07:06] VITALS: BP 113/69
[2018-03-11] MEDS ORDERED: OMEPRAZOLE 20 MG CAPSULE PO SCH (09:00)
[2018-03-11 09:09] VITALS: BP 109/76
[2018-03-11] MEDS: ACAMPROSATE CALCIUM 333 MG DR TABLET PO SCH ×3 (10:06→16:39)
[2018-03-11] MEDS: GABAPENTIN 300 MG CAPSULE PO SCH ×4 (10:09→21:19)
[2018-03-11] MEDS: QUEtiapine FUMARATE 25 MG TABLET PO SCH ×3 (10:09→16:39)
[2018-03-11] MEDS: LevETIRAcetam 500 MG TABLET PO SCH ×2 (10:09→16:39)
[2018-03-11] MEDS: THIAMINE HCL 100 MG TABLET PO SCH ×2 (10:09→16:39)
[2018-03-11] MEDS: MULTIVITAMINS WITH MINERALS, THERAPEUTIC TABLET PO SCH (10:09)
[2018-03-11] MEDS: FOLIC ACID 1 MG TABLET PO SCH (10:09)
[2018-03-11] MEDS: DOCUSATE SODIUM 100 MG CAPSULE PO SCH (10:10)
[2018-03-11] MEDS: METHADONE HCL 10 MG TABLET PO SCH (11:13)
[2018-03-11 16:51] VITALS: BP 110/62
[2018-03-11] MEDS ORDERED: OMEPRAZOLE 20 MG CAPSULE PO PRN (19:30)
[2018-03-11] MEDS: QUEtiapine FUMARATE 300 MG TABLET PO SCH (21:19)
[2018-03-11] MEDS: TraZODone HCL 100 MG TABLET PO SCH (21:19)
[2018-03-12] MEDS: METHADONE HCL 10 MG TABLET PO SCH (05:56)
[2018-03-12 08:05] VITALS: BP 121/70
[2018-03-12] MEDS: METHYL SALICYLATE/MENTHOL 85 GM CREAM TP SCH ×3 (09:00→17:32)
[2018-03-12] MEDS: FOLIC ACID 1 MG TABLET PO SCH (09:38)
[2018-03-12] MEDS: ACAMPROSATE CALCIUM 333 MG DR TABLET PO SCH ×3 (09:38→17:32)
[2018-03-12] MEDS: LevETIRAcetam 500 MG TABLET PO SCH ×2 (09:38→17:33)
[2018-03-12] MEDS: GABAPENTIN 300 MG CAPSULE PO SCH (09:38)
[2018-03-12] MEDS: MULTIVITAMINS WITH MINERALS, THERAPEUTIC TABLET PO SCH (09:39)
[2018-03-12] MEDS: QUEtiapine FUMARATE 25 MG TABLET PO SCH (09:39)
[2018-03-12] MEDS: THIAMINE HCL 100 MG TABLET PO SCH ×2 (09:39→17:33)
[2018-03-12] MEDS: DOCUSATE SODIUM 100 MG CAPSULE PO SCH (09:39)
[2018-03-12] MEDS ORDERED: LORazepam 0.5 MG TABLET PO PRN (13:15)
[2018-03-12] MEDS: GABAPENTIN 400 MG CAPSULE PO SCH ×2 (17:33→21:37)
[2018-03-12 19:26] VITALS: BP 118/64
[2018-03-12] MEDS: QUEtiapine FUMARATE 300 MG TABLET PO SCH (21:37)
[2018-03-12] MEDS: TraZODone HCL 100 MG TABLET PO SCH (21:37)
[2018-03-13] MEDS: METHADONE HCL 10 MG TABLET PO SCH (06:45)
[2018-03-13] MEDS: QUEtiapine FUMARATE 25 MG TABLET PO SCH (09:00)
[2018-03-13] MEDS: METHYL SALICYLATE/MENTHOL 85 GM CREAM TP SCH ×3 (09:00→17:12)
[2018-03-13] MEDS: DOCUSATE SODIUM 100 MG CAPSULE PO SCH (09:18)
[2018-03-13] MEDS: ACAMPROSATE CALCIUM 333 MG DR TABLET PO SCH ×3 (09:19→17:12)
[2018-03-13] MEDS: FOLIC ACID 1 MG TABLET PO SCH (09:19)
[2018-03-13] MEDS: LevETIRAcetam 500 MG TABLET PO SCH ×2 (09:19→17:11)
[2018-03-13] MEDS: MULTIVITAMINS WITH MINERALS, THERAPEUTIC TABLET PO SCH (09:19)
[2018-03-13] MEDS: THIAMINE HCL 100 MG TABLET PO SCH ×2 (09:19→17:11)
[2018-03-13] MEDS: GABAPENTIN 400 MG CAPSULE PO SCH ×4 (09:43→20:17)
[2018-03-13 12:44] VITALS: BP 134/84
[2018-03-13] MEDS ORDERED: QUET25TA34 PO (17:27)
[2018-03-13] MEDS ORDERED: QUET300T18 PO (17:27)
[2018-03-13] MEDS ORDERED: ACAM333T7 PO (17:27)
[2018-03-13] MEDS ORDERED: GABA-533 PO (17:27)
[2018-03-13] MEDS ORDERED: TRAZ-220 PO (17:27)
[2018-03-13 19:15] VITALS: BP 104/70
[2018-03-13] MEDS: TraZODone HCL 100 MG TABLET PO SCH (20:17)
[2018-03-13] MEDS: QUEtiapine FUMARATE 300 MG TABLET PO SCH (20:17)
[2018-03-14 06:35] VITALS: BP 109/67
[2018-03-14] MEDS: METHADONE HCL 10 MG TABLET PO SCH (06:36)
[2018-03-14 08:05] VITALS: BP 90/60
[2018-03-14] MEDS: QUEtiapine FUMARATE 25 MG TABLET PO SCH (09:00)
[2018-03-14] MEDS: METHYL SALICYLATE/MENTHOL 85 GM CREAM TP SCH (09:00)
[2018-03-14] MEDS: THIAMINE HCL 100 MG TABLET PO SCH (09:38)
[2018-03-14] MEDS: MULTIVITAMINS WITH MINERALS, THERAPEUTIC TABLET PO SCH (09:38)
[2018-03-14] MEDS: FOLIC ACID 1 MG TABLET PO SCH (09:38)
[2018-03-14] MEDS: LevETIRAcetam 500 MG TABLET PO SCH (09:38)
[2018-03-14] MEDS: DOCUSATE SODIUM 100 MG CAPSULE PO SCH (09:39)
[2018-03-14] MEDS: GABAPENTIN 400 MG CAPSULE PO SCH (09:39)
[2018-03-14] MEDS: ACAMPROSATE CALCIUM 333 MG DR TABLET PO SCH (09:44)
[2018-03-14] MEDS ORDERED: METH57CR7 TP (10:23)
== END 2018-03-14 11:40 | disposition home or self-care (01) | DRG 750 ==
LOC: EMS 11:43 → 3EI 16:27
PROVIDERS: ADMIT Psychiatry & Neurology Psychiatry; ATTEND Psychiatry & Neurology Psychiatry
DX: F25.9 Schizoaffective disorder, unspecified (principal); E44.1 Mild protein-calorie malnutrition; R45.851 Suicidal ideations; F11.20 Opioid dependence, uncomplicated; E83.51 Hypocalcemia; F15.90 Other stimulant use, unspecified, uncomplicated; D64.9 Anemia, unspecified; B18.2 Chronic viral hepatitis C; M19.90 Unspecified osteoarthritis, unspecified site; K21.9 Gastro-esophageal reflux disease without esophagitis; J44.9 Chronic obstructive pulmonary disease, unspecified; I10 Essential (primary) hypertension; F17.210 Nicotine dependence, cigarettes, uncomplicated; F12.90 Cannabis use, unspecified, uncomplicated; M25.512 Pain in left shoulder; M25.511 Pain in right shoulder; F31.9 Bipolar disorder, unspecified; G40.909 Epilepsy, unspecified, not intractable, without status epilepticus; F60.0 Paranoid personality disorder; Z59.0 Homelessness; Z91.19 Patient's noncompliance with other medical treatment and regimen; Z79.899 Other long term (current) drug therapy; Z88.8 Allergy status to other drugs, medicaments and biological substances; Z71.6 Tobacco abuse counseling; Z71.51 Drug abuse counseling and surveillance of drug abuser; Z68.1 Body mass index [BMI] 19.9 or less, adult
CPT/HCPCS: 86592; 87081; 93005; G0480

== ENCOUNTER 2018-06-02 21:26 | Inpatient (IN) | payer MEDICAID ==
[~2018-06-02] VITALS: Ht 177.8 cm; Wt 59.4 kg
[~2018-06-02 21:26] MED LIST changes: +ACAM333T7 PO; -BUSP5TAB20 PO; -ESZO3 PO; -LEVE500T8 PO; +METH57CR7 TP; -MIRT15 PO; -NALT50TA6 PO; -OMEP20 PO; +QUET25TA34 PO; +QUET300T18 PO; -QUET400T PO; -QUET50TA PO; +TRAZ-220 PO
[2018-06-02 22:26] LABS: HEMATOCRIT 40.7 % (41-53); HEMOGLOBIN 13.8 g/dL (13.5-17.5); LYMPHOCYTES # (AUTO) 2.1 K/uL (1.0-4.8); LYMPHOCYTES % (AUTO) 35.6 % (22.0-44.0); MEAN CORPUSCULAR HEMOGLOBIN 31.6 pg (26.0-34.0); MEAN CORPUSCULAR HGB CONC 33.8 G/dL (31.0-37.0); MEAN CORPUSCULAR VOLUME 94 fL (80-100); MONOCYTES # (AUTO) 0.5 K/uL (0.1-1.0); MONOCYTES % (AUTO) 8.3 % (2.0-9.0); NEUTROPHILS % (AUTO) 50.1 % (40.0-70.0); PLATELET COUNT (AUTO) 185 K/uL (150-450); RED BLOOD CELL COUNT(AUTO) 4.35 MIL/uL (4.50-5.90); RED CELL DISTRIBUTION WIDTH 14.2 % (11.5-14.5)
[2018-06-02 22:47] LABS: ANION GAP 8 mmol/L (8-16); CALCIUM, TOTAL 8.5 mg/dL (8.8-10.5); CARBON DIOXIDE 31 mmol/L (22-29); CHLORIDE 103 mmol/L (98-107); CREATININE 0.68 mg/dL (0.60-1.30); GLOMERULAR FILTR. RATE CALC > 60 mL/min (>60); GLUCOSE,RANDOM 86 mg/dL (70-110); POTASSIUM 3.5 mmol/L (3.5-5.1); SODIUM SERUM 142 mmol/L (136-145); UREA NITROGEN, BLOOD 7 mg/dL (7-18)
[2018-06-02 22:52] LABS: ALANINE AMINOTRANSFERASE 82 U/L (12-78); ALBUMIN 3.2 g/dL (3.4-5.0); ALKALINE PHOSPHATASE 128 U/L (46-116); ASPARTATE AMINOTRANSFERASE 173 U/L (15-37); BILIRUBIN,TOTAL 0.3 mg/dL (0.1-1.0); TOTAL PROTEIN, SERUM 6.6 g/dL (6.4-8.2)
[2018-06-03] VITALS (7 sets, daily range): BP systolic 108–126; BP diastolic 64–73
[2018-06-03] MEDS ORDERED: ZOLPIDEM TARTRATE 10 MG TABLET PO PRN (03:30)
[2018-06-03] MEDS ORDERED: QUEtiapine FUMARATE 100 MG TABLET PO PRN (03:30)
[2018-06-03 03:56] LABS: AMPHET/METH SCREEN,URINE NEGATIVE (NEGATIVE); BARBITURATE SCREEN, URINE NEGATIVE (NEGATIVE); BENZODIAZEPINES SCREEN,URINE POSITIVE (NEGATIVE); CANNABINOID SCREEN,URINE NEGATIVE (NEGATIVE); COCAINE SCREEN,URINE NEGATIVE (NEGATIVE); METHADONE SCREEN, URINE POSITIVE (NEGATIVE); OPIATE SCREEN,URINE NEGATIVE (NEGATIVE)
[2018-06-03 03:58] LABS: PHENCYCLIDINE SCREEN,URINE NEGATIVE (NEGATIVE)
[2018-06-03] MEDS ORDERED: PNEUMOCOCCAL VACCINE POLYVALENT 0.5 ML VIAL [PPSV23] IM ONE (05:30)
[2018-06-03] MEDS: LORazepam 2 MG TABLET PO PRN ×2 (05:49→09:43)
[2018-06-03] MEDS: NICOTINE 21 MG/24 HOUR PATCH TD SCH (09:00)
[2018-06-03] MEDS ORDERED: LevETIRAcetam 500 MG TABLET PO ONE (09:00)
[2018-06-03] MEDS: METHADONE HCL 10 MG TABLET PO SCH (10:44)
[2018-06-03] MEDS ORDERED: HydrOXYzine PAMOATE 50 MG CAPSULE PO PRN (13:15)
[2018-06-03] MEDS ORDERED: PROMETHAZINE HCL 25 MG TABLET PO PRN (13:15)
[2018-06-03] MEDS ORDERED: GuaiFENesin/D-METHORPHAN [SUGAR-FREE] 200-20MG/10 ML SYRUP UDCUP PO PRN (13:15)
[2018-06-03] MEDS ORDERED: CYANOCOBALAMIN 1,000 MCG/ML VIAL IM ONE (13:15)
[2018-06-03] MEDS ORDERED: MAG HYDROX/AL HYDROX/SIMETH ES 30 ML SUSPENSION UDCUP PO PRN (13:15)
[2018-06-03] MEDS ORDERED: ACETAMINOPHEN 325 MG TABLET PO PRN (13:15)
[2018-06-03] MEDS ORDERED: PALIPERIDONE 1.5 MG ER TABLET PO PRN (13:15)
[2018-06-03] MEDS ORDERED: PALIPERIDONE PALMITATE 234 MG/1.5 ML SYRINGE IM ONE (13:15)
[2018-06-03] MEDS ORDERED: LOPERAMIDE HCL 2 MG CAPSULE PO PRN ×2 (13:15)
[2018-06-03] MEDS ORDERED: DIAZEPAM 10 MG TABLET PO PRN (13:15)
[2018-06-03] MEDS ORDERED: MAGNESIUM HYDROXIDE SUSPENSION 30 ML UDCUP PO PRN (13:15)
[2018-06-03] MEDS: ACAMPROSATE CALCIUM 333 MG DR TABLET PO SCH ×2 (16:10→20:56)
[2018-06-03] MEDS: GABAPENTIN 300 MG CAPSULE PO SCH ×2 (16:10→20:57)
[2018-06-03] MEDS ORDERED: QUEtiapine FUMARATE 25 MG TABLET PO SCH (17:00)
[2018-06-03] MEDS: PALIPERIDONE 3 MG ER TABLET PO SCH (20:56)
[2018-06-03] MEDS: TraZODone HCL 50 MG TABLET PO SCH (20:56)
[2018-06-03] MEDS: THIAMINE HCL 100 MG TABLET PO SCH (20:57)
[2018-06-03] MEDS ORDERED: QUEtiapine FUMARATE 200 MG TABLET PO SCH (21:00)
[2018-06-04] VITALS (7 sets, daily range): BP systolic 101–130; BP diastolic 67–76
[2018-06-04 06:48] LABS: CHOL/HDL RATIO 2.7 (4.2-7.3)
[2018-06-04] MEDS ORDERED: DIAZEPAM 10 MG TABLET PO PRN (07:00)
[2018-06-04] MEDS ORDERED: ONDANSETRON HCL 4 MG TABLET PO PRN (09:00)
[2018-06-04] MEDS ORDERED: BACITRACIN 28.4 GM OINTMENT TP PRN (09:00)
[2018-06-04] MEDS ORDERED: BENZOCAINE/MENTHOL LOZENGE MM PRN (09:00)
[2018-06-04] MEDS ORDERED: CloNIDine HCL 0.1 MG TABLET PO PRN (09:00)
[2018-06-04] MEDS ORDERED: ALBUTEROL SULFATE HFA 90 MCG/PUFF 8 GM INHALER IH PRN (09:00)
[2018-06-04] MEDS ORDERED: PETROLATUM,WHITE 71 GM JELLY TP PRN (09:00)
[2018-06-04] MEDS: METHADONE HCL 10 MG TABLET PO SCH (09:30)
[2018-06-04] MEDS: DIAZEPAM 10 MG TABLET PO SCH ×4 (09:31→21:10)
[2018-06-04] MEDS: THIAMINE HCL 100 MG TABLET PO SCH ×2 (09:31→16:09)
[2018-06-04] MEDS: DOCUSATE SODIUM 100 MG CAPSULE PO SCH (09:32)
[2018-06-04] MEDS: ACAMPROSATE CALCIUM 333 MG DR TABLET PO SCH ×3 (09:32→16:08)
[2018-06-04] MEDS: OMEPRAZOLE 20 MG CAPSULE PO SCH (09:35)
[2018-06-04] MEDS: GABAPENTIN 300 MG CAPSULE PO SCH ×4 (09:36→21:10)
[2018-06-04] MEDS: FOLIC ACID 1 MG TABLET PO SCH (09:36)
[2018-06-04] MEDS: MULTIVITAMINS WITH MINERALS, THERAPEUTIC TABLET PO SCH (09:36)
[2018-06-04] MEDS: NICOTINE 21 MG/24 HOUR PATCH TD SCH (09:39)
[2018-06-04] MEDS: TraZODone HCL 50 MG TABLET PO SCH (21:10)
[2018-06-04] MEDS: PALIPERIDONE 3 MG ER TABLET PO SCH (21:11)
[2018-06-05] VITALS (9 sets, daily range): BP systolic 101–124; BP diastolic 62–76
[2018-06-05] MEDS: METHADONE HCL 10 MG TABLET PO SCH (08:52)
[2018-06-05] MEDS: DIAZEPAM 10 MG TABLET PO SCH ×4 (08:52→21:23)
[2018-06-05] MEDS: OMEPRAZOLE 20 MG CAPSULE PO SCH (08:53)
[2018-06-05] MEDS: GABAPENTIN 300 MG CAPSULE PO SCH ×4 (08:53→21:23)
[2018-06-05] MEDS: ACAMPROSATE CALCIUM 333 MG DR TABLET PO SCH ×3 (08:54→17:32)
[2018-06-05] MEDS: MULTIVITAMINS WITH MINERALS, THERAPEUTIC TABLET PO SCH (09:00)
[2018-06-05] MEDS: FOLIC ACID 1 MG TABLET PO SCH (09:00)
[2018-06-05] MEDS: DOCUSATE SODIUM 100 MG CAPSULE PO SCH (09:00)
[2018-06-05] MEDS: THIAMINE HCL 100 MG TABLET PO SCH ×2 (09:00→17:34)
[2018-06-05] MEDS: NICOTINE 21 MG/24 HOUR PATCH TD SCH ×2 (09:00→12:44)
[2018-06-05] MEDS: IBUPROFEN 600 MG TABLET PO PRN (12:44)
[2018-06-05] MEDS ORDERED: QUEtiapine FUMARATE 100 MG TABLET PO PRN (17:00)
[2018-06-05] MEDS: DICLOFENAC SODIUM 1% 100 GM GEL [2GM] TP SCH (17:36)
[2018-06-05] MEDS: QUEtiapine FUMARATE 200 MG TABLET PO SCH (21:23)
[2018-06-06] VITALS (7 sets, daily range): BP systolic 88–117; BP diastolic 58–78
[2018-06-06] MEDS ORDERED: DIAZEPAM 5 MG TABLET PO PRN (07:00)
[2018-06-06] MEDS: METHADONE HCL 10 MG TABLET PO SCH (08:12)
[2018-06-06] MEDS: THIAMINE HCL 100 MG TABLET PO SCH ×2 (08:13→17:00)
[2018-06-06] MEDS: ACAMPROSATE CALCIUM 333 MG DR TABLET PO SCH ×3 (08:13→17:00)
[2018-06-06] MEDS: DIAZEPAM 5 MG TABLET PO SCH ×4 (08:13→21:00)
[2018-06-06] MEDS: GABAPENTIN 300 MG CAPSULE PO SCH ×5 (08:13→21:07)
[2018-06-06] MEDS: MULTIVITAMINS WITH MINERALS, THERAPEUTIC TABLET PO SCH (08:13)
[2018-06-06] MEDS: QUEtiapine FUMARATE 25 MG TABLET PO SCH ×3 (08:13→17:00)
[2018-06-06] MEDS: FOLIC ACID 1 MG TABLET PO SCH (08:13)
[2018-06-06] MEDS: OMEPRAZOLE 20 MG CAPSULE PO SCH (08:13)
[2018-06-06] MEDS: NICOTINE 21 MG/24 HOUR PATCH TD SCH (08:14)
[2018-06-06] MEDS: LIDOCAINE 5% TRANSDERMAL PATCH TD SCH (08:15)
[2018-06-06] MEDS: DICLOFENAC SODIUM 1% 100 GM GEL [2GM] TP SCH ×2 (08:20→17:00)
[2018-06-06] MEDS: DOCUSATE SODIUM 100 MG CAPSULE PO SCH (08:21)
[2018-06-06] MEDS: IBUPROFEN 600 MG TABLET PO PRN ×2 (11:08→17:00)
[2018-06-06] MEDS: QUEtiapine FUMARATE 200 MG TABLET PO SCH (21:00)
[2018-06-06] MEDS: -LIDODERM PATCH NOTE- MISC SCH (21:05)
[2018-06-07 05:37] VITALS: BP 109/76
[2018-06-07 08:00] VITALS: BP 122/85
[2018-06-07] MEDS: METHADONE HCL 10 MG TABLET PO SCH (08:49)
[2018-06-07] MEDS: GABAPENTIN 300 MG CAPSULE PO SCH ×4 (08:49→22:25)
[2018-06-07] MEDS: THIAMINE HCL 100 MG TABLET PO SCH ×2 (08:49→17:17)
[2018-06-07] MEDS: MULTIVITAMINS WITH MINERALS, THERAPEUTIC TABLET PO SCH (08:49)
[2018-06-07] MEDS: ACAMPROSATE CALCIUM 333 MG DR TABLET PO SCH ×3 (08:50→17:16)
[2018-06-07] MEDS: OMEPRAZOLE 20 MG CAPSULE PO SCH (08:50)
[2018-06-07] MEDS: FOLIC ACID 1 MG TABLET PO SCH (08:50)
[2018-06-07] MEDS: DIAZEPAM 5 MG TABLET PO PRN ×3 (08:52→17:21)
[2018-06-07] MEDS: LIDOCAINE 5% TRANSDERMAL PATCH TD SCH (08:56)
[2018-06-07] MEDS: NICOTINE 21 MG/24 HOUR PATCH TD SCH (08:56)
[2018-06-07] MEDS: DOCUSATE SODIUM 100 MG CAPSULE PO SCH (09:00)
[2018-06-07] MEDS: QUEtiapine FUMARATE 25 MG TABLET PO SCH ×3 (09:00→17:18)
[2018-06-07] MEDS ORDERED: PALIPERIDONE PALMITATE 156 MG/ML SYRINGE IM ONE (09:00)
[2018-06-07] MEDS: DICLOFENAC SODIUM 1% 100 GM GEL [2GM] TP SCH ×2 (10:02→17:18)
[2018-06-07] MEDS: IBUPROFEN 600 MG TABLET PO PRN ×2 (10:25→17:21)
[2018-06-07 12:54] VITALS: BP 112/70
[2018-06-07 16:00] VITALS: BP 107/67
[2018-06-07 17:20] VITALS: BP 119/71
[2018-06-07] MEDS: QUEtiapine FUMARATE 200 MG TABLET PO SCH (22:25)
[2018-06-07] MEDS: -LIDODERM PATCH NOTE- MISC SCH (22:26)
[2018-06-08 05:48] VITALS: BP 112/75
[2018-06-08] MEDS: GABAPENTIN 300 MG CAPSULE PO SCH ×4 (08:55→22:05)
[2018-06-08] MEDS: FOLIC ACID 1 MG TABLET PO SCH (08:56)
[2018-06-08] MEDS: OMEPRAZOLE 20 MG CAPSULE PO SCH (08:56)
[2018-06-08] MEDS: MULTIVITAMINS WITH MINERALS, THERAPEUTIC TABLET PO SCH (08:56)
[2018-06-08] MEDS: METHADONE HCL 10 MG TABLET PO SCH (08:56)
[2018-06-08] MEDS: DOCUSATE SODIUM 100 MG CAPSULE PO SCH (09:00)
[2018-06-08] MEDS: NICOTINE 21 MG/24 HOUR PATCH TD SCH (09:00)
[2018-06-08] MEDS: ACAMPROSATE CALCIUM 333 MG DR TABLET PO SCH ×3 (09:00→17:00)
[2018-06-08] MEDS: THIAMINE HCL 100 MG TABLET PO SCH ×2 (09:00→17:43)
[2018-06-08] MEDS: QUEtiapine FUMARATE 25 MG TABLET PO SCH ×3 (09:00→17:00)
[2018-06-08] MEDS: LIDOCAINE 5% TRANSDERMAL PATCH TD SCH (09:01)
[2018-06-08 10:04] VITALS: BP 129/69
[2018-06-08] MEDS: IBUPROFEN 600 MG TABLET PO PRN (10:07)
[2018-06-08] MEDS: DICLOFENAC SODIUM 1% 100 GM GEL [2GM] TP SCH ×2 (12:52→17:43)
[2018-06-08 17:00] VITALS: BP 110/65
[2018-06-08] MEDS: QUEtiapine FUMARATE 200 MG TABLET PO SCH (22:05)
[2018-06-08] MEDS: -LIDODERM PATCH NOTE- MISC SCH (22:05)
[2018-06-09 06:15] VITALS: BP 128/86
[2018-06-09] MEDS: METHADONE HCL 10 MG TABLET PO SCH (06:50)
[2018-06-09 08:00] VITALS: BP 107/76
[2018-06-09] MEDS: FOLIC ACID 1 MG TABLET PO SCH (08:20)
[2018-06-09] MEDS: OMEPRAZOLE 20 MG CAPSULE PO SCH (08:20)
[2018-06-09] MEDS: GABAPENTIN 300 MG CAPSULE PO SCH ×2 (08:20→13:00)
[2018-06-09] MEDS: MULTIVITAMINS WITH MINERALS, THERAPEUTIC TABLET PO SCH (08:21)
[2018-06-09] MEDS: THIAMINE HCL 100 MG TABLET PO SCH ×2 (08:21→16:08)
[2018-06-09] MEDS: DOCUSATE SODIUM 100 MG CAPSULE PO SCH (08:22)
[2018-06-09] MEDS: QUEtiapine FUMARATE 25 MG TABLET PO SCH ×2 (08:22→13:00)
[2018-06-09] MEDS: ACAMPROSATE CALCIUM 333 MG DR TABLET PO SCH ×3 (08:22→16:07)
[2018-06-09] MEDS: NICOTINE 21 MG/24 HOUR PATCH TD SCH (08:23)
[2018-06-09] MEDS: LIDOCAINE 5% TRANSDERMAL PATCH TD SCH (08:23)
[2018-06-09] MEDS: DICLOFENAC SODIUM 1% 100 GM GEL [2GM] TP SCH ×2 (08:24→16:10)
[2018-06-09] MEDS: IBUPROFEN 600 MG TABLET PO PRN (08:29)
[2018-06-09 16:00] VITALS: BP 102/62
[2018-06-09] MEDS: GABAPENTIN 400 MG CAPSULE PO SCH ×2 (16:09→22:24)
[2018-06-09] MEDS ORDERED: QUEtiapine FUMARATE 200 MG TABLET PO SCH (21:00)
[2018-06-09] MEDS: -LIDODERM PATCH NOTE- MISC SCH (22:24)
[2018-06-10 07:00] VITALS: BP 100/75
[2018-06-10] MEDS: METHADONE HCL 10 MG TABLET PO SCH (07:07)
[2018-06-10] MEDS: MULTIVITAMINS WITH MINERALS, THERAPEUTIC TABLET PO SCH (08:18)
[2018-06-10] MEDS: OMEPRAZOLE 20 MG CAPSULE PO SCH (08:18)
[2018-06-10] MEDS: GABAPENTIN 400 MG CAPSULE PO SCH ×3 (08:18→17:16)
[2018-06-10] MEDS: FOLIC ACID 1 MG TABLET PO SCH (08:18)
[2018-06-10] MEDS: NICOTINE 21 MG/24 HOUR PATCH TD SCH (08:19)
[2018-06-10] MEDS: DICLOFENAC SODIUM 1% 100 GM GEL [2GM] TP SCH ×2 (08:19→17:16)
[2018-06-10] MEDS: THIAMINE HCL 100 MG TABLET PO SCH ×2 (08:19→17:16)
[2018-06-10] MEDS: DOCUSATE SODIUM 100 MG CAPSULE PO SCH (08:20)
[2018-06-10] MEDS: LIDOCAINE 5% TRANSDERMAL PATCH TD SCH ×2 (08:20→09:30)
[2018-06-10] MEDS: ACAMPROSATE CALCIUM 333 MG DR TABLET PO SCH ×3 (08:20→17:16)
[2018-06-10 08:22] VITALS: BP 102/61
[2018-06-10] MEDS ORDERED: DULoxetine HCL 20 MG CAPSULE PO SCH (09:00)
[2018-06-10 15:03] VITALS: BP 92/53
[2018-06-10] MEDS: IBUPROFEN 600 MG TABLET PO PRN (15:03)
[2018-06-10 16:49] VITALS: BP 102/59
[2018-06-10] MEDS: QUEtiapine FUMARATE 100 MG TABLET PO SCH (21:00)
[2018-06-10] MEDS: -LIDODERM PATCH NOTE- MISC SCH (21:09)
[2018-06-10] MEDS: GABAPENTIN 300 MG CAPSULE PO SCH (21:09)
[2018-06-11] MEDS: METHADONE HCL 10 MG TABLET PO SCH (06:11)
[2018-06-11 08:19] VITALS: BP 108/78
[2018-06-11] MEDS: DOCUSATE SODIUM 100 MG CAPSULE PO SCH (09:00)
[2018-06-11] MEDS ORDERED: DULoxetine HCL 30 MG CAPSULE PO SCH (09:00)
[2018-06-11] MEDS: ACAMPROSATE CALCIUM 333 MG DR TABLET PO SCH ×3 (09:08→16:10)
[2018-06-11] MEDS: FOLIC ACID 1 MG TABLET PO SCH (09:09)
[2018-06-11] MEDS: MULTIVITAMINS WITH MINERALS, THERAPEUTIC TABLET PO SCH (09:10)
[2018-06-11] MEDS: THIAMINE HCL 100 MG TABLET PO SCH ×2 (09:10→16:09)
[2018-06-11] MEDS: OMEPRAZOLE 20 MG CAPSULE PO SCH (09:10)
[2018-06-11] MEDS: GABAPENTIN 300 MG CAPSULE PO SCH ×4 (09:10→21:17)
[2018-06-11] MEDS: NICOTINE 21 MG/24 HOUR PATCH TD SCH (09:13)
[2018-06-11] MEDS: DICLOFENAC SODIUM 1% 100 GM GEL [2GM] TP SCH ×2 (09:14→16:12)
[2018-06-11] MEDS: LIDOCAINE 5% TRANSDERMAL PATCH TD SCH (09:16)
[2018-06-11] MEDS ORDERED: GABA-531 PO (12:40)
[2018-06-11] MEDS ORDERED: DULO30CA2 PO (12:40)
[2018-06-11] MEDS ORDERED: ACAM333T7 PO (12:40)
[2018-06-11] MEDS ORDERED: QUET100T33 PO (12:40)
[2018-06-11 16:09] VITALS: BP 102/54
[2018-06-11] MEDS: IBUPROFEN 600 MG TABLET PO PRN (16:09)
[2018-06-11 17:09] VITALS: BP 83/60
[2018-06-11] MEDS: QUEtiapine FUMARATE 100 MG TABLET PO SCH (21:00)
[2018-06-11] MEDS: -LIDODERM PATCH NOTE- MISC SCH (21:17)
[2018-06-12] MEDS: METHADONE HCL 10 MG TABLET PO SCH (06:02)
[2018-06-12] MEDS: FOLIC ACID 1 MG TABLET PO SCH (08:56)
[2018-06-12] MEDS: GABAPENTIN 300 MG CAPSULE PO SCH (08:56)
[2018-06-12] MEDS: OMEPRAZOLE 20 MG CAPSULE PO SCH (08:57)
[2018-06-12] MEDS: MULTIVITAMINS WITH MINERALS, THERAPEUTIC TABLET PO SCH (08:58)
[2018-06-12] MEDS: THIAMINE HCL 100 MG TABLET PO SCH (08:58)
[2018-06-12] MEDS ORDERED: DULoxetine HCL 60 MG CAPSULE PO SCH (09:00)
[2018-06-12] MEDS: NICOTINE 21 MG/24 HOUR PATCH TD SCH (09:02)
[2018-06-12] MEDS: DICLOFENAC SODIUM 1% 100 GM GEL [2GM] TP SCH (09:02)
[2018-06-12] MEDS ORDERED: DICL2100G TP (09:34)
[2018-06-12] MEDS ORDERED: OMEP20 PO (09:35)
== END 2018-06-12 10:25 | disposition home or self-care (01) | DRG 750 ==
LOC: EMS 21:27 → AHU 06-03 04:00 → 3EI 06-03 21:10
PROVIDERS: ADMIT Psychiatry & Neurology Psychiatry; ATTEND Psychiatry & Neurology Psychiatry
DX: F25.1 Schizoaffective disorder, depressive type (principal); E44.1 Mild protein-calorie malnutrition; K70.30 Alcoholic cirrhosis of liver without ascites; R45.851 Suicidal ideations; K21.9 Gastro-esophageal reflux disease without esophagitis; B18.2 Chronic viral hepatitis C; D64.9 Anemia, unspecified; F10.129 Alcohol abuse with intoxication, unspecified; F11.20 Opioid dependence, uncomplicated; F15.90 Other stimulant use, unspecified, uncomplicated; F17.210 Nicotine dependence, cigarettes, uncomplicated; G40.909 Epilepsy, unspecified, not intractable, without status epilepticus; I10 Essential (primary) hypertension; J44.9 Chronic obstructive pulmonary disease, unspecified; M19.90 Unspecified osteoarthritis, unspecified site; Z59.0 Homelessness; Z68.1 Body mass index [BMI] 19.9 or less, adult; Z79.899 Other long term (current) drug therapy; Z91.19 Patient's noncompliance with other medical treatment and regimen; Z91.5 Personal history of self-harm; Z88.8 Allergy status to other drugs, medicaments and biological substances
CPT/HCPCS: G0480

== ENCOUNTER 2018-06-23 23:03 | Emergency (ER) | payer MEDICAID, OTHER ==
[~2018-06-23] VITALS: Ht 162.6 cm; Wt 76.4 kg
[~2018-06-23 23:03] MED LIST changes: +DICL2100G TP; -DSS100 PO; +DULO30CA2 PO; +GABA-531 PO; -GABA-533 PO; -LEVE500T53 PO; -METH57CR7 TP; +OMEP20 PO; +QUET100T33 PO; -QUET25TA34 PO; -QUET300T18 PO; -TRAZ-220 PO
[2018-06-23] MEDS ORDERED: METH10 PO (23:12)
[2018-06-23] MEDS ORDERED: TRAZ-220 PO (23:12)
[2018-06-23] MEDS ORDERED: GABA-533 PO (23:12)
[2018-06-24 03:17] VITALS: BP 121/84
== END 2018-06-24 03:48 | disposition home or self-care (01) ==
LOC: EMS 23:04
DX: M54.5 Low back pain (principal); G89.29 Other chronic pain; F32.9 Major depressive disorder, single episode, unspecified; J44.9 Chronic obstructive pulmonary disease, unspecified; K21.9 Gastro-esophageal reflux disease without esophagitis; I10 Essential (primary) hypertension; F20.9 Schizophrenia, unspecified; F17.210 Nicotine dependence, cigarettes, uncomplicated; Z88.8 Allergy status to other drugs, medicaments and biological substances; Z79.899 Other long term (current) drug therapy; Z86.19 Personal history of other infectious and parasitic diseases

== ENCOUNTER 2018-06-26 17:14 | Emergency (ER) | payer OTHER ==
[~2018-06-26] VITALS: Ht 177.8 cm; Wt 88.6 kg
[~2018-06-26 17:14] MED LIST changes: -ACAM333T7 PO; -GABA-531 PO; +GABA-533 PO; +METH10 PO; -OMEP20 PO; +TRAZ-220 PO
[2018-06-26 19:17] VITALS: BP 121/72
[2018-06-26] MEDS ORDERED: HALOPERIDOL 5 MG TABLET PO ONE (20:00)
[2018-06-26 20:16] LABS: AMPHET/METH SCREEN,URINE NEGATIVE (NEGATIVE); BARBITURATE SCREEN, URINE NEGATIVE (NEGATIVE); BENZODIAZEPINES SCREEN,URINE POSITIVE (NEGATIVE); CANNABINOID SCREEN,URINE NEGATIVE (NEGATIVE); COCAINE SCREEN,URINE NEGATIVE (NEGATIVE); METHADONE SCREEN, URINE POSITIVE (NEGATIVE); OPIATE SCREEN,URINE NEGATIVE (NEGATIVE)
[2018-06-26 20:21] LABS: PHENCYCLIDINE SCREEN,URINE NEGATIVE (NEGATIVE)
[2018-06-26 20:43] LABS: APPEARANCE,URINE CLEAR (CLEAR); BILIRUBIN,URINE NEGATIVE (NEGATIVE); GLUCOSE, URINE (UA) NEGATIVE (NEGATIVE); KETONES,URINE NEGATIVE (NEGATIVE); LEUKOCYTE ESTERASE ,URINE NEGATIVE (NEGATIVE); NITRATE,URINE NEGATIVE (NEGATIVE); OCCULT BLOOD,URINE NEGATIVE (NEGATIVE); PH,URINE 7.5 (5.0-8.0); PROTEIN,URINE NEGATIVE (NEGATIVE)
[2018-06-26 21:06] LABS: BACTERIA,URINE None Seen /HPF (None Seen); RBC,URINE None Seen /HPF (0-2); SQUAMOUS EPITHELIAL CELL,UR Rare /LPF (None Seen); WBC,URINE None Seen /HPF (0-5)
== END 2018-06-26 20:55 | disposition left against medical advice (07) ==
LOC: EMS 17:16
DX: R10.9 Unspecified abdominal pain (principal); F20.9 Schizophrenia, unspecified; I10 Essential (primary) hypertension; G89.29 Other chronic pain; M54.5 Low back pain; J44.9 Chronic obstructive pulmonary disease, unspecified; K21.9 Gastro-esophageal reflux disease without esophagitis; F31.9 Bipolar disorder, unspecified; F17.210 Nicotine dependence, cigarettes, uncomplicated; Z79.899 Other long term (current) drug therapy; Z86.19 Personal history of other infectious and parasitic diseases; Z88.8 Allergy status to other drugs, medicaments and biological substances

== ENCOUNTER 2018-07-21 16:37 | Inpatient (IN) | payer MEDICAID, OTHER ==
[~2018-07-21] VITALS: Ht 177.8 cm; Wt 60.3 kg
[~2018-07-21 16:37] MED LIST changes: -DICL2100G TP; -DULO30CA2 PO
[2018-07-21] MEDS ORDERED: ARIP5TAB8 PO (18:04)
[2018-07-21] MEDS ORDERED: MIRT15 PO (18:04)
[2018-07-21] MEDS ORDERED: LEVE250T55 PO (18:04)
[2018-07-21 18:35] LABS: EOSINOPHILS % (AUTO) 4.4 % (1.0-6.0); HEMATOCRIT 37.9 % (41-53); LYMPHOCYTES # (AUTO) 1.5 K/uL (1.0-4.8); LYMPHOCYTES % (AUTO) 26.8 % (22.0-44.0); MEAN CORPUSCULAR HEMOGLOBIN 32.3 pg (26.0-34.0); MEAN CORPUSCULAR HGB CONC 34.2 G/dL (31.0-37.0); MEAN CORPUSCULAR VOLUME 94 fL (80-100); MONOCYTES # (AUTO) 0.5 K/uL (0.1-1.0); NEUTROPHILS # (AUTO) 3.4 K/uL (1.8-7.7); NEUTROPHILS % (AUTO) 59.8 % (40.0-70.0); PLATELET COUNT (AUTO) 228 K/uL (150-450); RED BLOOD CELL COUNT(AUTO) 4.02 MIL/uL (4.50-5.90); RED CELL DISTRIBUTION WIDTH 13.7 % (11.5-14.5)
[2018-07-21 18:52] LABS: AMPHET/METH SCREEN,URINE NEGATIVE (NEGATIVE); BARBITURATE SCREEN, URINE NEGATIVE (NEGATIVE); BENZODIAZEPINES SCREEN,URINE POSITIVE (NEGATIVE); CANNABINOID SCREEN,URINE NEGATIVE (NEGATIVE); COCAINE SCREEN,URINE NEGATIVE (NEGATIVE); METHADONE SCREEN, URINE POSITIVE (NEGATIVE); OPIATE SCREEN,URINE NEGATIVE (NEGATIVE)
[2018-07-21 18:55] LABS: PHENCYCLIDINE SCREEN,URINE NEGATIVE (NEGATIVE)
[2018-07-21 19:26] LABS: ANION GAP 6 mmol/L (8-16); CALCIUM, TOTAL 8.8 mg/dL (8.8-10.5); CARBON DIOXIDE 29 mmol/L (22-29); CHLORIDE 107 mmol/L (98-107); CREATININE 0.78 mg/dL (0.60-1.30); GLOMERULAR FILTR. RATE CALC > 60 mL/min (>60); GLUCOSE,RANDOM 105 mg/dL (70-110); POTASSIUM 4.1 mmol/L (3.5-5.1); SODIUM SERUM 142 mmol/L (136-145); UREA NITROGEN, BLOOD 12 mg/dL (7-18)
[2018-07-21 19:30] LABS: ALANINE AMINOTRANSFERASE 100 U/L (12-78); ALBUMIN 2.9 g/dL (3.4-5.0); ALKALINE PHOSPHATASE 118 U/L (46-116); ASPARTATE AMINOTRANSFERASE 115 U/L (15-37); BILIRUBIN,TOTAL 0.2 mg/dL (0.1-1.0); TOTAL PROTEIN, SERUM 6.2 g/dL (6.4-8.2)
[2018-07-21] MEDS ORDERED: LORazepam 2 MG TABLET PO ONE (20:15)
[2018-07-21] MEDS ORDERED: HALOPERIDOL 5 MG TABLET PO PRN (20:30)
[2018-07-21] MEDS ORDERED: LORazepam 2 MG TABLET PO PRN (20:30)
[2018-07-21] MEDS ORDERED: ZOLPIDEM TARTRATE 10 MG TABLET PO PRN (20:30)
[2018-07-22 00:10] VITALS: BP 109/68
[2018-07-22] MEDS ORDERED: PNEUMOCOCCAL VACCINE POLYVALENT 0.5 ML VIAL [PPSV23] IM ONE (01:15)
[2018-07-22 08:43] VITALS: BP 112/67
[2018-07-22] MEDS: METHADONE HCL 10 MG TABLET PO SCH (08:58)
[2018-07-22] MEDS ORDERED: MAGNESIUM HYDROXIDE SUSPENSION 30 ML UDCUP PO PRN (13:30)
[2018-07-22] MEDS ORDERED: QUEtiapine FUMARATE 100 MG TABLET PO PRN (13:30)
[2018-07-22] MEDS ORDERED: PROMETHAZINE HCL 25 MG TABLET PO PRN (13:30)
[2018-07-22] MEDS ORDERED: CYANOCOBALAMIN 1,000 MCG/ML VIAL IM ONE (13:30)
[2018-07-22] MEDS ORDERED: LOPERAMIDE HCL 2 MG CAPSULE PO PRN (13:30)
[2018-07-22] MEDS ORDERED: GABAPENTIN 300 MG CAPSULE PO PRN (13:30)
[2018-07-22] MEDS ORDERED: MAG HYDROX/AL HYDROX/SIMETH ES 30 ML SUSPENSION UDCUP PO PRN (13:30)
[2018-07-22] MEDS ORDERED: GuaiFENesin/D-METHORPHAN [SUGAR-FREE] 200-20MG/10 ML SYRUP UDCUP PO PRN (13:30)
[2018-07-22] MEDS ORDERED: HydrOXYzine PAMOATE 50 MG CAPSULE PO PRN (13:30)
[2018-07-22 16:00] VITALS: BP 115/67
[2018-07-22] MEDS: ACAMPROSATE CALCIUM 333 MG DR TABLET PO SCH (16:34)
[2018-07-22] MEDS: THIAMINE HCL 100 MG TABLET PO SCH (16:34)
[2018-07-22] MEDS: GABAPENTIN 300 MG CAPSULE PO SCH ×2 (16:34→20:21)
[2018-07-22] MEDS: LevETIRAcetam 500 MG TABLET PO SCH (16:36)
[2018-07-22] MEDS: NICOTINE 21 MG/24 HOUR PATCH TD SCH (16:36)
[2018-07-22 16:54] VITALS: BP 115/67
[2018-07-22] MEDS ORDERED: DIAZEPAM 10 MG TABLET PO PRN (17:00)
[2018-07-22] MEDS: QUEtiapine FUMARATE 200 MG TABLET PO SCH (20:21)
[2018-07-22] MEDS: TraZODone HCL 100 MG TABLET PO SCH (20:21)
[2018-07-22 20:53] VITALS: BP 103/65
[2018-07-23] VITALS (8 sets, daily range): BP systolic 109–132; BP diastolic 61–72
[2018-07-23] MEDS ORDERED: DIAZEPAM 10 MG TABLET PO PRN (07:00)
[2018-07-23] MEDS: ACAMPROSATE CALCIUM 333 MG DR TABLET PO SCH ×3 (09:00→21:42)
[2018-07-23] MEDS: DIAZEPAM 10 MG TABLET PO SCH ×3 (09:00→21:41)
[2018-07-23] MEDS: METHADONE HCL 10 MG TABLET PO SCH (09:00)
[2018-07-23] MEDS: MULTIVITAMINS WITH MINERALS, THERAPEUTIC TABLET PO SCH (09:00)
[2018-07-23] MEDS: LevETIRAcetam 500 MG TABLET PO SCH ×2 (09:00→21:40)
[2018-07-23] MEDS: FOLIC ACID 1 MG TABLET PO SCH (09:00)
[2018-07-23] MEDS: GABAPENTIN 300 MG CAPSULE PO SCH ×3 (09:00→21:41)
[2018-07-23] MEDS: DULoxetine HCL 20 MG CAPSULE PO SCH (09:00)
[2018-07-23] MEDS: NICOTINE 21 MG/24 HOUR PATCH TD SCH (09:00)
[2018-07-23] MEDS: THIAMINE HCL 100 MG TABLET PO SCH ×2 (09:00→19:20)
[2018-07-23] MEDS ORDERED: DIAZEPAM 10 MG TABLET PO ONE (17:00)
[2018-07-23] MEDS: TraZODone HCL 100 MG TABLET PO SCH (21:00)
[2018-07-23] MEDS: QUEtiapine FUMARATE 200 MG TABLET PO SCH (21:00)
[2018-07-24 01:00] VITALS: BP 117/74
[2018-07-24] MEDS: ACAMPROSATE CALCIUM 333 MG DR TABLET PO SCH ×4 (08:13→16:03)
[2018-07-24] MEDS: LevETIRAcetam 500 MG TABLET PO SCH ×2 (08:14→16:03)
[2018-07-24] MEDS: MULTIVITAMINS WITH MINERALS, THERAPEUTIC TABLET PO SCH (08:14)
[2018-07-24] MEDS: DULoxetine HCL 20 MG CAPSULE PO SCH (08:14)
[2018-07-24] MEDS: THIAMINE HCL 100 MG TABLET PO SCH ×2 (08:14→16:05)
[2018-07-24] MEDS: METHADONE HCL 10 MG TABLET PO SCH (08:14)
[2018-07-24] MEDS: FOLIC ACID 1 MG TABLET PO SCH (08:14)
[2018-07-24] MEDS: DIAZEPAM 10 MG TABLET PO SCH ×4 (08:16→21:28)
[2018-07-24] MEDS: GABAPENTIN 300 MG CAPSULE PO SCH ×4 (08:17→21:28)
[2018-07-24] MEDS: NICOTINE 21 MG/24 HOUR PATCH TD SCH ×2 (08:19→09:24)
[2018-07-24 08:30] VITALS: BP 128/83
[2018-07-24 16:03] VITALS: BP 110/76
[2018-07-24] MEDS: ACETAMINOPHEN 325 MG TABLET PO PRN (16:04)
[2018-07-24 16:41] VITALS: BP 110/76
[2018-07-24] MEDS: QUEtiapine FUMARATE 25 MG TABLET PO SCH ×2 (17:00→21:00)
[2018-07-24] MEDS ORDERED: ARIPiprazole ER SUSPENSION 400 MG PRE-FILLED DUAL CHAMBER SYRINGE IM ONE (17:00)
[2018-07-24] MEDS: TraZODone HCL 100 MG TABLET PO SCH (21:00)
[2018-07-25 05:36] VITALS: BP 120/78
[2018-07-25] MEDS ORDERED: METHADONE HCL 10 MG TABLET PO SCH (06:00)
[2018-07-25] MEDS ORDERED: DIAZEPAM 5 MG TABLET PO PRN (07:00)
[2018-07-25 08:00] VITALS: BP 103/80
[2018-07-25] MEDS: DULoxetine HCL 20 MG CAPSULE PO SCH (09:00)
[2018-07-25] MEDS: ACAMPROSATE CALCIUM 333 MG DR TABLET PO SCH ×3 (09:00→16:57)
[2018-07-25] MEDS: QUEtiapine FUMARATE 25 MG TABLET PO SCH ×4 (09:00→20:32)
[2018-07-25] MEDS: CARBAMIDE PEROXIDE 6.5% 15 ML OTIC SOLUTION AD SCH ×2 (09:00→10:58)
[2018-07-25] MEDS: LevETIRAcetam 500 MG TABLET PO SCH ×2 (09:00→16:57)
[2018-07-25] MEDS: GABAPENTIN 300 MG CAPSULE PO SCH ×4 (09:11→20:35)
[2018-07-25] MEDS: MULTIVITAMINS WITH MINERALS, THERAPEUTIC TABLET PO SCH (09:12)
[2018-07-25] MEDS: FOLIC ACID 1 MG TABLET PO SCH (09:12)
[2018-07-25] MEDS: THIAMINE HCL 100 MG TABLET PO SCH ×2 (09:12→16:57)
[2018-07-25] MEDS: DIAZEPAM 5 MG TABLET PO SCH ×4 (09:12→20:35)
[2018-07-25] MEDS: NICOTINE 21 MG/24 HOUR PATCH TD SCH (09:13)
[2018-07-25 17:00] VITALS: BP 108/64
[2018-07-25] MEDS: TraZODone HCL 100 MG TABLET PO SCH (20:32)
[2018-07-25] MEDS: ARIPiprazole 2 MG TABLET PO SCH (20:32)
[2018-07-26 05:45] VITALS: BP 112/82
[2018-07-26] MEDS: METHADONE HCL 10 MG TABLET PO SCH (05:56)
[2018-07-26 08:00] VITALS: BP 106/73
[2018-07-26] MEDS: ACAMPROSATE CALCIUM 333 MG DR TABLET PO SCH ×3 (08:55→16:38)
[2018-07-26] MEDS: THIAMINE HCL 100 MG TABLET PO SCH ×2 (08:56→16:38)
[2018-07-26] MEDS: DULoxetine HCL 20 MG CAPSULE PO SCH (08:56)
[2018-07-26] MEDS: FOLIC ACID 1 MG TABLET PO SCH (08:56)
[2018-07-26] MEDS: LevETIRAcetam 500 MG TABLET PO SCH ×2 (08:57→16:38)
[2018-07-26] MEDS: GABAPENTIN 300 MG CAPSULE PO SCH ×4 (08:58→20:58)
[2018-07-26] MEDS: MULTIVITAMINS WITH MINERALS, THERAPEUTIC TABLET PO SCH (08:58)
[2018-07-26] MEDS: QUEtiapine FUMARATE 25 MG TABLET PO SCH ×4 (09:00→20:58)
[2018-07-26] MEDS: NICOTINE 21 MG/24 HOUR PATCH TD SCH (09:05)
[2018-07-26] MEDS: CARBAMIDE PEROXIDE 6.5% 15 ML OTIC SOLUTION AD SCH (09:07)
[2018-07-26] MEDS: DIAZEPAM 5 MG TABLET PO PRN ×3 (09:08→17:12)
[2018-07-26] MEDS: ACETAMINOPHEN 325 MG TABLET PO PRN (13:12)
[2018-07-26 18:31] VITALS: BP 112/76
[2018-07-26] MEDS: ARIPiprazole 2 MG TABLET PO SCH (20:57)
[2018-07-26] MEDS: TraZODone HCL 100 MG TABLET PO SCH (20:58)
[2018-07-27 05:55] VITALS: BP 120/71
[2018-07-27] MEDS: METHADONE HCL 10 MG TABLET PO SCH (06:00)
[2018-07-27 08:10] VITALS: BP 97/64
[2018-07-27] MEDS: LevETIRAcetam 500 MG TABLET PO SCH ×3 (09:00→17:22)
[2018-07-27] MEDS: DULoxetine HCL 20 MG CAPSULE PO SCH ×2 (09:00→11:28)
[2018-07-27] MEDS: ACAMPROSATE CALCIUM 333 MG DR TABLET PO SCH ×3 (09:00→17:22)
[2018-07-27] MEDS: QUEtiapine FUMARATE 25 MG TABLET PO SCH ×4 (09:00→21:51)
[2018-07-27] MEDS: FOLIC ACID 1 MG TABLET PO SCH (09:00)
[2018-07-27] MEDS: GABAPENTIN 300 MG CAPSULE PO SCH ×4 (09:00→21:50)
[2018-07-27] MEDS: THIAMINE HCL 100 MG TABLET PO SCH ×2 (09:12→17:22)
[2018-07-27] MEDS: MULTIVITAMINS WITH MINERALS, THERAPEUTIC TABLET PO SCH (09:12)
[2018-07-27] MEDS: NICOTINE 21 MG/24 HOUR PATCH TD SCH (09:14)
[2018-07-27 11:15] VITALS: BP 126/76
[2018-07-27] MEDS: ACETAMINOPHEN 325 MG TABLET PO PRN (14:26)
[2018-07-27 17:24] VITALS: BP 105/68
[2018-07-27] MEDS: ARIPiprazole 2 MG TABLET PO SCH (21:49)
[2018-07-27] MEDS: TraZODone HCL 100 MG TABLET PO SCH (21:50)
[2018-07-28 06:00] VITALS: BP 106/71
[2018-07-28] MEDS: METHADONE HCL 10 MG TABLET PO SCH (06:30)
[2018-07-28 08:30] VITALS: BP 104/78
[2018-07-28] MEDS: LevETIRAcetam 500 MG TABLET PO SCH (08:48)
[2018-07-28] MEDS: QUEtiapine FUMARATE 25 MG TABLET PO SCH (08:49)
[2018-07-28] MEDS: MULTIVITAMINS WITH MINERALS, THERAPEUTIC TABLET PO SCH (08:49)
[2018-07-28] MEDS: GABAPENTIN 300 MG CAPSULE PO SCH (08:49)
[2018-07-28] MEDS: THIAMINE HCL 100 MG TABLET PO SCH (08:49)
[2018-07-28] MEDS: NICOTINE 21 MG/24 HOUR PATCH TD SCH (08:50)
[2018-07-28] MEDS: FOLIC ACID 1 MG TABLET PO SCH (08:51)
[2018-07-28] MEDS: ACAMPROSATE CALCIUM 333 MG DR TABLET PO SCH (08:51)
[2018-07-28] MEDS: ACETAMINOPHEN 325 MG TABLET PO PRN (08:55)
[2018-07-28] MEDS ORDERED: DULoxetine HCL 20 MG CAPSULE PO SCH (09:00)
[2018-07-28] MEDS ORDERED: ACAM333T7 PO (10:08)
[2018-07-28] MEDS ORDERED: GABA-531 PO (10:09)
[2018-07-28] MEDS ORDERED: DULO20CA30 PO (10:09)
[2018-07-28] MEDS ORDERED: ARIP2 PO (10:09)
[2018-07-28] MEDS ORDERED: QUET25TA PO (10:10)
[2018-07-28] MEDS ORDERED: ARIP400S3 IM (10:18)
[2018-08-21] MEDS ORDERED: ARIPiprazole ER SUSPENSION 400 MG PRE-FILLED DUAL CHAMBER SYRINGE IM SCH (09:00)
== END 2018-07-28 11:45 | disposition home or self-care (01) | DRG 750 ==
LOC: EMS 16:38 → B3A 20:40 → 3EI 07-23 16:52
PROVIDERS: ADMIT Psychiatry & Neurology Psychiatry; ATTEND Psychiatry & Neurology Psychiatry
DX: F25.0 Schizoaffective disorder, bipolar type (principal); E44.1 Mild protein-calorie malnutrition; R45.851 Suicidal ideations; G40.909 Epilepsy, unspecified, not intractable, without status epilepticus; B18.2 Chronic viral hepatitis C; F17.210 Nicotine dependence, cigarettes, uncomplicated; F41.0 Panic disorder [episodic paroxysmal anxiety]; G47.00 Insomnia, unspecified; D64.9 Anemia, unspecified; F11.20 Opioid dependence, uncomplicated; F15.90 Other stimulant use, unspecified, uncomplicated; I10 Essential (primary) hypertension; J44.9 Chronic obstructive pulmonary disease, unspecified; F12.90 Cannabis use, unspecified, uncomplicated; G89.29 Other chronic pain; M54.5 Low back pain; K21.9 Gastro-esophageal reflux disease without esophagitis; M19.90 Unspecified osteoarthritis, unspecified site; Z59.0 Homelessness; Z65.3 Problems related to other legal circumstances; Z68.1 Body mass index [BMI] 19.9 or less, adult; Z79.899 Other long term (current) drug therapy; Z91.19 Patient's noncompliance with other medical treatment and regimen; Z56.0 Unemployment, unspecified; Z88.8 Allergy status to other drugs, medicaments and biological substances
CPT/HCPCS: 87081; 90686; 90732; G0480; J0401; J3420

== ENCOUNTER 2018-07-23 07:42 | Emergency (ER) | payer MEDICAID, OTHER ==
[~2018-07-23] VITALS: Ht 177.8 cm; Wt 63.6 kg
[~2018-07-23 07:42] MED LIST changes: +ARIP5TAB8 PO; +LEVE250T55 PO; +MIRT15 PO
[2018-07-23] MEDS ORDERED: SODIUM CHLORIDE 0.9% 1,000 ML IV ONE ×2 (07:58→12:00)
[2018-07-23] MEDS ORDERED: ONDANSETRON HCL 4 MG/2 ML VIAL IVP ONE (08:00)
[2018-07-23 10:10] LABS: BASOPHILS % (AUTO) 0.1 % (0.0-2.0); EOSINOPHILS % (AUTO) 0.5 % (1.0-6.0); HEMATOCRIT 46.5 % (41-53); HEMOGLOBIN 15.6 g/dL (13.5-17.5); LYMPHOCYTES # (AUTO) 0.7 K/uL (1.0-4.8); MEAN CORPUSCULAR HEMOGLOBIN 31.8 pg (26.0-34.0); MEAN CORPUSCULAR HGB CONC 33.5 G/dL (31.0-37.0); MEAN CORPUSCULAR VOLUME 95 fL (80-100); MONOCYTES # (AUTO) 0.9 K/uL (0.1-1.0); MONOCYTES % (AUTO) 6.7 % (2.0-9.0); NEUTROPHILS # (AUTO) 11.8 K/uL (1.8-7.7); PLATELET COUNT (AUTO) 239 K/uL (150-450); RED CELL DISTRIBUTION WIDTH 13.6 % (11.5-14.5)
[2018-07-23 10:13] LABS: NEUTROPHILS % (AUTO) 87.7 % (40.0-70.0)
[2018-07-23 10:17] LABS: ANION GAP 6 mmol/L (8-16); CALCIUM, TOTAL 9.5 mg/dL (8.8-10.5); CARBON DIOXIDE 31 mmol/L (22-29); CHLORIDE 106 mmol/L (98-107); CREATININE 0.85 mg/dL (0.60-1.30); GLOMERULAR FILTR. RATE CALC > 60 mL/min (>60); GLUCOSE,RANDOM 101 mg/dL (70-110); POTASSIUM 4.8 mmol/L (3.5-5.1); SODIUM SERUM 143 mmol/L (136-145); UREA NITROGEN, BLOOD 16 mg/dL (7-18)
[2018-07-23 10:29] LABS: ALANINE AMINOTRANSFERASE 169 U/L (12-78); ALBUMIN 3.6 g/dL (3.4-5.0); ALKALINE PHOSPHATASE 123 U/L (46-116); ASPARTATE AMINOTRANSFERASE 205 U/L (15-37); BILIRUBIN,TOTAL 0.3 mg/dL (0.1-1.0); LIPASE 94 U/L (73-393); TOTAL PROTEIN, SERUM 7.6 g/dL (6.4-8.2)
[2018-07-23 11:39] LABS: APPEARANCE,URINE CLEAR (CLEAR); BILIRUBIN,URINE NEGATIVE (NEGATIVE); GLUCOSE, URINE (UA) NEGATIVE (NEGATIVE); KETONES,URINE NEGATIVE (NEGATIVE); LEUKOCYTE ESTERASE ,URINE NEGATIVE (NEGATIVE); NITRATE,URINE NEGATIVE (NEGATIVE); OCCULT BLOOD,URINE NEGATIVE (NEGATIVE); PROTEIN,URINE NEGATIVE (NEGATIVE); UROBILINOGEN,URINE 0.2 mg/dL (<=1.0)
[2018-07-23 11:45] LABS: AMPHET/METH SCREEN,URINE NEGATIVE (NEGATIVE); BARBITURATE SCREEN, URINE NEGATIVE (NEGATIVE); BENZODIAZEPINES SCREEN,URINE POSITIVE (NEGATIVE); CANNABINOID SCREEN,URINE NEGATIVE (NEGATIVE); COCAINE SCREEN,URINE NEGATIVE (NEGATIVE); METHADONE SCREEN, URINE POSITIVE (NEGATIVE); OPIATE SCREEN,URINE NEGATIVE (NEGATIVE); PHENCYCLIDINE SCREEN,URINE NEGATIVE (NEGATIVE)
[2018-07-23 17:42] VITALS: BP 115/73
== END 2018-07-23 19:30 | disposition other institution (70) ==
LOC: EMS 07:47 → UNDOADMIN 15:33 → 3EI 15:33 → EMS 19:30
DX: R11.2 Nausea with vomiting, unspecified (principal); F31.9 Bipolar disorder, unspecified; F25.9 Schizoaffective disorder, unspecified; M54.9 Dorsalgia, unspecified; R94.5 Abnormal results of liver function studies; F11.20 Opioid dependence, uncomplicated; G89.29 Other chronic pain; F17.210 Nicotine dependence, cigarettes, uncomplicated; J44.9 Chronic obstructive pulmonary disease, unspecified; K21.9 Gastro-esophageal reflux disease without esophagitis; I10 Essential (primary) hypertension; Z88.8 Allergy status to other drugs, medicaments and biological substances
CPT/HCPCS: 36415; 76705; 80053; 80307; 81003; 83690; 85025; 96361; 96374; 99285; 99406; J2405; 96360

== ENCOUNTER 2018-08-13 09:38 | Emergency (ER) | payer MEDICAID, OTHER ==
[~2018-08-13] VITALS: Ht 180.3 cm; Wt 72.7 kg
[~2018-08-13 09:38] MED LIST changes: +ACAM333T7 PO; +ARIP2 PO; +ARIP400S3 IM; -ARIP5TAB8 PO; +DULO20CA30 PO; +GABA-531 PO; -GABA-533 PO; -METH10 PO; -MIRT15 PO; -QUET100T33 PO
[2018-08-13] MEDS ORDERED: QUET300T2 PO (09:54)
[2018-08-13] MEDS ORDERED: LevETIRAcetam 750 MG in DEXTROSE 5%-WATER 100 ML IV ONE (11:30)
[2018-08-13] MEDS ORDERED: SODIUM CHLORIDE 0.9% 1,000 ML IV ONE (11:30)
[2018-08-13] MEDS ORDERED: LevETIRAcetam 250 MG TABLET PO ONE (11:45)
[2018-08-13 11:50] LABS: BASOPHILS % (AUTO) 0.5 % (0.0-2.0); EOSINOPHILS % (AUTO) 1.7 % (1.0-6.0); HEMATOCRIT 43.1 % (41-53); HEMOGLOBIN 14.5 g/dL (13.5-17.5); LYMPHOCYTES # (AUTO) 1.4 K/uL (1.0-4.8); LYMPHOCYTES % (AUTO) 21.5 % (22.0-44.0); MEAN CORPUSCULAR HEMOGLOBIN 32.2 pg (26.0-34.0); MEAN CORPUSCULAR HGB CONC 33.5 G/dL (31.0-37.0); MEAN CORPUSCULAR VOLUME 96 fL (80-100); MONOCYTES # (AUTO) 0.7 K/uL (0.1-1.0); MONOCYTES % (AUTO) 11.2 % (2.0-9.0); NEUTROPHILS # (AUTO) 4.2 K/uL (1.8-7.7); NEUTROPHILS % (AUTO) 65.1 % (40.0-70.0); PLATELET COUNT (AUTO) 163 K/uL (150-450); RED BLOOD CELL COUNT(AUTO) 4.49 MIL/uL (4.50-5.90); RED CELL DISTRIBUTION WIDTH 13.1 % (11.5-14.5)
[2018-08-13 11:55] VITALS: BP 124/84
[2018-08-13 12:01] LABS: ANION GAP 5 mmol/L (8-16); CALCIUM, TOTAL 9.3 mg/dL (8.8-10.5); CARBON DIOXIDE 33 mmol/L (22-29); CHLORIDE 102 mmol/L (98-107); CREATININE 0.64 mg/dL (0.60-1.30); GLOMERULAR FILTR. RATE CALC > 60 mL/min (>60); GLUCOSE,RANDOM 94 mg/dL (70-110); POTASSIUM 4.2 mmol/L (3.5-5.1); SODIUM SERUM 140 mmol/L (136-145); UREA NITROGEN, BLOOD 8 mg/dL (7-18)
[2018-08-13] MEDS ORDERED: LORazepam 1 MG TABLET PO ONE (12:15)
== END 2018-08-13 13:32 | disposition left against medical advice (07) ==
LOC: EMS 09:39
DX: S00.511A Abrasion of lip, initial encounter (principal); S50.312A Abrasion of left elbow, initial encounter; G40.909 Epilepsy, unspecified, not intractable, without status epilepticus; I10 Essential (primary) hypertension; G89.29 Other chronic pain; M54.5 Low back pain; J44.9 Chronic obstructive pulmonary disease, unspecified; K21.9 Gastro-esophageal reflux disease without esophagitis; F31.9 Bipolar disorder, unspecified; F10.20 Alcohol dependence, uncomplicated; F17.210 Nicotine dependence, cigarettes, uncomplicated; F20.9 Schizophrenia, unspecified; Z76.0 Encounter for issue of repeat prescription; Z86.19 Personal history of other infectious and parasitic diseases; Z79.899 Other long term (current) drug therapy; Z88.8 Allergy status to other drugs, medicaments and biological substances; X58.XXXA Exposure to other specified factors, initial encounter; Y93.89 Activity, other specified; Y92.89 Other specified places as the place of occurrence of the external cause; Y99.8 Other external cause status
CPT/HCPCS: 36415; 73080; 80048; 85025; 99284; G0480; J0712; J7060

== ENCOUNTER 2018-09-08 18:01 | Inpatient (IN) | payer MEDICAID, OTHER ==
[~2018-09-08] VITALS: Ht 177.8 cm; Wt 58.0 kg
[~2018-09-08 18:01] MED LIST changes: -ACAM333T7 PO; -ARIP2 PO; -ARIP400S3 IM; -DULO20CA30 PO; +QUET300T2 PO; -TRAZ-220 PO
[2018-09-08] MEDS ORDERED: ACETAMINOPHEN 500 MG TABLET PO ONE (18:45)
[2018-09-08 19:18] LABS: BASOPHILS % (AUTO) 0.5 % (0.0-2.0); EOSINOPHILS % (AUTO) 5.3 % (1.0-6.0); HEMATOCRIT 38.8 % (41-53); LYMPHOCYTES # (AUTO) 0.8 K/uL (1.0-4.8); LYMPHOCYTES % (AUTO) 11.5 % (22.0-44.0); MEAN CORPUSCULAR HGB CONC 33.6 G/dL (31.0-37.0); MEAN CORPUSCULAR VOLUME 95 fL (80-100); MONOCYTES # (AUTO) 0.9 K/uL (0.1-1.0); MONOCYTES % (AUTO) 12.3 % (2.0-9.0); NEUTROPHILS % (AUTO) 70.4 % (40.0-70.0); PLATELET COUNT (AUTO) 177 K/uL (150-450); RED BLOOD CELL COUNT(AUTO) 4.07 MIL/uL (4.50-5.90); RED CELL DISTRIBUTION WIDTH 12.9 % (11.5-14.5)
[2018-09-08 19:27] LABS: ANION GAP 5 mmol/L (8-16); CALCIUM, TOTAL 8.8 mg/dL (8.8-10.5); CARBON DIOXIDE 32 mmol/L (22-29); CHLORIDE 102 mmol/L (98-107); CREATININE 0.74 mg/dL (0.60-1.30); GLOMERULAR FILTR. RATE CALC > 60 mL/min (>60); GLUCOSE,RANDOM 104 mg/dL (70-110); POTASSIUM 3.5 mmol/L (3.5-5.1); SODIUM SERUM 139 mmol/L (136-145); UREA NITROGEN, BLOOD 8 mg/dL (7-18)
[2018-09-08 19:33] LABS: ALANINE AMINOTRANSFERASE 186 U/L (12-78); ALBUMIN 3.2 g/dL (3.4-5.0); ALKALINE PHOSPHATASE 149 U/L (46-116); ASPARTATE AMINOTRANSFERASE 327 U/L (15-37); BILIRUBIN,TOTAL 0.6 mg/dL (0.1-1.0); TOTAL PROTEIN, SERUM 6.6 g/dL (6.4-8.2)
[2018-09-08] MEDS ORDERED: QUEtiapine FUMARATE 100 MG TABLET PO PRN (21:00)
[2018-09-08] MEDS ORDERED: LORazepam 2 MG TABLET PO PRN (21:00)
[2018-09-08] MEDS ORDERED: ZOLPIDEM TARTRATE 10 MG TABLET PO PRN (21:00)
[2018-09-08] MEDS ORDERED: ARIPiprazole 2 MG TABLET PO SCH (21:01)
[2018-09-08] MEDS: QUEtiapine FUMARATE 200 MG TABLET PO SCH (21:21)
[2018-09-08 22:31] VITALS: BP 124/85
[2018-09-08] MEDS ORDERED: PETROLATUM,WHITE 28 GM JELLY TP PRN (23:00)
[2018-09-08] MEDS ORDERED: MAGNESIUM HYDROXIDE SUSPENSION 30 ML UDCUP PO PRN (23:00)
[2018-09-08] MEDS ORDERED: CloNIDine HCL 0.1 MG TABLET PO PRN (23:00)
[2018-09-08] MEDS ORDERED: BENZOCAINE/MENTHOL LOZENGE MM PRN (23:00)
[2018-09-08] MEDS ORDERED: MAG HYDROX/AL HYDROX/SIMETH ES 30 ML SUSPENSION UDCUP PO PRN (23:00)
[2018-09-08] MEDS ORDERED: ACETAMINOPHEN 325 MG TABLET PO PRN (23:00)
[2018-09-08] MEDS ORDERED: ALBUTEROL SULFATE HFA 90 MCG/PUFF 8 GM INHALER IH PRN (23:00)
[2018-09-08] MEDS ORDERED: LOPERAMIDE HCL 2 MG CAPSULE PO PRN (23:00)
[2018-09-08] MEDS ORDERED: ONDANSETRON HCL 4 MG TABLET PO PRN (23:00)
[2018-09-09 06:31] LABS: CHOL/HDL RATIO 2.7 (4.2-7.3)
[2018-09-09] MEDS: LevETIRAcetam 500 MG TABLET PO SCH ×2 (11:22→16:11)
[2018-09-09] MEDS: DOCUSATE SODIUM 100 MG CAPSULE PO SCH (11:22)
[2018-09-09] MEDS: OMEPRAZOLE 20 MG CAPSULE PO SCH (11:22)
[2018-09-09] MEDS: DULoxetine HCL 20 MG CAPSULE PO SCH (11:22)
[2018-09-09] MEDS: METHADONE HCL 10 MG TABLET PO SCH (11:31)
[2018-09-09] MEDS ORDERED: GuaiFENesin/D-METHORPHAN [SUGAR-FREE] 200-20MG/10 ML SYRUP UDCUP PO PRN (12:15)
[2018-09-09] MEDS ORDERED: LOPERAMIDE HCL 2 MG CAPSULE PO PRN (12:15)
[2018-09-09] MEDS ORDERED: PROMETHAZINE HCL 25 MG TABLET PO PRN ×2 (12:15)
[2018-09-09] MEDS ORDERED: HydrOXYzine PAMOATE 50 MG CAPSULE PO PRN (12:15)
[2018-09-09 13:30] VITALS: BP 113/74
[2018-09-09] MEDS: ACAMPROSATE CALCIUM 333 MG DR TABLET PO SCH ×2 (13:46→16:12)
[2018-09-09] MEDS: GABAPENTIN 300 MG CAPSULE PO SCH ×3 (13:47→20:09)
[2018-09-09] MEDS: THIAMINE HCL 100 MG TABLET PO SCH (16:11)
[2018-09-09 17:07] VITALS: BP 102/62
[2018-09-09] MEDS ORDERED: CYANOCOBALAMIN 1,000 MCG/ML VIAL IM ONE (17:15)
[2018-09-09] MEDS ORDERED: DIAZEPAM 10 MG TABLET PO ONE (17:15)
[2018-09-09] MEDS ORDERED: DIAZEPAM 10 MG TABLET PO PRN (17:15)
[2018-09-09 17:16] VITALS: BP 104/68
[2018-09-09 18:30] VITALS: BP 100/68
[2018-09-09 19:30] VITALS: BP 102/67
[2018-09-09] MEDS: TraZODone HCL 50 MG TABLET PO SCH (20:09)
[2018-09-09] MEDS: QUEtiapine FUMARATE 200 MG TABLET PO SCH (20:09)
[2018-09-09 20:30] VITALS: BP 105/72
[2018-09-10] VITALS (7 sets, daily range): BP systolic 80–109; BP diastolic 43–72
[2018-09-10] MEDS ORDERED: DIAZEPAM 10 MG TABLET PO PRN (07:00)
[2018-09-10] MEDS: THIAMINE HCL 100 MG TABLET PO SCH ×2 (08:12→17:45)
[2018-09-10] MEDS: MULTIVITAMINS WITH MINERALS, THERAPEUTIC TABLET PO SCH (08:12)
[2018-09-10] MEDS: DOCUSATE SODIUM 100 MG CAPSULE PO SCH (08:12)
[2018-09-10] MEDS: ACAMPROSATE CALCIUM 333 MG DR TABLET PO SCH ×3 (08:12→17:43)
[2018-09-10] MEDS: FOLIC ACID 1 MG TABLET PO SCH (08:12)
[2018-09-10] MEDS: LevETIRAcetam 500 MG TABLET PO SCH ×2 (08:12→17:44)
[2018-09-10] MEDS: DULoxetine HCL 20 MG CAPSULE PO SCH (08:13)
[2018-09-10] MEDS: OMEPRAZOLE 20 MG CAPSULE PO SCH (08:13)
[2018-09-10] MEDS: DIAZEPAM 10 MG TABLET PO SCH ×4 (08:13→21:00)
[2018-09-10] MEDS: GABAPENTIN 300 MG CAPSULE PO SCH ×4 (08:13→21:00)
[2018-09-10] MEDS: METHADONE HCL 10 MG TABLET PO SCH (08:14)
[2018-09-10] MEDS: IBUPROFEN 600 MG TABLET PO PRN (15:09)
[2018-09-10] MEDS: SULFAMETHOX/TRIMETH DS 800-160 MG/TABLET PO SCH ×2 (17:44→21:00)
[2018-09-10] MEDS ORDERED: QUEtiapine FUMARATE 100 MG TABLET PO SCH (21:00)
[2018-09-10] MEDS: TraZODone HCL 50 MG TABLET PO SCH (21:00)
[2018-09-11] VITALS (7 sets, daily range): BP systolic 98–117; BP diastolic 65–75
[2018-09-11] MEDS: THIAMINE HCL 100 MG TABLET PO SCH ×2 (08:58→16:30)
[2018-09-11] MEDS: ACAMPROSATE CALCIUM 333 MG DR TABLET PO SCH ×3 (08:58→16:30)
[2018-09-11] MEDS: DULoxetine HCL 20 MG CAPSULE PO SCH (08:58)
[2018-09-11] MEDS: LevETIRAcetam 500 MG TABLET PO SCH ×2 (08:59→16:30)
[2018-09-11] MEDS: OMEPRAZOLE 20 MG CAPSULE PO SCH (08:59)
[2018-09-11] MEDS: MULTIVITAMINS WITH MINERALS, THERAPEUTIC TABLET PO SCH (08:59)
[2018-09-11] MEDS: GABAPENTIN 300 MG CAPSULE PO SCH ×4 (09:00→20:55)
[2018-09-11] MEDS: BACITRACIN 28.4 GM OINTMENT TP PRN (09:00)
[2018-09-11] MEDS: SULFAMETHOX/TRIMETH DS 800-160 MG/TABLET PO SCH ×2 (09:00→20:55)
[2018-09-11] MEDS: FOLIC ACID 1 MG TABLET PO SCH (09:00)
[2018-09-11] MEDS: DOCUSATE SODIUM 100 MG CAPSULE PO SCH (09:01)
[2018-09-11] MEDS: DIAZEPAM 10 MG TABLET PO SCH ×4 (09:29→20:56)
[2018-09-11] MEDS ORDERED: PALIPERIDONE 1.5 MG ER TABLET PO PRN (16:45)
[2018-09-11] MEDS ORDERED: PALIPERIDONE PALMITATE 234 MG/1.5 ML SYRINGE IM ONE (16:45)
[2018-09-11] MEDS: IBUPROFEN 600 MG TABLET PO PRN (20:50)
[2018-09-12] VITALS (7 sets, daily range): BP systolic 91–115; BP diastolic 62–90
[2018-09-12] MEDS ORDERED: DIAZEPAM 5 MG TABLET PO PRN (07:00)
[2018-09-12] MEDS: METHADONE HCL 10 MG TABLET PO SCH (09:11)
[2018-09-12] MEDS: ACAMPROSATE CALCIUM 333 MG DR TABLET PO SCH ×3 (09:11→17:27)
[2018-09-12] MEDS: GABAPENTIN 300 MG CAPSULE PO SCH (09:12)
[2018-09-12] MEDS: DULoxetine HCL 20 MG CAPSULE PO SCH (09:12)
[2018-09-12] MEDS: LevETIRAcetam 500 MG TABLET PO SCH ×2 (09:12→17:27)
[2018-09-12] MEDS: DOCUSATE SODIUM 100 MG CAPSULE PO SCH (09:12)
[2018-09-12] MEDS: MULTIVITAMINS WITH MINERALS, THERAPEUTIC TABLET PO SCH (09:12)
[2018-09-12] MEDS: THIAMINE HCL 100 MG TABLET PO SCH ×2 (09:13→17:26)
[2018-09-12] MEDS: DIAZEPAM 5 MG TABLET PO SCH ×4 (09:14→21:16)
[2018-09-12] MEDS: FOLIC ACID 1 MG TABLET PO SCH (09:18)
[2018-09-12] MEDS: OMEPRAZOLE 20 MG CAPSULE PO SCH (09:18)
[2018-09-12] MEDS: SULFAMETHOX/TRIMETH DS 800-160 MG/TABLET PO SCH ×2 (09:19→21:16)
[2018-09-12] MEDS: BACITRACIN 28.4 GM OINTMENT TP PRN (09:48)
[2018-09-12] MEDS ORDERED: LOPERAMIDE HCL 2 MG CAPSULE PO PRN (12:15)
[2018-09-12] MEDS: GABAPENTIN 400 MG CAPSULE PO SCH ×3 (13:18→21:15)
[2018-09-12] MEDS: IBUPROFEN 600 MG TABLET PO PRN (14:03)
[2018-09-13] MEDS ORDERED: CEPHALEXIN MONOHYDRATE 500 MG CAPSULE PO SCH
[2018-09-13] MEDS: CEPHALEXIN MONOHYDRATE 250 MG CAPSULE PO SCH ×4 (01:17→19:21)
[2018-09-13 06:19] VITALS: BP_SYST 102; BP_DIAS 60; BP_DIAS 76
[2018-09-13 06:21] VITALS: BP 102/60
[2018-09-13] MEDS: ACAMPROSATE CALCIUM 333 MG DR TABLET PO SCH ×3 (08:20→16:59)
[2018-09-13] MEDS: DIAZEPAM 5 MG TABLET PO PRN ×2 (08:20→14:29)
[2018-09-13] MEDS: OMEPRAZOLE 20 MG CAPSULE PO SCH (08:20)
[2018-09-13] MEDS: DOCUSATE SODIUM 100 MG CAPSULE PO SCH (08:23)
[2018-09-13] MEDS: MULTIVITAMINS WITH MINERALS, THERAPEUTIC TABLET PO SCH (08:23)
[2018-09-13] MEDS: METHADONE HCL 10 MG TABLET PO SCH (08:23)
[2018-09-13] MEDS: LevETIRAcetam 500 MG TABLET PO SCH ×2 (08:23→16:59)
[2018-09-13] MEDS: FOLIC ACID 1 MG TABLET PO SCH (08:23)
[2018-09-13] MEDS: LACTOBAC ACID/BULG/BIFID/THERM TABLET PO SCH (08:24)
[2018-09-13] MEDS: THIAMINE HCL 100 MG TABLET PO SCH ×2 (08:24→16:59)
[2018-09-13] MEDS: SULFAMETHOX/TRIMETH DS 800-160 MG/TABLET PO SCH ×2 (08:25→21:36)
[2018-09-13] MEDS: DULoxetine HCL 30 MG CAPSULE PO SCH (08:26)
[2018-09-13] MEDS: GABAPENTIN 400 MG CAPSULE PO SCH ×4 (08:26→21:36)
[2018-09-13 08:33] VITALS: BP 123/71
[2018-09-13 16:18] VITALS: BP 98/60
[2018-09-14] MEDS: CEPHALEXIN MONOHYDRATE 250 MG CAPSULE PO SCH ×4 (00:07→17:00)
[2018-09-14 06:26] VITALS: BP 117/62
[2018-09-14] MEDS: MULTIVITAMINS WITH MINERALS, THERAPEUTIC TABLET PO SCH (08:16)
[2018-09-14] MEDS: OMEPRAZOLE 20 MG CAPSULE PO SCH (08:16)
[2018-09-14] MEDS: FOLIC ACID 1 MG TABLET PO SCH (08:16)
[2018-09-14] MEDS: THIAMINE HCL 100 MG TABLET PO SCH ×2 (08:16→17:00)
[2018-09-14] MEDS: LevETIRAcetam 500 MG TABLET PO SCH ×2 (08:16→17:00)
[2018-09-14] MEDS: ACAMPROSATE CALCIUM 333 MG DR TABLET PO SCH ×3 (08:17→17:00)
[2018-09-14] MEDS: GABAPENTIN 400 MG CAPSULE PO SCH ×4 (08:17→20:25)
[2018-09-14] MEDS: DOCUSATE SODIUM 100 MG CAPSULE PO SCH (08:17)
[2018-09-14] MEDS: LACTOBAC ACID/BULG/BIFID/THERM TABLET PO SCH (08:17)
[2018-09-14] MEDS: SULFAMETHOX/TRIMETH DS 800-160 MG/TABLET PO SCH ×2 (08:17→20:25)
[2018-09-14] MEDS: DULoxetine HCL 30 MG CAPSULE PO SCH (08:17)
[2018-09-14] MEDS: METHADONE HCL 10 MG TABLET PO SCH (08:18)
[2018-09-14 09:54] VITALS: BP 103/71
[2018-09-14] MEDS: BACITRACIN 28.4 GM OINTMENT TP SCH (12:01)
[2018-09-14 16:45] VITALS: BP 110/75
[2018-09-14] MEDS: BusPIRone HCL 10 MG TABLET PO SCH (17:33)
[2018-09-15] MEDS: CEPHALEXIN MONOHYDRATE 250 MG CAPSULE PO SCH ×4 (00:39→17:00)
[2018-09-15 06:35] VITALS: BP 111/68
[2018-09-15 08:00] VITALS: BP 124/79
[2018-09-15] MEDS: LACTOBAC ACID/BULG/BIFID/THERM TABLET PO SCH (08:02)
[2018-09-15] MEDS: OMEPRAZOLE 20 MG CAPSULE PO SCH (08:03)
[2018-09-15] MEDS: DULoxetine HCL 30 MG CAPSULE PO SCH (08:03)
[2018-09-15] MEDS: THIAMINE HCL 100 MG TABLET PO SCH ×2 (08:03→16:47)
[2018-09-15] MEDS: METHADONE HCL 10 MG TABLET PO SCH (08:03)
[2018-09-15] MEDS: SULFAMETHOX/TRIMETH DS 800-160 MG/TABLET PO SCH ×2 (08:03→20:30)
[2018-09-15] MEDS: LevETIRAcetam 500 MG TABLET PO SCH ×2 (08:04→16:47)
[2018-09-15] MEDS: FOLIC ACID 1 MG TABLET PO SCH (08:04)
[2018-09-15] MEDS: DOCUSATE SODIUM 100 MG CAPSULE PO SCH (08:04)
[2018-09-15] MEDS: ACAMPROSATE CALCIUM 333 MG DR TABLET PO SCH ×3 (08:04→16:46)
[2018-09-15] MEDS: BusPIRone HCL 10 MG TABLET PO SCH ×2 (08:04→16:46)
[2018-09-15] MEDS: MULTIVITAMINS WITH MINERALS, THERAPEUTIC TABLET PO SCH (08:04)
[2018-09-15] MEDS: GABAPENTIN 400 MG CAPSULE PO SCH ×4 (08:04→20:30)
[2018-09-15] MEDS: BACITRACIN 28.4 GM OINTMENT TP SCH (08:05)
[2018-09-15] MEDS ORDERED: PALIPERIDONE PALMITATE 156 MG/ML SYRINGE IM ONE (09:00)
[2018-09-15] MEDS: IBUPROFEN 600 MG TABLET PO PRN (11:50)
[2018-09-15 16:58] VITALS: BP 125/74
[2018-09-16 00:15] VITALS: BP 125/73
[2018-09-16] MEDS: CEPHALEXIN MONOHYDRATE 250 MG CAPSULE PO SCH ×4 (00:17→18:00)
[2018-09-16] MEDS: IBUPROFEN 600 MG TABLET PO PRN (00:25)
[2018-09-16 08:19] VITALS: BP 118/73
[2018-09-16] MEDS: DULoxetine HCL 30 MG CAPSULE PO SCH (08:44)
[2018-09-16] MEDS: LACTOBAC ACID/BULG/BIFID/THERM TABLET PO SCH (08:44)
[2018-09-16] MEDS: SULFAMETHOX/TRIMETH DS 800-160 MG/TABLET PO SCH ×2 (08:45→20:38)
[2018-09-16] MEDS: ACAMPROSATE CALCIUM 333 MG DR TABLET PO SCH ×3 (08:45→16:57)
[2018-09-16] MEDS: FOLIC ACID 1 MG TABLET PO SCH (08:45)
[2018-09-16] MEDS: METHADONE HCL 10 MG TABLET PO SCH (08:45)
[2018-09-16] MEDS: OMEPRAZOLE 20 MG CAPSULE PO SCH (08:45)
[2018-09-16] MEDS: GABAPENTIN 400 MG CAPSULE PO SCH ×4 (08:46→20:38)
[2018-09-16] MEDS: LevETIRAcetam 500 MG TABLET PO SCH ×2 (08:46→16:57)
[2018-09-16] MEDS: BACITRACIN 28.4 GM OINTMENT TP SCH (08:46)
[2018-09-16] MEDS: THIAMINE HCL 100 MG TABLET PO SCH ×2 (08:46→16:57)
[2018-09-16] MEDS: MULTIVITAMINS WITH MINERALS, THERAPEUTIC TABLET PO SCH (08:46)
[2018-09-16] MEDS: DOCUSATE SODIUM 100 MG CAPSULE PO SCH (08:46)
[2018-09-16] MEDS: BusPIRone HCL 10 MG TABLET PO SCH ×2 (08:46→16:57)
[2018-09-16 16:06] VITALS: BP 102/60
[2018-09-16] MEDS ORDERED: QUEtiapine FUMARATE 100 MG TABLET PO SCH (21:00)
[2018-09-17] MEDS: CEPHALEXIN MONOHYDRATE 250 MG CAPSULE PO SCH ×3 (00:29→12:19)
[2018-09-17] MEDS ORDERED: METHADONE HCL 10 MG TABLET PO SCH (06:00)
[2018-09-17 08:03] VITALS: BP 100/66
[2018-09-17] MEDS: LevETIRAcetam 500 MG TABLET PO SCH (08:39)
[2018-09-17] MEDS: OMEPRAZOLE 20 MG CAPSULE PO SCH (08:39)
[2018-09-17] MEDS: ACAMPROSATE CALCIUM 333 MG DR TABLET PO SCH ×2 (08:39→12:19)
[2018-09-17] MEDS: BusPIRone HCL 10 MG TABLET PO SCH (08:39)
[2018-09-17] MEDS: MULTIVITAMINS WITH MINERALS, THERAPEUTIC TABLET PO SCH (08:40)
[2018-09-17] MEDS: GABAPENTIN 400 MG CAPSULE PO SCH ×2 (08:40→12:19)
[2018-09-17] MEDS: FOLIC ACID 1 MG TABLET PO SCH (08:40)
[2018-09-17] MEDS: THIAMINE HCL 100 MG TABLET PO SCH (08:40)
[2018-09-17] MEDS: LACTOBAC ACID/BULG/BIFID/THERM TABLET PO SCH (08:46)
[2018-09-17] MEDS: BACITRACIN 28.4 GM OINTMENT TP SCH (08:50)
[2018-09-17] MEDS: SULFAMETHOX/TRIMETH DS 800-160 MG/TABLET PO SCH (08:50)
[2018-09-17] MEDS: DOCUSATE SODIUM 100 MG CAPSULE PO SCH (08:50)
[2018-09-17] MEDS ORDERED: DULoxetine HCL 60 MG CAPSULE PO SCH (09:00)
[2018-09-17] MEDS: IBUPROFEN 600 MG TABLET PO PRN (11:01)
[2018-09-17] MEDS ORDERED: ACAM333T7 PO (13:28)
[2018-09-17] MEDS ORDERED: QUET100T PO (13:28)
[2018-09-17] MEDS ORDERED: LEVE500T53 PO (13:28)
[2018-09-17] MEDS ORDERED: GABA-533 PO (13:28)
[2018-09-17] MEDS ORDERED: BUSP10TA23 PO (13:28)
[2018-09-17] MEDS ORDERED: DULO60CA44 PO (13:28)
[2018-09-17] MEDS ORDERED: METH10 PO (13:28)
[2018-09-17] MEDS ORDERED: BACI30OI6 TP (13:32)
[2018-09-17] MEDS ORDERED: SULF1TAB42 PO (13:32)
[2018-09-17] MEDS ORDERED: CEPH500 PO (13:32)
[2018-09-17] MEDS ORDERED: OMEP20 PO (13:32)
== END 2018-09-17 15:01 | disposition home or self-care (01) | DRG 750 ==
LOC: EMS 18:02 → 3EC 21:15
PROVIDERS: ADMIT Psychiatry & Neurology Psychiatry; ATTEND Psychiatry & Neurology Psychiatry
DX: F25.0 Schizoaffective disorder, bipolar type (principal); E44.1 Mild protein-calorie malnutrition; R45.851 Suicidal ideations; F11.20 Opioid dependence, uncomplicated; G40.409 Other generalized epilepsy and epileptic syndromes, not intractable, without status epilepticus; S02.609A Fracture of mandible, unspecified, initial encounter for closed fracture; D64.9 Anemia, unspecified; S02.2XXA Fracture of nasal bones, initial encounter for closed fracture; B18.2 Chronic viral hepatitis C; B95.8 Unspecified staphylococcus as the cause of diseases classified elsewhere; F15.90 Other stimulant use, unspecified, uncomplicated; F17.210 Nicotine dependence, cigarettes, uncomplicated; F41.9 Anxiety disorder, unspecified; G47.00 Insomnia, unspecified; G89.29 Other chronic pain; W10.8XXA Fall (on) (from) other stairs and steps, initial encounter; I10 Essential (primary) hypertension; J44.9 Chronic obstructive pulmonary disease, unspecified; K21.9 Gastro-esophageal reflux disease without esophagitis; M19.90 Unspecified osteoarthritis, unspecified site; S00.81XA Abrasion of other part of head, initial encounter; M54.5 Low back pain; Z59.0 Homelessness; Z65.3 Problems related to other legal circumstances; Z79.899 Other long term (current) drug therapy; Z91.19 Patient's noncompliance with other medical treatment and regimen; Z99.3 Dependence on wheelchair; Z68.1 Body mass index [BMI] 19.9 or less, adult; Y93.89 Activity, other specified; Y92.89 Other specified places as the place of occurrence of the external cause; Y99.8 Other external cause status; Z88.8 Allergy status to other drugs, medicaments and biological substances; Z71.51 Drug abuse counseling and surveillance of drug abuser; Z71.6 Tobacco abuse counseling
CPT/HCPCS: 70450; 70486; 87081; 97116; 97162; 97530; G0480; G0482; J3420

== ENCOUNTER 2018-11-14 15:23 | Emergency (ER) | payer MEDICAID, OTHER ==
[~2018-11-14] VITALS: Ht 167.6 cm; Wt 68.2 kg
[~2018-11-14 15:23] MED LIST changes: +ACAM333T7 PO; +BACI30OI6 TP; +BUSP10TA23 PO; +CEPH500 PO; +DULO60CA44 PO; -GABA-531 PO; +GABA-533 PO; -LEVE250T55 PO; +LEVE500T53 PO; +METH10 PO; +OMEP20 PO; +QUET100T PO; -QUET300T2 PO; +SULF1TAB42 PO
[2018-11-14 17:25] VITALS: BP 109/74
== END 2018-11-14 18:40 | disposition left against medical advice (07) ==
LOC: EMS 15:25
DX: S83.92XA Sprain of unspecified site of left knee, initial encounter (principal); F31.9 Bipolar disorder, unspecified; J44.9 Chronic obstructive pulmonary disease, unspecified; K21.9 Gastro-esophageal reflux disease without esophagitis; I10 Essential (primary) hypertension; F20.9 Schizophrenia, unspecified; F17.210 Nicotine dependence, cigarettes, uncomplicated; G89.29 Other chronic pain; Z88.8 Allergy status to other drugs, medicaments and biological substances; W19.XXXA Unspecified fall, initial encounter; Y93.89 Activity, other specified; Y92.89 Other specified places as the place of occurrence of the external cause; Y99.8 Other external cause status

== ENCOUNTER 2018-12-24 17:25 | Inpatient (IN) | payer MEDICAID, OTHER ==
[~2018-12-24] VITALS: Ht 175.3 cm; Wt 75.3 kg
[~2018-12-24 17:25] MED LIST changes: -BACI30OI6 TP; -SULF1TAB42 PO
[2018-12-24] MEDS ORDERED: LORazepam 2 MG TABLET PO ONE (18:45)
[2018-12-24] MEDS ORDERED: HALOPERIDOL 5 MG TABLET PO ONE (18:45)
[2018-12-24 18:57] LABS: BASOPHILS % (AUTO) 0.7 % (0.0-2.0); EOSINOPHILS % (AUTO) 4.8 % (1.0-6.0); HEMATOCRIT 41.8 % (41-53); HEMOGLOBIN 13.8 g/dL (13.5-17.5); LYMPHOCYTES # (AUTO) 2.1 K/uL (1.0-4.8); LYMPHOCYTES % (AUTO) 22.7 % (22.0-44.0); MEAN CORPUSCULAR HEMOGLOBIN 31.4 pg (26.0-34.0); MEAN CORPUSCULAR HGB CONC 32.9 G/dL (31.0-37.0); MEAN CORPUSCULAR VOLUME 95 fL (80-100); MONOCYTES # (AUTO) 0.8 K/uL (0.1-1.0); MONOCYTES % (AUTO) 8.7 % (2.0-9.0); NEUTROPHILS % (AUTO) 63.1 % (40.0-70.0); PLATELET COUNT (AUTO) 255 K/uL (150-450); RED BLOOD CELL COUNT(AUTO) 4.39 MIL/uL (4.50-5.90); RED CELL DISTRIBUTION WIDTH 12.7 % (11.5-14.5)
[2018-12-24 19:11] LABS: ANION GAP 8 mmol/L (8-16); CALCIUM, TOTAL 9.2 mg/dL (8.8-10.5); CARBON DIOXIDE 29 mmol/L (22-29); CHLORIDE 102 mmol/L (98-107); CREATININE 0.91 mg/dL (0.60-1.30); GLOMERULAR FILTR. RATE CALC > 60 mL/min (>60); GLUCOSE,RANDOM 73 mg/dL (70-110); POTASSIUM 3.5 mmol/L (3.5-5.1); SODIUM SERUM 139 mmol/L (136-145); UREA NITROGEN, BLOOD 21 mg/dL (7-18)
[2018-12-24 19:16] LABS: ALANINE AMINOTRANSFERASE 135 U/L (12-78); ALBUMIN 3.5 g/dL (3.4-5.0); ALKALINE PHOSPHATASE 201 U/L (46-116); ASPARTATE AMINOTRANSFERASE 91 U/L (15-37); BILIRUBIN,TOTAL 0.3 mg/dL (0.1-1.0); TOTAL PROTEIN, SERUM 7.4 g/dL (6.4-8.2)
[2018-12-24 19:24] LABS: AMPHET/METH SCREEN,URINE NEGATIVE (NEGATIVE); BARBITURATE SCREEN, URINE NEGATIVE (NEGATIVE); BENZODIAZEPINES SCREEN,URINE POSITIVE (NEGATIVE); CANNABINOID SCREEN,URINE NEGATIVE (NEGATIVE); COCAINE SCREEN,URINE NEGATIVE (NEGATIVE); METHADONE SCREEN, URINE POSITIVE (NEGATIVE); OPIATE SCREEN,URINE POSITIVE (NEGATIVE)
[2018-12-24 19:33] LABS: PHENCYCLIDINE SCREEN,URINE NEGATIVE (NEGATIVE)
[2018-12-24] MEDS ORDERED: CYCL5TAB PO (21:06)
[2018-12-24] MEDS ORDERED: TRAM50TA4 PO (21:06)
[2018-12-24] MEDS ORDERED: HYDR-4106 PO (21:06)
[2018-12-24] MEDS ORDERED: OMEP10CA5 PO (21:06)
[2018-12-24] MEDS ORDERED: LORA-703 PO (21:06)
[2018-12-24] MEDS ORDERED: DOCU-275 PO (21:06)
[2018-12-24] MEDS ORDERED: GABA-531 PO (21:06)
[2018-12-24] MEDS ORDERED: ChlorproMAZINE HCL 100 MG TABLET PO PRN (22:15)
[2018-12-24] MEDS ORDERED: ZOLPIDEM TARTRATE 5 MG TABLET PO PRN (22:15)
[2018-12-25 02:10] VITALS: BP 106/77
[2018-12-25] MEDS ORDERED: PNEUMOCOCCAL VACCINE POLYVALENT 0.5 ML VIAL [PPSV23] IM ONE (02:15)
[2018-12-25 07:14] LABS: CHOL/HDL RATIO 2.6 (4.2-7.3); FREE T4 (FREE THYROXINE) 1.36 ng/dL (0.76-1.46); THYROID STIMULATING HORMONE 1.3 uIU/mL (0.36-3.74)
[2018-12-25] MEDS: LORazepam 1 MG TABLET PO PRN ×2 (08:53→11:47)
[2018-12-25] MEDS: LevETIRAcetam 500 MG TABLET PO SCH ×2 (08:53→16:14)
[2018-12-25] MEDS: GABAPENTIN 400 MG CAPSULE PO SCH ×4 (08:54→21:46)
[2018-12-25] MEDS ORDERED: METHADONE HCL 10 MG TABLET PO SCH (09:00)
[2018-12-25] MEDS ORDERED: DULoxetine HCL 60 MG CAPSULE PO SCH (09:00)
[2018-12-25] MEDS ORDERED: BusPIRone HCL 10 MG TABLET PO SCH (09:00)
[2018-12-25 10:27] VITALS: BP 122/71
[2018-12-25] MEDS ORDERED: OMEP20 PO (11:37)
[2018-12-25] MEDS ORDERED: PROMETHAZINE HCL 25 MG TABLET PO PRN (12:30)
[2018-12-25] MEDS ORDERED: QUEtiapine FUMARATE 100 MG TABLET PO PRN (12:30)
[2018-12-25] MEDS ORDERED: HydrOXYzine PAMOATE 50 MG CAPSULE PO PRN (12:30)
[2018-12-25] MEDS ORDERED: MAG HYDROX/AL HYDROX/SIMETH ES 30 ML SUSPENSION UDCUP PO PRN (12:30)
[2018-12-25] MEDS ORDERED: GuaiFENesin/D-METHORPHAN [SUGAR-FREE] 200-20MG/10 ML SYRUP UDCUP PO PRN (12:30)
[2018-12-25] MEDS ORDERED: LOPERAMIDE HCL 2 MG CAPSULE PO PRN (12:30)
[2018-12-25] MEDS ORDERED: MAGNESIUM HYDROXIDE SUSPENSION 30 ML UDCUP PO PRN (12:30)
[2018-12-25] MEDS: ACAMPROSATE CALCIUM 333 MG DR TABLET PO SCH ×2 (14:21→16:14)
[2018-12-25] MEDS ORDERED: PALIPERIDONE PALMITATE 234 MG/1.5 ML SYRINGE IM ONE (16:15)
[2018-12-25] MEDS ORDERED: DIAZEPAM 10 MG TABLET PO PRN (16:15)
[2018-12-25] MEDS ORDERED: ZOLPIDEM TARTRATE 5 MG TABLET PO PRN (16:15)
[2018-12-25] MEDS ORDERED: ClonazePAM 0.5 MG TABLET PO PRN (16:15)
[2018-12-25] MEDS ORDERED: PALIPERIDONE 1.5 MG ER TABLET PO PRN (16:15)
[2018-12-25 16:30] VITALS: BP 118/70
[2018-12-25] MEDS ORDERED: THIAMINE HCL 100 MG TABLET PO SCH (17:00)
[2018-12-25 18:30] VITALS: BP 122/67
[2018-12-25 19:30] VITALS: BP 116/66
[2018-12-25] MEDS ORDERED: QUEtiapine FUMARATE 100 MG TABLET PO SCH (21:00)
[2018-12-25] MEDS ORDERED: PALIPERIDONE 3 MG ER TABLET PO SCH (21:00)
[2018-12-25 23:30] VITALS: BP 123/79
[2018-12-26] VITALS (8 sets, daily range): BP systolic 90–102; BP diastolic 59–82
[2018-12-26] MEDS: ACETAMINOPHEN 325 MG TABLET PO PRN ×2 (03:34→17:05)
[2018-12-26] MEDS: METHADONE HCL 10 MG TABLET PO SCH (06:13)
[2018-12-26] MEDS ORDERED: DIAZEPAM 10 MG TABLET PO PRN (07:00)
[2018-12-26] MEDS ORDERED: METHADONE HCL 10 MG TABLET PO SCH ×2 (09:00)
[2018-12-26] MEDS ORDERED: FOLIC ACID 1 MG TABLET PO SCH (09:00)
[2018-12-26] MEDS ORDERED: DULoxetine HCL 60 MG CAPSULE PO SCH (09:00)
[2018-12-26] MEDS: ACAMPROSATE CALCIUM 333 MG DR TABLET PO SCH ×3 (09:14→16:46)
[2018-12-26] MEDS: GABAPENTIN 400 MG CAPSULE PO SCH ×4 (09:14→21:08)
[2018-12-26] MEDS: FOLIC ACID 1 MG TABLET PO SCH (09:15)
[2018-12-26] MEDS: THIAMINE HCL 100 MG TABLET PO SCH (09:15)
[2018-12-26] MEDS: LevETIRAcetam 500 MG TABLET PO SCH ×2 (09:15→16:46)
[2018-12-26] MEDS: DIAZEPAM 10 MG TABLET PO SCH ×4 (09:16→21:08)
[2018-12-26] MEDS: MULTIVITAMINS WITH MINERALS, THERAPEUTIC TABLET PO SCH (09:16)
[2018-12-26] MEDS: DULoxetine HCL 20 MG CAPSULE PO SCH (09:30)
[2018-12-26] MEDS: MUPIROCIN CALCIUM 2% 22 GM OINTMENT NASAL SCH (10:59)
[2018-12-27 06:10] VITALS: BP 101/79
[2018-12-27] MEDS: METHADONE HCL 10 MG TABLET PO SCH (06:10)
[2018-12-27] MEDS: MUPIROCIN CALCIUM 2% 22 GM OINTMENT NASAL SCH (08:17)
[2018-12-27] MEDS: LevETIRAcetam 500 MG TABLET PO SCH ×2 (08:18→17:35)
[2018-12-27] MEDS: DULoxetine HCL 20 MG CAPSULE PO SCH (08:18)
[2018-12-27] MEDS: ACAMPROSATE CALCIUM 333 MG DR TABLET PO SCH ×3 (08:18→17:35)
[2018-12-27] MEDS: FOLIC ACID 1 MG TABLET PO SCH (08:18)
[2018-12-27] MEDS: DIAZEPAM 10 MG TABLET PO SCH ×4 (08:19→21:23)
[2018-12-27] MEDS: MULTIVITAMINS WITH MINERALS, THERAPEUTIC TABLET PO SCH (08:19)
[2018-12-27] MEDS: GABAPENTIN 400 MG CAPSULE PO SCH ×4 (08:19→21:23)
[2018-12-27] MEDS: THIAMINE HCL 100 MG TABLET PO SCH (08:22)
[2018-12-27 10:00] VITALS: BP 100/60
[2018-12-27 16:30] VITALS: BP 96/68
[2018-12-28] MEDS: METHADONE HCL 10 MG TABLET PO SCH (06:10)
[2018-12-28 06:15] VITALS: BP 98/68
[2018-12-28 06:16] VITALS: BP 98/68
[2018-12-28] MEDS ORDERED: DIAZEPAM 5 MG TABLET PO PRN (07:00)
[2018-12-28] MEDS: FOLIC ACID 1 MG TABLET PO SCH (09:03)
[2018-12-28] MEDS: DULoxetine HCL 20 MG CAPSULE PO SCH (09:04)
[2018-12-28] MEDS: THIAMINE HCL 100 MG TABLET PO SCH (09:04)
[2018-12-28] MEDS: LevETIRAcetam 500 MG TABLET PO SCH ×2 (09:04→18:00)
[2018-12-28] MEDS: MULTIVITAMINS WITH MINERALS, THERAPEUTIC TABLET PO SCH (09:04)
[2018-12-28] MEDS: GABAPENTIN 400 MG CAPSULE PO SCH ×4 (09:04→21:45)
[2018-12-28] MEDS: DIAZEPAM 5 MG TABLET PO SCH ×4 (09:04→21:45)
[2018-12-28] MEDS: ACAMPROSATE CALCIUM 333 MG DR TABLET PO SCH ×3 (09:07→18:00)
[2018-12-28] MEDS: MUPIROCIN CALCIUM 2% 22 GM OINTMENT NASAL SCH (09:07)
[2018-12-28 10:15] VITALS: BP 110/70
[2018-12-28 16:29] VITALS: BP 90/55
[2018-12-28 16:31] VITALS: BP 90/55
[2018-12-28] MEDS ORDERED: NICOTINE 14 MG/24 HOUR PATCH TD ONE (18:30)
[2018-12-29] MEDS: METHADONE HCL 10 MG TABLET PO SCH (06:23)
[2018-12-29 06:24] VITALS: BP 94/65
[2018-12-29 06:25] VITALS: BP 94/65
[2018-12-29] MEDS ORDERED: DIAZEPAM 5 MG TABLET PO PRN (07:00)
[2018-12-29] MEDS: DULoxetine HCL 20 MG CAPSULE PO SCH (08:22)
[2018-12-29] MEDS: MULTIVITAMINS WITH MINERALS, THERAPEUTIC TABLET PO SCH (08:22)
[2018-12-29] MEDS: FOLIC ACID 1 MG TABLET PO SCH (08:22)
[2018-12-29] MEDS: LevETIRAcetam 500 MG TABLET PO SCH (08:22)
[2018-12-29] MEDS: GABAPENTIN 400 MG CAPSULE PO SCH ×2 (08:23→12:29)
[2018-12-29] MEDS: THIAMINE HCL 100 MG TABLET PO SCH (08:23)
[2018-12-29] MEDS: ACAMPROSATE CALCIUM 333 MG DR TABLET PO SCH ×2 (08:25→12:29)
[2018-12-29] MEDS: MUPIROCIN CALCIUM 2% 22 GM OINTMENT NASAL SCH (08:26)
[2018-12-29 08:28] VITALS: BP 120/89
[2018-12-29] MEDS: ACETAMINOPHEN 325 MG TABLET PO PRN (08:28)
[2018-12-29] MEDS ORDERED: NICOTINE 14 MG/24 HOUR PATCH TD SCH (09:00)
[2018-12-29] MEDS ORDERED: PALIPERIDONE PALMITATE 156 MG/ML SYRINGE IM ONE (09:00)
[2018-12-29 09:28] VITALS: BP 128/84
[2018-12-29 09:36] VITALS: BP 120/89
== END 2018-12-29 14:10 | disposition home or self-care (01) | DRG 750 ==
LOC: EMS 17:26 → 3EI 21:30
PROVIDERS: ADMIT Psychiatry & Neurology Psychiatry; ATTEND Psychiatry & Neurology Psychiatry
DX: F25.1 Schizoaffective disorder, depressive type (principal); R45.851 Suicidal ideations; B19.10 Unspecified viral hepatitis B without hepatic coma; Z88.8 Allergy status to other drugs, medicaments and biological substances; F11.90 Opioid use, unspecified, uncomplicated; B19.20 Unspecified viral hepatitis C without hepatic coma; I10 Essential (primary) hypertension; J44.9 Chronic obstructive pulmonary disease, unspecified; K21.9 Gastro-esophageal reflux disease without esophagitis; Z59.0 Homelessness; F17.210 Nicotine dependence, cigarettes, uncomplicated; Z91.14 Patient's other noncompliance with medication regimen; Z91.5 Personal history of self-harm; G89.29 Other chronic pain; M54.5 Low back pain
CPT/HCPCS: 84436; 84439; 84443; 87081; G0480; G0482

== ENCOUNTER 2019-01-22 18:12 | Inpatient (IN) | payer MEDICAID, OTHER ==
[~2019-01-22] VITALS: Ht 177.8 cm; Wt 56.7 kg
[~2019-01-22 18:12] MED LIST changes: -BUSP10TA23 PO; -CEPH500 PO; -METH10 PO; -OMEP20 PO; -QUET100T PO
[2019-01-22 20:33] LABS: BASOPHILS % (AUTO) 0.7 % (0.0-2.0); EOSINOPHILS % (AUTO) 4.2 % (1.0-6.0); HEMATOCRIT 41.3 % (41-53); HEMOGLOBIN 13.4 g/dL (13.5-17.5); LYMPHOCYTES # (AUTO) 1.8 K/uL (1.0-4.8); LYMPHOCYTES % (AUTO) 34.8 % (22.0-44.0); MEAN CORPUSCULAR HGB CONC 32.5 G/dL (31.0-37.0); MEAN CORPUSCULAR VOLUME 95 fL (80-100); MONOCYTES # (AUTO) 0.4 K/uL (0.1-1.0); MONOCYTES % (AUTO) 8.7 % (2.0-9.0); NEUTROPHILS # (AUTO) 2.6 K/uL (1.8-7.7); NEUTROPHILS % (AUTO) 51.6 % (40.0-70.0); PLATELET COUNT (AUTO) 161 K/uL (150-450); RED BLOOD CELL COUNT(AUTO) 4.33 MIL/uL (4.50-5.90); RED CELL DISTRIBUTION WIDTH 13.3 % (11.5-14.5)
[2019-01-22 20:41] LABS: ANION GAP 2 mmol/L (8-16); CALCIUM, TOTAL 8.8 mg/dL (8.8-10.5); CARBON DIOXIDE 34 mmol/L (22-29); CHLORIDE 106 mmol/L (98-107); CREATININE 0.83 mg/dL (0.60-1.30); GLOMERULAR FILTR. RATE CALC > 60 mL/min (>60); GLUCOSE,RANDOM 94 mg/dL (70-110); POTASSIUM 3.4 mmol/L (3.5-5.1); SODIUM SERUM 142 mmol/L (136-145); UREA NITROGEN, BLOOD 20 mg/dL (7-18)
[2019-01-22 20:47] LABS: ALANINE AMINOTRANSFERASE 85 U/L (12-78); ALBUMIN 3.5 g/dL (3.4-5.0); ALKALINE PHOSPHATASE 85 U/L (46-116); ASPARTATE AMINOTRANSFERASE 131 U/L (15-37); BILIRUBIN,TOTAL 0.5 mg/dL (0.1-1.0); TOTAL PROTEIN, SERUM 7.2 g/dL (6.4-8.2)
[2019-01-23] VITALS (9 sets, daily range): BP systolic 106–140; BP diastolic 65–95
[2019-01-23] MEDS ORDERED: POTASSIUM CHLORIDE 10% 40 MEQ/30 ML LIQUID UDCUP PO ONE (01:00)
[2019-01-23] MEDS ORDERED: LORazepam 2 MG TABLET PO PRN (01:45)
[2019-01-23] MEDS ORDERED: ZOLPIDEM TARTRATE 10 MG TABLET PO PRN (01:45)
[2019-01-23] MEDS ORDERED: QUEtiapine FUMARATE 100 MG TABLET PO PRN (01:45)
[2019-01-23] MEDS ORDERED: PNEUMOCOCCAL VACCINE POLYVALENT 0.5 ML VIAL [PPSV23] IM ONE (04:45)
[2019-01-23] MEDS: METHADONE HCL 10 MG TABLET PO SCH (13:30)
[2019-01-23] MEDS ORDERED: POTASSIUM CHLORIDE 20 MEQ ER TABLET PO ONE (14:00)
[2019-01-23] MEDS ORDERED: GuaiFENesin/D-METHORPHAN [SUGAR-FREE] 200-20MG/10 ML SYRUP UDCUP PO PRN (15:15)
[2019-01-23] MEDS ORDERED: MAG HYDROX/AL HYDROX/SIMETH ES 30 ML SUSPENSION UDCUP PO PRN (15:15)
[2019-01-23] MEDS ORDERED: MAGNESIUM HYDROXIDE SUSPENSION 30 ML UDCUP PO PRN (15:15)
[2019-01-23] MEDS ORDERED: HydrOXYzine PAMOATE 50 MG CAPSULE PO PRN (15:15)
[2019-01-23] MEDS ORDERED: LOPERAMIDE HCL 2 MG CAPSULE PO PRN (15:15)
[2019-01-23] MEDS ORDERED: ACETAMINOPHEN 325 MG TABLET PO PRN (15:15)
[2019-01-23] MEDS ORDERED: PROMETHAZINE HCL 25 MG TABLET PO PRN (15:15)
[2019-01-23] MEDS ORDERED: PALIPERIDONE 1.5 MG ER TABLET PO PRN (15:30)
[2019-01-23] MEDS ORDERED: PALIPERIDONE PALMITATE 234 MG/1.5 ML SYRINGE IM ONE (15:30)
[2019-01-23] MEDS ORDERED: LevETIRAcetam 500 MG TABLET PO SCH (17:00)
[2019-01-23] MEDS: ACAMPROSATE CALCIUM 333 MG DR TABLET PO SCH (17:59)
[2019-01-23] MEDS ORDERED: DIAZEPAM 10 MG TABLET PO PRN (18:00)
[2019-01-23] MEDS: LevETIRAcetam 500 MG TABLET PO SCH (18:00)
[2019-01-23] MEDS: GABAPENTIN 400 MG CAPSULE PO SCH ×2 (18:00→21:29)
[2019-01-23] MEDS: THIAMINE HCL 100 MG TABLET PO SCH (18:00)
[2019-01-23] MEDS ORDERED: DIAZEPAM 10 MG TABLET PO ONE (18:00)
[2019-01-23] MEDS: PALIPERIDONE 3 MG ER TABLET PO SCH (21:00)
[2019-01-24] VITALS (7 sets, daily range): BP systolic 97–116; BP diastolic 59–91
[2019-01-24] MEDS ORDERED: DIAZEPAM 10 MG TABLET PO PRN (07:00)
[2019-01-24] MEDS: ACAMPROSATE CALCIUM 333 MG DR TABLET PO SCH ×3 (08:58→16:34)
[2019-01-24] MEDS: METHADONE HCL 10 MG TABLET PO SCH (09:00)
[2019-01-24] MEDS: THIAMINE HCL 100 MG TABLET PO SCH ×2 (09:00→16:33)
[2019-01-24] MEDS: MULTIVITAMINS WITH MINERALS, THERAPEUTIC TABLET PO SCH (09:00)
[2019-01-24] MEDS: GABAPENTIN 400 MG CAPSULE PO SCH ×4 (09:01→21:55)
[2019-01-24] MEDS: LevETIRAcetam 500 MG TABLET PO SCH ×2 (09:01→16:33)
[2019-01-24] MEDS: FOLIC ACID 1 MG TABLET PO SCH (09:01)
[2019-01-24] MEDS: DIAZEPAM 10 MG TABLET PO SCH ×4 (09:02→21:55)
[2019-01-24] MEDS: DULoxetine HCL 20 MG CAPSULE PO SCH (09:03)
[2019-01-24] MEDS: PALIPERIDONE 3 MG ER TABLET PO SCH (21:54)
[2019-01-25 00:37] VITALS: BP 103/64
[2019-01-25 00:46] VITALS: BP 103/64
[2019-01-25 08:37] VITALS: BP 91/59
[2019-01-25] MEDS: METHADONE HCL 10 MG TABLET PO SCH (08:39)
[2019-01-25] MEDS: DULoxetine HCL 20 MG CAPSULE PO SCH (08:39)
[2019-01-25] MEDS: MULTIVITAMINS WITH MINERALS, THERAPEUTIC TABLET PO SCH (08:39)
[2019-01-25] MEDS: GABAPENTIN 400 MG CAPSULE PO SCH ×4 (08:39→20:58)
[2019-01-25] MEDS: FOLIC ACID 1 MG TABLET PO SCH (08:40)
[2019-01-25] MEDS: DIAZEPAM 10 MG TABLET PO SCH ×4 (08:40→20:58)
[2019-01-25] MEDS: THIAMINE HCL 100 MG TABLET PO SCH ×2 (08:40→17:34)
[2019-01-25] MEDS: LevETIRAcetam 500 MG TABLET PO SCH ×2 (08:40→17:33)
[2019-01-25] MEDS: ACAMPROSATE CALCIUM 333 MG DR TABLET PO SCH ×3 (08:41→17:33)
[2019-01-25 19:13] VITALS: BP 96/69
[2019-01-25] MEDS: PALIPERIDONE 3 MG ER TABLET PO SCH (20:58)
[2019-01-26] MEDS ORDERED: DIAZEPAM 5 MG TABLET PO PRN (07:00)
[2019-01-26 09:08] VITALS: BP 98/62
[2019-01-26] MEDS: GABAPENTIN 400 MG CAPSULE PO SCH ×4 (09:28→21:42)
[2019-01-26] MEDS: LevETIRAcetam 500 MG TABLET PO SCH ×2 (09:29→17:54)
[2019-01-26] MEDS: ACAMPROSATE CALCIUM 333 MG DR TABLET PO SCH ×3 (09:29→17:54)
[2019-01-26] MEDS: FOLIC ACID 1 MG TABLET PO SCH (09:29)
[2019-01-26] MEDS: THIAMINE HCL 100 MG TABLET PO SCH ×2 (09:29→17:54)
[2019-01-26] MEDS: MULTIVITAMINS WITH MINERALS, THERAPEUTIC TABLET PO SCH (09:30)
[2019-01-26] MEDS: DIAZEPAM 5 MG TABLET PO SCH ×4 (09:30→21:43)
[2019-01-26] MEDS: DULoxetine HCL 20 MG CAPSULE PO SCH (09:31)
[2019-01-26] MEDS: NICOTINE 21 MG/24 HOUR PATCH TD SCH (09:32)
[2019-01-26] MEDS: METHADONE HCL 10 MG TABLET PO SCH (09:32)
[2019-01-26 16:55] VITALS: BP 101/60
[2019-01-26] MEDS ORDERED: PALIPERIDONE 1.5 MG ER TABLET PO SCH (21:00)
[2019-01-27] MEDS ORDERED: DIAZEPAM 5 MG TABLET PO PRN (07:00)
[2019-01-27] MEDS ORDERED: PALIPERIDONE PALMITATE 156 MG/ML SYRINGE IM ONE (09:00)
[2019-01-27] MEDS: METHADONE HCL 10 MG TABLET PO SCH (11:31)
[2019-01-27] MEDS: MULTIVITAMINS WITH MINERALS, THERAPEUTIC TABLET PO SCH (11:32)
[2019-01-27] MEDS: FOLIC ACID 1 MG TABLET PO SCH (11:32)
[2019-01-27] MEDS: THIAMINE HCL 100 MG TABLET PO SCH ×2 (11:32→17:27)
[2019-01-27] MEDS: DULoxetine HCL 20 MG CAPSULE PO SCH (11:32)
[2019-01-27] MEDS: GABAPENTIN 400 MG CAPSULE PO SCH ×4 (11:33→21:01)
[2019-01-27] MEDS: ACAMPROSATE CALCIUM 333 MG DR TABLET PO SCH ×3 (11:33→17:27)
[2019-01-27] MEDS: LevETIRAcetam 500 MG TABLET PO SCH ×2 (11:34→17:27)
[2019-01-27] MEDS: NICOTINE 21 MG/24 HOUR PATCH TD SCH (11:37)
[2019-01-27 12:48] VITALS: BP 107/71
[2019-01-27 16:50] VITALS: BP 102/68
[2019-01-27 17:34] VITALS: BP 96/61
[2019-01-28 06:53] VITALS: BP 85/52
[2019-01-28 07:06] LABS: BASOPHILS % (AUTO) 0.3 % (0.0-2.0); EOSINOPHILS % (AUTO) 2.5 % (1.0-6.0); HEMOGLOBIN 13.3 g/dL (13.5-17.5); LYMPHOCYTES # (AUTO) 0.9 K/uL (1.0-4.8); LYMPHOCYTES % (AUTO) 10.6 % (22.0-44.0); MEAN CORPUSCULAR HEMOGLOBIN 31.4 pg (26.0-34.0); MEAN CORPUSCULAR HGB CONC 33.1 G/dL (31.0-37.0); MEAN CORPUSCULAR VOLUME 95 fL (80-100); MONOCYTES % (AUTO) 11.6 % (2.0-9.0); NEUTROPHILS # (AUTO) 6.7 K/uL (1.8-7.7); PLATELET COUNT (AUTO) 144 K/uL (150-450); RED BLOOD CELL COUNT(AUTO) 4.22 MIL/uL (4.50-5.90); RED CELL DISTRIBUTION WIDTH 13.2 % (11.5-14.5)
[2019-01-28 07:48] LABS: ALANINE AMINOTRANSFERASE 101 U/L (12-78); ALBUMIN 2.4 g/dL (3.4-5.0); ALKALINE PHOSPHATASE 82 U/L (46-116); AMYLASE 13 U/L (25-115); ANION GAP 3 mmol/L (8-16); ASPARTATE AMINOTRANSFERASE 115 U/L (15-37); BILIRUBIN,TOTAL 0.3 mg/dL (0.1-1.0); CALCIUM, TOTAL 8.8 mg/dL (8.8-10.5); CARBON DIOXIDE 32 mmol/L (22-29); CHLORIDE 100 mmol/L (98-107); CREATININE 0.59 mg/dL (0.60-1.30); GLOMERULAR FILTR. RATE CALC > 60 mL/min (>60); GLUCOSE,RANDOM 103 mg/dL (70-110); LIPASE 41 U/L (73-393); POTASSIUM 4.7 mmol/L (3.5-5.1); SODIUM SERUM 135 mmol/L (136-145); TOTAL PROTEIN, SERUM 6.3 g/dL (6.4-8.2); UREA NITROGEN, BLOOD 14 mg/dL (7-18)
[2019-01-28 08:10] VITALS: BP 102/62
[2019-01-28] MEDS: DULoxetine HCL 20 MG CAPSULE PO SCH (09:54)
[2019-01-28] MEDS: GABAPENTIN 400 MG CAPSULE PO SCH ×3 (09:54→17:08)
[2019-01-28] MEDS: THIAMINE HCL 100 MG TABLET PO SCH ×2 (09:54→17:07)
[2019-01-28] MEDS: METHADONE HCL 10 MG TABLET PO SCH (09:54)
[2019-01-28] MEDS: ACAMPROSATE CALCIUM 333 MG DR TABLET PO SCH ×3 (09:55→17:08)
[2019-01-28] MEDS: MULTIVITAMINS WITH MINERALS, THERAPEUTIC TABLET PO SCH (09:55)
[2019-01-28] MEDS: FOLIC ACID 1 MG TABLET PO SCH (09:55)
[2019-01-28] MEDS: LevETIRAcetam 500 MG TABLET PO SCH ×2 (09:55→17:08)
[2019-01-28] MEDS: NICOTINE 21 MG/24 HOUR PATCH TD SCH (10:02)
[2019-01-28 16:13] VITALS: BP 102/57
[2019-01-28] MEDS ORDERED: PALIPERIDONE 6 MG ER TABLET PO SCH (21:00)
[2019-01-29] MEDS: LevETIRAcetam 500 MG TABLET PO SCH ×2 (08:43→16:07)
[2019-01-29] MEDS: DULoxetine HCL 30 MG CAPSULE PO SCH (08:43)
[2019-01-29] MEDS: MULTIVITAMINS WITH MINERALS, THERAPEUTIC TABLET PO SCH (08:43)
[2019-01-29] MEDS: FOLIC ACID 1 MG TABLET PO SCH (08:43)
[2019-01-29] MEDS: THIAMINE HCL 100 MG TABLET PO SCH ×2 (08:43→16:06)
[2019-01-29] MEDS: GABAPENTIN 300 MG CAPSULE PO SCH ×3 (08:44→16:07)
[2019-01-29] MEDS: METHADONE HCL 10 MG TABLET PO SCH (08:45)
[2019-01-29] MEDS: NICOTINE 21 MG/24 HOUR PATCH TD SCH (08:47)
[2019-01-29] MEDS: ACAMPROSATE CALCIUM 333 MG DR TABLET PO SCH ×3 (08:48→16:07)
[2019-01-29 11:21] VITALS: BP 105/67
[2019-01-29] MEDS ORDERED: QUEtiapine FUMARATE 100 MG TABLET PO PRN (16:15)
[2019-01-29 16:36] VITALS: BP 98/61
[2019-01-29] MEDS ORDERED: GABAPENTIN 400 MG CAPSULE PO SCH (17:00)
[2019-01-29] MEDS: QUEtiapine FUMARATE 200 MG TABLET PO SCH (22:00)
[2019-01-30] MEDS: ACAMPROSATE CALCIUM 333 MG DR TABLET PO SCH ×3 (08:45→17:11)
[2019-01-30] MEDS: DULoxetine HCL 30 MG CAPSULE PO SCH (08:46)
[2019-01-30] MEDS: METHADONE HCL 10 MG TABLET PO SCH (08:46)
[2019-01-30] MEDS: LevETIRAcetam 500 MG TABLET PO SCH ×2 (08:47→17:12)
[2019-01-30] MEDS: FOLIC ACID 1 MG TABLET PO SCH (08:47)
[2019-01-30] MEDS: GABAPENTIN 400 MG CAPSULE PO SCH ×3 (08:47→17:12)
[2019-01-30] MEDS: MULTIVITAMINS WITH MINERALS, THERAPEUTIC TABLET PO SCH (08:47)
[2019-01-30] MEDS: THIAMINE HCL 100 MG TABLET PO SCH ×2 (08:47→17:12)
[2019-01-30] MEDS: NICOTINE 21 MG/24 HOUR PATCH TD SCH (08:48)
[2019-01-30 09:58] VITALS: BP 137/70
[2019-01-30 16:22] VITALS: BP 92/64
[2019-01-30] MEDS: QUEtiapine FUMARATE 200 MG TABLET PO SCH (22:00)
[2019-01-31 08:10] VITALS: BP 114/50
[2019-01-31] MEDS: NICOTINE 21 MG/24 HOUR PATCH TD SCH (09:10)
[2019-01-31] MEDS: ACAMPROSATE CALCIUM 333 MG DR TABLET PO SCH ×3 (09:41→16:36)
[2019-01-31] MEDS: DULoxetine HCL 30 MG CAPSULE PO SCH (09:41)
[2019-01-31] MEDS: GABAPENTIN 400 MG CAPSULE PO SCH ×3 (09:41→16:35)
[2019-01-31] MEDS: THIAMINE HCL 100 MG TABLET PO SCH ×2 (09:42→16:35)
[2019-01-31] MEDS: MULTIVITAMINS WITH MINERALS, THERAPEUTIC TABLET PO SCH (09:42)
[2019-01-31] MEDS: LevETIRAcetam 500 MG TABLET PO SCH ×2 (09:42→16:35)
[2019-01-31] MEDS: METHADONE HCL 10 MG TABLET PO SCH (09:42)
[2019-01-31] MEDS: FOLIC ACID 1 MG TABLET PO SCH (09:42)
[2019-01-31 16:00] VITALS: BP 95/66
[2019-01-31 17:00] VITALS: BP 95/66
[2019-01-31] MEDS: QUEtiapine FUMARATE 200 MG TABLET PO SCH (21:00)
[2019-02-01] MEDS: METHADONE HCL 10 MG TABLET PO SCH (09:42)
[2019-02-01] MEDS: LevETIRAcetam 500 MG TABLET PO SCH ×2 (09:42→17:39)
[2019-02-01] MEDS: MULTIVITAMINS WITH MINERALS, THERAPEUTIC TABLET PO SCH (09:42)
[2019-02-01] MEDS: FOLIC ACID 1 MG TABLET PO SCH (09:43)
[2019-02-01] MEDS: ACAMPROSATE CALCIUM 333 MG DR TABLET PO SCH ×3 (09:43→17:39)
[2019-02-01] MEDS: THIAMINE HCL 100 MG TABLET PO SCH ×2 (09:43→17:38)
[2019-02-01] MEDS: DULoxetine HCL 30 MG CAPSULE PO SCH (09:43)
[2019-02-01] MEDS: GABAPENTIN 400 MG CAPSULE PO SCH ×3 (09:43→17:38)
[2019-02-01] MEDS: NICOTINE 21 MG/24 HOUR PATCH TD SCH (09:54)
[2019-02-01 10:27] VITALS: BP 100/60
[2019-02-01 19:26] VITALS: BP 89/56
[2019-02-01] MEDS: QUEtiapine FUMARATE 200 MG TABLET PO SCH (21:00)
[2019-02-02 05:58] VITALS: BP 91/67
[2019-02-02] MEDS: FOLIC ACID 1 MG TABLET PO SCH (08:25)
[2019-02-02] MEDS: LevETIRAcetam 500 MG TABLET PO SCH (08:25)
[2019-02-02] MEDS: GABAPENTIN 400 MG CAPSULE PO SCH ×2 (08:25→12:00)
[2019-02-02] MEDS: MULTIVITAMINS WITH MINERALS, THERAPEUTIC TABLET PO SCH (08:26)
[2019-02-02] MEDS: ACAMPROSATE CALCIUM 333 MG DR TABLET PO SCH ×2 (08:35→12:00)
[2019-02-02] MEDS: METHADONE HCL 10 MG TABLET PO SCH (08:37)
[2019-02-02] MEDS: THIAMINE HCL 100 MG TABLET PO SCH (08:38)
[2019-02-02] MEDS: NICOTINE 21 MG/24 HOUR PATCH TD SCH (08:41)
[2019-02-02] MEDS ORDERED: DULoxetine HCL 20 MG CAPSULE PO SCH (09:00)
[2019-02-02 09:43] VITALS: BP 120/77
[2019-02-02] MEDS ORDERED: DULO20CA30 PO (11:19)
[2019-02-02] MEDS ORDERED: QUET200T PO (11:19)
[2019-02-02] MEDS ORDERED: METH10 PO (11:24)
[2019-02-02] MEDS ORDERED: NICO-802 TD (11:24)
== END 2019-02-02 13:15 | disposition home or self-care (01) | DRG 750 ==
LOC: EMS 18:12 → 3EI 01-23 02:03
PROVIDERS: ADMIT Psychiatry & Neurology Psychiatry; ATTEND Psychiatry & Neurology Psychiatry
DX: F25.9 Schizoaffective disorder, unspecified (principal); G40.409 Other generalized epilepsy and epileptic syndromes, not intractable, without status epilepticus; F25.1 Schizoaffective disorder, depressive type; B19.20 Unspecified viral hepatitis C without hepatic coma; D64.9 Anemia, unspecified; E87.6 Hypokalemia; S22.39XA Fracture of one rib, unspecified side, initial encounter for closed fracture; F11.10 Opioid abuse, uncomplicated; F12.90 Cannabis use, unspecified, uncomplicated; F17.210 Nicotine dependence, cigarettes, uncomplicated; Z88.8 Allergy status to other drugs, medicaments and biological substances; I10 Essential (primary) hypertension; J44.9 Chronic obstructive pulmonary disease, unspecified; K21.9 Gastro-esophageal reflux disease without esophagitis; Z59.0 Homelessness; Z91.19 Patient's noncompliance with other medical treatment and regimen; Z91.5 Personal history of self-harm; X58.XXXA Exposure to other specified factors, initial encounter; Y93.89 Activity, other specified; Y92.89 Other specified places as the place of occurrence of the external cause; Y99.8 Other external cause status
CPT/HCPCS: 74018; 87081; G0480

== ENCOUNTER 2019-05-29 13:27 | Emergency (ER) | payer MEDICAID, OTHER ==
[~2019-05-29] VITALS: Ht 177.8 cm; Wt 68.2 kg
[~2019-05-29 13:27] MED LIST changes: +DULO20CA30 PO; -DULO60CA44 PO; +METH10 PO; +NICO-802 TD; +QUET200T PO
[2019-05-29] MEDS ORDERED: BUSP5TAB20 PO (15:04)
[2019-05-29] MEDS ORDERED: GABA-531 PO (15:04)
[2019-05-29] MEDS ORDERED: LEVE500T53 PO (15:04)
[2019-05-29] MEDS ORDERED: MIRT30 PO (15:04)
[2019-05-29] MEDS ORDERED: QUET100T PO (15:04)
[2019-05-29 17:55] VITALS: BP 131/87
== END 2019-05-29 17:59 | disposition home or self-care (01) ==
LOC: EMS 13:30
DX: F20.9 Schizophrenia, unspecified (principal); K21.9 Gastro-esophageal reflux disease without esophagitis; I10 Essential (primary) hypertension; F10.20 Alcohol dependence, uncomplicated; F31.9 Bipolar disorder, unspecified; F17.210 Nicotine dependence, cigarettes, uncomplicated; Z79.899 Other long term (current) drug therapy; Z76.0 Encounter for issue of repeat prescription; Z98.890 Other specified postprocedural states; Z88.8 Allergy status to other drugs, medicaments and biological substances

== ENCOUNTER 2019-06-05 12:41 | Inpatient (IN) | payer MEDICAID, OTHER ==
[~2019-06-05] VITALS: Ht 177.8 cm; Wt 67.6 kg
[~2019-06-05 12:41] MED LIST changes: -ACAM333T7 PO; +BUSP5TAB20 PO; -DULO20CA30 PO; +GABA-531 PO; -GABA-533 PO; -METH10 PO; +MIRT30 PO; -NICO-802 TD; +QUET100T PO; -QUET200T PO
[2019-06-05] MEDS ORDERED: QUET300T2 PO (12:52)
[2019-06-05] MEDS ORDERED: LORazepam 2 MG TABLET PO ONE (13:45)
[2019-06-05] MEDS ORDERED: HALOPERIDOL 5 MG TABLET PO ONE (13:45)
[2019-06-05 14:01] LABS: BASOPHILS % (AUTO) 0.8 % (0.0-2.0); HEMATOCRIT 41.2 % (41-53); HEMOGLOBIN 14.1 g/dL (13.5-17.5); LYMPHOCYTES # (AUTO) 1.7 K/uL (1.0-4.8); LYMPHOCYTES % (AUTO) 26.2 % (22.0-44.0); MEAN CORPUSCULAR HEMOGLOBIN 32.2 pg (26.0-34.0); MEAN CORPUSCULAR HGB CONC 34.3 G/dL (31.0-37.0); MEAN CORPUSCULAR VOLUME 94 fL (80-100); MONOCYTES # (AUTO) 0.6 K/uL (0.1-1.0); MONOCYTES % (AUTO) 9.6 % (2.0-9.0); NEUTROPHILS % (AUTO) 60.4 % (40.0-70.0); PLATELET COUNT (AUTO) 194 K/uL (150-450); RED BLOOD CELL COUNT(AUTO) 4.39 MIL/uL (4.50-5.90); RED CELL DISTRIBUTION WIDTH 13.6 % (11.5-14.5)
[2019-06-05 14:10] LABS: AMPHET/METH SCREEN,URINE NEGATIVE (NEGATIVE); BARBITURATE SCREEN, URINE NEGATIVE (NEGATIVE); BENZODIAZEPINES SCREEN,URINE NEGATIVE (NEGATIVE); CANNABINOID SCREEN,URINE NEGATIVE (NEGATIVE); COCAINE SCREEN,URINE NEGATIVE (NEGATIVE); METHADONE SCREEN, URINE NEGATIVE (NEGATIVE); OPIATE SCREEN,URINE NEGATIVE (NEGATIVE); PHENCYCLIDINE SCREEN,URINE NEGATIVE (NEGATIVE)
[2019-06-05 14:17] LABS: ANION GAP 12 mmol/L (8-16); CALCIUM, TOTAL 8.8 mg/dL (8.8-10.5); CARBON DIOXIDE 26 mmol/L (22-29); CHLORIDE 112 mmol/L (98-107); CREATININE 0.74 mg/dL (0.60-1.30); GLOMERULAR FILTR. RATE CALC > 60 mL/min (>60); GLUCOSE,RANDOM 114 mg/dL (70-110); POTASSIUM 4.1 mmol/L (3.5-5.1); SODIUM SERUM 150 mmol/L (136-145); UREA NITROGEN, BLOOD 8 mg/dL (7-18)
[2019-06-05 14:23] LABS: ALANINE AMINOTRANSFERASE 86 U/L (12-78); ALBUMIN 3.3 g/dL (3.4-5.0); ALKALINE PHOSPHATASE 148 U/L (46-116); ASPARTATE AMINOTRANSFERASE 65 U/L (15-37); BILIRUBIN,TOTAL 0.2 mg/dL (0.1-1.0); TOTAL PROTEIN, SERUM 7.1 g/dL (6.4-8.2)
[2019-06-05] MEDS ORDERED: ZOLPIDEM TARTRATE 10 MG TABLET PO PRN (14:45)
[2019-06-05] MEDS ORDERED: HydrOXYzine PAMOATE 50 MG CAPSULE PO PRN (14:45)
[2019-06-05 15:11] LABS: APPEARANCE,URINE CLEAR (CLEAR); BILIRUBIN,URINE NEGATIVE (NEGATIVE); GLUCOSE, URINE (UA) NEGATIVE (NEGATIVE); KETONES,URINE NEGATIVE (NEGATIVE); LEUKOCYTE ESTERASE ,URINE TRACE (NEGATIVE); NITRATE,URINE NEGATIVE (NEGATIVE); OCCULT BLOOD,URINE NEGATIVE (NEGATIVE); PH,URINE 5.5 (5.0-8.0); PROTEIN,URINE NEGATIVE (NEGATIVE); UROBILINOGEN,URINE 0.2 mg/dL (<=1.0)
[2019-06-05 15:23] LABS: BACTERIA,URINE None Seen /HPF (None Seen); RBC,URINE None Seen /HPF (0-2); SQUAMOUS EPITHELIAL CELL,UR None Seen /LPF (None Seen)
[2019-06-05] MEDS ORDERED: GuaiFENesin/D-METHORPHAN [SUGAR-FREE] 200-20MG/10 ML SYRUP UDCUP PO PRN (19:00)
[2019-06-05] MEDS: QUEtiapine FUMARATE 200 MG TABLET PO SCH (19:37)
[2019-06-05] MEDS: LevETIRAcetam 500 MG TABLET PO SCH (19:37)
[2019-06-05] MEDS: GABAPENTIN 100 MG CAPSULE PO SCH (19:37)
[2019-06-05] MEDS: MIRTAZAPINE 15 MG TABLET PO SCH (19:38)
[2019-06-05 20:40] VITALS: BP 143/88
[2019-06-05 20:42] VITALS: BP 143/88
[2019-06-06 08:35] VITALS: BP 118/89
[2019-06-06] MEDS: GABAPENTIN 100 MG CAPSULE PO SCH ×2 (09:00→16:01)
[2019-06-06] MEDS: LevETIRAcetam 500 MG TABLET PO SCH ×2 (09:00→16:01)
[2019-06-06] MEDS: NICOTINE 21 MG/24 HOUR PATCH TD SCH (09:00)
[2019-06-06 11:21] LABS: CHOLESTEROL 157 mg/dL (131-200); FREE T4 (FREE THYROXINE) 0.91 ng/dL (0.76-1.46); TRIGLYCERIDES 263 mg/dL (15-150)
[2019-06-06 11:34] LABS: CHOL/HDL RATIO 3.6 (4.2-7.3); HDL CHOLESTEROL 44 mg/dL (40-60); LDL CHOL (CALC.) 60 mg/dL (0-130)
[2019-06-06 14:27] VITALS: BP 121/87
[2019-06-06] MEDS: IBUPROFEN 600 MG TABLET PO PRN (14:27)
[2019-06-06] MEDS: QUEtiapine FUMARATE 100 MG TABLET PO PRN (14:27)
[2019-06-06 18:59] VITALS: BP 121/84
[2019-06-06] MEDS: MIRTAZAPINE 15 MG TABLET PO SCH (20:26)
[2019-06-06] MEDS: QUEtiapine FUMARATE 200 MG TABLET PO SCH (20:26)
[2019-06-07 08:10] VITALS: BP 114/92
[2019-06-07] MEDS: IBUPROFEN 600 MG TABLET PO PRN ×2 (08:13→12:23)
[2019-06-07] MEDS: GABAPENTIN 300 MG CAPSULE PO SCH ×3 (08:13→16:05)
[2019-06-07] MEDS: LORazepam 0.5 MG TABLET PO PRN ×3 (08:13→16:36)
[2019-06-07] MEDS: BusPIRone HCL 15 MG TABLET PO SCH ×2 (08:13→16:05)
[2019-06-07] MEDS: LevETIRAcetam 500 MG TABLET PO SCH ×2 (08:14→16:06)
[2019-06-07] MEDS: NICOTINE 21 MG/24 HOUR PATCH TD SCH (08:15)
[2019-06-07] MEDS: QUEtiapine FUMARATE 100 MG TABLET PO PRN (12:23)
[2019-06-07 17:04] VITALS: BP 106/80
[2019-06-07] MEDS: QUEtiapine FUMARATE 200 MG TABLET PO SCH (20:01)
[2019-06-07] MEDS: MIRTAZAPINE 15 MG TABLET PO SCH (20:01)
[2019-06-08] MEDS: LORazepam 0.5 MG TABLET PO PRN ×2 (03:31→09:23)
[2019-06-08] MEDS: QUEtiapine FUMARATE 100 MG TABLET PO PRN (03:32)
[2019-06-08 06:37] VITALS: BP 113/76
[2019-06-08] MEDS: GABAPENTIN 300 MG CAPSULE PO SCH ×3 (09:23→16:42)
[2019-06-08] MEDS: BusPIRone HCL 15 MG TABLET PO SCH ×2 (09:23→16:42)
[2019-06-08] MEDS: LevETIRAcetam 500 MG TABLET PO SCH ×2 (09:23→16:42)
[2019-06-08] MEDS: NICOTINE 21 MG/24 HOUR PATCH TD SCH (09:25)
[2019-06-08] MEDS: IBUPROFEN 600 MG TABLET PO PRN (09:26)
[2019-06-08 13:59] VITALS: BP 140/106
[2019-06-08] MEDS ORDERED: LOPERAMIDE HCL 2 MG CAPSULE PO PRN (14:00)
[2019-06-08] MEDS ORDERED: HydrOXYzine PAMOATE 50 MG CAPSULE PO PRN (14:00)
[2019-06-08] MEDS ORDERED: CYANOCOBALAMIN 1,000 MCG/ML VIAL IM ONE (14:00)
[2019-06-08] MEDS ORDERED: LORazepam 2 MG TABLET PO ONE (14:00)
[2019-06-08] MEDS ORDERED: LORazepam 2 MG TABLET PO PRN (14:00)
[2019-06-08] MEDS ORDERED: ACETAMINOPHEN 325 MG TABLET PO PRN (14:00)
[2019-06-08] MEDS ORDERED: MAG HYDROX/AL HYDROX/SIMETH ES 30 ML SUSPENSION UDCUP PO PRN (14:00)
[2019-06-08] MEDS ORDERED: PROMETHAZINE HCL 25 MG TABLET PO PRN (14:00)
[2019-06-08] MEDS ORDERED: MAGNESIUM HYDROXIDE SUSPENSION 30 ML UDCUP PO PRN (14:00)
[2019-06-08] MEDS ORDERED: GuaiFENesin/D-METHORPHAN [SUGAR-FREE] 200-20MG/10 ML SYRUP UDCUP PO PRN (14:00)
[2019-06-08 14:35] VITALS: BP 114/96
[2019-06-08] MEDS ORDERED: THIAMINE HCL 100 MG TABLET PO SCH (17:00)
[2019-06-08] MEDS ORDERED: QUEtiapine FUMARATE 200 MG TABLET PO SCH (21:00)
[2019-06-09] MEDS ORDERED: LORazepam 2 MG TABLET PO PRN (07:00)
[2019-06-09] MEDS ORDERED: LORazepam 2 MG TABLET PO SCH (09:00)
[2019-06-09] MEDS ORDERED: NALTREXONE HCL 50 MG TABLET PO SCH (09:00)
[2019-06-09] MEDS ORDERED: FOLIC ACID 1 MG TABLET PO SCH (09:00)
[2019-06-09] MEDS ORDERED: MULTIVITAMINS WITH MINERALS, THERAPEUTIC TABLET PO SCH (09:00)
[2019-06-11] MEDS ORDERED: LORazepam 1 MG TABLET PO PRN (07:00)
[2019-06-11] MEDS ORDERED: LORazepam 1 MG TABLET PO SCH (09:00)
[2019-06-11] MEDS ORDERED: LOPERAMIDE HCL 2 MG CAPSULE PO PRN (14:00)
[2019-06-12] MEDS ORDERED: LORazepam 1 MG TABLET PO PRN (07:00)
== END 2019-06-08 17:00 | disposition left against medical advice (07) | DRG 885 ==
LOC: EMS 12:43 → 3EI 16:03
PROVIDERS: ADMIT Psychiatry & Neurology Psychiatry; ATTEND Psychiatry & Neurology Psychiatry
DX: F25.0 Schizoaffective disorder, bipolar type (principal); B19.20 Unspecified viral hepatitis C without hepatic coma; R45.851 Suicidal ideations; E87.0 Hyperosmolality and hypernatremia; Z88.8 Allergy status to other drugs, medicaments and biological substances; Z53.29 Procedure and treatment not carried out because of patient's decision for other reasons; F11.90 Opioid use, unspecified, uncomplicated; F12.20 Cannabis dependence, uncomplicated; F41.9 Anxiety disorder, unspecified; G40.909 Epilepsy, unspecified, not intractable, without status epilepticus; I10 Essential (primary) hypertension; J44.9 Chronic obstructive pulmonary disease, unspecified; K21.9 Gastro-esophageal reflux disease without esophagitis; Z80.1 Family history of malignant neoplasm of trachea, bronchus and lung; Z80.3 Family history of malignant neoplasm of breast; F17.210 Nicotine dependence, cigarettes, uncomplicated; Z91.19 Patient's noncompliance with other medical treatment and regimen; G89.29 Other chronic pain; M54.5 Low back pain; M54.9 Dorsalgia, unspecified
CPT/HCPCS: 84439; 84443; 87081; G0480; J3420

== ENCOUNTER 2019-07-19 11:47 | Emergency (ER) | payer MEDICAID ==
[~2019-07-19 11:47] MED LIST changes: -QUET100T PO; +QUET300T2 PO
== END 2019-07-19 12:57 | disposition left against medical advice (07) ==
LOC: EMS 11:49
DX: Z00.8 Encounter for other general examination (principal); Z53.21 Procedure and treatment not carried out due to patient leaving prior to being seen by health care provider

== ENCOUNTER 2019-07-29 14:07 | Inpatient (IN) | payer MEDICAID, OTHER ==
[~2019-07-29] VITALS: Ht 177.8 cm; Wt 67.9 kg
[2019-07-29] MEDS ORDERED: METH10 PO (14:26)
[2019-07-29 15:11] LABS: BASOPHILS % (AUTO) 0.8 % (0.0-2.0); EOSINOPHILS % (AUTO) 7.5 % (1.0-6.0); HEMATOCRIT 39.4 % (41-53); HEMOGLOBIN 13.4 g/dL (13.5-17.5); LYMPHOCYTES # (AUTO) 1.6 K/uL (1.0-4.8); LYMPHOCYTES % (AUTO) 26.5 % (22.0-44.0); MEAN CORPUSCULAR HEMOGLOBIN 31.7 pg (26.0-34.0); MEAN CORPUSCULAR HGB CONC 34.1 G/dL (31.0-37.0); MEAN CORPUSCULAR VOLUME 93 fL (80-100); MONOCYTES # (AUTO) 0.6 K/uL (0.1-1.0); MONOCYTES % (AUTO) 9.1 % (2.0-9.0); NEUTROPHILS # (AUTO) 3.4 K/uL (1.8-7.7); NEUTROPHILS % (AUTO) 56.1 % (40.0-70.0); PLATELET COUNT (AUTO) 191 K/uL (150-450); RED BLOOD CELL COUNT(AUTO) 4.24 MIL/uL (4.50-5.90)
[2019-07-29 15:32] LABS: ALANINE AMINOTRANSFERASE 51 U/L (12-78); ALBUMIN 3.6 g/dL (3.4-5.0); ALKALINE PHOSPHATASE 88 U/L (46-116); ANION GAP 12 mmol/L (8-16); ASPARTATE AMINOTRANSFERASE 79 U/L (15-37); BILIRUBIN,TOTAL 0.4 mg/dL (0.1-1.0); CALCIUM, TOTAL 9.2 mg/dL (8.8-10.5); CARBON DIOXIDE 30 mmol/L (22-29); CHLORIDE 99 mmol/L (98-107); CREATININE 0.87 mg/dL (0.60-1.30); GLOMERULAR FILTR. RATE CALC > 60 mL/min (>60); GLUCOSE,RANDOM 81 mg/dL (70-110); SODIUM SERUM 141 mmol/L (136-145); TOTAL PROTEIN, SERUM 6.8 g/dL (6.4-8.2); UREA NITROGEN, BLOOD 17 mg/dL (7-18)
[2019-07-29 15:35] LABS: POTASSIUM 2.9 mmol/L (3.5-5.1)
[2019-07-29] MEDS ORDERED: HydrOXYzine PAMOATE 50 MG CAPSULE PO PRN (15:45)
[2019-07-29] MEDS ORDERED: ACETAMINOPHEN 325 MG TABLET PO PRN (15:45)
[2019-07-29] MEDS ORDERED: QUEtiapine FUMARATE 100 MG TABLET PO PRN (15:45)
[2019-07-29] MEDS ORDERED: GuaiFENesin/D-METHORPHAN [SUGAR-FREE] 200-20MG/10 ML SYRUP UDCUP PO PRN (15:45)
[2019-07-29] MEDS ORDERED: LOPERAMIDE HCL 2 MG CAPSULE PO PRN (15:45)
[2019-07-29] MEDS ORDERED: LORazepam 2 MG TABLET PO PRN (15:45)
[2019-07-29] MEDS ORDERED: ZOLPIDEM TARTRATE 10 MG TABLET PO PRN (15:45)
[2019-07-29] MEDS ORDERED: MAG HYDROX/AL HYDROX/SIMETH ES 30 ML SUSPENSION UDCUP PO PRN (15:45)
[2019-07-29] MEDS ORDERED: PROMETHAZINE HCL 25 MG TABLET PO PRN (15:45)
[2019-07-29] MEDS ORDERED: POTASSIUM CHLORIDE 20 MEQ ER TABLET PO ONE (15:45)
[2019-07-29] MEDS ORDERED: MAGNESIUM HYDROXIDE SUSPENSION 30 ML UDCUP PO PRN (15:45)
[2019-07-29] MEDS ORDERED: QUEtiapine FUMARATE 25 MG TABLET PO SCH (16:00)
[2019-07-29] MEDS: GABAPENTIN 300 MG CAPSULE PO SCH ×2 (17:50→21:00)
[2019-07-29] MEDS: ACAMPROSATE CALCIUM 333 MG DR TABLET PO SCH (17:50)
[2019-07-29 18:30] VITALS: BP 116/78
[2019-07-29] MEDS ORDERED: PALIPERIDONE PALMITATE 234 MG/1.5 ML SYRINGE IM ONE (19:00)
[2019-07-29] MEDS: THIAMINE HCL 100 MG TABLET PO SCH (19:40)
[2019-07-29] MEDS: LevETIRAcetam 500 MG TABLET PO SCH (19:40)
[2019-07-29] MEDS ORDERED: IBUPROFEN 600 MG TABLET PO PRN (20:30)
[2019-07-29] MEDS ORDERED: QUEtiapine FUMARATE 100 MG TABLET PO SCH (21:00)
[2019-07-29] MEDS ORDERED: MIRTAZAPINE 15 MG TABLET PO SCH (21:00)
[2019-07-30 08:37] LABS: CHOL/HDL RATIO 2.7 (4.2-7.3); FREE T4 (FREE THYROXINE) 1.66 ng/dL (0.76-1.46); THYROID STIMULATING HORMONE 1.15 uIU/mL (0.36-3.74)
[2019-07-30 09:13] LABS: HEMOGLOBIN A1C 5.5 % (3.8-5.6)
[2019-07-30] MEDS: GABAPENTIN 300 MG CAPSULE PO SCH ×2 (09:32→12:51)
[2019-07-30] MEDS: ACAMPROSATE CALCIUM 333 MG DR TABLET PO SCH ×3 (09:32→17:00)
[2019-07-30] MEDS: THIAMINE HCL 100 MG TABLET PO SCH ×2 (09:32→17:00)
[2019-07-30] MEDS: MULTIVITAMINS WITH MINERALS, THERAPEUTIC TABLET PO SCH (09:33)
[2019-07-30] MEDS: FOLIC ACID 1 MG TABLET PO SCH (09:33)
[2019-07-30] MEDS: LevETIRAcetam 500 MG TABLET PO SCH ×2 (09:34→17:00)
[2019-07-30] MEDS: NICOTINE 21 MG/24 HOUR PATCH TD SCH (09:50)
[2019-07-30] MEDS: METHADONE HCL 10 MG TABLET PO SCH (09:50)
[2019-07-30 12:12] VITALS: BP 102/72
[2019-07-30 16:28] VITALS: BP 98/62
[2019-07-30] MEDS: QUEtiapine FUMARATE 200 MG TABLET PO SCH (20:16)
[2019-07-30] MEDS: GABAPENTIN 400 MG CAPSULE PO SCH (20:17)
[2019-07-30] MEDS: MIRTAZAPINE 15 MG TABLET PO SCH (20:17)
[2019-07-31 07:59] LABS: ANION GAP 4 mmol/L (8-16); CALCIUM, TOTAL 8.7 mg/dL (8.8-10.5); CARBON DIOXIDE 33 mmol/L (22-29); CHLORIDE 103 mmol/L (98-107); CREATININE 0.65 mg/dL (0.60-1.30); GLOMERULAR FILTR. RATE CALC > 60 mL/min (>60); GLUCOSE,RANDOM 101 mg/dL (70-110); POTASSIUM 3.4 mmol/L (3.5-5.1); SODIUM SERUM 140 mmol/L (136-145); UREA NITROGEN, BLOOD 16 mg/dL (7-18)
[2019-07-31] MEDS: NICOTINE 21 MG/24 HOUR PATCH TD SCH (09:00)
[2019-07-31 09:11] VITALS: BP 109/63
[2019-07-31] MEDS: MULTIVITAMINS WITH MINERALS, THERAPEUTIC TABLET PO SCH (10:19)
[2019-07-31] MEDS: THIAMINE HCL 100 MG TABLET PO SCH ×2 (10:19→16:10)
[2019-07-31] MEDS: ACAMPROSATE CALCIUM 333 MG DR TABLET PO SCH ×3 (10:19→16:07)
[2019-07-31] MEDS: LevETIRAcetam 500 MG TABLET PO SCH ×2 (10:20→16:09)
[2019-07-31] MEDS: FOLIC ACID 1 MG TABLET PO SCH (10:20)
[2019-07-31] MEDS: GABAPENTIN 400 MG CAPSULE PO SCH ×4 (10:20→20:09)
[2019-07-31] MEDS: METHADONE HCL 10 MG TABLET PO SCH (10:21)
[2019-07-31 16:00] VITALS: BP 98/59
[2019-07-31] MEDS ORDERED: POTASSIUM CHLORIDE 20 MEQ ER TABLET PO ONE (16:45)
[2019-07-31] MEDS ORDERED: CYANOCOBALAMIN 1,000 MCG/ML VIAL IM ONE (16:45)
[2019-07-31] MEDS: BACITRACIN 28.4 GM OINTMENT TP SCH (17:25)
[2019-07-31] MEDS: MIRTAZAPINE 15 MG TABLET PO SCH (20:09)
[2019-07-31] MEDS: QUEtiapine FUMARATE 200 MG TABLET PO SCH (20:09)
[2019-08-01] MEDS: BACITRACIN 28.4 GM OINTMENT TP SCH (09:00)
[2019-08-01] MEDS: LevETIRAcetam 500 MG TABLET PO SCH ×2 (09:17→17:10)
[2019-08-01] MEDS: METHADONE HCL 10 MG TABLET PO SCH (09:17)
[2019-08-01] MEDS: THIAMINE HCL 100 MG TABLET PO SCH ×2 (09:18→17:11)
[2019-08-01] MEDS: GABAPENTIN 400 MG CAPSULE PO SCH ×4 (09:18→20:19)
[2019-08-01] MEDS: FOLIC ACID 1 MG TABLET PO SCH (09:18)
[2019-08-01] MEDS: ACAMPROSATE CALCIUM 333 MG DR TABLET PO SCH ×3 (09:18→17:10)
[2019-08-01] MEDS: MULTIVITAMINS WITH MINERALS, THERAPEUTIC TABLET PO SCH (09:18)
[2019-08-01] MEDS: NICOTINE 21 MG/24 HOUR PATCH TD SCH (09:22)
[2019-08-01 09:53] VITALS: BP 112/76
[2019-08-01 17:06] VITALS: BP 114/69
[2019-08-01] MEDS: QUEtiapine FUMARATE 200 MG TABLET PO SCH ×2 (20:19→20:39)
[2019-08-01] MEDS: MIRTAZAPINE 15 MG TABLET PO SCH (20:19)
[2019-08-02 02:00] VITALS: BP 139/81
[2019-08-02] MEDS: NICOTINE 21 MG/24 HOUR PATCH TD SCH (08:53)
[2019-08-02] MEDS: THIAMINE HCL 100 MG TABLET PO SCH ×2 (08:53→16:16)
[2019-08-02] MEDS: FOLIC ACID 1 MG TABLET PO SCH (08:53)
[2019-08-02] MEDS: LevETIRAcetam 500 MG TABLET PO SCH ×2 (08:53→16:16)
[2019-08-02] MEDS: MULTIVITAMINS WITH MINERALS, THERAPEUTIC TABLET PO SCH (08:53)
[2019-08-02] MEDS: GABAPENTIN 400 MG CAPSULE PO SCH ×4 (08:53→20:21)
[2019-08-02] MEDS: METHADONE HCL 10 MG TABLET PO SCH (08:54)
[2019-08-02] MEDS: BACITRACIN 28.4 GM OINTMENT TP SCH (08:56)
[2019-08-02] MEDS: ACAMPROSATE CALCIUM 333 MG DR TABLET PO SCH ×3 (08:56→16:16)
[2019-08-02] MEDS ORDERED: PALIPERIDONE PALMITATE 156 MG/ML SYRINGE IM ONE (09:00)
[2019-08-02 09:15] VITALS: BP 161/93
[2019-08-02 16:57] VITALS: BP 123/70
[2019-08-02] MEDS: MIRTAZAPINE 15 MG TABLET PO SCH (20:21)
[2019-08-02] MEDS: QUEtiapine FUMARATE 200 MG TABLET PO SCH (20:24)
[2019-08-03] MEDS: NICOTINE 21 MG/24 HOUR PATCH TD SCH (08:30)
[2019-08-03] MEDS: ACAMPROSATE CALCIUM 333 MG DR TABLET PO SCH ×2 (08:30→12:12)
[2019-08-03] MEDS: THIAMINE HCL 100 MG TABLET PO SCH (08:31)
[2019-08-03] MEDS: MULTIVITAMINS WITH MINERALS, THERAPEUTIC TABLET PO SCH (08:31)
[2019-08-03] MEDS: LevETIRAcetam 500 MG TABLET PO SCH (08:31)
[2019-08-03] MEDS: METHADONE HCL 10 MG TABLET PO SCH (08:31)
[2019-08-03] MEDS: GABAPENTIN 400 MG CAPSULE PO SCH ×2 (08:31→12:11)
[2019-08-03] MEDS: FOLIC ACID 1 MG TABLET PO SCH (08:31)
[2019-08-03] MEDS: BACITRACIN 28.4 GM OINTMENT TP SCH (08:32)
[2019-08-03 10:23] VITALS: BP 142/94
[2019-08-03] MEDS ORDERED: QUET200T PO (11:30)
[2019-08-03] MEDS ORDERED: MIRT-92 PO (11:30)
[2019-08-03] MEDS ORDERED: GABA-533 PO (11:30)
[2019-08-03] MEDS ORDERED: ACAM333T7 PO (11:31)
== END 2019-08-03 13:15 | disposition home or self-care (01) | DRG 885 ==
LOC: EMS 14:08 → 3EI 17:01
PROVIDERS: ADMIT Psychiatry & Neurology Psychiatry; ATTEND Psychiatry & Neurology Psychiatry
DX: F25.1 Schizoaffective disorder, depressive type (principal); F11.20 Opioid dependence, uncomplicated; R45.851 Suicidal ideations; F17.210 Nicotine dependence, cigarettes, uncomplicated; G89.29 Other chronic pain; M54.5 Low back pain; G40.409 Other generalized epilepsy and epileptic syndromes, not intractable, without status epilepticus; J44.9 Chronic obstructive pulmonary disease, unspecified; F41.9 Anxiety disorder, unspecified; D64.9 Anemia, unspecified; E87.6 Hypokalemia; I10 Essential (primary) hypertension; K21.9 Gastro-esophageal reflux disease without esophagitis; Z91.19 Patient's noncompliance with other medical treatment and regimen; Z80.1 Family history of malignant neoplasm of trachea, bronchus and lung; Z79.899 Other long term (current) drug therapy; Z88.8 Allergy status to other drugs, medicaments and biological substances; Z80.3 Family history of malignant neoplasm of breast
CPT/HCPCS: 83036; 84439; 84443; 86592; 87081; G0480; G0482; J3420

== ENCOUNTER 2020-07-07 19:11 | Emergency (ER) | payer MEDICAID, OTHER ==
[~2020-07-07] VITALS: Ht 177.8 cm; Wt 68.2 kg
[~2020-07-07 19:11] MED LIST changes: +ACAM333T7 PO; -BUSP5TAB20 PO; +GABA-1201 PO; -GABA-531 PO; +METH10 PO; +MIRT-89 PO; -MIRT30 PO; +QUET200T PO; -QUET300T2 PO
[2020-07-07] MEDS ORDERED: HYDROCODONE/ACETAMINOPHEN 5-325 MG TABLET PO ONE (20:15)
[2020-07-07] MEDS ORDERED: IBUPROFEN 600 MG TABLET PO ONE (20:15)
[2020-07-07 21:02] VITALS: BP 133/73
== END 2020-07-07 21:36 | disposition home or self-care (01) ==
LOC: EMS 19:11
DX: M25.571 Pain in right ankle and joints of right foot (principal); F32.9 Major depressive disorder, single episode, unspecified; J44.9 Chronic obstructive pulmonary disease, unspecified; F20.9 Schizophrenia, unspecified; F17.210 Nicotine dependence, cigarettes, uncomplicated; F15.90 Other stimulant use, unspecified, uncomplicated
CPT/HCPCS: 99283

== ENCOUNTER 2020-08-02 10:52 | Inpatient (IN) | payer MEDICAID, OTHER ==
[~2020-08-02] VITALS: Ht 177.8 cm; Wt 57.3 kg
[2020-08-02] MEDS ORDERED: LORazepam 1 MG TABLET PO ONE (12:00)
[2020-08-02] MEDS ORDERED: ONDANSETRON HCL 4 MG TABLET PO ONE (12:00)
[2020-08-02] MEDS ORDERED: ONDANSETRON HCL 4 MG/2 ML VIAL IVP PRN (12:15)
[2020-08-02] MEDS ORDERED: ACETAMINOPHEN 325 MG TABLET PO PRN (12:15)
[2020-08-02] MEDS ORDERED: 0.9% SODIUM CHLORIDE 10 ML SYRINGE IVP PRN (12:15)
[2020-08-02 13:38] LABS: COVID AG,FIA SOURCE NASOPHARYNGEAL
[2020-08-02 16:00] VITALS: BP 120/80
[2020-08-02] MEDS ORDERED: HALOPERIDOL 5 MG TABLET PO PRN (17:15)
[2020-08-02] MEDS ORDERED: ZOLPIDEM TARTRATE 10 MG TABLET PO PRN (17:15)
[2020-08-02 17:49] VITALS: BP 120/80
[2020-08-03] MEDS ORDERED: DOCUSATE SODIUM 100 MG CAPSULE PO PRN (06:45)
[2020-08-03] MEDS ORDERED: ACETAMINOPHEN 325 MG TABLET PO PRN (06:45)
[2020-08-03] MEDS ORDERED: LOPERAMIDE HCL 2 MG CAPSULE PO PRN (06:45)
[2020-08-03] MEDS ORDERED: GuaiFENesin/D-METHORPHAN [SUGAR-FREE] 200-20MG/10 ML SYRUP UDCUP PO PRN (06:45)
[2020-08-03] MEDS ORDERED: ALBUTEROL SULFATE HFA 90 MCG/PUFF 8 GM INHALER IH PRN (06:45)
[2020-08-03] MEDS ORDERED: PETROLATUM,WHITE 28 GM JELLY TP PRN (06:45)
[2020-08-03] MEDS ORDERED: MAG HYDROX/AL HYDROX/SIMETH ES 30 ML SUSPENSION UDCUP PO PRN (06:45)
[2020-08-03] MEDS ORDERED: MAGNESIUM HYDROXIDE SUSPENSION 30 ML UDCUP PO PRN (06:45)
[2020-08-03] MEDS ORDERED: ONDANSETRON HCL 4 MG TABLET PO PRN (06:45)
[2020-08-03] MEDS ORDERED: CloNIDine HCL 0.1 MG TABLET PO PRN (06:45)
[2020-08-03] MEDS ORDERED: NICOTINE 14 MG/24 HOUR PATCH TD PRN (06:45)
[2020-08-03] MEDS ORDERED: IBUPROFEN 400 MG TABLET PO PRN (06:45)
[2020-08-03] MEDS: ACAMPROSATE CALCIUM 333 MG DR TABLET PO SCH ×3 (08:19→17:00)
[2020-08-03] MEDS: LevETIRAcetam 500 MG TABLET PO SCH ×2 (08:19→17:01)
[2020-08-03] MEDS: LORazepam 2 MG TABLET PO PRN ×2 (08:22→14:40)
[2020-08-03 16:00] VITALS: BP 107/71
[2020-08-03] MEDS: QUEtiapine FUMARATE 200 MG TABLET PO SCH (21:06)
[2020-08-03] MEDS: MIRTAZAPINE 15 MG TABLET PO SCH (21:06)
[2020-08-04 06:25] VITALS: BP 120/92
[2020-08-04] MEDS: LORazepam 2 MG TABLET PO PRN ×3 (06:31→16:50)
[2020-08-04 07:31] VITALS: BP 126/79
[2020-08-04] MEDS: ACAMPROSATE CALCIUM 333 MG DR TABLET PO SCH ×3 (08:21→16:51)
[2020-08-04] MEDS: LevETIRAcetam 500 MG TABLET PO SCH ×2 (08:22→16:50)
[2020-08-04 16:42] VITALS: BP 107/71
[2020-08-04] MEDS: GABAPENTIN 400 MG CAPSULE PO SCH (16:50)
[2020-08-04] MEDS: MIRTAZAPINE 15 MG TABLET PO SCH (21:03)
[2020-08-04] MEDS: QUEtiapine FUMARATE 200 MG TABLET PO SCH (21:03)
[2020-08-05] MEDS: GABAPENTIN 400 MG CAPSULE PO SCH ×3 (08:20→16:51)
[2020-08-05] MEDS: LevETIRAcetam 500 MG TABLET PO SCH ×2 (08:20→16:51)
[2020-08-05] MEDS: ACAMPROSATE CALCIUM 333 MG DR TABLET PO SCH ×3 (08:21→16:50)
[2020-08-05] MEDS: LORazepam 2 MG TABLET PO PRN ×2 (08:29→19:15)
[2020-08-05 10:08] VITALS: BP 119/87
[2020-08-05 16:00] VITALS: BP 124/90
[2020-08-05] MEDS: MIRTAZAPINE 15 MG TABLET PO SCH (20:43)
[2020-08-05] MEDS: QUEtiapine FUMARATE 200 MG TABLET PO SCH (20:44)
[2020-08-05 21:34] VITALS: BP 118/88
[2020-08-06 09:10] VITALS: BP 114/73
[2020-08-06] MEDS: GABAPENTIN 400 MG CAPSULE PO SCH ×3 (09:41→16:29)
[2020-08-06] MEDS: ACAMPROSATE CALCIUM 333 MG DR TABLET PO SCH ×3 (09:41→16:29)
[2020-08-06] MEDS: LevETIRAcetam 500 MG TABLET PO SCH ×2 (09:41→16:29)
[2020-08-06] MEDS: LORazepam 2 MG TABLET PO PRN ×2 (10:26→16:54)
[2020-08-06 16:00] VITALS: BP 115/76
[2020-08-06] MEDS: QUEtiapine FUMARATE 200 MG TABLET PO SCH (20:56)
[2020-08-06] MEDS: MIRTAZAPINE 15 MG TABLET PO SCH (20:56)
[2020-08-07] MEDS: LORazepam 2 MG TABLET PO PRN (05:14)
[2020-08-07 05:21] VITALS: BP 117/84
[2020-08-07 08:15] VITALS: BP 116/66
[2020-08-07] MEDS: GABAPENTIN 400 MG CAPSULE PO SCH (08:31)
[2020-08-07] MEDS: ACAMPROSATE CALCIUM 333 MG DR TABLET PO SCH (08:31)
[2020-08-07] MEDS: LevETIRAcetam 500 MG TABLET PO SCH (08:31)
== END 2020-08-07 13:00 | disposition home or self-care (01) | DRG 750 ==
LOC: EMS 10:56 → 3EI 15:59
DX: F25.1 Schizoaffective disorder, depressive type (principal); F15.90 Other stimulant use, unspecified, uncomplicated; E44.0 Moderate protein-calorie malnutrition; G40.909 Epilepsy, unspecified, not intractable, without status epilepticus; I10 Essential (primary) hypertension; J44.9 Chronic obstructive pulmonary disease, unspecified; K21.9 Gastro-esophageal reflux disease without esophagitis; M19.90 Unspecified osteoarthritis, unspecified site; K75.9 Inflammatory liver disease, unspecified; Z20.822 Contact with and (suspected) exposure to COVID-19
CPT/HCPCS: 87426; 99285; Q0162

== ENCOUNTER 2020-09-27 13:39 | Inpatient (IN) | payer MEDICAID, OTHER ==
[~2020-09-27] VITALS: Ht 177.8 cm; Wt 60.1 kg
[~2020-09-27 13:39] MED LIST changes: -METH10 PO
[2020-09-27] MEDS ORDERED: LORazepam 2 MG TABLET ONE (14:43)
[2020-09-27] MEDS ORDERED: HALOPERIDOL 5 MG TABLET ONE (14:44)
[2020-09-27] MEDS ORDERED: LORazepam 2 MG TABLET PO ONE (14:45)
[2020-09-27] MEDS ORDERED: HALOPERIDOL 5 MG TABLET PO ONE (14:45)
[2020-09-27 15:23] LABS: BASOPHILS % (AUTO) 0.6 % (0.0-2.0); EOSINOPHILS % (AUTO) 0.2 % (1.0-6.0); HEMATOCRIT 47.2 % (41-53); HEMOGLOBIN 15.7 g/dL (13.5-17.5); LYMPHOCYTES # (AUTO) 1.4 K/uL (1.0-4.8); LYMPHOCYTES % (AUTO) 23.7 % (22.0-44.0); MEAN CORPUSCULAR HEMOGLOBIN 31.4 pg (26.0-34.0); MEAN CORPUSCULAR HGB CONC 33.2 G/dL (31.0-37.0); MEAN CORPUSCULAR VOLUME 95 fL (80-100); MONOCYTES # (AUTO) 0.4 K/uL (0.1-1.0); MONOCYTES % (AUTO) 7.2 % (2.0-9.0); NEUTROPHILS % (AUTO) 68.3 % (40.0-70.0); PLATELET COUNT (AUTO) 197 K/uL (150-450); RED BLOOD CELL COUNT(AUTO) 4.99 MIL/uL (4.50-5.90); RED CELL DISTRIBUTION WIDTH 12.8 % (11.5-14.5)
[2020-09-27 15:37] LABS: ANION GAP 10 mmol/L (8-16); CALCIUM, TOTAL 9.5 mg/dL (8.8-10.5); CARBON DIOXIDE 27 mmol/L (22-29); CHLORIDE 103 mmol/L (98-107); CREATININE 0.73 mg/dL (0.60-1.30); GLOMERULAR FILTR. RATE CALC > 60 mL/min (>60); GLUCOSE,RANDOM 84 mg/dL (70-110); POTASSIUM 3.3 mmol/L (3.5-5.1); SODIUM SERUM 140 mmol/L (136-145); UREA NITROGEN, BLOOD 13 mg/dL (7-18)
[2020-09-27 15:43] LABS: ALANINE AMINOTRANSFERASE 106 U/L (12-78); ALBUMIN 3.6 g/dL (3.4-5.0); ALKALINE PHOSPHATASE 136 U/L (46-116); ASPARTATE AMINOTRANSFERASE 99 U/L (15-37); BILIRUBIN,TOTAL 0.4 mg/dL (0.1-1.0); TOTAL PROTEIN, SERUM 7.6 g/dL (6.4-8.2)
[2020-09-27] MEDS ORDERED: OLANZapine 5 MG RAPDIS TABLET PO PRN (19:00)
[2020-09-27] MEDS ORDERED: ZOLPIDEM TARTRATE 10 MG TABLET PO PRN (19:00)
[2020-09-27 19:24] LABS: COVID AG,FIA SOURCE NASOPHARYNGEAL
[2020-09-27 20:28] LABS: AMPHET/METH SCREEN,URINE POSITIVE (NEGATIVE); BARBITURATE SCREEN, URINE NEGATIVE (NEGATIVE); BENZODIAZEPINES SCREEN,URINE NEGATIVE (NEGATIVE); CANNABINOID SCREEN,URINE POSITIVE (NEGATIVE); COCAINE SCREEN,URINE NEGATIVE (NEGATIVE); METHADONE SCREEN, URINE NEGATIVE (NEGATIVE); OPIATE SCREEN,URINE POSITIVE (NEGATIVE)
[2020-09-27 20:30] LABS: PHENCYCLIDINE SCREEN,URINE NEGATIVE (NEGATIVE)
[2020-09-27 22:07] VITALS: BP 149/96
[2020-09-27] MEDS ORDERED: PNEUMOCOCCAL VACCINE POLYVALENT 0.5 ML VIAL [PPSV23] IM. ONE (22:30)
[2020-09-27] MEDS ORDERED: CloNIDine HCL 0.1 MG TABLET PO PRN (23:15)
[2020-09-28] VITALS (7 sets, daily range): BP systolic 130–137; BP diastolic 67–91
[2020-09-28] MEDS: LORazepam 2 MG TABLET PO PRN (06:43)
[2020-09-28] MEDS: LevETIRAcetam 500 MG TABLET PO SCH ×2 (07:40→16:18)
[2020-09-28] MEDS ORDERED: MAGNESIUM HYDROXIDE SUSPENSION 30 ML UDCUP PO PRN (10:45)
[2020-09-28] MEDS ORDERED: LOPERAMIDE HCL 2 MG CAPSULE PO PRN (10:45)
[2020-09-28] MEDS ORDERED: DIAZEPAM 10 MG TABLET PO PRN (10:45)
[2020-09-28] MEDS ORDERED: MAG HYDROX/AL HYDROX/SIMETH ES 30 ML SUSPENSION UDCUP PO PRN (10:45)
[2020-09-28] MEDS ORDERED: ACETAMINOPHEN 325 MG TABLET PO PRN (10:45)
[2020-09-28] MEDS ORDERED: TUBERCULIN, PURIFIED PROTEIN DERIVATIVE 5 TU/0.1 ML SYRINGE ID ONE (10:45)
[2020-09-28] MEDS ORDERED: GuaiFENesin/D-METHORPHAN [SUGAR-FREE] 200-20MG/10 ML SYRUP UDCUP PO PRN (10:45)
[2020-09-28] MEDS ORDERED: PROMETHAZINE HCL 25 MG TABLET PO PRN (10:45)
[2020-09-28] MEDS ORDERED: QUEtiapine FUMARATE 100 MG TABLET PO PRN (10:45)
[2020-09-28] MEDS ORDERED: HydrOXYzine PAMOATE 50 MG CAPSULE PO PRN (10:45)
[2020-09-28] MEDS ORDERED: CYANOCOBALAMIN 1,000 MCG/ML VIAL IM ONE (10:45)
[2020-09-28] MEDS: GABAPENTIN 100 MG CAPSULE PO SCH ×3 (12:53→21:35)
[2020-09-28] MEDS: ACAMPROSATE CALCIUM 333 MG DR TABLET PO SCH ×2 (12:53→16:16)
[2020-09-28] MEDS: FOLIC ACID 1 MG TABLET PO SCH (13:03)
[2020-09-28] MEDS: DIAZEPAM 10 MG TABLET PO SCH (13:03)
[2020-09-28] MEDS: THIAMINE 100 MG TABLET PO SCH (13:05)
[2020-09-28] MEDS ORDERED: QUEtiapine FUMARATE 100 MG TABLET PO SCH (21:00)
[2020-09-28] MEDS ORDERED: MIRTAZAPINE 15 MG TABLET PO SCH (21:00)
[2020-09-29 07:00] VITALS: BP 143/92
[2020-09-29] MEDS ORDERED: DIAZEPAM 10 MG TABLET PO PRN (07:00)
[2020-09-29] MEDS: MULTIVITAMINS WITH MINERALS, THERAPEUTIC TABLET PO SCH ×2 (08:23→08:31)
[2020-09-29] MEDS: THIAMINE 100 MG TABLET PO SCH (08:25)
[2020-09-29] MEDS: OMEGA-3/DHA/EPA/FISH OIL 1,000 MG CAPSULE PO SCH (08:25)
[2020-09-29] MEDS: GABAPENTIN 100 MG CAPSULE PO SCH ×4 (08:26→20:34)
[2020-09-29] MEDS: ACAMPROSATE CALCIUM 333 MG DR TABLET PO SCH ×3 (08:26→16:01)
[2020-09-29] MEDS: LevETIRAcetam 500 MG TABLET PO SCH ×2 (08:26→16:01)
[2020-09-29] MEDS: FOLIC ACID 1 MG TABLET PO SCH (08:26)
[2020-09-29 09:06] VITALS: BP 128/79
[2020-09-29] MEDS: DIAZEPAM 10 MG TABLET PO SCH ×4 (09:25→20:35)
[2020-09-29 18:36] VITALS: BP 119/77
[2020-09-29] MEDS ORDERED: MIRTAZAPINE 15 MG TABLET PO SCH (21:00)
[2020-09-29] MEDS ORDERED: QUEtiapine FUMARATE 200 MG TABLET PO SCH (21:00)
[2020-09-30 08:00] VITALS: BP 117/82
[2020-09-30] MEDS: MULTIVITAMINS WITH MINERALS, THERAPEUTIC TABLET PO SCH ×2 (09:00→09:30)
[2020-09-30] MEDS: FOLIC ACID 1 MG TABLET PO SCH (09:30)
[2020-09-30] MEDS: OMEGA-3/DHA/EPA/FISH OIL 1,000 MG CAPSULE PO SCH (09:30)
[2020-09-30] MEDS: ACAMPROSATE CALCIUM 333 MG DR TABLET PO SCH ×3 (09:31→17:33)
[2020-09-30] MEDS: GABAPENTIN 100 MG CAPSULE PO SCH ×4 (09:31→20:32)
[2020-09-30] MEDS: LevETIRAcetam 500 MG TABLET PO SCH ×2 (09:31→17:32)
[2020-09-30] MEDS: DIAZEPAM 10 MG TABLET PO SCH ×4 (09:33→20:51)
[2020-09-30] MEDS: THIAMINE 100 MG TABLET PO SCH (09:35)
[2020-09-30] MEDS: LORazepam 2 MG TABLET PO PRN (14:54)
[2020-09-30 16:25] VITALS: BP 131/76
[2020-09-30] MEDS: MIRTAZAPINE 30 MG TABLET PO SCH (20:32)
[2020-09-30] MEDS: QUEtiapine FUMARATE 100 MG TABLET PO SCH (20:53)
[2020-09-30] MEDS ORDERED: DIAZEPAM 10 MG TABLET PO ONE (21:00)
[2020-10-01 05:35] VITALS: BP 134/84
[2020-10-01] MEDS ORDERED: DIAZEPAM 5 MG TABLET PO PRN (07:00)
[2020-10-01 08:00] VITALS: BP 138/91
[2020-10-01] MEDS: MULTIVITAMINS WITH MINERALS, THERAPEUTIC TABLET PO SCH ×2 (09:00→09:49)
[2020-10-01] MEDS: LevETIRAcetam 500 MG TABLET PO SCH ×2 (09:49→16:01)
[2020-10-01] MEDS: DIAZEPAM 5 MG TABLET PO SCH ×4 (09:50→20:18)
[2020-10-01] MEDS: FOLIC ACID 1 MG TABLET PO SCH (09:50)
[2020-10-01] MEDS: ACAMPROSATE CALCIUM 333 MG DR TABLET PO SCH ×3 (09:50→16:01)
[2020-10-01] MEDS: OMEGA-3/DHA/EPA/FISH OIL 1,000 MG CAPSULE PO SCH (09:50)
[2020-10-01] MEDS: GABAPENTIN 100 MG CAPSULE PO SCH ×4 (09:52→20:17)
[2020-10-01] MEDS: THIAMINE 100 MG TABLET PO SCH (09:54)
[2020-10-01 16:03] VITALS: BP 137/92
[2020-10-01 16:07] VITALS: BP 137/92
[2020-10-01] MEDS: LORazepam 2 MG TABLET PO PRN (16:43)
[2020-10-01] MEDS: QUEtiapine FUMARATE 100 MG TABLET PO SCH (20:17)
[2020-10-01] MEDS: MIRTAZAPINE 30 MG TABLET PO SCH (20:18)
[2020-10-02] MEDS: LORazepam 2 MG TABLET PO PRN ×3 (06:18→16:15)
[2020-10-02] MEDS: ACAMPROSATE CALCIUM 333 MG DR TABLET PO SCH ×3 (07:51→15:54)
[2020-10-02] MEDS: OMEGA-3/DHA/EPA/FISH OIL 1,000 MG CAPSULE PO SCH (07:52)
[2020-10-02] MEDS: DIAZEPAM 5 MG TABLET PO PRN ×2 (07:52→13:54)
[2020-10-02] MEDS: GABAPENTIN 100 MG CAPSULE PO SCH ×4 (07:53→20:04)
[2020-10-02] MEDS: MULTIVITAMINS WITH MINERALS, THERAPEUTIC TABLET PO SCH ×2 (07:53)
[2020-10-02] MEDS: LevETIRAcetam 500 MG TABLET PO SCH ×2 (07:53→15:54)
[2020-10-02] MEDS: FOLIC ACID 1 MG TABLET PO SCH (07:53)
[2020-10-02] MEDS: THIAMINE 100 MG TABLET PO SCH (07:54)
[2020-10-02 08:00] VITALS: BP 123/82
[2020-10-02] MEDS: NICOTINE 21 MG/24 HOUR PATCH TD PRN (10:56)
[2020-10-02 12:00] VITALS: BP 116/82
[2020-10-02 16:05] VITALS: BP 116/82
[2020-10-02 16:25] VITALS: BP 116/82
[2020-10-02] MEDS: QUEtiapine FUMARATE 100 MG TABLET PO SCH (20:04)
[2020-10-02] MEDS: MIRTAZAPINE 30 MG TABLET PO SCH (20:04)
[2020-10-03 06:29] VITALS: BP 118/85
[2020-10-03] MEDS: LORazepam 2 MG TABLET PO PRN ×4 (06:39→20:11)
[2020-10-03 08:00] VITALS: BP 131/84
[2020-10-03] MEDS: LevETIRAcetam 500 MG TABLET PO SCH ×2 (08:34→16:03)
[2020-10-03] MEDS: FOLIC ACID 1 MG TABLET PO SCH (08:34)
[2020-10-03] MEDS: OMEGA-3/DHA/EPA/FISH OIL 1,000 MG CAPSULE PO SCH (08:34)
[2020-10-03] MEDS: ACAMPROSATE CALCIUM 333 MG DR TABLET PO SCH ×3 (08:34→16:03)
[2020-10-03] MEDS: MULTIVITAMINS WITH MINERALS, THERAPEUTIC TABLET PO SCH ×2 (08:35→09:00)
[2020-10-03] MEDS: GABAPENTIN 100 MG CAPSULE PO SCH ×4 (08:35→20:11)
[2020-10-03] MEDS: THIAMINE 100 MG TABLET PO SCH (08:35)
[2020-10-03] MEDS: NICOTINE 21 MG/24 HOUR PATCH TD PRN (16:04)
[2020-10-03 16:36] VITALS: BP 118/79
[2020-10-03] MEDS: MIRTAZAPINE 30 MG TABLET PO SCH (20:11)
[2020-10-03] MEDS: AMOX TR/POT CLAV 875 MG/125 MG TABLET PO SCH (20:11)
[2020-10-03] MEDS: QUEtiapine FUMARATE 100 MG TABLET PO SCH (20:12)
[2020-10-03] MEDS ORDERED: NALT50TA PO (20:41)
[2020-10-03] MEDS ORDERED: GABA-1181 PO (20:41)
[2020-10-03] MEDS ORDERED: MIRT30 PO (20:41)
[2020-10-03] MEDS ORDERED: OMEG-135 PO (20:41)
[2020-10-03] MEDS ORDERED: LEVE500T53 PO (20:41)
[2020-10-03] MEDS ORDERED: QUET100T33 PO (20:41)
[2020-10-04 04:46] VITALS: BP 109/72
[2020-10-04 08:00] VITALS: BP 131/84
[2020-10-04] MEDS: FOLIC ACID 1 MG TABLET PO SCH ×2 (08:33→08:49)
[2020-10-04] MEDS: MULTIVITAMINS WITH MINERALS, THERAPEUTIC TABLET PO SCH ×2 (08:33→08:51)
[2020-10-04] MEDS: AMOX TR/POT CLAV 875 MG/125 MG TABLET PO SCH (08:33)
[2020-10-04] MEDS: GABAPENTIN 300 MG CAPSULE PO SCH ×2 (08:34→12:47)
[2020-10-04] MEDS: LevETIRAcetam 500 MG TABLET PO SCH (08:35)
[2020-10-04] MEDS: OMEGA-3/DHA/EPA/FISH OIL 1,000 MG CAPSULE PO SCH (08:35)
[2020-10-04] MEDS: THIAMINE 100 MG TABLET PO SCH (08:49)
[2020-10-04] MEDS ORDERED: NALTREXONE HCL 50 MG TABLET PO SCH (09:00)
[2020-10-04] MEDS: NICOTINE 21 MG/24 HOUR PATCH TD PRN (09:19)
[2020-10-04] MEDS ORDERED: AMOX1TAB16 PO (10:13)
== END 2020-10-04 11:25 | disposition home or self-care (01) | DRG 750 ==
LOC: EMS 13:42 → 3EC 18:47
PROVIDERS: ADMIT Psychiatry & Neurology Psychiatry; ATTEND Psychiatry & Neurology Psychiatry
DX: F25.0 Schizoaffective disorder, bipolar type (principal); D69.6 Thrombocytopenia, unspecified; Z20.822 Contact with and (suspected) exposure to COVID-19; B19.20 Unspecified viral hepatitis C without hepatic coma; D64.9 Anemia, unspecified; E87.6 Hypokalemia; F41.9 Anxiety disorder, unspecified; G40.909 Epilepsy, unspecified, not intractable, without status epilepticus; I10 Essential (primary) hypertension; J44.9 Chronic obstructive pulmonary disease, unspecified; Z80.3 Family history of malignant neoplasm of breast; K21.9 Gastro-esophageal reflux disease without esophagitis
CPT/HCPCS: 80053; 85025; 87426; 93005; 99285; G0480; J3420

== ENCOUNTER 2020-11-07 06:02 | Inpatient (IN) | payer MEDICAID, OTHER ==
[~2020-11-07] VITALS: Ht 177.8 cm; Wt 57.9 kg
[~2020-11-07 06:02] MED LIST changes: -ACAM333T7 PO; +AMOX1TAB16 PO; +GABA-1181 PO; -GABA-1201 PO; -MIRT-89 PO; +MIRT30 PO; +NALT50TA PO; +OMEG-135 PO; +QUET100T33 PO; -QUET200T PO
[2020-11-07 07:24] LABS: BASOPHILS % (AUTO) 0.9 % (0.0-2.0); HEMATOCRIT 40.4 % (41-53); HEMOGLOBIN 13.2 g/dL (13.5-17.5); LYMPHOCYTES # (AUTO) 0.9 K/uL (1.0-4.8); LYMPHOCYTES % (AUTO) 24.3 % (22.0-44.0); MEAN CORPUSCULAR HEMOGLOBIN 30.7 pg (26.0-34.0); MEAN CORPUSCULAR HGB CONC 32.8 G/dL (31.0-37.0); MEAN CORPUSCULAR VOLUME 94 fL (80-100); MONOCYTES # (AUTO) 0.5 K/uL (0.1-1.0); MONOCYTES % (AUTO) 12.2 % (2.0-9.0); NEUTROPHILS # (AUTO) 2.2 K/uL (1.8-7.7); NEUTROPHILS % (AUTO) 58.6 % (40.0-70.0); PLATELET COUNT (AUTO) 205 K/uL (150-450); RED BLOOD CELL COUNT(AUTO) 4.31 MIL/uL (4.50-5.90); RED CELL DISTRIBUTION WIDTH 13.6 % (11.5-14.5)
[2020-11-07 07:29] LABS: ANION GAP 3 mmol/L (8-16); CALCIUM, TOTAL 8.6 mg/dL (8.8-10.5); CARBON DIOXIDE 30 mmol/L (22-29); CHLORIDE 106 mmol/L (98-107); CREATININE 0.65 mg/dL (0.60-1.30); GLOMERULAR FILTR. RATE CALC > 60 mL/min (>60); GLUCOSE,RANDOM 124 mg/dL (70-110); POTASSIUM 3.3 mmol/L (3.5-5.1); SODIUM SERUM 139 mmol/L (136-145); UREA NITROGEN, BLOOD 15 mg/dL (7-18)
[2020-11-07 07:35] LABS: ALANINE AMINOTRANSFERASE 54 U/L (12-78); ALKALINE PHOSPHATASE 143 U/L (46-116); ASPARTATE AMINOTRANSFERASE 65 U/L (15-37); BILIRUBIN,TOTAL 0.4 mg/dL (0.1-1.0); TOTAL PROTEIN, SERUM 6.6 g/dL (6.4-8.2)
[2020-11-07] MEDS ORDERED: POTASSIUM CHLORIDE 20 MEQ ER TABLET PO ONE (08:15)
[2020-11-07 11:39] LABS: COVID AG,FIA SOURCE NASOPHARYNGEAL
[2020-11-07] MEDS ORDERED: HydrOXYzine PAMOATE 50 MG CAPSULE PO PRN ×2 (12:15→19:00)
[2020-11-07] MEDS ORDERED: QUEtiapine FUMARATE 100 MG TABLET PO PRN (12:15)
[2020-11-07] MEDS ORDERED: CYANOCOBALAMIN 1,000 MCG/ML VIAL IM ONE (12:15)
[2020-11-07] MEDS ORDERED: PROMETHAZINE HCL 25 MG TABLET PO PRN (12:15)
[2020-11-07] MEDS ORDERED: LOPERAMIDE HCL 2 MG CAPSULE PO PRN (12:15)
[2020-11-07] MEDS ORDERED: DIAZEPAM 10 MG TABLET PO PRN (12:15)
[2020-11-07] MEDS ORDERED: ZOLPIDEM TARTRATE 10 MG TABLET PO PRN ×2 (12:15)
[2020-11-07] MEDS ORDERED: GuaiFENesin/D-METHORPHAN [SUGAR-FREE] 200-20MG/10 ML SYRUP UDCUP PO PRN (12:15)
[2020-11-07] MEDS: GABAPENTIN 300 MG CAPSULE PO SCH ×4 (13:00→20:41)
[2020-11-07 13:17] VITALS: BP 147/97
[2020-11-07 13:29] VITALS: BP 147/97
[2020-11-07 14:00] VITALS: BP 130/75
[2020-11-07] MEDS ORDERED: IBUPROFEN 600 MG TABLET PO PRN ×2 (14:15→19:00)
[2020-11-07] MEDS ORDERED: ACETAMINOPHEN 325 MG TABLET PO PRN (14:15)
[2020-11-07 15:03] VITALS: BP 124/81
[2020-11-07 16:12] VITALS: BP 123/72
[2020-11-07] MEDS: LevETIRAcetam 500 MG TABLET PO SCH (16:44)
[2020-11-07] MEDS: THIAMINE 100 MG TABLET PO SCH (16:44)
[2020-11-07] MEDS ORDERED: CloNIDine HCL 0.1 MG TABLET PO PRN (19:00)
[2020-11-07] MEDS ORDERED: MAG HYDROX/AL HYDROX/SIMETH ES 30 ML SUSPENSION UDCUP PO PRN (19:00)
[2020-11-07 20:00] VITALS: BP 132/74
[2020-11-07] MEDS: QUEtiapine FUMARATE 200 MG TABLET PO SCH (20:40)
[2020-11-07] MEDS: MELATONIN 5 MG TABLET PO SCH (20:41)
[2020-11-07] MEDS: CloNIDine HCL 0.1 MG TABLET PO SCH (20:41)
[2020-11-08] MEDS: CloNIDine HCL 0.1 MG TABLET PO SCH ×4 (06:00→20:30)
[2020-11-08 06:26] VITALS: BP 107/59
[2020-11-08] MEDS ORDERED: DIAZEPAM 10 MG TABLET PO PRN (07:00)
[2020-11-08 08:45] VITALS: BP 118/85
[2020-11-08] MEDS: MULTIVITAMINS WITH MINERALS, THERAPEUTIC TABLET PO SCH (09:07)
[2020-11-08] MEDS: OMEGA-3/DHA/EPA/FISH OIL 1,000 MG CAPSULE PO SCH (09:07)
[2020-11-08] MEDS: ACAMPROSATE CALCIUM 333 MG DR TABLET PO SCH ×3 (09:07→17:04)
[2020-11-08] MEDS: THIAMINE 100 MG TABLET PO SCH ×2 (09:08→17:02)
[2020-11-08] MEDS: FOLIC ACID 1 MG TABLET PO SCH (09:08)
[2020-11-08] MEDS: LevETIRAcetam 500 MG TABLET PO SCH ×2 (09:08→17:02)
[2020-11-08] MEDS: DIAZEPAM 10 MG TABLET PO SCH ×4 (09:08→20:30)
[2020-11-08] MEDS: GABAPENTIN 300 MG CAPSULE PO SCH ×4 (09:09→20:30)
[2020-11-08 12:00] VITALS: BP 114/64
[2020-11-08 16:00] VITALS: BP 126/78
[2020-11-08 16:21] VITALS: BP 126/78
[2020-11-08 20:00] VITALS: BP 115/75
[2020-11-08] MEDS: MELATONIN 5 MG TABLET PO SCH (20:30)
[2020-11-08] MEDS: QUEtiapine FUMARATE 200 MG TABLET PO SCH (20:31)
[2020-11-09] MEDS: CloNIDine HCL 0.1 MG TABLET PO SCH ×4 (06:00→22:04)
[2020-11-09 06:13] VITALS: BP 110/66
[2020-11-09 08:09] VITALS: BP 129/81
[2020-11-09] MEDS: OMEGA-3/DHA/EPA/FISH OIL 1,000 MG CAPSULE PO SCH (08:44)
[2020-11-09] MEDS: LevETIRAcetam 500 MG TABLET PO SCH ×2 (08:44→16:56)
[2020-11-09] MEDS: THIAMINE 100 MG TABLET PO SCH ×2 (08:44→16:56)
[2020-11-09] MEDS: MULTIVITAMINS WITH MINERALS, THERAPEUTIC TABLET PO SCH (08:44)
[2020-11-09] MEDS: DIAZEPAM 10 MG TABLET PO SCH ×4 (08:44→20:55)
[2020-11-09] MEDS: GABAPENTIN 300 MG CAPSULE PO SCH ×3 (08:45→16:56)
[2020-11-09] MEDS: FOLIC ACID 1 MG TABLET PO SCH (08:45)
[2020-11-09] MEDS: ACAMPROSATE CALCIUM 333 MG DR TABLET PO SCH ×3 (08:45→16:55)
[2020-11-09 12:37] VITALS: BP 105/59
[2020-11-09 16:19] VITALS: BP 129/78
[2020-11-09 20:00] VITALS: BP 115/74
[2020-11-09] MEDS: QUEtiapine FUMARATE 300 MG TABLET PO SCH (20:55)
[2020-11-09] MEDS: GABAPENTIN 400 MG CAPSULE PO SCH (20:55)
[2020-11-09] MEDS: MELATONIN 5 MG TABLET PO SCH (20:55)
[2020-11-10] MEDS: CloNIDine HCL 0.1 MG TABLET PO SCH ×4 (06:00→21:02)
[2020-11-10 06:07] VITALS: BP 109/74
[2020-11-10] MEDS ORDERED: DIAZEPAM 5 MG TABLET PO PRN (07:00)
[2020-11-10 08:07] VITALS: BP 110/62
[2020-11-10] MEDS: MULTIVITAMINS WITH MINERALS, THERAPEUTIC TABLET PO SCH (09:00)
[2020-11-10] MEDS: ACAMPROSATE CALCIUM 333 MG DR TABLET PO SCH ×3 (09:00→17:42)
[2020-11-10] MEDS: FOLIC ACID 1 MG TABLET PO SCH (09:01)
[2020-11-10] MEDS: GABAPENTIN 400 MG CAPSULE PO SCH ×4 (09:01→21:02)
[2020-11-10] MEDS: OMEGA-3/DHA/EPA/FISH OIL 1,000 MG CAPSULE PO SCH (09:01)
[2020-11-10] MEDS: THIAMINE 100 MG TABLET PO SCH ×2 (09:02→17:43)
[2020-11-10] MEDS: DIAZEPAM 5 MG TABLET PO SCH ×4 (09:02→21:02)
[2020-11-10] MEDS: LevETIRAcetam 500 MG TABLET PO SCH ×2 (09:02→17:42)
[2020-11-10 12:50] VITALS: BP 116/72
[2020-11-10 16:00] VITALS: BP 138/86
[2020-11-10] MEDS: QUEtiapine FUMARATE 100 MG TABLET PO PRN (21:02)
[2020-11-10] MEDS: MELATONIN 5 MG TABLET PO SCH (21:03)
[2020-11-10] MEDS: QUEtiapine FUMARATE 300 MG TABLET PO SCH (21:07)
[2020-11-11 06:00] VITALS: BP 102/69
[2020-11-11] MEDS: CloNIDine HCL 0.1 MG TABLET PO SCH ×4 (06:00→22:26)
[2020-11-11] MEDS ORDERED: DIAZEPAM 5 MG TABLET PO PRN (07:00)
[2020-11-11] MEDS: THIAMINE 100 MG TABLET PO SCH ×2 (11:02→16:11)
[2020-11-11] MEDS: FOLIC ACID 1 MG TABLET PO SCH (11:02)
[2020-11-11] MEDS: MULTIVITAMINS WITH MINERALS, THERAPEUTIC TABLET PO SCH (11:02)
[2020-11-11] MEDS: ACAMPROSATE CALCIUM 333 MG DR TABLET PO SCH ×3 (11:02→16:42)
[2020-11-11] MEDS: OMEGA-3/DHA/EPA/FISH OIL 1,000 MG CAPSULE PO SCH (11:02)
[2020-11-11] MEDS: LevETIRAcetam 500 MG TABLET PO SCH ×2 (11:03→16:12)
[2020-11-11] MEDS: GABAPENTIN 400 MG CAPSULE PO SCH ×3 (11:03→16:12)
[2020-11-11 11:14] VITALS: BP 116/80
[2020-11-11] MEDS: NICOTINE 21 MG/24 HOUR PATCH TD PRN (16:25)
[2020-11-11 16:36] VITALS: BP 107/64
[2020-11-11 17:21] VITALS: BP 107/64
[2020-11-11] MEDS ORDERED: DIAZEPAM 10 MG TABLET PO ONE (19:15)
[2020-11-11] MEDS: GABAPENTIN 300 MG CAPSULE PO SCH (22:25)
[2020-11-11] MEDS: MELATONIN 5 MG TABLET PO SCH (22:25)
[2020-11-11] MEDS: QUEtiapine FUMARATE 200 MG TABLET PO SCH (22:25)
[2020-11-12] MEDS: CloNIDine HCL 0.1 MG TABLET PO SCH ×4 (06:19→22:00)
[2020-11-12] MEDS: DIAZEPAM 10 MG TABLET PO PRN ×3 (06:22→16:17)
[2020-11-12 08:10] VITALS: BP 102/66
[2020-11-12 08:15] VITALS: BP 102/66
[2020-11-12] MEDS: FOLIC ACID 1 MG TABLET PO SCH (08:49)
[2020-11-12] MEDS: OMEGA-3/DHA/EPA/FISH OIL 1,000 MG CAPSULE PO SCH (08:49)
[2020-11-12] MEDS: GABAPENTIN 300 MG CAPSULE PO SCH ×4 (08:49→21:00)
[2020-11-12] MEDS: MULTIVITAMINS WITH MINERALS, THERAPEUTIC TABLET PO SCH (08:50)
[2020-11-12] MEDS: LevETIRAcetam 500 MG TABLET PO SCH ×2 (08:50→18:09)
[2020-11-12] MEDS: THIAMINE 100 MG TABLET PO SCH ×2 (08:50→16:18)
[2020-11-12] MEDS: ACAMPROSATE CALCIUM 333 MG DR TABLET PO SCH ×3 (08:50→16:18)
[2020-11-12] MEDS: CARBAMIDE PEROXIDE 6.5% 15 ML OTIC SOLUTION AU SCH ×2 (08:51→18:09)
[2020-11-12 17:15] VITALS: BP 134/83
[2020-11-12 17:18] VITALS: BP 134/83
[2020-11-12] MEDS ORDERED: DiphenhydrAMINE HCL 50 MG/ML VIAL IM ONE (19:30)
[2020-11-12] MEDS ORDERED: LORazepam 2 MG/ML VIAL IM ONE (19:30)
[2020-11-12] MEDS: QUEtiapine FUMARATE 200 MG TABLET PO SCH (21:00)
[2020-11-12] MEDS: MELATONIN 5 MG TABLET PO SCH (21:00)
[2020-11-13 02:53] VITALS: BP 132/92
[2020-11-13] MEDS: DIAZEPAM 10 MG TABLET PO PRN ×2 (02:54→08:48)
[2020-11-13] MEDS: QUEtiapine FUMARATE 100 MG TABLET PO PRN (02:54)
[2020-11-13 05:49] VITALS: BP 141/88
[2020-11-13] MEDS: CloNIDine HCL 0.1 MG TABLET PO SCH (05:51)
[2020-11-13 08:15] VITALS: BP 141/88
[2020-11-13] MEDS: FOLIC ACID 1 MG TABLET PO SCH (08:43)
[2020-11-13] MEDS: ACAMPROSATE CALCIUM 333 MG DR TABLET PO SCH (08:43)
[2020-11-13] MEDS: THIAMINE 100 MG TABLET PO SCH (08:43)
[2020-11-13] MEDS: LevETIRAcetam 500 MG TABLET PO SCH (08:43)
[2020-11-13] MEDS: GABAPENTIN 300 MG CAPSULE PO SCH (08:44)
[2020-11-13] MEDS: OMEGA-3/DHA/EPA/FISH OIL 1,000 MG CAPSULE PO SCH (08:44)
[2020-11-13] MEDS: MULTIVITAMINS WITH MINERALS, THERAPEUTIC TABLET PO SCH (08:44)
[2020-11-13] MEDS: CARBAMIDE PEROXIDE 6.5% 15 ML OTIC SOLUTION AU SCH (08:45)
[2020-11-13 09:05] VITALS: BP 135/79
[2020-11-13] MEDS: NICOTINE 21 MG/24 HOUR PATCH TD PRN (09:30)
[2020-11-13 10:06] VITALS: BP 125/58
== END 2020-11-13 11:55 | disposition left against medical advice (07) | DRG 750 ==
LOC: EMS 06:04 → 3EI 12:47
PROVIDERS: ADMIT Psychiatry & Neurology Psychiatry; ATTEND Psychiatry & Neurology Psychiatry
DX: F25.0 Schizoaffective disorder, bipolar type (principal); G40.909 Epilepsy, unspecified, not intractable, without status epilepticus; R45.851 Suicidal ideations; F41.9 Anxiety disorder, unspecified; I10 Essential (primary) hypertension; J44.9 Chronic obstructive pulmonary disease, unspecified; F17.210 Nicotine dependence, cigarettes, uncomplicated; Z20.822 Contact with and (suspected) exposure to COVID-19; Z53.29 Procedure and treatment not carried out because of patient's decision for other reasons; F32.9 Major depressive disorder, single episode, unspecified; G89.29 Other chronic pain; M54.5 Low back pain; D64.9 Anemia, unspecified; B19.20 Unspecified viral hepatitis C without hepatic coma; E87.6 Hypokalemia; K21.9 Gastro-esophageal reflux disease without esophagitis; Z88.8 Allergy status to other drugs, medicaments and biological substances; Z59.0 Homelessness; Z79.899 Other long term (current) drug therapy
CPT/HCPCS: 80053; 85025; 99285; A9575; G0480; J1200; J2060; J3420

== ENCOUNTER 2021-06-12 13:24 | Inpatient (IN) | payer MEDICAID, OTHER ==
[~2021-06-12] VITALS: Ht 177.8 cm; Wt 57.9 kg
[2021-06-12 18:18] LABS: BASOPHILS % (AUTO) 0.5 % (0.0-2.0); EOSINOPHILS % (AUTO) 1.1 % (1.0-6.0); HEMATOCRIT 38.5 % (41-53); HEMOGLOBIN 12.8 g/dL (13.5-17.5); LYMPHOCYTES # (AUTO) 1.2 K/uL (1.0-4.8); LYMPHOCYTES % (AUTO) 23.2 % (22.0-44.0); MEAN CORPUSCULAR HEMOGLOBIN 29.5 pg (26.0-34.0); MEAN CORPUSCULAR HGB CONC 33.3 G/dL (31.0-37.0); MEAN CORPUSCULAR VOLUME 89 fL (80-100); MONOCYTES # (AUTO) 0.4 K/uL (0.1-1.0); MONOCYTES % (AUTO) 7.8 % (2.0-9.0); NEUTROPHILS # (AUTO) 3.5 K/uL (1.8-7.7); NEUTROPHILS % (AUTO) 67.4 % (40.0-70.0); PLATELET COUNT (AUTO) 257 K/uL (150-450); RED BLOOD CELL COUNT(AUTO) 4.35 MIL/uL (4.50-5.90); RED CELL DISTRIBUTION WIDTH 13.5 % (11.5-14.5)
[2021-06-12 18:35] LABS: ANION GAP 8 mmol/L (8-16); CALCIUM, TOTAL 8.8 mg/dL (8.8-10.5); CARBON DIOXIDE 31 mmol/L (22-29); CHLORIDE 102 mmol/L (98-107); CREATININE 0.67 mg/dL (0.60-1.30); GLOMERULAR FILTR. RATE CALC > 60 mL/min (>60); GLUCOSE,RANDOM 113 mg/dL (70-110); POTASSIUM 3.6 mmol/L (3.5-5.1); SODIUM SERUM 141 mmol/L (136-145); UREA NITROGEN, BLOOD 10 mg/dL (7-18)
[2021-06-12 18:40] LABS: ALANINE AMINOTRANSFERASE 52 U/L (12-78); ALBUMIN 2.9 g/dL (3.4-5.0); ALKALINE PHOSPHATASE 134 U/L (46-116); ASPARTATE AMINOTRANSFERASE 70 U/L (15-37); BILIRUBIN,TOTAL 0.2 mg/dL (0.1-1.0); TOTAL PROTEIN, SERUM 7.7 g/dL (6.4-8.2)
[2021-06-12 18:45] LABS: COVID AG,FIA SOURCE NASOPHARYNGEAL
[2021-06-12] MEDS ORDERED: LORazepam 1 MG TABLET PO ONE (18:45)
[2021-06-12 19:03] LABS: AMPHET/METH SCREEN,URINE NEGATIVE (NEGATIVE); BARBITURATE SCREEN, URINE NEGATIVE (NEGATIVE); BENZODIAZEPINES SCREEN,URINE NEGATIVE (NEGATIVE); CANNABINOID SCREEN,URINE POSITIVE (NEGATIVE); COCAINE SCREEN,URINE NEGATIVE (NEGATIVE); METHADONE SCREEN, URINE POSITIVE (NEGATIVE); OPIATE SCREEN,URINE NEGATIVE (NEGATIVE)
[2021-06-12 19:04] LABS: PHENCYCLIDINE SCREEN,URINE NEGATIVE (NEGATIVE)
[2021-06-12] MEDS ORDERED: OLANZapine 5 MG RAPDIS TABLET PO PRN (19:30)
[2021-06-12] MEDS ORDERED: LORazepam 2 MG TABLET PO PRN (19:30)
[2021-06-12] MEDS ORDERED: ZOLPIDEM TARTRATE 10 MG TABLET PO PRN (19:30)
[2021-06-12] MEDS ORDERED: QUEtiapine FUMARATE 100 MG TABLET PO PRN (21:45)
[2021-06-12] MEDS ORDERED: CYANOCOBALAMIN 1,000 MCG/ML VIAL IM ONE (21:45)
[2021-06-12] MEDS ORDERED: DIAZEPAM 10 MG TABLET PO PRN (21:45)
[2021-06-12] MEDS ORDERED: PROMETHAZINE HCL 25 MG TABLET PO PRN (21:45)
[2021-06-12] MEDS ORDERED: GuaiFENesin/D-METHORPHAN [SUGAR-FREE] 200-20MG/10 ML SYRUP UDCUP PO PRN (21:45)
[2021-06-12] MEDS ORDERED: MAG HYDROX/AL HYDROX/SIMETH ES 30 ML SUSPENSION UDCUP PO PRN (21:45)
[2021-06-12] MEDS ORDERED: TUBERCULIN, PURIFIED PROTEIN DERIVATIVE 5 TU/0.1 ML SYRINGE ID ONE (21:45)
[2021-06-12] MEDS ORDERED: LOPERAMIDE HCL 2 MG CAPSULE PO PRN ×2 (21:45)
[2021-06-13] VITALS (8 sets, daily range): BP systolic 106–147; BP diastolic 74–92
[2021-06-13] MEDS ORDERED: DIAZEPAM 10 MG TABLET PO PRN (07:00)
[2021-06-13] MEDS ORDERED: PALIPERIDONE PALMITATE 234 MG/1.5 ML SYRINGE IM ONE (09:00)
[2021-06-13] MEDS ORDERED: QUEtiapine FUMARATE 100 MG TABLET PO SCH (09:00)
[2021-06-13] MEDS: LevETIRAcetam 500 MG TABLET PO SCH ×2 (09:32→16:40)
[2021-06-13] MEDS: THIAMINE 100 MG TABLET PO SCH ×2 (09:32→16:40)
[2021-06-13] MEDS: DIAZEPAM 10 MG TABLET PO SCH ×4 (09:32→20:35)
[2021-06-13] MEDS: MULTIVITAMINS WITH MINERALS, THERAPEUTIC TABLET PO SCH (09:32)
[2021-06-13] MEDS: FOLIC ACID 1 MG TABLET PO SCH (09:33)
[2021-06-13] MEDS: GABAPENTIN 300 MG CAPSULE PO SCH ×3 (09:33→16:39)
[2021-06-13] MEDS: ACAMPROSATE CALCIUM 333 MG DR TABLET PO SCH ×3 (09:33→16:40)
[2021-06-13] MEDS ORDERED: INFLUENZA VIRUS VACCINE QVS 2021-22 (6MO+)/PF 60 MCG/0.5 ML SYRINGE IM. ONE (10:45)
[2021-06-13] MEDS ORDERED: CloNIDine HCL 0.1 MG TABLET PO PRN (13:15)
[2021-06-13] MEDS: QUEtiapine FUMARATE 100 MG TABLET PO SCH (16:51)
[2021-06-13] MEDS: QUEtiapine FUMARATE 200 MG TABLET PO SCH (20:35)
[2021-06-13] MEDS: MELATONIN 5 MG TABLET PO SCH (20:35)
[2021-06-14 00:32] VITALS: BP 110/73
[2021-06-14 08:15] VITALS: BP 127/77
[2021-06-14] MEDS: MULTIVITAMINS WITH MINERALS, THERAPEUTIC TABLET PO SCH (08:29)
[2021-06-14] MEDS: FOLIC ACID 1 MG TABLET PO SCH (08:29)
[2021-06-14] MEDS: DIAZEPAM 10 MG TABLET PO SCH ×4 (08:29→22:37)
[2021-06-14] MEDS: ACAMPROSATE CALCIUM 333 MG DR TABLET PO SCH ×3 (08:29→17:19)
[2021-06-14] MEDS: THIAMINE 100 MG TABLET PO SCH ×2 (08:29→17:19)
[2021-06-14] MEDS: QUEtiapine FUMARATE 100 MG TABLET PO SCH ×3 (08:30→17:20)
[2021-06-14] MEDS: GABAPENTIN 300 MG CAPSULE PO SCH ×3 (08:30→17:20)
[2021-06-14] MEDS: LevETIRAcetam 500 MG TABLET PO SCH ×2 (08:30→17:19)
[2021-06-14] MEDS: METHADONE HCL 10 MG TABLET PO SCH (08:33)
[2021-06-14 09:27] VITALS: BP 127/77
[2021-06-14] MEDS: HydrOXYzine PAMOATE 50 MG CAPSULE PO PRN (13:44)
[2021-06-14] MEDS ORDERED: PALIPERIDONE PALMITATE 234 MG/1.5 ML SYRINGE IM ONE (15:00)
[2021-06-14] MEDS ORDERED: PERMETHRIN 5% 60 GM CREAM TP ONE (16:30)
[2021-06-14] MEDS ORDERED: BACITRACIN 28 GM OINTMENT TP PRN (16:30)
[2021-06-14] MEDS: MELATONIN 5 MG TABLET PO SCH (21:00)
[2021-06-14] MEDS: QUEtiapine FUMARATE 200 MG TABLET PO SCH ×2 (21:00→22:36)
[2021-06-14 22:45] VITALS: BP 107/62
[2021-06-15 05:27] VITALS: BP 112/72
[2021-06-15] MEDS ORDERED: DIAZEPAM 5 MG TABLET PO PRN (07:00)
[2021-06-15] MEDS: GABAPENTIN 300 MG CAPSULE PO SCH ×2 (08:01→12:36)
[2021-06-15] MEDS: METHADONE HCL 10 MG TABLET PO SCH (08:01)
[2021-06-15] MEDS: MULTIVITAMINS WITH MINERALS, THERAPEUTIC TABLET PO SCH (08:01)
[2021-06-15] MEDS: ACAMPROSATE CALCIUM 333 MG DR TABLET PO SCH ×3 (08:01→16:56)
[2021-06-15] MEDS: FOLIC ACID 1 MG TABLET PO SCH (08:02)
[2021-06-15] MEDS: LevETIRAcetam 500 MG TABLET PO SCH ×2 (08:02→16:56)
[2021-06-15] MEDS: THIAMINE 100 MG TABLET PO SCH ×2 (08:03→16:56)
[2021-06-15] MEDS: DIAZEPAM 5 MG TABLET PO SCH ×4 (08:11→21:08)
[2021-06-15 08:20] VITALS: BP 105/55
[2021-06-15] MEDS: QUEtiapine FUMARATE 100 MG TABLET PO SCH ×3 (09:00→16:57)
[2021-06-15] MEDS: HydrOXYzine PAMOATE 50 MG CAPSULE PO PRN (14:32)
[2021-06-15] MEDS: GABAPENTIN 400 MG CAPSULE PO SCH (16:56)
[2021-06-15] MEDS ORDERED: QUEtiapine FUMARATE 300 MG TABLET PO SCH (21:00)
[2021-06-15] MEDS: MELATONIN 5 MG TABLET PO SCH (21:08)
[2021-06-16 05:27] VITALS: BP 110/62
[2021-06-16] MEDS ORDERED: DIAZEPAM 5 MG TABLET PO PRN (07:00)
[2021-06-16 08:18] VITALS: BP 103/77
[2021-06-16] MEDS: ACAMPROSATE CALCIUM 333 MG DR TABLET PO SCH ×3 (08:58→17:00)
[2021-06-16] MEDS: GABAPENTIN 400 MG CAPSULE PO SCH ×3 (08:58→17:01)
[2021-06-16] MEDS: FOLIC ACID 1 MG TABLET PO SCH (08:58)
[2021-06-16] MEDS: LevETIRAcetam 500 MG TABLET PO SCH ×2 (08:59→17:01)
[2021-06-16] MEDS: MULTIVITAMINS WITH MINERALS, THERAPEUTIC TABLET PO SCH (08:59)
[2021-06-16] MEDS: METHADONE HCL 10 MG TABLET PO SCH (08:59)
[2021-06-16] MEDS: THIAMINE 100 MG TABLET PO SCH ×2 (08:59→17:01)
[2021-06-16] MEDS: QUEtiapine FUMARATE 100 MG TABLET PO SCH ×3 (08:59→17:01)
[2021-06-16 16:03] VITALS: BP 109/62
[2021-06-16] MEDS: QUEtiapine FUMARATE 200 MG TABLET PO SCH (21:43)
[2021-06-16] MEDS: MELATONIN 5 MG TABLET PO SCH (21:43)
[2021-06-16] MEDS: CARBAMIDE PEROXIDE 6.5% 15 ML OTIC SOLUTION AU SCH (21:43)
[2021-06-17 00:09] VITALS: BP 110/64
[2021-06-17 08:06] VITALS: BP 117/70
[2021-06-17] MEDS ORDERED: PALIPERIDONE PALMITATE 156 MG/ML SYRINGE IM ONE (09:00)
[2021-06-17] MEDS: ACAMPROSATE CALCIUM 333 MG DR TABLET PO SCH ×3 (09:18→16:06)
[2021-06-17] MEDS: METHADONE HCL 10 MG TABLET PO SCH (09:21)
[2021-06-17] MEDS: GABAPENTIN 400 MG CAPSULE PO SCH ×3 (09:22→16:07)
[2021-06-17] MEDS: FOLIC ACID 1 MG TABLET PO SCH (09:23)
[2021-06-17] MEDS: LevETIRAcetam 500 MG TABLET PO SCH ×2 (09:23→16:06)
[2021-06-17] MEDS: MULTIVITAMINS WITH MINERALS, THERAPEUTIC TABLET PO SCH (09:23)
[2021-06-17] MEDS: QUEtiapine FUMARATE 100 MG TABLET PO SCH ×3 (09:25→16:07)
[2021-06-17] MEDS: THIAMINE 100 MG TABLET PO SCH ×2 (09:32→16:06)
[2021-06-17] MEDS: BACITRACIN 28 GM OINTMENT TP SCH (16:06)
[2021-06-17 16:07] VITALS: BP 104/68
[2021-06-17] MEDS: CEPHALEXIN MONOHYDRATE 500 MG CAPSULE PO SCH ×2 (16:07→20:34)
[2021-06-17 17:25] LABS: GLUCOMETER DEV NAME(LOC) POC.BV
[2021-06-17] MEDS: MELATONIN 5 MG TABLET PO SCH (20:33)
[2021-06-17] MEDS: QUEtiapine FUMARATE 200 MG TABLET PO SCH (20:34)
[2021-06-17] MEDS: CARBAMIDE PEROXIDE 6.5% 15 ML OTIC SOLUTION AU SCH (20:38)
[2021-06-18 05:45] VITALS: BP 110/64
[2021-06-18 08:16] VITALS: BP 99/69
[2021-06-18] MEDS: QUEtiapine FUMARATE 100 MG TABLET PO SCH ×3 (09:00→16:08)
[2021-06-18] MEDS ORDERED: PALIPERIDONE PALMITATE 156 MG/ML SYRINGE IM ONE (09:00)
[2021-06-18] MEDS: METHADONE HCL 10 MG TABLET PO SCH (09:08)
[2021-06-18] MEDS: ACAMPROSATE CALCIUM 333 MG DR TABLET PO SCH ×3 (09:08→16:10)
[2021-06-18] MEDS: LevETIRAcetam 500 MG TABLET PO SCH ×2 (09:10→16:09)
[2021-06-18] MEDS: CEPHALEXIN MONOHYDRATE 500 MG CAPSULE PO SCH ×4 (09:10→20:41)
[2021-06-18] MEDS: GABAPENTIN 400 MG CAPSULE PO SCH ×3 (09:10→16:09)
[2021-06-18] MEDS: FOLIC ACID 1 MG TABLET PO SCH (09:10)
[2021-06-18] MEDS: BACITRACIN 28 GM OINTMENT TP SCH ×2 (09:11→16:10)
[2021-06-18] MEDS: THIAMINE 100 MG TABLET PO SCH ×2 (09:11→16:09)
[2021-06-18] MEDS: MULTIVITAMINS WITH MINERALS, THERAPEUTIC TABLET PO SCH (09:11)
[2021-06-18] MEDS: MAGNESIUM HYDROXIDE SUSPENSION 30 ML UDCUP PO PRN ×2 (09:29→17:19)
[2021-06-18 16:09] VITALS: BP 98/63
[2021-06-18 17:25] VITALS: BP 104/65
[2021-06-18] MEDS: MELATONIN 5 MG TABLET PO SCH (20:41)
[2021-06-18] MEDS: QUEtiapine FUMARATE 200 MG TABLET PO SCH (20:41)
[2021-06-18] MEDS ORDERED: LACTULOSE 20 GM/30 ML SOLUTION UDCUP PO PRN (21:00)
[2021-06-18] MEDS ORDERED: BISACODYL 5 MG EC TABLET PO PRN (21:00)
[2021-06-18] MEDS: DOCUSATE SODIUM 250 MG CAPSULE PO SCH (21:19)
[2021-06-18] MEDS: CARBAMIDE PEROXIDE 6.5% 15 ML OTIC SOLUTION AU SCH (21:24)
[2021-06-19] MEDS: ACETAMINOPHEN 325 MG TABLET PO PRN ×2 (06:52→12:57)
[2021-06-19 07:52] VITALS: BP 120/78
[2021-06-19] MEDS: DOCUSATE SODIUM 250 MG CAPSULE PO SCH ×2 (08:29→17:10)
[2021-06-19] MEDS: FOLIC ACID 1 MG TABLET PO SCH (08:29)
[2021-06-19] MEDS: THIAMINE 100 MG TABLET PO SCH ×2 (08:30→17:10)
[2021-06-19] MEDS: MULTIVITAMINS WITH MINERALS, THERAPEUTIC TABLET PO SCH (08:30)
[2021-06-19] MEDS: GABAPENTIN 400 MG CAPSULE PO SCH ×3 (08:30→17:10)
[2021-06-19] MEDS: QUEtiapine FUMARATE 100 MG TABLET PO SCH ×3 (08:30→17:11)
[2021-06-19] MEDS: LevETIRAcetam 500 MG TABLET PO SCH ×2 (08:30→17:10)
[2021-06-19] MEDS: CEPHALEXIN MONOHYDRATE 500 MG CAPSULE PO SCH ×4 (08:31→20:52)
[2021-06-19] MEDS: ACAMPROSATE CALCIUM 333 MG DR TABLET PO SCH ×3 (08:31→17:10)
[2021-06-19] MEDS: METHADONE HCL 10 MG TABLET PO SCH (09:03)
[2021-06-19] MEDS: BACITRACIN 28 GM OINTMENT TP SCH ×2 (09:04→17:12)
[2021-06-19 09:11] VITALS: BP 120/78
[2021-06-19 12:57] VITALS: BP 112/64
[2021-06-19 16:25] VITALS: BP 107/64
[2021-06-19] MEDS: QUEtiapine FUMARATE 200 MG TABLET PO SCH (20:52)
[2021-06-19] MEDS: CARBAMIDE PEROXIDE 6.5% 15 ML OTIC SOLUTION AU SCH (20:53)
[2021-06-19] MEDS: MELATONIN 5 MG TABLET PO SCH (20:53)
[2021-06-20 01:34] VITALS: BP 91/65
[2021-06-20] MEDS: GABAPENTIN 400 MG CAPSULE PO SCH ×3 (08:46→16:32)
[2021-06-20] MEDS: DOCUSATE SODIUM 250 MG CAPSULE PO SCH ×2 (08:47→16:31)
[2021-06-20] MEDS: LevETIRAcetam 500 MG TABLET PO SCH ×2 (08:47→16:31)
[2021-06-20] MEDS: FOLIC ACID 1 MG TABLET PO SCH (08:47)
[2021-06-20] MEDS: METHADONE HCL 10 MG TABLET PO SCH (08:47)
[2021-06-20] MEDS: ACAMPROSATE CALCIUM 333 MG DR TABLET PO SCH ×3 (08:47→16:31)
[2021-06-20] MEDS: MULTIVITAMINS WITH MINERALS, THERAPEUTIC TABLET PO SCH (08:47)
[2021-06-20] MEDS: THIAMINE 100 MG TABLET PO SCH ×2 (08:48→16:31)
[2021-06-20] MEDS: CEPHALEXIN MONOHYDRATE 500 MG CAPSULE PO SCH ×4 (08:48→20:40)
[2021-06-20] MEDS: QUEtiapine FUMARATE 100 MG TABLET PO SCH ×3 (09:00→16:39)
[2021-06-20] MEDS: BACITRACIN 28 GM OINTMENT TP SCH ×2 (09:29→16:32)
[2021-06-20 11:52] VITALS: BP 117/79
[2021-06-20] MEDS ORDERED: ZOLP10TA2 PO (15:18)
[2021-06-20] MEDS ORDERED: LEVE500T8 PO (15:18)
[2021-06-20] MEDS ORDERED: ACAM333T7 PO (15:18)
[2021-06-20] MEDS ORDERED: GABA-1201 PO (15:18)
[2021-06-20] MEDS ORDERED: QUET200T30 PO (15:18)
[2021-06-20] MEDS ORDERED: QUET100T34 PO (15:18)
[2021-06-20] MEDS ORDERED: MELA5TAB40 PO (15:18)
[2021-06-20 16:34] VITALS: BP 103/62
[2021-06-20 16:35] VITALS: BP 113/62
[2021-06-20] MEDS: ACETAMINOPHEN 325 MG TABLET PO PRN (16:40)
[2021-06-20] MEDS: MELATONIN 5 MG TABLET PO SCH (20:40)
[2021-06-20] MEDS: QUEtiapine FUMARATE 200 MG TABLET PO SCH (20:40)
[2021-06-20] MEDS: CARBAMIDE PEROXIDE 6.5% 15 ML OTIC SOLUTION AU SCH (20:41)
[2021-06-21 00:44] VITALS: BP 109/63
[2021-06-21] MEDS: CEPHALEXIN MONOHYDRATE 500 MG CAPSULE PO SCH (08:12)
[2021-06-21] MEDS: ACAMPROSATE CALCIUM 333 MG DR TABLET PO SCH (08:12)
[2021-06-21] MEDS: DOCUSATE SODIUM 250 MG CAPSULE PO SCH (08:13)
[2021-06-21] MEDS: METHADONE HCL 10 MG TABLET PO SCH (08:13)
[2021-06-21] MEDS: GABAPENTIN 400 MG CAPSULE PO SCH (08:13)
[2021-06-21] MEDS: LevETIRAcetam 500 MG TABLET PO SCH (08:13)
[2021-06-21] MEDS: THIAMINE 100 MG TABLET PO SCH (08:13)
[2021-06-21] MEDS: FOLIC ACID 1 MG TABLET PO SCH (08:13)
[2021-06-21] MEDS: MULTIVITAMINS WITH MINERALS, THERAPEUTIC TABLET PO SCH (08:14)
[2021-06-21] MEDS: BACITRACIN 28 GM OINTMENT TP SCH (08:23)
[2021-06-21] MEDS: QUEtiapine FUMARATE 100 MG TABLET PO SCH (08:32)
[2021-06-21] MEDS ORDERED: CEPH500C3 PO (09:15)
[2021-06-21 09:23] VITALS: BP 110/60
== END 2021-06-21 11:30 | disposition home or self-care (01) | DRG 750 ==
LOC: EMS 13:28 → B2S 19:00
PROVIDERS: ADMIT Psychiatry & Neurology Psychiatry; ATTEND Psychiatry & Neurology Psychiatry
DX: F25.1 Schizoaffective disorder, depressive type (principal); E88.09 Other disorders of plasma-protein metabolism, not elsewhere classified; B19.20 Unspecified viral hepatitis C without hepatic coma; D64.9 Anemia, unspecified; F15.90 Other stimulant use, unspecified, uncomplicated; Z20.822 Contact with and (suspected) exposure to COVID-19; G40.409 Other generalized epilepsy and epileptic syndromes, not intractable, without status epilepticus; I95.1 Orthostatic hypotension; F17.210 Nicotine dependence, cigarettes, uncomplicated; J44.9 Chronic obstructive pulmonary disease, unspecified; Z55.9 Problems related to education and literacy, unspecified; Z65.3 Problems related to other legal circumstances; Z63.9 Problem related to primary support group, unspecified; Z59.9 Problem related to housing and economic circumstances, unspecified; Z91.51 Personal history of suicidal behavior; Z91.14 Patient's other noncompliance with medication regimen; Z88.8 Allergy status to other drugs, medicaments and biological substances
CPT/HCPCS: 80053; 85025; 99285; G0480; G0482; Q9967

== ENCOUNTER 2022-01-15 16:46 | Inpatient (IN) | payer MEDICAID, OTHER ==
[~2022-01-15] VITALS: Ht 177.8 cm; Wt 63.0 kg
[~2022-01-15 16:46] MED LIST changes: +ACAM333T7 PO; -AMOX1TAB16 PO; +CEPH-558 PO; -GABA-1181 PO; +GABA-1201 PO; -LEVE500T53 PO; +LEVE500T8 PO; +MELA5TAB40 PO; -MIRT30 PO; -NALT50TA PO; -OMEG-135 PO; -QUET100T33 PO; +QUET100T34 PO; +QUET200T30 PO
[2022-01-15 23:19] LABS: COVID AG,FIA SOURCE NASAL SWAB
[2022-01-15 23:23] LABS: BASOPHILS % (AUTO) 0.5 % (0.0-2.0); HEMATOCRIT 41.9 % (41-53); LYMPHOCYTES # (AUTO) 1.3 K/uL (1.0-4.8); LYMPHOCYTES % (AUTO) 26.9 % (22.0-44.0); MEAN CORPUSCULAR HGB CONC 33.6 G/dL (31.0-37.0); MEAN CORPUSCULAR VOLUME 89 fL (80-100); MONOCYTES # (AUTO) 0.4 K/uL (0.1-1.0); MONOCYTES % (AUTO) 8.7 % (2.0-9.0); NEUTROPHILS # (AUTO) 2.9 K/uL (1.8-7.7); NEUTROPHILS % (AUTO) 61.9 % (40.0-70.0); PLATELET COUNT (AUTO) 215 K/uL (150-450); RED BLOOD CELL COUNT(AUTO) 4.69 MIL/uL (4.50-5.90); RED CELL DISTRIBUTION WIDTH 14.1 % (11.5-14.5)
[2022-01-15 23:32] LABS: ANION GAP 9 mmol/L (8-16); CALCIUM, TOTAL 9.3 mg/dL (8.8-10.5); CARBON DIOXIDE 32 mmol/L (22-29); CHLORIDE 99 mmol/L (98-107); GLUCOSE,RANDOM 123 mg/dL (70-110); POTASSIUM 3.5 mmol/L (3.5-5.1); SODIUM SERUM 140 mmol/L (136-145); UREA NITROGEN, BLOOD 12 mg/dL (7-18)
[2022-01-15 23:33] LABS: GLOMERULAR FILTR. RATE CALC > 60 mL/min (>60)
[2022-01-15 23:38] LABS: ALANINE AMINOTRANSFERASE 52 U/L (12-78); ALBUMIN 3.4 g/dL (3.4-5.0); ALKALINE PHOSPHATASE 129 U/L (46-116); ASPARTATE AMINOTRANSFERASE 56 U/L (15-37); BILIRUBIN,TOTAL 0.3 mg/dL (0.1-1.0); TOTAL PROTEIN, SERUM 7.7 g/dL (6.4-8.2)
[2022-01-16] VITALS (8 sets, daily range): BP systolic 115–155; BP diastolic 67–96
[2022-01-16 05:20] LABS: AMPHET/METH SCREEN,URINE POSITIVE (NEGATIVE); BARBITURATE SCREEN, URINE NEGATIVE (NEGATIVE); BENZODIAZEPINES SCREEN,URINE POSITIVE (NEGATIVE); CANNABINOID SCREEN,URINE POSITIVE (NEGATIVE); COCAINE SCREEN,URINE NEGATIVE (NEGATIVE); METHADONE SCREEN, URINE POSITIVE (NEGATIVE); OPIATE SCREEN,URINE NEGATIVE (NEGATIVE); PHENCYCLIDINE SCREEN,URINE NEGATIVE (NEGATIVE)
[2022-01-16] MEDS ORDERED: ZOLPIDEM TARTRATE 10 MG TABLET PO PRN (07:30)
[2022-01-16] MEDS ORDERED: LORazepam 2 MG TABLET PO PRN (07:30)
[2022-01-16] MEDS ORDERED: QUEtiapine FUMARATE 100 MG TABLET PO PRN (07:30)
[2022-01-16] MEDS ORDERED: METHADONE HCL 10 MG TABLET PO ONE ×2 (08:30)
[2022-01-16] MEDS ORDERED: LORazepam 2 MG/ML VIAL IM ONE (08:30)
[2022-01-16] MEDS ORDERED: LOPERAMIDE HCL 2 MG CAPSULE PO PRN (09:45)
[2022-01-16] MEDS ORDERED: CloNIDine HCL 0.1 MG TABLET PO PRN ×2 (09:45→11:15)
[2022-01-16] MEDS ORDERED: MAG HYDROX/AL HYDROX/SIMETH ES 30 ML SUSPENSION UDCUP PO PRN ×2 (09:45)
[2022-01-16] MEDS ORDERED: PROMETHAZINE HCL 25 MG TABLET PO PRN (09:45)
[2022-01-16] MEDS ORDERED: GuaiFENesin/D-METHORPHAN [SUGAR-FREE] 200-20MG/10 ML SYRUP UDCUP PO PRN (09:45)
[2022-01-16] MEDS ORDERED: IBUPROFEN 600 MG TABLET PO PRN (09:45)
[2022-01-16] MEDS ORDERED: TUBERCULIN, PURIFIED PROTEIN DERIVATIVE 5 TU/0.1 ML SYRINGE ID ONE (09:45)
[2022-01-16] MEDS ORDERED: HydrOXYzine PAMOATE 50 MG CAPSULE PO PRN (09:45)
[2022-01-16] MEDS ORDERED: MAGNESIUM HYDROXIDE SUSPENSION 30 ML UDCUP PO PRN (09:45)
[2022-01-16] MEDS ORDERED: ACETAMINOPHEN 325 MG TABLET PO ONE (12:00)
[2022-01-16] MEDS: GABAPENTIN 400 MG CAPSULE PO SCH ×3 (12:34→21:48)
[2022-01-16] MEDS: CloNIDine HCL 0.1 MG TABLET PO SCH ×3 (12:34→22:00)
[2022-01-16] MEDS: ACAMPROSATE CALCIUM 333 MG DR TABLET PO SCH ×2 (12:35→16:25)
[2022-01-16] MEDS ORDERED: NICOTINE 21 MG/24 HOUR PATCH TD PRN (13:30)
[2022-01-16] MEDS: DIVALPROEX SODIUM 500 MG ER TABLET PO SCH (16:25)
[2022-01-16] MEDS: THIAMINE 100 MG TABLET PO SCH (16:25)
[2022-01-16] MEDS: LevETIRAcetam 500 MG TABLET PO SCH (16:26)
[2022-01-16] MEDS ORDERED: QUEtiapine FUMARATE 200 MG TABLET PO SCH (21:00)
[2022-01-16] MEDS ORDERED: MELATONIN 5 MG TABLET PO SCH (21:00)
[2022-01-16] MEDS: MELATONIN 5 MG TABLET PO SCH (21:48)
[2022-01-17] VITALS (8 sets, daily range): BP systolic 105–138; BP diastolic 62–79
[2022-01-17] MEDS: CloNIDine HCL 0.1 MG TABLET PO SCH ×4 (06:00→21:44)
[2022-01-17] MEDS: MULTIVITAMINS WITH MINERALS, THERAPEUTIC TABLET PO SCH (08:34)
[2022-01-17] MEDS: ACAMPROSATE CALCIUM 333 MG DR TABLET PO SCH ×3 (08:34→16:05)
[2022-01-17] MEDS: DIVALPROEX SODIUM 500 MG ER TABLET PO SCH ×2 (08:34→16:05)
[2022-01-17] MEDS: METHADONE HCL 10 MG TABLET PO SCH (08:35)
[2022-01-17] MEDS: GABAPENTIN 400 MG CAPSULE PO SCH ×4 (08:36→21:42)
[2022-01-17] MEDS: FOLIC ACID 1 MG TABLET PO SCH (08:36)
[2022-01-17] MEDS: LevETIRAcetam 500 MG TABLET PO SCH ×2 (08:36→16:05)
[2022-01-17] MEDS: THIAMINE 100 MG TABLET PO SCH ×2 (08:36→16:08)
[2022-01-17] MEDS: OMEGA-3/DHA/EPA/FISH OIL 1,000 MG CAPSULE PO SCH (08:36)
[2022-01-17] MEDS ORDERED: METHADONE HCL 10 MG TABLET PO SCH (09:00)
[2022-01-17] MEDS ORDERED: GABAPENTIN 300 MG CAPSULE PO PRN (11:15)
[2022-01-17] MEDS: HydrOXYzine PAMOATE 50 MG CAPSULE PO PRN (16:24)
[2022-01-17] MEDS: QUEtiapine FUMARATE 200 MG TABLET PO SCH (21:00)
[2022-01-17] MEDS: MELATONIN 5 MG TABLET PO SCH (21:42)
[2022-01-18] MEDS: CloNIDine HCL 0.1 MG TABLET PO SCH ×4 (05:43→22:00)
[2022-01-18 08:00] VITALS: BP 97/50
[2022-01-18] MEDS: OMEGA-3/DHA/EPA/FISH OIL 1,000 MG CAPSULE PO SCH (09:18)
[2022-01-18] MEDS: ACAMPROSATE CALCIUM 333 MG DR TABLET PO SCH ×3 (09:18→16:17)
[2022-01-18] MEDS: DIVALPROEX SODIUM 500 MG ER TABLET PO SCH ×2 (09:19→16:17)
[2022-01-18] MEDS: LevETIRAcetam 500 MG TABLET PO SCH ×2 (09:19→16:18)
[2022-01-18] MEDS: THIAMINE 100 MG TABLET PO SCH ×2 (09:19→16:17)
[2022-01-18] MEDS: FOLIC ACID 1 MG TABLET PO SCH (09:19)
[2022-01-18] MEDS: GABAPENTIN 400 MG CAPSULE PO SCH ×4 (09:19→20:22)
[2022-01-18] MEDS: MULTIVITAMINS WITH MINERALS, THERAPEUTIC TABLET PO SCH (09:19)
[2022-01-18] MEDS: METHADONE HCL 10 MG TABLET PO SCH (09:21)
[2022-01-18 12:41] LABS: CHOL/HDL RATIO 2.8 (4.2-7.3); FREE T4 (FREE THYROXINE) 0.94 ng/dL (0.76-1.46); THYROID STIMULATING HORMONE 1.33 uIU/mL (0.36-3.74)
[2022-01-18 12:42] LABS: HEMOGLOBIN A1C 5.7 % (3.8-5.6)
[2022-01-18] MEDS: HydrOXYzine PAMOATE 50 MG CAPSULE PO PRN (16:18)
[2022-01-18 16:32] VITALS: BP 99/69
[2022-01-18] MEDS: QUEtiapine FUMARATE 200 MG TABLET PO SCH (20:22)
[2022-01-18] MEDS: MELATONIN 5 MG TABLET PO SCH (20:22)
[2022-01-18 22:06] VITALS: BP 94/51
[2022-01-18 22:59] VITALS: BP 99/69
[2022-01-19] MEDS: CloNIDine HCL 0.1 MG TABLET PO SCH ×4 (06:00→20:23)
[2022-01-19 08:00] VITALS: BP 92/61
[2022-01-19 09:47] VITALS: BP 101/73
[2022-01-19 10:00] VITALS: BP 118/78
[2022-01-19] MEDS: THIAMINE 100 MG TABLET PO SCH ×2 (10:03→17:23)
[2022-01-19] MEDS: GABAPENTIN 400 MG CAPSULE PO SCH ×4 (10:03→20:23)
[2022-01-19] MEDS: DIVALPROEX SODIUM 500 MG ER TABLET PO SCH ×2 (10:03→17:22)
[2022-01-19] MEDS: METHADONE HCL 10 MG TABLET PO SCH (10:03)
[2022-01-19] MEDS: MULTIVITAMINS WITH MINERALS, THERAPEUTIC TABLET PO SCH (10:03)
[2022-01-19] MEDS: LevETIRAcetam 500 MG TABLET PO SCH ×2 (10:04→17:23)
[2022-01-19] MEDS: ACAMPROSATE CALCIUM 333 MG DR TABLET PO SCH ×3 (10:04→17:22)
[2022-01-19] MEDS: FOLIC ACID 1 MG TABLET PO SCH (10:06)
[2022-01-19] MEDS: OMEGA-3/DHA/EPA/FISH OIL 1,000 MG CAPSULE PO SCH (10:06)
[2022-01-19 12:02] VITALS: BP 100/60
[2022-01-19 16:00] VITALS: BP 97/57
[2022-01-19] MEDS: MELATONIN 5 MG TABLET PO SCH (20:23)
[2022-01-19] MEDS: QUEtiapine FUMARATE 200 MG TABLET PO SCH (20:27)
[2022-01-19 20:55] VITALS: BP 100/52
[2022-01-19] MEDS ORDERED: QUEtiapine FUMARATE 300 MG TABLET PO SCH (21:00)
[2022-01-20] MEDS: CloNIDine HCL 0.1 MG TABLET PO SCH ×4 (05:49→22:00)
[2022-01-20] MEDS: ACAMPROSATE CALCIUM 333 MG DR TABLET PO SCH ×3 (08:53→16:52)
[2022-01-20] MEDS: MULTIVITAMINS WITH MINERALS, THERAPEUTIC TABLET PO SCH (08:57)
[2022-01-20] MEDS: DIVALPROEX SODIUM 500 MG ER TABLET PO SCH ×2 (08:57→16:53)
[2022-01-20] MEDS: FOLIC ACID 1 MG TABLET PO SCH (08:57)
[2022-01-20] MEDS: OMEGA-3/DHA/EPA/FISH OIL 1,000 MG CAPSULE PO SCH (08:57)
[2022-01-20] MEDS: GABAPENTIN 400 MG CAPSULE PO SCH ×4 (08:57→20:41)
[2022-01-20] MEDS: LevETIRAcetam 500 MG TABLET PO SCH ×2 (08:57→16:53)
[2022-01-20] MEDS: THIAMINE 100 MG TABLET PO SCH ×2 (08:57→16:52)
[2022-01-20] MEDS: METHADONE HCL 10 MG TABLET PO SCH (08:59)
[2022-01-20 09:15] VITALS: BP 99/71
[2022-01-20 14:37] VITALS: BP 100/57
[2022-01-20 16:39] VITALS: BP 100/60
[2022-01-20] MEDS: MELATONIN 5 MG TABLET PO SCH (20:40)
[2022-01-20] MEDS: QUEtiapine FUMARATE 200 MG TABLET PO SCH (21:00)
[2022-01-20 21:16] VITALS: BP 100/60
[2022-01-21] MEDS: CloNIDine HCL 0.1 MG TABLET PO SCH ×4 (06:00→21:14)
[2022-01-21 06:10] VITALS: BP 113/71
[2022-01-21 06:31] LABS: COVID AG,FIA SOURCE NASAL SWAB
[2022-01-21 08:00] VITALS: BP 113/64
[2022-01-21] MEDS: LevETIRAcetam 500 MG TABLET PO SCH ×2 (08:19→16:20)
[2022-01-21] MEDS: METHADONE HCL 10 MG TABLET PO SCH (08:19)
[2022-01-21] MEDS: DIVALPROEX SODIUM 500 MG ER TABLET PO SCH ×2 (08:19→16:20)
[2022-01-21] MEDS: OMEGA-3/DHA/EPA/FISH OIL 1,000 MG CAPSULE PO SCH (08:19)
[2022-01-21] MEDS: ACAMPROSATE CALCIUM 333 MG DR TABLET PO SCH ×3 (08:20→16:20)
[2022-01-21] MEDS: GABAPENTIN 400 MG CAPSULE PO SCH ×4 (08:20→20:10)
[2022-01-21] MEDS: MULTIVITAMINS WITH MINERALS, THERAPEUTIC TABLET PO SCH (08:20)
[2022-01-21] MEDS: THIAMINE 100 MG TABLET PO SCH ×2 (08:20→16:20)
[2022-01-21] MEDS: FOLIC ACID 1 MG TABLET PO SCH (08:20)
[2022-01-21 12:20] VITALS: BP 111/68
[2022-01-21 16:28] VITALS: BP 83/55
[2022-01-21] MEDS: MELATONIN 5 MG TABLET PO SCH (20:10)
[2022-01-21] MEDS: QUEtiapine FUMARATE 200 MG TABLET PO SCH (20:11)
[2022-01-22] MEDS: CloNIDine HCL 0.1 MG TABLET PO SCH ×4 (06:00→22:00)
[2022-01-22 08:30] VITALS: BP 110/69
[2022-01-22] MEDS: MULTIVITAMINS WITH MINERALS, THERAPEUTIC TABLET PO SCH (08:34)
[2022-01-22] MEDS: LevETIRAcetam 500 MG TABLET PO SCH ×2 (08:34→16:06)
[2022-01-22] MEDS: OMEGA-3/DHA/EPA/FISH OIL 1,000 MG CAPSULE PO SCH (08:34)
[2022-01-22] MEDS: DIVALPROEX SODIUM 500 MG ER TABLET PO SCH ×2 (08:34→16:07)
[2022-01-22] MEDS: GABAPENTIN 400 MG CAPSULE PO SCH ×4 (08:35→20:03)
[2022-01-22] MEDS: THIAMINE 100 MG TABLET PO SCH ×2 (08:35→16:07)
[2022-01-22] MEDS: METHADONE HCL 10 MG TABLET PO SCH (08:35)
[2022-01-22] MEDS: FOLIC ACID 1 MG TABLET PO SCH (08:35)
[2022-01-22] MEDS: ACAMPROSATE CALCIUM 333 MG DR TABLET PO SCH ×3 (08:39→16:06)
[2022-01-22] MEDS ORDERED: OLANZapine 5 MG RAPDIS TABLET PO PRN (15:30)
[2022-01-22 16:00] VITALS: BP 103/56
[2022-01-22] MEDS: GABAPENTIN 100 MG CAPSULE PO SCH ×2 (16:07→20:03)
[2022-01-22] MEDS: MELATONIN 5 MG TABLET PO SCH (20:03)
[2022-01-22] MEDS ORDERED: OLANZapine 5 MG RAPDIS TABLET PO SCH (21:00)
[2022-01-23] MEDS: CloNIDine HCL 0.1 MG TABLET PO SCH ×4 (06:00→22:00)
[2022-01-23 08:30] VITALS: BP 121/80
[2022-01-23] MEDS: ACAMPROSATE CALCIUM 333 MG DR TABLET PO SCH ×3 (08:40→16:47)
[2022-01-23] MEDS: LevETIRAcetam 500 MG TABLET PO SCH ×2 (08:40→16:47)
[2022-01-23] MEDS: MULTIVITAMINS WITH MINERALS, THERAPEUTIC TABLET PO SCH (08:40)
[2022-01-23] MEDS: FOLIC ACID 1 MG TABLET PO SCH (08:41)
[2022-01-23] MEDS: GABAPENTIN 100 MG CAPSULE PO SCH ×4 (08:41→21:15)
[2022-01-23] MEDS: OMEGA-3/DHA/EPA/FISH OIL 1,000 MG CAPSULE PO SCH (08:41)
[2022-01-23] MEDS: DIVALPROEX SODIUM 500 MG ER TABLET PO SCH ×2 (08:41→16:47)
[2022-01-23] MEDS: GABAPENTIN 400 MG CAPSULE PO SCH ×4 (08:42→21:15)
[2022-01-23] MEDS: THIAMINE 100 MG TABLET PO SCH ×2 (08:44→16:47)
[2022-01-23] MEDS: METHADONE HCL 10 MG TABLET PO SCH (09:00)
[2022-01-23 16:11] VITALS: BP 113/69
[2022-01-23] MEDS: MELATONIN 5 MG TABLET PO SCH (21:14)
[2022-01-23] MEDS: OLANZapine 10 MG RAPDIS TABLET PO SCH (21:16)
[2022-01-24] MEDS: CloNIDine HCL 0.1 MG TABLET PO SCH ×4 (06:00→21:30)
[2022-01-24] MEDS: LevETIRAcetam 500 MG TABLET PO SCH ×2 (09:03→16:31)
[2022-01-24] MEDS: FOLIC ACID 1 MG TABLET PO SCH (09:03)
[2022-01-24] MEDS: METHADONE HCL 10 MG TABLET PO SCH (09:03)
[2022-01-24] MEDS: DIVALPROEX SODIUM 500 MG ER TABLET PO SCH ×2 (09:03→16:32)
[2022-01-24] MEDS: GABAPENTIN 100 MG CAPSULE PO SCH ×4 (09:03→21:29)
[2022-01-24] MEDS: ACAMPROSATE CALCIUM 333 MG DR TABLET PO SCH ×3 (09:04→16:31)
[2022-01-24] MEDS: MULTIVITAMINS WITH MINERALS, THERAPEUTIC TABLET PO SCH (09:04)
[2022-01-24] MEDS: GABAPENTIN 400 MG CAPSULE PO SCH ×4 (09:04→21:29)
[2022-01-24] MEDS: OMEGA-3/DHA/EPA/FISH OIL 1,000 MG CAPSULE PO SCH (09:04)
[2022-01-24] MEDS: THIAMINE 100 MG TABLET PO SCH ×2 (09:04→16:31)
[2022-01-24 10:01] VITALS: BP_SYST 128; BP_SYST 149; BP_DIAS 70; BP_DIAS 90
[2022-01-24 16:00] VITALS: BP 99/67
[2022-01-24] MEDS: OLANZapine 10 MG RAPDIS TABLET PO SCH (21:29)
[2022-01-24] MEDS: MELATONIN 5 MG TABLET PO SCH (21:29)
[2022-01-25] MEDS: CloNIDine HCL 0.1 MG TABLET PO SCH ×4 (06:00→22:00)
[2022-01-25 06:05] VITALS: BP 102/59
[2022-01-25] MEDS: FOLIC ACID 1 MG TABLET PO SCH (08:54)
[2022-01-25] MEDS: GABAPENTIN 100 MG CAPSULE PO SCH ×4 (08:54→20:45)
[2022-01-25] MEDS: ACAMPROSATE CALCIUM 333 MG DR TABLET PO SCH ×3 (08:54→16:15)
[2022-01-25] MEDS: METHADONE HCL 10 MG TABLET PO SCH (08:54)
[2022-01-25] MEDS: MULTIVITAMINS WITH MINERALS, THERAPEUTIC TABLET PO SCH (08:55)
[2022-01-25] MEDS: DIVALPROEX SODIUM 500 MG ER TABLET PO SCH ×2 (08:55→16:16)
[2022-01-25] MEDS: GABAPENTIN 400 MG CAPSULE PO SCH ×4 (08:55→20:45)
[2022-01-25] MEDS: OMEGA-3/DHA/EPA/FISH OIL 1,000 MG CAPSULE PO SCH (08:55)
[2022-01-25] MEDS: LevETIRAcetam 500 MG TABLET PO SCH ×2 (08:55→16:15)
[2022-01-25] MEDS: THIAMINE 100 MG TABLET PO SCH ×2 (08:55→16:15)
[2022-01-25 10:51] VITALS: BP 113/58
[2022-01-25 16:02] VITALS: BP 118/70
[2022-01-25] MEDS: MELATONIN 5 MG TABLET PO SCH (20:46)
[2022-01-25] MEDS: OLANZapine 10 MG RAPDIS TABLET PO SCH (20:46)
[2022-01-26] VITALS (8 sets, daily range): BP systolic 90–129; BP diastolic 57–87
[2022-01-26] MEDS: CloNIDine HCL 0.1 MG TABLET PO SCH ×4 (05:46→21:36)
[2022-01-26] MEDS: GABAPENTIN 400 MG CAPSULE PO SCH ×4 (08:31→20:28)
[2022-01-26] MEDS: FOLIC ACID 1 MG TABLET PO SCH (08:31)
[2022-01-26] MEDS: GABAPENTIN 100 MG CAPSULE PO SCH ×4 (08:31→20:28)
[2022-01-26] MEDS: LevETIRAcetam 500 MG TABLET PO SCH ×2 (08:31→17:01)
[2022-01-26] MEDS: DIVALPROEX SODIUM 500 MG ER TABLET PO SCH ×2 (08:31→17:01)
[2022-01-26] MEDS: MULTIVITAMINS WITH MINERALS, THERAPEUTIC TABLET PO SCH (08:31)
[2022-01-26] MEDS: THIAMINE 100 MG TABLET PO SCH (08:32)
[2022-01-26] MEDS: OMEGA-3/DHA/EPA/FISH OIL 1,000 MG CAPSULE PO SCH (08:32)
[2022-01-26] MEDS: ACAMPROSATE CALCIUM 333 MG DR TABLET PO SCH ×3 (08:32→17:16)
[2022-01-26] MEDS: METHADONE HCL 10 MG TABLET PO SCH (08:35)
[2022-01-26] MEDS: MELATONIN 5 MG TABLET PO SCH (20:28)
[2022-01-26] MEDS: OLANZapine 10 MG RAPDIS TABLET PO SCH (20:28)
[2022-01-27] MEDS: CloNIDine HCL 0.1 MG TABLET PO SCH ×4 (06:00→22:00)
[2022-01-27] MEDS: GABAPENTIN 400 MG CAPSULE PO SCH ×4 (08:18→21:13)
[2022-01-27] MEDS: GABAPENTIN 100 MG CAPSULE PO SCH ×4 (08:18→21:13)
[2022-01-27] MEDS: OMEGA-3/DHA/EPA/FISH OIL 1,000 MG CAPSULE PO SCH (08:19)
[2022-01-27] MEDS: LevETIRAcetam 500 MG TABLET PO SCH ×2 (08:19→16:22)
[2022-01-27] MEDS: DIVALPROEX SODIUM 500 MG ER TABLET PO SCH ×2 (08:19→16:23)
[2022-01-27] MEDS: MULTIVITAMINS WITH MINERALS, THERAPEUTIC TABLET PO SCH (08:19)
[2022-01-27] MEDS: METHADONE HCL 10 MG TABLET PO SCH (08:20)
[2022-01-27] MEDS: ACAMPROSATE CALCIUM 333 MG DR TABLET PO SCH ×3 (08:20→16:22)
[2022-01-27 08:54] VITALS: BP 150/74
[2022-01-27 08:59] VITALS: BP 150/74
[2022-01-27 16:00] VITALS: BP 145/75
[2022-01-27] MEDS: MELATONIN 5 MG TABLET PO SCH (21:13)
[2022-01-27] MEDS: OLANZapine 10 MG RAPDIS TABLET PO SCH (21:13)
[2022-01-27 22:21] VITALS: BP 112/68
[2022-01-28] MEDS: CloNIDine HCL 0.1 MG TABLET PO SCH ×3 (06:00→17:00)
[2022-01-28 07:04] LABS: COVID AG,FIA SOURCE NASAL SWAB
[2022-01-28 08:00] VITALS: BP 122/70
[2022-01-28 08:52] VITALS: BP 122/70
[2022-01-28] MEDS: ACAMPROSATE CALCIUM 333 MG DR TABLET PO SCH ×3 (08:57→17:15)
[2022-01-28] MEDS: MULTIVITAMINS WITH MINERALS, THERAPEUTIC TABLET PO SCH (09:02)
[2022-01-28] MEDS: LevETIRAcetam 500 MG TABLET PO SCH ×2 (09:02→17:15)
[2022-01-28] MEDS: DIVALPROEX SODIUM 500 MG ER TABLET PO SCH ×2 (09:02→17:15)
[2022-01-28] MEDS: OMEGA-3/DHA/EPA/FISH OIL 1,000 MG CAPSULE PO SCH (09:03)
[2022-01-28] MEDS: METHADONE HCL 10 MG TABLET PO SCH (09:03)
[2022-01-28] MEDS: GABAPENTIN 100 MG CAPSULE PO SCH ×4 (09:03→20:31)
[2022-01-28] MEDS: GABAPENTIN 400 MG CAPSULE PO SCH ×4 (09:04→20:12)
[2022-01-28 12:02] VITALS: BP 118/65
[2022-01-28 16:06] VITALS: BP 97/65
[2022-01-28 17:43] VITALS: BP 114/68
[2022-01-28] MEDS: MELATONIN 5 MG TABLET PO SCH (20:12)
[2022-01-28] MEDS: OLANZapine 10 MG RAPDIS TABLET PO SCH (20:12)
[2022-01-28 20:30] VITALS: BP 101/62
[2022-01-29] VITALS: BP 110/72
[2022-01-29 03:30] VITALS: BP 115/69
[2022-01-29 08:06] VITALS: BP 124/71
[2022-01-29] MEDS ORDERED: METHADONE HCL 10 MG TABLET PO SCH (09:00)
[2022-01-29] MEDS: ACAMPROSATE CALCIUM 333 MG DR TABLET PO SCH ×3 (09:18→16:17)
[2022-01-29] MEDS: OMEGA-3/DHA/EPA/FISH OIL 1,000 MG CAPSULE PO SCH (09:18)
[2022-01-29] MEDS: LevETIRAcetam 500 MG TABLET PO SCH ×2 (09:18→16:15)
[2022-01-29] MEDS: GABAPENTIN 100 MG CAPSULE PO SCH ×4 (09:19→20:16)
[2022-01-29] MEDS: GABAPENTIN 400 MG CAPSULE PO SCH ×4 (09:19→20:16)
[2022-01-29] MEDS: MULTIVITAMINS WITH MINERALS, THERAPEUTIC TABLET PO SCH (09:23)
[2022-01-29] MEDS: METHADONE HCL 10 MG TABLET PO SCH (09:26)
[2022-01-29] MEDS: DIVALPROEX SODIUM 500 MG ER TABLET PO SCH ×2 (09:26→16:14)
[2022-01-29] MEDS: ACETAMINOPHEN 325 MG TABLET PO PRN (18:57)
[2022-01-29] MEDS: MELATONIN 5 MG TABLET PO SCH (20:15)
[2022-01-29] MEDS: OLANZapine 10 MG RAPDIS TABLET PO SCH (20:16)
[2022-01-30] MEDS: OMEGA-3/DHA/EPA/FISH OIL 1,000 MG CAPSULE PO SCH (08:07)
[2022-01-30] MEDS: DIVALPROEX SODIUM 500 MG ER TABLET PO SCH ×2 (08:07→17:10)
[2022-01-30] MEDS: ACAMPROSATE CALCIUM 333 MG DR TABLET PO SCH ×3 (08:07→17:10)
[2022-01-30] MEDS: MULTIVITAMINS WITH MINERALS, THERAPEUTIC TABLET PO SCH (08:07)
[2022-01-30] MEDS: GABAPENTIN 400 MG CAPSULE PO SCH ×4 (08:07→21:26)
[2022-01-30] MEDS: GABAPENTIN 100 MG CAPSULE PO SCH ×4 (08:07→21:26)
[2022-01-30] MEDS: LevETIRAcetam 500 MG TABLET PO SCH ×2 (08:07→17:09)
[2022-01-30 09:06] VITALS: BP 99/55
[2022-01-30 10:13] VITALS: BP 99/50
[2022-01-30 11:50] VITALS: BP 127/79
[2022-01-30] MEDS: METHADONE HCL 10 MG TABLET PO SCH (11:52)
[2022-01-30] MEDS: MELATONIN 5 MG TABLET PO SCH (21:26)
[2022-01-30] MEDS: OLANZapine 10 MG RAPDIS TABLET PO SCH (21:27)
[2022-01-31 00:19] VITALS: BP 124/83
[2022-01-31] MEDS: ACETAMINOPHEN 325 MG TABLET PO PRN (00:21)
[2022-01-31] MEDS: ACAMPROSATE CALCIUM 333 MG DR TABLET PO SCH ×3 (08:46→16:40)
[2022-01-31] MEDS: MULTIVITAMINS WITH MINERALS, THERAPEUTIC TABLET PO SCH (08:47)
[2022-01-31] MEDS: DIVALPROEX SODIUM 500 MG ER TABLET PO SCH ×2 (08:47→16:40)
[2022-01-31] MEDS: METHADONE HCL 10 MG TABLET PO SCH (08:47)
[2022-01-31] MEDS: GABAPENTIN 400 MG CAPSULE PO SCH ×4 (08:47→20:52)
[2022-01-31] MEDS: LevETIRAcetam 500 MG TABLET PO SCH ×2 (08:47→16:40)
[2022-01-31] MEDS: OMEGA-3/DHA/EPA/FISH OIL 1,000 MG CAPSULE PO SCH (08:48)
[2022-01-31] MEDS: GABAPENTIN 100 MG CAPSULE PO SCH ×4 (08:48→20:52)
[2022-01-31 09:14] VITALS: BP 111/62
[2022-01-31 10:10] VITALS: BP 98/48
[2022-01-31 16:00] VITALS: BP 105/63
[2022-01-31] MEDS: MELATONIN 5 MG TABLET PO SCH (20:52)
[2022-01-31] MEDS: OLANZapine 10 MG RAPDIS TABLET PO SCH (20:53)
[2022-02-01] MEDS: MULTIVITAMINS WITH MINERALS, THERAPEUTIC TABLET PO SCH (08:49)
[2022-02-01] MEDS: GABAPENTIN 400 MG CAPSULE PO SCH ×4 (08:50→21:03)
[2022-02-01] MEDS: DIVALPROEX SODIUM 500 MG ER TABLET PO SCH ×2 (08:50→17:53)
[2022-02-01] MEDS: METHADONE HCL 10 MG TABLET PO SCH (08:50)
[2022-02-01] MEDS: ACAMPROSATE CALCIUM 333 MG DR TABLET PO SCH ×3 (08:50→17:53)
[2022-02-01 08:51] VITALS: BP 109/70
[2022-02-01] MEDS: LevETIRAcetam 500 MG TABLET PO SCH ×2 (08:51→17:54)
[2022-02-01] MEDS: GABAPENTIN 100 MG CAPSULE PO SCH ×4 (09:40→21:03)
[2022-02-01] MEDS: OMEGA-3/DHA/EPA/FISH OIL 1,000 MG CAPSULE PO SCH (09:40)
[2022-02-01 16:32] VITALS: BP 111/62
[2022-02-01 16:33] VITALS: BP 111/62
[2022-02-01] MEDS: OLANZapine 10 MG RAPDIS TABLET PO SCH (21:03)
[2022-02-01] MEDS: MELATONIN 5 MG TABLET PO SCH (21:03)
[2022-02-02 08:30] VITALS: BP 103/74
[2022-02-02] MEDS: METHADONE HCL 10 MG TABLET PO SCH (08:54)
[2022-02-02] MEDS: GABAPENTIN 400 MG CAPSULE PO SCH (08:55)
[2022-02-02] MEDS: LevETIRAcetam 500 MG TABLET PO SCH (08:55)
[2022-02-02] MEDS: DIVALPROEX SODIUM 500 MG ER TABLET PO SCH (08:55)
[2022-02-02] MEDS: ACAMPROSATE CALCIUM 333 MG DR TABLET PO SCH (08:55)
[2022-02-02] MEDS: MULTIVITAMINS WITH MINERALS, THERAPEUTIC TABLET PO SCH (08:55)
[2022-02-02] MEDS: OMEGA-3/DHA/EPA/FISH OIL 1,000 MG CAPSULE PO SCH (08:55)
[2022-02-02] MEDS: GABAPENTIN 100 MG CAPSULE PO SCH (08:55)
[2022-02-02] MEDS ORDERED: ACAM333T7 PO (11:20)
[2022-02-02] MEDS ORDERED: GABA-1216 PO (11:21)
[2022-02-02] MEDS ORDERED: DIVA-80 PO (11:22)
[2022-02-02] MEDS ORDERED: GABA-1201 PO (11:22)
[2022-02-02] MEDS ORDERED: OLAN10TA26 PO (11:23)
[2022-02-02] MEDS ORDERED: MELA5TAB40 PO (11:24)
[2022-02-02] MEDS ORDERED: LEVE1000 PO (12:02)
== END 2022-02-02 12:10 | disposition home or self-care (01) | DRG 750 ==
LOC: EMS 16:46 → 3EI 01-16 08:23
PROVIDERS: ADMIT Psychiatry & Neurology Psychiatry; ATTEND Psychiatry & Neurology Psychiatry
DX: F25.1 Schizoaffective disorder, depressive type (principal); G40.909 Epilepsy, unspecified, not intractable, without status epilepticus; D64.9 Anemia, unspecified; Z91.19 Patient's noncompliance with other medical treatment and regimen; F15.90 Other stimulant use, unspecified, uncomplicated; F11.90 Opioid use, unspecified, uncomplicated; F14.90 Cocaine use, unspecified, uncomplicated; F41.9 Anxiety disorder, unspecified; F60.0 Paranoid personality disorder; F12.90 Cannabis use, unspecified, uncomplicated; G89.29 Other chronic pain; J44.9 Chronic obstructive pulmonary disease, unspecified; Z96.641 Presence of right artificial hip joint; Z20.822 Contact with and (suspected) exposure to COVID-19; N40.0 Benign prostatic hyperplasia without lower urinary tract symptoms; Z87.891 Personal history of nicotine dependence; Z99.3 Dependence on wheelchair; Z79.899 Other long term (current) drug therapy; Z88.0 Allergy status to penicillin
CPT/HCPCS: 71110; 72040; 80053; 80061; 80164; 83036; 84439; 84443; 85025; 86592; 93005; 97110; 97116; 97162; 97165; 97530; 97535; 99285; G0480; G0482; Q9967

== ENCOUNTER 2022-02-21 22:42 | Inpatient (IN) | payer MEDICAID, OTHER ==
[~2022-02-21] VITALS: Ht 177.8 cm; Wt 66.7 kg
[~2022-02-21 22:42] MED LIST changes: -CEPH-558 PO; +DIVA-80 PO; +GABA-1216 PO; +LEVE1000 PO; +OLAN10TA26 PO
[2022-02-21 23:29] LABS: BASOPHILS % (AUTO) 0.7 % (0.0-2.0); EOSINOPHILS % (AUTO) 5.9 % (1.0-6.0); HEMATOCRIT 37.5 % (41-53); HEMOGLOBIN 12.3 g/dL (13.5-17.5); LYMPHOCYTES # (AUTO) 1.4 K/uL (1.0-4.8); LYMPHOCYTES % (AUTO) 32.3 % (22.0-44.0); MEAN CORPUSCULAR HEMOGLOBIN 30.5 pg (26.0-34.0); MEAN CORPUSCULAR HGB CONC 32.8 G/dL (31.0-37.0); MEAN CORPUSCULAR VOLUME 93 fL (80-100); MONOCYTES # (AUTO) 0.5 K/uL (0.1-1.0); MONOCYTES % (AUTO) 11.8 % (2.0-9.0); NEUTROPHILS # (AUTO) 2.1 K/uL (1.8-7.7); NEUTROPHILS % (AUTO) 49.3 % (40.0-70.0); PLATELET COUNT (AUTO) 154 K/uL (150-450); RED BLOOD CELL COUNT(AUTO) 4.04 MIL/uL (4.50-5.90); RED CELL DISTRIBUTION WIDTH 14.6 % (11.5-14.5)
[2022-02-21 23:37] LABS: CARBON DIOXIDE 34 mmol/L (22-29); CHLORIDE 103 mmol/L (98-107); POTASSIUM 3.7 mmol/L (3.5-5.1); SODIUM SERUM 138 mmol/L (136-145)
[2022-02-21 23:38] LABS: ANION GAP 1 mmol/L (8-16); CALCIUM, TOTAL 8.7 mg/dL (8.8-10.5); CREATININE 0.88 mg/dL (0.60-1.30); GLUCOSE,RANDOM 89 mg/dL (70-110); UREA NITROGEN, BLOOD 14 mg/dL (7-18)
[2022-02-21 23:42] LABS: COVID AG,FIA SOURCE NASAL SWAB
[2022-02-21 23:42] LABS: GLOMERULAR FILTR. RATE CALC > 60 mL/min (>60)
[2022-02-21 23:43] LABS: ALANINE AMINOTRANSFERASE 56 U/L (12-78); ALBUMIN 3.2 g/dL (3.4-5.0); ALKALINE PHOSPHATASE 141 U/L (46-116); ASPARTATE AMINOTRANSFERASE 66 U/L (15-37); BILIRUBIN,TOTAL 0.3 mg/dL (0.1-1.0); TOTAL PROTEIN, SERUM 6.9 g/dL (6.4-8.2)
[2022-02-22] MEDS ORDERED: ZOLPIDEM TARTRATE 10 MG TABLET PO PRN (00:30)
[2022-02-22] MEDS ORDERED: LORazepam 2 MG TABLET PO PRN (00:30)
[2022-02-22] MEDS ORDERED: HALOPERIDOL 5 MG TABLET PO PRN (00:30)
[2022-02-22] MEDS ORDERED: ACETAMINOPHEN 500 MG TABLET PO ONE (02:15)
[2022-02-22 03:19] VITALS: BP 118/76
[2022-02-22] MEDS ORDERED: ACETAMINOPHEN 325 MG TABLET PO PRN ×2 (06:45→11:15)
[2022-02-22] MEDS ORDERED: GABAPENTIN 300 MG CAPSULE PO SCH (09:00)
[2022-02-22 09:57] VITALS: BP 129/81
[2022-02-22] MEDS: METHADONE HCL 10 MG TABLET PO SCH (10:06)
[2022-02-22] MEDS: LevETIRAcetam 500 MG TABLET PO SCH ×3 (10:07→16:40)
[2022-02-22] MEDS ORDERED: PNEUMOCOCCAL VACCINE POLYVALENT 0.5 ML VIAL [PPSV23] IM. ONE (11:15)
[2022-02-22] MEDS ORDERED: HydrOXYzine PAMOATE 50 MG CAPSULE PO PRN (11:15)
[2022-02-22] MEDS ORDERED: GABAPENTIN 300 MG CAPSULE PO PRN (11:15)
[2022-02-22] MEDS ORDERED: MAG HYDROX/AL HYDROX/SIMETH ES 30 ML SUSPENSION UDCUP PO PRN (11:15)
[2022-02-22] MEDS ORDERED: INFLUENZA VIRUS VACCINE QVS 2022-23 (6MO+)/PF 60 MCG/0.5 ML SYRINGE IM. ONE (11:15)
[2022-02-22] MEDS ORDERED: GuaiFENesin/D-METHORPHAN [SUGAR-FREE] 200-20MG/10 ML SYRUP UDCUP PO PRN (11:15)
[2022-02-22] MEDS ORDERED: LOPERAMIDE HCL 2 MG CAPSULE PO PRN (11:15)
[2022-02-22] MEDS ORDERED: MAGNESIUM HYDROXIDE SUSPENSION 30 ML UDCUP PO PRN (11:15)
[2022-02-22] MEDS ORDERED: PALIPERIDONE PALMITATE 234 MG/1.5 ML SYRINGE IM ONE (11:45)
[2022-02-22] MEDS ORDERED: DIAZEPAM 10 MG TABLET PO PRN (11:45)
[2022-02-22] MEDS: ACAMPROSATE CALCIUM 333 MG DR TABLET PO SCH ×2 (12:21→16:12)
[2022-02-22] MEDS: GABAPENTIN 300 MG CAPSULE PO SCH ×3 (12:22→20:25)
[2022-02-22] MEDS: THIAMINE 100 MG TABLET PO SCH (16:12)
[2022-02-22 16:25] VITALS: BP 144/89
[2022-02-22] MEDS: DIVALPROEX SODIUM 500 MG ER TABLET PO SCH (20:24)
[2022-02-22] MEDS: OLANZapine 5 MG RAPDIS TABLET PO SCH (20:25)
[2022-02-22] MEDS: MELATONIN 5 MG TABLET PO SCH (20:25)
[2022-02-22] MEDS: PROMETHAZINE HCL 25 MG TABLET PO PRN (20:45)
[2022-02-22] MEDS ORDERED: MELATONIN 5 MG TABLET PO SCH (21:00)
[2022-02-23] MEDS ORDERED: DIAZEPAM 10 MG TABLET PO PRN (07:00)
[2022-02-23] MEDS ORDERED: DIAZEPAM 10 MG TABLET PO SCH (09:00)
[2022-02-23] MEDS: ACAMPROSATE CALCIUM 333 MG DR TABLET PO SCH ×3 (09:00→16:21)
[2022-02-23] MEDS: THIAMINE 100 MG TABLET PO SCH ×2 (09:10→16:21)
[2022-02-23] MEDS: LevETIRAcetam 500 MG TABLET PO SCH ×2 (09:10→16:21)
[2022-02-23] MEDS: OMEGA-3/DHA/EPA/FISH OIL 1,000 MG CAPSULE PO SCH (09:10)
[2022-02-23] MEDS: FOLIC ACID 1 MG TABLET PO SCH (09:10)
[2022-02-23] MEDS: GABAPENTIN 300 MG CAPSULE PO SCH ×4 (09:10→20:28)
[2022-02-23] MEDS: MULTIVITAMINS WITH MINERALS, THERAPEUTIC TABLET PO SCH (09:10)
[2022-02-23] MEDS: METHADONE HCL 10 MG TABLET PO SCH (09:11)
[2022-02-23 09:35] VITALS: BP 163/68
[2022-02-23] MEDS: PROMETHAZINE HCL 25 MG TABLET PO PRN (12:13)
[2022-02-23 16:12] VITALS: BP 128/80
[2022-02-23 20:26] VITALS: BP 129/78
[2022-02-23] MEDS: OLANZapine 5 MG RAPDIS TABLET PO SCH (20:28)
[2022-02-23] MEDS: MELATONIN 5 MG TABLET PO SCH (20:28)
[2022-02-23] MEDS: DIVALPROEX SODIUM 500 MG ER TABLET PO SCH (20:29)
[2022-02-24 08:57] VITALS: BP 135/80
[2022-02-24] MEDS: ACAMPROSATE CALCIUM 333 MG DR TABLET PO SCH ×3 (08:58→16:48)
[2022-02-24] MEDS: METHADONE HCL 10 MG TABLET PO SCH (08:58)
[2022-02-24] MEDS: GABAPENTIN 300 MG CAPSULE PO SCH ×4 (08:59→21:14)
[2022-02-24] MEDS: THIAMINE 100 MG TABLET PO SCH ×2 (08:59→16:47)
[2022-02-24] MEDS: LevETIRAcetam 500 MG TABLET PO SCH ×2 (08:59→16:47)
[2022-02-24] MEDS: OMEGA-3/DHA/EPA/FISH OIL 1,000 MG CAPSULE PO SCH (08:59)
[2022-02-24] MEDS: MULTIVITAMINS WITH MINERALS, THERAPEUTIC TABLET PO SCH (08:59)
[2022-02-24] MEDS: FOLIC ACID 1 MG TABLET PO SCH (08:59)
[2022-02-24] MEDS: IBUPROFEN 600 MG TABLET PO PRN (13:12)
[2022-02-24 16:18] LABS: HEMOGLOBIN A1C 5.5 % (3.8-5.6)
[2022-02-24 16:23] LABS: CHOL/HDL RATIO 3.3 (4.2-7.3)
[2022-02-24 16:40] VITALS: BP 139/70
[2022-02-24] MEDS: DIVALPROEX SODIUM 500 MG ER TABLET PO SCH (21:14)
[2022-02-24] MEDS: OLANZapine 5 MG RAPDIS TABLET PO SCH (21:14)
[2022-02-24] MEDS: MELATONIN 5 MG TABLET PO SCH (21:14)
[2022-02-25] MEDS ORDERED: DIAZEPAM 5 MG TABLET PO PRN (07:00)
[2022-02-25 08:00] VITALS: BP 118/73
[2022-02-25] MEDS: MULTIVITAMINS WITH MINERALS, THERAPEUTIC TABLET PO SCH (08:45)
[2022-02-25] MEDS: FOLIC ACID 1 MG TABLET PO SCH (08:46)
[2022-02-25] MEDS: THIAMINE 100 MG TABLET PO SCH ×2 (08:46→18:39)
[2022-02-25] MEDS: OMEGA-3/DHA/EPA/FISH OIL 1,000 MG CAPSULE PO SCH (08:46)
[2022-02-25] MEDS: ACAMPROSATE CALCIUM 333 MG DR TABLET PO SCH ×3 (08:46→18:39)
[2022-02-25] MEDS: METHADONE HCL 10 MG TABLET PO SCH (08:46)
[2022-02-25] MEDS: GABAPENTIN 300 MG CAPSULE PO SCH ×4 (08:46→20:24)
[2022-02-25] MEDS: LevETIRAcetam 500 MG TABLET PO SCH ×2 (08:47→18:39)
[2022-02-25] MEDS ORDERED: DIAZEPAM 5 MG TABLET PO SCH (09:00)
[2022-02-25 12:03] VITALS: BP 121/78
[2022-02-25] MEDS: IBUPROFEN 600 MG TABLET PO PRN ×2 (12:03→12:05)
[2022-02-25 13:03] VITALS: BP 118/69
[2022-02-25 16:00] VITALS: BP 118/65
[2022-02-25] MEDS: OLANZapine 5 MG RAPDIS TABLET PO SCH (20:24)
[2022-02-25] MEDS: DIVALPROEX SODIUM 500 MG ER TABLET PO SCH (20:24)
[2022-02-25] MEDS: MELATONIN 5 MG TABLET PO SCH (20:24)
[2022-02-26] MEDS ORDERED: DIAZEPAM 5 MG TABLET PO PRN (07:00)
[2022-02-26 08:30] VITALS: BP 127/77
[2022-02-26] MEDS ORDERED: PALIPERIDONE PALMITATE 156 MG/ML SYRINGE IM ONE (09:00)
[2022-02-26] MEDS: ACAMPROSATE CALCIUM 333 MG DR TABLET PO SCH ×3 (09:34→18:08)
[2022-02-26] MEDS: MULTIVITAMINS WITH MINERALS, THERAPEUTIC TABLET PO SCH (09:34)
[2022-02-26] MEDS: GABAPENTIN 300 MG CAPSULE PO SCH ×4 (09:34→20:36)
[2022-02-26] MEDS: THIAMINE 100 MG TABLET PO SCH ×2 (09:34→18:07)
[2022-02-26] MEDS: METHADONE HCL 10 MG TABLET PO SCH (09:34)
[2022-02-26] MEDS: FOLIC ACID 1 MG TABLET PO SCH (09:35)
[2022-02-26] MEDS: LevETIRAcetam 500 MG TABLET PO SCH ×2 (09:35→18:07)
[2022-02-26] MEDS: OMEGA-3/DHA/EPA/FISH OIL 1,000 MG CAPSULE PO SCH (09:35)
[2022-02-26 16:29] VITALS: BP 108/67
[2022-02-26] MEDS ORDERED: QUEtiapine FUMARATE 100 MG TABLET PO PRN (18:00)
[2022-02-26] MEDS: MUPIROCIN CALCIUM 2% 22 GM OINTMENT NASAL SCH (18:09)
[2022-02-26] MEDS: DIVALPROEX SODIUM 500 MG ER TABLET PO SCH (20:35)
[2022-02-26] MEDS: MELATONIN 5 MG TABLET PO SCH (20:36)
[2022-02-26] MEDS ORDERED: QUEtiapine FUMARATE 200 MG TABLET PO SCH (21:00)
[2022-02-27 08:00] VITALS: BP 104/60
[2022-02-27 08:21] LABS: COVID AG,FIA SOURCE NASOPHARYNGEAL
[2022-02-27] MEDS: OMEGA-3/DHA/EPA/FISH OIL 1,000 MG CAPSULE PO SCH (09:07)
[2022-02-27] MEDS: QUEtiapine FUMARATE 25 MG TABLET PO SCH ×3 (09:07→17:17)
[2022-02-27] MEDS: GABAPENTIN 300 MG CAPSULE PO SCH ×4 (09:07→20:32)
[2022-02-27] MEDS: THIAMINE 100 MG TABLET PO SCH ×2 (09:07→17:17)
[2022-02-27] MEDS: FOLIC ACID 1 MG TABLET PO SCH (09:07)
[2022-02-27] MEDS: LevETIRAcetam 500 MG TABLET PO SCH ×2 (09:07→17:17)
[2022-02-27] MEDS: METHADONE HCL 10 MG TABLET PO SCH (09:08)
[2022-02-27] MEDS: MULTIVITAMINS WITH MINERALS, THERAPEUTIC TABLET PO SCH (09:08)
[2022-02-27] MEDS: MUPIROCIN CALCIUM 2% 22 GM OINTMENT NASAL SCH ×2 (09:09→17:17)
[2022-02-27] MEDS: ACAMPROSATE CALCIUM 333 MG DR TABLET PO SCH ×3 (09:09→17:17)
[2022-02-27 16:00] VITALS: BP 96/62
[2022-02-27] MEDS: DIVALPROEX SODIUM 500 MG ER TABLET PO SCH (20:31)
[2022-02-27] MEDS: MELATONIN 5 MG TABLET PO SCH (20:31)
[2022-02-27] MEDS: QUEtiapine FUMARATE 200 MG TABLET PO SCH (20:31)
[2022-02-28 08:00] VITALS: BP 132/82
[2022-02-28] MEDS: LevETIRAcetam 500 MG TABLET PO SCH ×2 (08:56→16:16)
[2022-02-28] MEDS: METHADONE HCL 10 MG TABLET PO SCH (08:56)
[2022-02-28] MEDS: GABAPENTIN 300 MG CAPSULE PO SCH ×4 (08:56→21:35)
[2022-02-28] MEDS: OMEGA-3/DHA/EPA/FISH OIL 1,000 MG CAPSULE PO SCH (08:57)
[2022-02-28] MEDS: FOLIC ACID 1 MG TABLET PO SCH (08:57)
[2022-02-28] MEDS: MULTIVITAMINS WITH MINERALS, THERAPEUTIC TABLET PO SCH (08:57)
[2022-02-28] MEDS: QUEtiapine FUMARATE 25 MG TABLET PO SCH ×3 (08:57→16:17)
[2022-02-28] MEDS: THIAMINE 100 MG TABLET PO SCH ×2 (08:57→16:16)
[2022-02-28] MEDS: ACAMPROSATE CALCIUM 333 MG DR TABLET PO SCH ×3 (08:58→16:18)
[2022-02-28] MEDS: MUPIROCIN CALCIUM 2% 22 GM OINTMENT NASAL SCH ×2 (08:58→16:19)
[2022-02-28 16:00] VITALS: BP 103/53
[2022-02-28] MEDS: IBUPROFEN 600 MG TABLET PO PRN (16:17)
[2022-02-28] MEDS: QUEtiapine FUMARATE 200 MG TABLET PO SCH (21:34)
[2022-02-28] MEDS: DIVALPROEX SODIUM 500 MG ER TABLET PO SCH (21:34)
[2022-02-28] MEDS: MELATONIN 5 MG TABLET PO SCH (21:35)
[2022-03-01 08:00] VITALS: BP 113/63
[2022-03-01] MEDS: ACAMPROSATE CALCIUM 333 MG DR TABLET PO SCH ×3 (08:20→16:47)
[2022-03-01] MEDS: GABAPENTIN 300 MG CAPSULE PO SCH ×4 (08:21→21:22)
[2022-03-01] MEDS: MULTIVITAMINS WITH MINERALS, THERAPEUTIC TABLET PO SCH (08:21)
[2022-03-01] MEDS: OMEGA-3/DHA/EPA/FISH OIL 1,000 MG CAPSULE PO SCH (08:21)
[2022-03-01] MEDS: THIAMINE 100 MG TABLET PO SCH ×2 (08:21→16:47)
[2022-03-01] MEDS: MUPIROCIN CALCIUM 2% 22 GM OINTMENT NASAL SCH ×2 (08:21→16:48)
[2022-03-01] MEDS: QUEtiapine FUMARATE 25 MG TABLET PO SCH ×3 (08:21→16:47)
[2022-03-01] MEDS: LevETIRAcetam 500 MG TABLET PO SCH ×2 (08:22→16:47)
[2022-03-01] MEDS: METHADONE HCL 10 MG TABLET PO SCH (08:22)
[2022-03-01] MEDS: FOLIC ACID 1 MG TABLET PO SCH (08:22)
[2022-03-01 16:43] VITALS: BP 96/62
[2022-03-01] MEDS: QUEtiapine FUMARATE 200 MG TABLET PO SCH (21:22)
[2022-03-01] MEDS: DIVALPROEX SODIUM 250 MG ER TABLET PO SCH (21:22)
[2022-03-01] MEDS: MELATONIN 5 MG TABLET PO SCH (21:23)
[2022-03-02 08:00] VITALS: BP 123/76
[2022-03-02] MEDS: GABAPENTIN 300 MG CAPSULE PO SCH ×4 (08:17→21:03)
[2022-03-02] MEDS: ACAMPROSATE CALCIUM 333 MG DR TABLET PO SCH ×3 (08:17→16:26)
[2022-03-02] MEDS: OMEGA-3/DHA/EPA/FISH OIL 1,000 MG CAPSULE PO SCH (08:17)
[2022-03-02] MEDS: FOLIC ACID 1 MG TABLET PO SCH (08:17)
[2022-03-02] MEDS: MULTIVITAMINS WITH MINERALS, THERAPEUTIC TABLET PO SCH (08:17)
[2022-03-02] MEDS: LevETIRAcetam 500 MG TABLET PO SCH ×2 (08:18→16:22)
[2022-03-02] MEDS: QUEtiapine FUMARATE 25 MG TABLET PO SCH ×3 (08:18→16:22)
[2022-03-02] MEDS: THIAMINE 100 MG TABLET PO SCH ×2 (08:18→16:22)
[2022-03-02] MEDS: MUPIROCIN CALCIUM 2% 22 GM OINTMENT NASAL SCH ×2 (09:38→17:13)
[2022-03-02] MEDS: METHADONE HCL 10 MG TABLET PO SCH (09:38)
[2022-03-02] MEDS ORDERED: LEVE500T8 PO (16:19)
[2022-03-02] MEDS ORDERED: QUET200T30 PO (16:19)
[2022-03-02] MEDS ORDERED: QUET25TA36 PO (16:19)
[2022-03-02] MEDS ORDERED: DIVA-85 PO (16:19)
[2022-03-02] MEDS ORDERED: GABA-1181 PO (16:19)
[2022-03-02] MEDS ORDERED: OMEG-135 PO (16:19)
[2022-03-02] MEDS ORDERED: MELA5TAB40 PO (16:19)
[2022-03-02] MEDS ORDERED: ACAM333T7 PO (16:19)
[2022-03-02 16:46] VITALS: BP 109/75
[2022-03-02] MEDS: DIVALPROEX SODIUM 250 MG ER TABLET PO SCH (21:03)
[2022-03-02] MEDS: QUEtiapine FUMARATE 200 MG TABLET PO SCH (21:03)
[2022-03-02] MEDS: MELATONIN 5 MG TABLET PO SCH (21:04)
[2022-03-03 08:00] VITALS: BP 139/75
[2022-03-03] MEDS: OMEGA-3/DHA/EPA/FISH OIL 1,000 MG CAPSULE PO SCH (08:48)
[2022-03-03] MEDS: QUEtiapine FUMARATE 25 MG TABLET PO SCH ×3 (08:49→12:57)
[2022-03-03] MEDS: GABAPENTIN 300 MG CAPSULE PO SCH ×3 (08:49→12:57)
[2022-03-03] MEDS: LevETIRAcetam 500 MG TABLET PO SCH (08:49)
[2022-03-03] MEDS: MULTIVITAMINS WITH MINERALS, THERAPEUTIC TABLET PO SCH (08:50)
[2022-03-03] MEDS: THIAMINE 100 MG TABLET PO SCH (08:50)
[2022-03-03] MEDS: FOLIC ACID 1 MG TABLET PO SCH (08:50)
[2022-03-03] MEDS: METHADONE HCL 10 MG TABLET PO SCH (08:51)
[2022-03-03] MEDS: ACAMPROSATE CALCIUM 333 MG DR TABLET PO SCH ×3 (08:52→12:56)
[2022-03-03] MEDS: MUPIROCIN CALCIUM 2% 22 GM OINTMENT NASAL SCH (08:52)
[2022-03-03] MEDS ORDERED: METH5SOL3 PO (08:57)
== END 2022-03-03 11:20 | disposition home or self-care (01) | DRG 750 ==
LOC: EMS 22:43 → 3EI 02-22 01:55
PROVIDERS: ADMIT Psychiatry & Neurology Psychiatry; ATTEND Psychiatry & Neurology Psychiatry
DX: F25.1 Schizoaffective disorder, depressive type (principal); R45.851 Suicidal ideations; E46 Unspecified protein-calorie malnutrition; E88.09 Other disorders of plasma-protein metabolism, not elsewhere classified; G40.409 Other generalized epilepsy and epileptic syndromes, not intractable, without status epilepticus; E11.9 Type 2 diabetes mellitus without complications; D64.9 Anemia, unspecified; B19.20 Unspecified viral hepatitis C without hepatic coma; F14.10 Cocaine abuse, uncomplicated; F41.9 Anxiety disorder, unspecified; G89.29 Other chronic pain; J44.9 Chronic obstructive pulmonary disease, unspecified; Z20.822 Contact with and (suspected) exposure to COVID-19; Z79.899 Other long term (current) drug therapy; Z55.9 Problems related to education and literacy, unspecified; Z59.01 Sheltered homelessness; Z63.9 Problem related to primary support group, unspecified; Z65.3 Problems related to other legal circumstances; Z87.891 Personal history of nicotine dependence; Z91.14 Patient's other noncompliance with medication regimen; Z91.199 Patient's noncompliance with other medical treatment and regimen due to unspecified reason; Z99.3 Dependence on wheelchair; Z68.21 Body mass index [BMI] 21.0-21.9, adult; Z88.8 Allergy status to other drugs, medicaments and biological substances
CPT/HCPCS: 80053; 80061; 80164; 83036; 85025; 87081; 99285; G0480; Q9967

== ENCOUNTER 2022-03-13 21:08 | Inpatient (IN) | payer MEDICAID, OTHER ==
[~2022-03-13] VITALS: Ht 177.8 cm; Wt 59.9 kg
[~2022-03-13 21:08] MED LIST changes: -DIVA-80 PO; +DIVA-85 PO; +GABA-1181 PO; -GABA-1201 PO; -GABA-1216 PO; -LEVE1000 PO; -OLAN10TA26 PO; +OMEG-135 PO; -QUET100T34 PO; +QUET25TA36 PO
[2022-03-14] MEDS ORDERED: LORazepam 2 MG TABLET PO PRN (02:00)
[2022-03-14] MEDS ORDERED: ZOLPIDEM TARTRATE 10 MG TABLET PO PRN (02:00)
[2022-03-14] MEDS ORDERED: OLANZapine 5 MG RAPDIS TABLET PO PRN (02:00)
[2022-03-14] MEDS ORDERED: ONDANSETRON HCL 4 MG TABLET PO ONE (02:30)
[2022-03-14 02:38] LABS: COVID AG,FIA SOURCE NASAL SWAB
[2022-03-14 02:39] LABS: BASOPHILS % (AUTO) 0.6 % (0.0-2.0); EOSINOPHILS % (AUTO) 2.4 % (1.0-6.0); HEMATOCRIT 36.5 % (41-53); LYMPHOCYTES # (AUTO) 2.2 K/uL (1.0-4.8); LYMPHOCYTES % (AUTO) 37.5 % (22.0-44.0); MEAN CORPUSCULAR HEMOGLOBIN 30.4 pg (26.0-34.0); MEAN CORPUSCULAR HGB CONC 32.8 G/dL (31.0-37.0); MEAN CORPUSCULAR VOLUME 93 fL (80-100); MONOCYTES # (AUTO) 0.5 K/uL (0.1-1.0); MONOCYTES % (AUTO) 8.5 % (2.0-9.0); PLATELET COUNT (AUTO) 218 K/uL (150-450); RED BLOOD CELL COUNT(AUTO) 3.93 MIL/uL (4.50-5.90); RED CELL DISTRIBUTION WIDTH 14.3 % (11.5-14.5)
[2022-03-14 02:48] LABS: ANION GAP 5 mmol/L (8-16); CARBON DIOXIDE 32 mmol/L (22-29); CHLORIDE 106 mmol/L (98-107); CREATININE 0.73 mg/dL (0.60-1.30); GLUCOSE,RANDOM 94 mg/dL (70-110); POTASSIUM 3.2 mmol/L (3.5-5.1); SODIUM SERUM 143 mmol/L (136-145); UREA NITROGEN, BLOOD 13 mg/dL (7-18)
[2022-03-14 02:54] LABS: ALANINE AMINOTRANSFERASE 54 U/L (12-78); ALBUMIN 3.1 g/dL (3.4-5.0); ALKALINE PHOSPHATASE 146 U/L (46-116); ASPARTATE AMINOTRANSFERASE 49 U/L (15-37); BILIRUBIN,TOTAL 0.2 mg/dL (0.1-1.0); TOTAL PROTEIN, SERUM 6.7 g/dL (6.4-8.2)
[2022-03-14 03:17] LABS: GLOMERULAR FILTR. RATE CALC > 60 mL/min (>60)
[2022-03-14] MEDS ORDERED: POTASSIUM CHLORIDE 20 MEQ ER TABLET PO ONE (03:30)
[2022-03-14 04:39] VITALS: BP 160/89
[2022-03-14 04:47] VITALS: BP 160/89
[2022-03-14] MEDS ORDERED: PNEUMOCOCCAL VACCINE POLYVALENT 0.5 ML VIAL [PPSV23] IM. ONE (05:00)
[2022-03-14 08:00] VITALS: BP 162/90
[2022-03-14] MEDS ORDERED: ACETAMINOPHEN 325 MG TABLET PO PRN ×2 (08:00→10:00)
[2022-03-14] MEDS: METHADONE HCL 10 MG TABLET PO SCH (08:26)
[2022-03-14] MEDS ORDERED: GuaiFENesin/D-METHORPHAN [SUGAR-FREE] 200-20MG/10 ML SYRUP UDCUP PO PRN (10:00)
[2022-03-14] MEDS ORDERED: LOPERAMIDE HCL 2 MG CAPSULE PO PRN (10:00)
[2022-03-14] MEDS ORDERED: MAG HYDROX/AL HYDROX/SIMETH ES 30 ML SUSPENSION UDCUP PO PRN (10:00)
[2022-03-14] MEDS ORDERED: MAGNESIUM HYDROXIDE SUSPENSION 30 ML UDCUP PO PRN (10:00)
[2022-03-14] MEDS ORDERED: HydrOXYzine PAMOATE 50 MG CAPSULE PO PRN (10:00)
[2022-03-14] MEDS ORDERED: PROMETHAZINE HCL 25 MG TABLET PO PRN (10:00)
[2022-03-14] MEDS: ACAMPROSATE CALCIUM 333 MG DR TABLET PO SCH ×2 (12:21→16:26)
[2022-03-14] MEDS: QUEtiapine FUMARATE 25 MG TABLET PO SCH ×2 (12:22→16:27)
[2022-03-14] MEDS: GABAPENTIN 300 MG CAPSULE PO SCH ×3 (12:22→20:39)
[2022-03-14] MEDS ORDERED: CloNIDine HCL 0.1 MG TABLET PO PRN (12:45)
[2022-03-14] MEDS: LevETIRAcetam 500 MG TABLET PO SCH ×2 (16:27→17:00)
[2022-03-14] MEDS: THIAMINE 100 MG TABLET PO SCH (16:27)
[2022-03-14] MEDS: DIVALPROEX SODIUM 250 MG ER TABLET PO SCH (20:37)
[2022-03-14] MEDS: MELATONIN 5 MG TABLET PO SCH (20:38)
[2022-03-14] MEDS: QUEtiapine FUMARATE 200 MG TABLET PO SCH (20:39)
[2022-03-15] MEDS: LevETIRAcetam 500 MG TABLET PO SCH ×3 (09:00→16:25)
[2022-03-15] MEDS: OMEGA-3/DHA/EPA/FISH OIL 1,000 MG CAPSULE PO SCH (09:05)
[2022-03-15] MEDS: METHADONE HCL 10 MG TABLET PO SCH (09:05)
[2022-03-15] MEDS: AmLODIPine BESYLATE 5 MG TABLET PO SCH (09:05)
[2022-03-15] MEDS: MULTIVITAMINS WITH MINERALS, THERAPEUTIC TABLET PO SCH (09:05)
[2022-03-15] MEDS: GABAPENTIN 300 MG CAPSULE PO SCH ×2 (09:05→12:31)
[2022-03-15] MEDS: THIAMINE 100 MG TABLET PO SCH ×2 (09:06→17:52)
[2022-03-15] MEDS: FOLIC ACID 1 MG TABLET PO SCH (09:06)
[2022-03-15] MEDS: QUEtiapine FUMARATE 25 MG TABLET PO SCH ×3 (09:06→16:27)
[2022-03-15] MEDS: DEXTROMETHORPHAN HBR/QUINIDINE 20/10 MG CAPSULE PO SCH (09:06)
[2022-03-15] MEDS: ACAMPROSATE CALCIUM 333 MG DR TABLET PO SCH ×3 (09:07→16:24)
[2022-03-15 10:41] VITALS: BP 130/71
[2022-03-15] MEDS ORDERED: GABAPENTIN 300 MG CAPSULE PO PRN (13:45)
[2022-03-15] MEDS ORDERED: PALIPERIDONE PALMITATE 234 MG/1.5 ML SYRINGE IM ONE (15:00)
[2022-03-15 16:16] VITALS: BP 118/66
[2022-03-15] MEDS: GABAPENTIN 400 MG CAPSULE PO SCH ×2 (16:25→20:48)
[2022-03-15] MEDS: QUEtiapine FUMARATE 200 MG TABLET PO SCH (20:47)
[2022-03-15] MEDS: MELATONIN 5 MG TABLET PO SCH (20:47)
[2022-03-15] MEDS: DIVALPROEX SODIUM 250 MG ER TABLET PO SCH (20:48)
[2022-03-16 08:00] VITALS: BP 115/64
[2022-03-16] MEDS: LevETIRAcetam 500 MG TABLET PO SCH ×2 (09:13→16:22)
[2022-03-16] MEDS: THIAMINE 100 MG TABLET PO SCH ×2 (09:14→16:21)
[2022-03-16] MEDS: MULTIVITAMINS WITH MINERALS, THERAPEUTIC TABLET PO SCH (09:14)
[2022-03-16] MEDS: QUEtiapine FUMARATE 25 MG TABLET PO SCH ×3 (09:14→16:21)
[2022-03-16] MEDS: DEXTROMETHORPHAN HBR/QUINIDINE 20/10 MG CAPSULE PO SCH (09:14)
[2022-03-16] MEDS: AmLODIPine BESYLATE 5 MG TABLET PO SCH (09:14)
[2022-03-16] MEDS: FOLIC ACID 1 MG TABLET PO SCH (09:14)
[2022-03-16] MEDS: OMEGA-3/DHA/EPA/FISH OIL 1,000 MG CAPSULE PO SCH (09:14)
[2022-03-16] MEDS: GABAPENTIN 400 MG CAPSULE PO SCH ×3 (09:14→16:21)
[2022-03-16] MEDS: ACAMPROSATE CALCIUM 333 MG DR TABLET PO SCH ×3 (09:15→16:21)
[2022-03-16] MEDS: METHADONE HCL 10 MG TABLET PO SCH (09:17)
[2022-03-16] MEDS: MELATONIN 5 MG TABLET PO SCH (20:53)
[2022-03-16] MEDS: GABAPENTIN 300 MG CAPSULE PO SCH (20:54)
[2022-03-16] MEDS: QUEtiapine FUMARATE 200 MG TABLET PO SCH (20:54)
[2022-03-16] MEDS: DIVALPROEX SODIUM 250 MG ER TABLET PO SCH (20:54)
[2022-03-17 01:31] VITALS: BP 119/66
[2022-03-17] MEDS: IBUPROFEN 600 MG TABLET PO PRN ×2 (01:31→16:43)
[2022-03-17] MEDS: AmLODIPine BESYLATE 5 MG TABLET PO SCH (08:35)
[2022-03-17] MEDS: OMEGA-3/DHA/EPA/FISH OIL 1,000 MG CAPSULE PO SCH (08:35)
[2022-03-17] MEDS: LevETIRAcetam 500 MG TABLET PO SCH ×2 (08:35→16:41)
[2022-03-17] MEDS: METHADONE HCL 10 MG TABLET PO SCH (08:35)
[2022-03-17] MEDS: GABAPENTIN 300 MG CAPSULE PO SCH ×4 (08:35→20:56)
[2022-03-17] MEDS: FOLIC ACID 1 MG TABLET PO SCH (08:37)
[2022-03-17] MEDS: THIAMINE 100 MG TABLET PO SCH ×2 (08:44→16:42)
[2022-03-17] MEDS: MULTIVITAMINS WITH MINERALS, THERAPEUTIC TABLET PO SCH (08:44)
[2022-03-17] MEDS: QUEtiapine FUMARATE 25 MG TABLET PO SCH ×3 (08:45→16:41)
[2022-03-17 08:53] VITALS: BP 137/76
[2022-03-17] MEDS: ACAMPROSATE CALCIUM 333 MG DR TABLET PO SCH ×3 (09:12→16:41)
[2022-03-17] MEDS: DEXTROMETHORPHAN HBR/QUINIDINE 20/10 MG CAPSULE PO SCH (09:12)
[2022-03-17 11:57] LABS: ALANINE AMINOTRANSFERASE 50 U/L (12-78); ALBUMIN 2.8 g/dL (3.4-5.0); ALKALINE PHOSPHATASE 109 U/L (46-116); ANION GAP 4 mmol/L (8-16); ASPARTATE AMINOTRANSFERASE 52 U/L (15-37); BILIRUBIN,TOTAL 0.3 mg/dL (0.1-1.0); CALCIUM, TOTAL 8.8 mg/dL (8.8-10.5); CARBON DIOXIDE 33 mmol/L (22-29); CHLORIDE 102 mmol/L (98-107); CREATININE 0.77 mg/dL (0.60-1.30); GLUCOSE,RANDOM 135 mg/dL (70-110); POTASSIUM 4.6 mmol/L (3.5-5.1); SODIUM SERUM 139 mmol/L (136-145); TOTAL PROTEIN, SERUM 6.5 g/dL (6.4-8.2); UREA NITROGEN, BLOOD 15 mg/dL (7-18); VALPROIC ACID 73 mcg/mL (50-100)
[2022-03-17 11:59] LABS: GLOMERULAR FILTR. RATE CALC > 60 mL/min (>60)
[2022-03-17 16:17] VITALS: BP 115/60
[2022-03-17 16:43] VITALS: BP 115/60
[2022-03-17 17:43] VITALS: BP 121/69
[2022-03-17] MEDS: QUEtiapine FUMARATE 200 MG TABLET PO SCH (20:54)
[2022-03-17] MEDS: DIVALPROEX SODIUM 250 MG ER TABLET PO SCH (20:55)
[2022-03-17] MEDS: MELATONIN 5 MG TABLET PO SCH (20:56)
[2022-03-18] MEDS: DEXTROMETHORPHAN HBR/QUINIDINE 20/10 MG CAPSULE PO SCH (08:12)
[2022-03-18] MEDS: GABAPENTIN 300 MG CAPSULE PO SCH ×4 (08:12→20:53)
[2022-03-18] MEDS: QUEtiapine FUMARATE 25 MG TABLET PO SCH ×3 (08:13→17:00)
[2022-03-18] MEDS: LevETIRAcetam 500 MG TABLET PO SCH ×2 (08:13→16:46)
[2022-03-18] MEDS: AmLODIPine BESYLATE 5 MG TABLET PO SCH (08:13)
[2022-03-18] MEDS: THIAMINE 100 MG TABLET PO SCH ×2 (08:13→16:46)
[2022-03-18] MEDS: MULTIVITAMINS WITH MINERALS, THERAPEUTIC TABLET PO SCH (08:13)
[2022-03-18] MEDS: ACAMPROSATE CALCIUM 333 MG DR TABLET PO SCH ×3 (08:13→16:46)
[2022-03-18] MEDS: FOLIC ACID 1 MG TABLET PO SCH (08:13)
[2022-03-18] MEDS: OMEGA-3/DHA/EPA/FISH OIL 1,000 MG CAPSULE PO SCH (08:13)
[2022-03-18] MEDS: METHADONE HCL 10 MG TABLET PO SCH (08:52)
[2022-03-18 09:51] VITALS: BP 117/63
[2022-03-18 16:00] VITALS: BP 120/80
[2022-03-18 16:55] VITALS: BP 115/68
[2022-03-18] MEDS: IBUPROFEN 600 MG TABLET PO PRN (16:55)
[2022-03-18 17:55] VITALS: BP 117/62
[2022-03-18] MEDS: DIVALPROEX SODIUM 250 MG ER TABLET PO SCH (20:53)
[2022-03-18] MEDS: MELATONIN 5 MG TABLET PO SCH (20:54)
[2022-03-18] MEDS: QUEtiapine FUMARATE 200 MG TABLET PO SCH (20:54)
[2022-03-19] MEDS: GABAPENTIN 300 MG CAPSULE PO SCH ×3 (08:20→16:00)
[2022-03-19] MEDS: THIAMINE 100 MG TABLET PO SCH ×2 (08:20→16:00)
[2022-03-19] MEDS: MULTIVITAMINS WITH MINERALS, THERAPEUTIC TABLET PO SCH (08:20)
[2022-03-19] MEDS: FOLIC ACID 1 MG TABLET PO SCH (08:20)
[2022-03-19] MEDS: LevETIRAcetam 500 MG TABLET PO SCH ×2 (08:20→16:00)
[2022-03-19] MEDS: OMEGA-3/DHA/EPA/FISH OIL 1,000 MG CAPSULE PO SCH (08:21)
[2022-03-19] MEDS: ACAMPROSATE CALCIUM 333 MG DR TABLET PO SCH ×3 (08:21→15:59)
[2022-03-19] MEDS: METHADONE HCL 10 MG TABLET PO SCH (08:21)
[2022-03-19] MEDS: DEXTROMETHORPHAN HBR/QUINIDINE 20/10 MG CAPSULE PO SCH (08:22)
[2022-03-19] MEDS: QUEtiapine FUMARATE 25 MG TABLET PO SCH ×3 (08:22→16:00)
[2022-03-19] MEDS: AmLODIPine BESYLATE 5 MG TABLET PO SCH (08:22)
[2022-03-19] MEDS ORDERED: PALIPERIDONE PALMITATE 156 MG/ML SYRINGE IM ONE (09:00)
[2022-03-19 09:42] VITALS: BP 126/71
[2022-03-19 16:43] VITALS: BP 102/58
[2022-03-19] MEDS ORDERED: PALIPERIDONE PALMITATE 117 MG/0.75 ML SYRINGE IM ONE (17:30)
[2022-03-19] MEDS: DIVALPROEX SODIUM 250 MG ER TABLET PO SCH (20:46)
[2022-03-19] MEDS: MELATONIN 5 MG TABLET PO SCH (20:47)
[2022-03-19] MEDS: QUEtiapine FUMARATE 200 MG TABLET PO SCH (20:47)
[2022-03-19 21:35] VITALS: BP 118/68
[2022-03-19] MEDS: IBUPROFEN 600 MG TABLET PO PRN (21:37)
[2022-03-20 07:43] LABS: COVID AG,FIA SOURCE NASAL SWAB
[2022-03-20 08:33] VITALS: BP 127/79
[2022-03-20] MEDS: MULTIVITAMINS WITH MINERALS, THERAPEUTIC TABLET PO SCH (08:50)
[2022-03-20] MEDS: OMEGA-3/DHA/EPA/FISH OIL 1,000 MG CAPSULE PO SCH (08:51)
[2022-03-20] MEDS: QUEtiapine FUMARATE 25 MG TABLET PO SCH ×3 (08:51→17:15)
[2022-03-20] MEDS: GABAPENTIN 400 MG CAPSULE PO SCH ×3 (08:51→17:12)
[2022-03-20] MEDS: ACAMPROSATE CALCIUM 333 MG DR TABLET PO SCH ×3 (08:51→17:11)
[2022-03-20] MEDS: DEXTROMETHORPHAN HBR/QUINIDINE 20/10 MG CAPSULE PO SCH (08:51)
[2022-03-20] MEDS: LevETIRAcetam 500 MG TABLET PO SCH ×2 (08:51→17:11)
[2022-03-20] MEDS: THIAMINE 100 MG TABLET PO SCH ×2 (08:51→17:12)
[2022-03-20] MEDS: FOLIC ACID 1 MG TABLET PO SCH (08:51)
[2022-03-20] MEDS: METHADONE HCL 10 MG TABLET PO SCH (08:52)
[2022-03-20] MEDS: AmLODIPine BESYLATE 5 MG TABLET PO SCH (08:52)
[2022-03-20] MEDS ORDERED: PALIPERIDONE PALMITATE 117 MG/0.75 ML SYRINGE IM ONE (15:30)
[2022-03-20] MEDS: GABAPENTIN 100 MG CAPSULE PO SCH (17:14)
[2022-03-20 17:21] VITALS: BP 95/57
[2022-03-20] MEDS: DIVALPROEX SODIUM 250 MG ER TABLET PO SCH (21:10)
[2022-03-20] MEDS: QUEtiapine FUMARATE 200 MG TABLET PO SCH (21:11)
[2022-03-20] MEDS: MELATONIN 5 MG TABLET PO SCH (21:11)
[2022-03-21] MEDS: LevETIRAcetam 500 MG TABLET PO SCH ×2 (09:14→17:01)
[2022-03-21] MEDS: OMEGA-3/DHA/EPA/FISH OIL 1,000 MG CAPSULE PO SCH (09:14)
[2022-03-21] MEDS: MULTIVITAMINS WITH MINERALS, THERAPEUTIC TABLET PO SCH (09:14)
[2022-03-21] MEDS: GABAPENTIN 100 MG CAPSULE PO SCH ×3 (09:15→16:59)
[2022-03-21] MEDS: FOLIC ACID 1 MG TABLET PO SCH (09:16)
[2022-03-21] MEDS: GABAPENTIN 400 MG CAPSULE PO SCH ×3 (09:16→17:00)
[2022-03-21] MEDS: QUEtiapine FUMARATE 25 MG TABLET PO SCH ×3 (09:16→17:01)
[2022-03-21] MEDS: DEXTROMETHORPHAN HBR/QUINIDINE 20/10 MG CAPSULE PO SCH (09:17)
[2022-03-21] MEDS: ACAMPROSATE CALCIUM 333 MG DR TABLET PO SCH ×3 (09:17→16:59)
[2022-03-21] MEDS: THIAMINE 100 MG TABLET PO SCH ×2 (09:18→17:01)
[2022-03-21] MEDS: METHADONE HCL 10 MG TABLET PO SCH (09:19)
[2022-03-21 09:20] VITALS: BP 123/71
[2022-03-21] MEDS: AmLODIPine BESYLATE 5 MG TABLET PO SCH (09:21)
[2022-03-21 16:00] VITALS: BP 82/47
[2022-03-21] MEDS: DIVALPROEX SODIUM 250 MG ER TABLET PO SCH (20:45)
[2022-03-21] MEDS: MELATONIN 5 MG TABLET PO SCH (20:46)
[2022-03-21] MEDS: QUEtiapine FUMARATE 200 MG TABLET PO SCH (20:46)
[2022-03-22] MEDS: OMEGA-3/DHA/EPA/FISH OIL 1,000 MG CAPSULE PO SCH (09:16)
[2022-03-22] MEDS: GABAPENTIN 400 MG CAPSULE PO SCH ×3 (09:17→17:11)
[2022-03-22] MEDS: GABAPENTIN 100 MG CAPSULE PO SCH ×3 (09:17→17:11)
[2022-03-22] MEDS: LevETIRAcetam 500 MG TABLET PO SCH ×2 (09:17→17:12)
[2022-03-22] MEDS: QUEtiapine FUMARATE 25 MG TABLET PO SCH ×3 (09:18→17:10)
[2022-03-22] MEDS: THIAMINE 100 MG TABLET PO SCH ×2 (09:18→17:11)
[2022-03-22] MEDS: MULTIVITAMINS WITH MINERALS, THERAPEUTIC TABLET PO SCH (09:18)
[2022-03-22] MEDS: ACAMPROSATE CALCIUM 333 MG DR TABLET PO SCH ×3 (09:18→17:12)
[2022-03-22] MEDS: FOLIC ACID 1 MG TABLET PO SCH (09:18)
[2022-03-22] MEDS: METHADONE HCL 10 MG TABLET PO SCH (09:20)
[2022-03-22] MEDS: DEXTROMETHORPHAN HBR/QUINIDINE 20/10 MG CAPSULE PO SCH (09:22)
[2022-03-22 09:23] VITALS: BP 118/73
[2022-03-22] MEDS ORDERED: LEVE500T8 PO (15:57)
[2022-03-22] MEDS ORDERED: OMEG-135 PO (15:57)
[2022-03-22] MEDS ORDERED: GABA-1201 PO (15:57)
[2022-03-22] MEDS ORDERED: QUET200T30 PO (15:57)
[2022-03-22] MEDS ORDERED: ACAM333T7 PO (15:57)
[2022-03-22] MEDS ORDERED: MELA5TAB40 PO (15:57)
[2022-03-22] MEDS ORDERED: QUET25TA36 PO (15:57)
[2022-03-22] MEDS ORDERED: DIVA-85 PO (15:57)
[2022-03-22] MEDS ORDERED: GABA-1216 PO (15:57)
[2022-03-22] MEDS: MELATONIN 5 MG TABLET PO SCH (20:37)
[2022-03-22] MEDS: DIVALPROEX SODIUM 250 MG ER TABLET PO SCH (20:37)
[2022-03-22] MEDS: QUEtiapine FUMARATE 200 MG TABLET PO SCH (20:38)
[2022-03-23] MEDS: OMEGA-3/DHA/EPA/FISH OIL 1,000 MG CAPSULE PO SCH (09:02)
[2022-03-23] MEDS: FOLIC ACID 1 MG TABLET PO SCH (09:02)
[2022-03-23] MEDS: LevETIRAcetam 500 MG TABLET PO SCH ×2 (09:03→17:37)
[2022-03-23] MEDS: GABAPENTIN 100 MG CAPSULE PO SCH ×3 (09:03→17:36)
[2022-03-23] MEDS: THIAMINE 100 MG TABLET PO SCH ×2 (09:05→17:37)
[2022-03-23] MEDS: GABAPENTIN 400 MG CAPSULE PO SCH ×3 (09:05→17:37)
[2022-03-23] MEDS: METHADONE HCL 10 MG TABLET PO SCH (09:06)
[2022-03-23] MEDS: ACAMPROSATE CALCIUM 333 MG DR TABLET PO SCH ×3 (09:06→17:35)
[2022-03-23] MEDS: MULTIVITAMINS WITH MINERALS, THERAPEUTIC TABLET PO SCH (09:06)
[2022-03-23] MEDS: QUEtiapine FUMARATE 25 MG TABLET PO SCH ×3 (09:06→17:37)
[2022-03-23] MEDS: DEXTROMETHORPHAN HBR/QUINIDINE 20/10 MG CAPSULE PO SCH (09:06)
[2022-03-23 09:32] VITALS: BP 124/81
[2022-03-23 16:00] VITALS: BP 112/67
[2022-03-23] MEDS: QUEtiapine FUMARATE 200 MG TABLET PO SCH (20:26)
[2022-03-23] MEDS: MELATONIN 5 MG TABLET PO SCH (20:26)
[2022-03-23] MEDS: DIVALPROEX SODIUM 250 MG ER TABLET PO SCH (20:26)
[2022-03-24] MEDS: OMEGA-3/DHA/EPA/FISH OIL 1,000 MG CAPSULE PO SCH (09:24)
[2022-03-24] MEDS: GABAPENTIN 400 MG CAPSULE PO SCH ×3 (09:24→17:52)
[2022-03-24] MEDS: GABAPENTIN 100 MG CAPSULE PO SCH ×3 (09:24→17:51)
[2022-03-24] MEDS: FOLIC ACID 1 MG TABLET PO SCH (09:24)
[2022-03-24] MEDS: LevETIRAcetam 500 MG TABLET PO SCH ×2 (09:25→17:52)
[2022-03-24] MEDS: ACAMPROSATE CALCIUM 333 MG DR TABLET PO SCH ×3 (09:25→17:52)
[2022-03-24] MEDS: QUEtiapine FUMARATE 25 MG TABLET PO SCH ×3 (09:25→17:52)
[2022-03-24] MEDS: METHADONE HCL 10 MG TABLET PO SCH (09:25)
[2022-03-24] MEDS: THIAMINE 100 MG TABLET PO SCH (09:25)
[2022-03-24] MEDS: DEXTROMETHORPHAN HBR/QUINIDINE 20/10 MG CAPSULE PO SCH (09:26)
[2022-03-24 09:31] VITALS: BP 119/79
[2022-03-24] MEDS: MULTIVITAMINS WITH MINERALS, THERAPEUTIC TABLET PO SCH (09:46)
[2022-03-24 17:36] VITALS: BP 125/81
[2022-03-24] MEDS: DIVALPROEX SODIUM 250 MG ER TABLET PO SCH (21:17)
[2022-03-24] MEDS: MELATONIN 5 MG TABLET PO SCH (21:18)
[2022-03-24] MEDS: QUEtiapine FUMARATE 200 MG TABLET PO SCH (21:18)
[2022-03-25 01:20] VITALS: BP 104/71
[2022-03-25 08:00] VITALS: BP 135/92
[2022-03-25] MEDS: GABAPENTIN 400 MG CAPSULE PO SCH ×3 (09:02→17:17)
[2022-03-25] MEDS: METHADONE HCL 10 MG TABLET PO SCH (09:02)
[2022-03-25] MEDS: DEXTROMETHORPHAN HBR/QUINIDINE 20/10 MG CAPSULE PO SCH (09:02)
[2022-03-25] MEDS: GABAPENTIN 100 MG CAPSULE PO SCH ×3 (09:02→17:17)
[2022-03-25] MEDS: QUEtiapine FUMARATE 25 MG TABLET PO SCH ×3 (09:03→17:23)
[2022-03-25] MEDS: MULTIVITAMINS WITH MINERALS, THERAPEUTIC TABLET PO SCH (09:03)
[2022-03-25] MEDS: OMEGA-3/DHA/EPA/FISH OIL 1,000 MG CAPSULE PO SCH (09:03)
[2022-03-25] MEDS: LevETIRAcetam 500 MG TABLET PO SCH ×2 (09:03→17:17)
[2022-03-25] MEDS: ACAMPROSATE CALCIUM 333 MG DR TABLET PO SCH ×3 (09:03→17:18)
[2022-03-25] MEDS: DIVALPROEX SODIUM 250 MG ER TABLET PO SCH (20:57)
[2022-03-25] MEDS: MELATONIN 5 MG TABLET PO SCH (20:57)
[2022-03-25] MEDS: QUEtiapine FUMARATE 200 MG TABLET PO SCH (20:57)
[2022-03-26] MEDS: METHADONE HCL 10 MG TABLET PO SCH (08:59)
[2022-03-26] MEDS: DEXTROMETHORPHAN HBR/QUINIDINE 20/10 MG CAPSULE PO SCH (09:01)
[2022-03-26] MEDS: ACAMPROSATE CALCIUM 333 MG DR TABLET PO SCH (09:01)
[2022-03-26] MEDS: MULTIVITAMINS WITH MINERALS, THERAPEUTIC TABLET PO SCH (09:02)
[2022-03-26] MEDS: GABAPENTIN 400 MG CAPSULE PO SCH (09:02)
[2022-03-26] MEDS: GABAPENTIN 100 MG CAPSULE PO SCH (09:03)
[2022-03-26] MEDS: QUEtiapine FUMARATE 25 MG TABLET PO SCH (09:03)
[2022-03-26] MEDS: OMEGA-3/DHA/EPA/FISH OIL 1,000 MG CAPSULE PO SCH (09:04)
[2022-03-26] MEDS: LevETIRAcetam 500 MG TABLET PO SCH (09:04)
== END 2022-03-26 10:30 | disposition home or self-care (01) | DRG 750 ==
LOC: EMS 21:18 → 3EI 03-14 02:17
PROVIDERS: ADMIT Psychiatry & Neurology Psychiatry; ATTEND Psychiatry & Neurology Psychiatry
DX: F25.1 Schizoaffective disorder, depressive type (principal); G93.40 Encephalopathy, unspecified; E11.9 Type 2 diabetes mellitus without complications; G40.409 Other generalized epilepsy and epileptic syndromes, not intractable, without status epilepticus; G25.71 Drug induced akathisia; D64.9 Anemia, unspecified; R45.851 Suicidal ideations; E87.6 Hypokalemia; B19.20 Unspecified viral hepatitis C without hepatic coma; F10.20 Alcohol dependence, uncomplicated; F11.20 Opioid dependence, uncomplicated; F32.A Depression, unspecified; F19.20 Other psychoactive substance dependence, uncomplicated; J44.9 Chronic obstructive pulmonary disease, unspecified; G89.4 Chronic pain syndrome; Z20.822 Contact with and (suspected) exposure to COVID-19; I10 Essential (primary) hypertension; F41.9 Anxiety disorder, unspecified; Z74.01 Bed confinement status; Z88.8 Allergy status to other drugs, medicaments and biological substances; Z79.899 Other long term (current) drug therapy; Z59.00 Homelessness unspecified; Z63.9 Problem related to primary support group, unspecified; Z55.9 Problems related to education and literacy, unspecified; Z65.3 Problems related to other legal circumstances; Z79.891 Long term (current) use of opiate analgesic; Z87.891 Personal history of nicotine dependence; Z91.199 Patient's noncompliance with other medical treatment and regimen due to unspecified reason
CPT/HCPCS: 80053; 80164; 85025; 87081; 99285; G0480; Q0162; Q9967

== ENCOUNTER 2022-04-19 19:30 | Emergency (ER) | payer MEDICAID, OTHER ==
[~2022-04-19] VITALS: Ht 177.8 cm; Wt 68.2 kg
[~2022-04-19 19:30] MED LIST changes: -GABA-1181 PO; +GABA-1201 PO; +GABA-1216 PO
[2022-04-19 20:14] VITALS: BP 147/83
[2022-04-19] MEDS ORDERED: IBUPROFEN 600 MG TABLET PO ONE (20:45)
== END 2022-04-19 21:01 | disposition home or self-care (01) ==
LOC: EMS 19:32
DX: M25.571 Pain in right ankle and joints of right foot (principal); G89.29 Other chronic pain; F10.20 Alcohol dependence, uncomplicated; M19.90 Unspecified osteoarthritis, unspecified site; F32.A Depression, unspecified; F20.9 Schizophrenia, unspecified; F17.210 Nicotine dependence, cigarettes, uncomplicated; F11.90 Opioid use, unspecified, uncomplicated; Z98.890 Other specified postprocedural states; Z88.8 Allergy status to other drugs, medicaments and biological substances
CPT/HCPCS: 99282; Z7502; Z7610

== ENCOUNTER 2022-06-03 18:41 | Inpatient (IN) | payer MEDICAID, OTHER ==
[~2022-06-03] VITALS: Ht 177.8 cm; Wt 61.7 kg
[2022-06-03 19:09] LABS: BASOPHILS % (AUTO) 0.8 % (0.0-2.0); EOSINOPHILS % (AUTO) 6.5 % (1.0-6.0); HEMATOCRIT 41.1 % (41-53); HEMOGLOBIN 13.7 g/dL (13.5-17.5); LYMPHOCYTES # (AUTO) 1.6 K/uL (1.0-4.8); LYMPHOCYTES % (AUTO) 36.9 % (22.0-44.0); MEAN CORPUSCULAR HEMOGLOBIN 31.1 pg (26.0-34.0); MEAN CORPUSCULAR HGB CONC 33.3 G/dL (31.0-37.0); MEAN CORPUSCULAR VOLUME 94 fL (80-100); MONOCYTES # (AUTO) 0.4 K/uL (0.1-1.0); MONOCYTES % (AUTO) 8.6 % (2.0-9.0); NEUTROPHILS # (AUTO) 2.1 K/uL (1.8-7.7); NEUTROPHILS % (AUTO) 47.2 % (40.0-70.0); PLATELET COUNT (AUTO) 201 K/uL (150-450); RED BLOOD CELL COUNT(AUTO) 4.39 MIL/uL (4.50-5.90); RED CELL DISTRIBUTION WIDTH 13.8 % (11.5-14.5)
[2022-06-03 19:17] LABS: ANION GAP 6 mmol/L (8-16); CARBON DIOXIDE 32 mmol/L (22-29); CHLORIDE 101 mmol/L (98-107); GLOMERULAR FILTR. RATE CALC > 60 mL/min (>60); GLUCOSE,RANDOM 112 mg/dL (70-110); POTASSIUM 3.5 mmol/L (3.5-5.1); SODIUM SERUM 139 mmol/L (136-145); UREA NITROGEN, BLOOD 12 mg/dL (7-18)
[2022-06-03 19:23] LABS: ALANINE AMINOTRANSFERASE 66 U/L (12-78); ALBUMIN 3.6 g/dL (3.4-5.0); ALKALINE PHOSPHATASE 137 U/L (46-116); ASPARTATE AMINOTRANSFERASE 100 U/L (15-37); BILIRUBIN,TOTAL 0.5 mg/dL (0.1-1.0); TOTAL PROTEIN, SERUM 7.7 g/dL (6.4-8.2)
[2022-06-03] MEDS ORDERED: HALOPERIDOL 5 MG TABLET PO PRN (23:00)
[2022-06-04 00:56] LABS: COVID AG,FIA SOURCE NASAL SWAB
[2022-06-04] MEDS ORDERED: ACETAMINOPHEN 500 MG TABLET ONE (01:54)
[2022-06-04] MEDS ORDERED: ACETAMINOPHEN 500 MG TABLET PO ONE (02:00)
[2022-06-04 02:01] LABS: APPEARANCE,URINE CLEAR (CLEAR); BILIRUBIN,URINE NEGATIVE (NEGATIVE); GLUCOSE, URINE (UA) NEGATIVE (NEGATIVE); KETONES,URINE NEGATIVE (NEGATIVE); LEUKOCYTE ESTERASE ,URINE TRACE (NEGATIVE); NITRATE,URINE NEGATIVE (NEGATIVE); OCCULT BLOOD,URINE NEGATIVE (NEGATIVE); PROTEIN,URINE NEGATIVE (NEGATIVE); SPECIFIC GRAVITIY, URINE 1.015 (1.003-1.030)
[2022-06-04 02:08] LABS: AMPHET/METH SCREEN,URINE POSITIVE (NEGATIVE); BARBITURATE SCREEN, URINE NEGATIVE (NEGATIVE); BENZODIAZEPINES SCREEN,URINE POSITIVE (NEGATIVE); CANNABINOID SCREEN,URINE POSITIVE (NEGATIVE); COCAINE SCREEN,URINE NEGATIVE (NEGATIVE); METHADONE SCREEN, URINE POSITIVE (NEGATIVE); OPIATE SCREEN,URINE NEGATIVE (NEGATIVE); PHENCYCLIDINE SCREEN,URINE NEGATIVE (NEGATIVE)
[2022-06-04 02:16] LABS: BACTERIA,URINE None Seen /HPF (None Seen); RBC,URINE None Seen /HPF (0-2); SQUAMOUS EPITHELIAL CELL,UR None Seen /LPF (None Seen)
[2022-06-04 09:00] VITALS: BP 148/85
[2022-06-04] MEDS ORDERED: MAG HYDROX/AL HYDROX/SIMETH ES 30 ML SUSPENSION UDCUP PO PRN (10:45)
[2022-06-04] MEDS ORDERED: LOPERAMIDE HCL 2 MG CAPSULE PO PRN (10:45)
[2022-06-04] MEDS ORDERED: GuaiFENesin/D-METHORPHAN [SUGAR-FREE] 200-20MG/10 ML SYRUP UDCUP PO PRN (10:45)
[2022-06-04] MEDS ORDERED: PROMETHAZINE HCL 25 MG TABLET PO PRN (10:45)
[2022-06-04] MEDS ORDERED: HydrOXYzine PAMOATE 50 MG CAPSULE PO PRN (10:45)
[2022-06-04] MEDS: GABAPENTIN 400 MG CAPSULE PO SCH ×3 (12:15→20:11)
[2022-06-04] MEDS: ACAMPROSATE CALCIUM 333 MG DR TABLET PO SCH ×2 (12:15→16:05)
[2022-06-04] MEDS: THIAMINE 100 MG TABLET PO SCH (16:05)
[2022-06-04] MEDS: LevETIRAcetam 500 MG TABLET PO SCH (16:05)
[2022-06-04] MEDS ORDERED: LevETIRAcetam 500 MG TABLET PO SCH (17:00)
[2022-06-04] MEDS ORDERED: CloNIDine HCL 0.1 MG TABLET PO PRN (17:15)
[2022-06-04] MEDS: DIVALPROEX SODIUM 250 MG ER TABLET PO SCH (20:11)
[2022-06-04] MEDS: QUEtiapine FUMARATE 200 MG TABLET PO SCH (20:11)
[2022-06-05 08:15] VITALS: BP 133/91
[2022-06-05] MEDS: ACAMPROSATE CALCIUM 333 MG DR TABLET PO SCH ×3 (08:15→17:02)
[2022-06-05] MEDS: GABAPENTIN 400 MG CAPSULE PO SCH ×4 (08:16→20:40)
[2022-06-05] MEDS: MULTIVITAMINS WITH MINERALS, THERAPEUTIC TABLET PO SCH (08:16)
[2022-06-05] MEDS: FOLIC ACID 1 MG TABLET PO SCH (08:16)
[2022-06-05] MEDS: THIAMINE 100 MG TABLET PO SCH ×2 (08:16→17:02)
[2022-06-05] MEDS: LevETIRAcetam 500 MG TABLET PO SCH (08:16)
[2022-06-05] MEDS: METHADONE HCL 10 MG TABLET PO SCH (08:17)
[2022-06-05] MEDS: AmLODIPine BESYLATE 5 MG TABLET PO SCH (08:19)
[2022-06-05] MEDS: BACITRACIN 28 GM OINTMENT TP SCH (08:22)
[2022-06-05] MEDS: QUEtiapine FUMARATE 200 MG TABLET PO SCH (20:41)
[2022-06-05] MEDS: DIVALPROEX SODIUM 250 MG ER TABLET PO SCH (20:42)
[2022-06-06] MEDS: ACAMPROSATE CALCIUM 333 MG DR TABLET PO SCH ×3 (08:58→16:03)
[2022-06-06] MEDS: METHADONE HCL 10 MG TABLET PO SCH (08:59)
[2022-06-06] MEDS: FOLIC ACID 1 MG TABLET PO SCH (08:59)
[2022-06-06 09:00] VITALS: BP 120/79
[2022-06-06] MEDS: AmLODIPine BESYLATE 5 MG TABLET PO SCH (09:00)
[2022-06-06] MEDS: BACITRACIN 28 GM OINTMENT TP SCH (09:00)
[2022-06-06] MEDS: THIAMINE 100 MG TABLET PO SCH ×2 (09:00→16:02)
[2022-06-06] MEDS: GABAPENTIN 400 MG CAPSULE PO SCH ×4 (09:00→21:18)
[2022-06-06] MEDS: MULTIVITAMINS WITH MINERALS, THERAPEUTIC TABLET PO SCH (09:00)
[2022-06-06] MEDS: QUEtiapine FUMARATE 100 MG TABLET PO PRN (14:58)
[2022-06-06 16:13] VITALS: BP 124/77
[2022-06-06] MEDS: LORazepam 2 MG TABLET PO PRN (20:00)
[2022-06-06] MEDS ORDERED: QUEtiapine FUMARATE 200 MG TABLET PO SCH (21:00)
[2022-06-06] MEDS ORDERED: QUEtiapine FUMARATE 300 MG TABLET PO SCH (21:00)
[2022-06-06] MEDS: DIVALPROEX SODIUM 250 MG ER TABLET PO SCH (21:20)
[2022-06-06] MEDS: ZOLPIDEM TARTRATE 10 MG TABLET PO PRN (22:23)
[2022-06-07] MEDS: ACAMPROSATE CALCIUM 333 MG DR TABLET PO SCH ×3 (08:25→17:03)
[2022-06-07] MEDS: MULTIVITAMINS WITH MINERALS, THERAPEUTIC TABLET PO SCH (08:25)
[2022-06-07] MEDS: FOLIC ACID 1 MG TABLET PO SCH (08:26)
[2022-06-07] MEDS: AmLODIPine BESYLATE 5 MG TABLET PO SCH (08:26)
[2022-06-07] MEDS: GABAPENTIN 400 MG CAPSULE PO SCH ×4 (08:26→21:16)
[2022-06-07] MEDS: THIAMINE 100 MG TABLET PO SCH ×2 (08:26→17:03)
[2022-06-07] MEDS: BACITRACIN 28 GM OINTMENT TP SCH (08:27)
[2022-06-07] MEDS: METHADONE HCL 10 MG TABLET PO SCH (08:27)
[2022-06-07 09:00] VITALS: BP 134/72
[2022-06-07 12:46] VITALS: BP 128/74
[2022-06-07] MEDS: ACETAMINOPHEN 325 MG TABLET PO PRN (12:46)
[2022-06-07] MEDS: QUEtiapine FUMARATE 100 MG TABLET PO PRN (12:47)
[2022-06-07 16:00] VITALS: BP 133/84
[2022-06-07] MEDS: LORazepam 2 MG TABLET PO PRN (19:45)
[2022-06-07] MEDS: QUEtiapine FUMARATE 200 MG TABLET PO SCH (21:15)
[2022-06-07] MEDS: DIVALPROEX SODIUM 250 MG ER TABLET PO SCH (21:16)
[2022-06-07] MEDS: ZOLPIDEM TARTRATE 10 MG TABLET PO PRN (21:18)
[2022-06-08] VITALS (7 sets, daily range): BP systolic 130–171; BP diastolic 75–98
[2022-06-08] MEDS: QUEtiapine FUMARATE 100 MG TABLET PO PRN ×2 (03:57→11:02)
[2022-06-08] MEDS: LORazepam 2 MG TABLET PO PRN (03:57)
[2022-06-08] MEDS: BACITRACIN 28 GM OINTMENT TP SCH (08:52)
[2022-06-08] MEDS: ACAMPROSATE CALCIUM 333 MG DR TABLET PO SCH ×4 (08:52→18:20)
[2022-06-08] MEDS: MULTIVITAMINS WITH MINERALS, THERAPEUTIC TABLET PO SCH (08:54)
[2022-06-08] MEDS: METHADONE HCL 10 MG TABLET PO SCH (08:54)
[2022-06-08] MEDS: FOLIC ACID 1 MG TABLET PO SCH (08:54)
[2022-06-08] MEDS: THIAMINE 100 MG TABLET PO SCH ×3 (08:54→18:21)
[2022-06-08] MEDS: GABAPENTIN 400 MG CAPSULE PO SCH ×5 (08:54→20:35)
[2022-06-08] MEDS: AmLODIPine BESYLATE 5 MG TABLET PO SCH (08:55)
[2022-06-08] MEDS ORDERED: LORazepam 2 MG/ML VIAL ONE (15:22)
[2022-06-08] MEDS ORDERED: DiphenhydrAMINE HCL 50 MG/ML VIAL ONE (15:22)
[2022-06-08] MEDS ORDERED: HydrOXYzine PAMOATE 50 MG CAPSULE PO PRN (15:30)
[2022-06-08] MEDS ORDERED: CloNIDine HCL 0.1 MG TABLET PO PRN (15:30)
[2022-06-08] MEDS ORDERED: LORazepam 2 MG/ML VIAL IM ONE (15:30)
[2022-06-08] MEDS ORDERED: DiphenhydrAMINE HCL 50 MG/ML VIAL IM ONE (15:30)
[2022-06-08] MEDS ORDERED: HALOPERIDOL LACTATE 5 MG/ML VIAL IM ONE (15:30)
[2022-06-08] MEDS ORDERED: IBUPROFEN 600 MG TABLET PO PRN (15:30)
[2022-06-08] MEDS ORDERED: MAG HYDROX/AL HYDROX/SIMETH ES 30 ML SUSPENSION UDCUP PO PRN (15:30)
[2022-06-08] MEDS: CloNIDine HCL 0.1 MG TABLET PO SCH ×2 (17:00→22:00)
[2022-06-08] MEDS: QUEtiapine FUMARATE 200 MG TABLET PO SCH (20:34)
[2022-06-08] MEDS: DIVALPROEX SODIUM 250 MG ER TABLET PO SCH (20:35)
[2022-06-09] VITALS (10 sets, daily range): BP systolic 96–153; BP diastolic 56–90
[2022-06-09] MEDS: CloNIDine HCL 0.1 MG TABLET PO SCH ×5 (06:00→22:00)
[2022-06-09] MEDS: MULTIVITAMINS WITH MINERALS, THERAPEUTIC TABLET PO SCH (08:40)
[2022-06-09] MEDS: FOLIC ACID 1 MG TABLET PO SCH (08:41)
[2022-06-09] MEDS: GABAPENTIN 400 MG CAPSULE PO SCH ×4 (08:41→21:10)
[2022-06-09] MEDS: THIAMINE 100 MG TABLET PO SCH ×2 (08:41→16:59)
[2022-06-09] MEDS: ACAMPROSATE CALCIUM 333 MG DR TABLET PO SCH ×3 (08:41→16:58)
[2022-06-09] MEDS: AmLODIPine BESYLATE 5 MG TABLET PO SCH (08:41)
[2022-06-09] MEDS: METHADONE HCL 10 MG TABLET PO SCH (08:44)
[2022-06-09] MEDS: BACITRACIN 28 GM OINTMENT TP SCH (08:53)
[2022-06-09] MEDS: QUEtiapine FUMARATE 200 MG TABLET PO SCH (21:10)
[2022-06-09] MEDS: DIVALPROEX SODIUM 250 MG ER TABLET PO SCH (21:43)
[2022-06-10] MEDS: CloNIDine HCL 0.1 MG TABLET PO SCH ×4 (06:00→21:47)
[2022-06-10 06:15] VITALS: BP 108/56
[2022-06-10] MEDS: MAGNESIUM HYDROXIDE SUSPENSION 30 ML UDCUP PO PRN ×2 (07:27→23:54)
[2022-06-10 08:00] VITALS: BP 102/58
[2022-06-10 08:02] LABS: COVID AG,FIA SOURCE NASAL SWAB
[2022-06-10] MEDS: AmLODIPine BESYLATE 5 MG TABLET PO SCH (09:00)
[2022-06-10] MEDS: MULTIVITAMINS WITH MINERALS, THERAPEUTIC TABLET PO SCH (09:41)
[2022-06-10] MEDS: THIAMINE 100 MG TABLET PO SCH ×2 (09:41→17:45)
[2022-06-10] MEDS: METHADONE HCL 10 MG TABLET PO SCH (09:41)
[2022-06-10] MEDS: ACAMPROSATE CALCIUM 333 MG DR TABLET PO SCH ×3 (09:41→17:45)
[2022-06-10] MEDS: GABAPENTIN 400 MG CAPSULE PO SCH ×3 (09:42→17:45)
[2022-06-10] MEDS: FOLIC ACID 1 MG TABLET PO SCH (09:42)
[2022-06-10 12:00] VITALS: BP 145/92
[2022-06-10] MEDS: BACITRACIN 28 GM OINTMENT TP SCH (12:01)
[2022-06-10] MEDS: QUEtiapine FUMARATE 100 MG TABLET PO PRN (12:03)
[2022-06-10 13:43] VITALS: BP 102/58
[2022-06-10 17:43] VITALS: BP 95/63
[2022-06-10] MEDS: QUEtiapine FUMARATE 200 MG TABLET PO SCH (21:22)
[2022-06-10] MEDS: GABAPENTIN 300 MG CAPSULE PO SCH (21:24)
[2022-06-10] MEDS: DIVALPROEX SODIUM 250 MG ER TABLET PO SCH (21:25)
[2022-06-10 21:45] VITALS: BP 132/87
[2022-06-11 05:42] VITALS: BP 90/61
[2022-06-11] MEDS: CloNIDine HCL 0.1 MG TABLET PO SCH ×4 (06:00→21:08)
[2022-06-11] MEDS: AmLODIPine BESYLATE 5 MG TABLET PO SCH (09:00)
[2022-06-11] MEDS: MULTIVITAMINS WITH MINERALS, THERAPEUTIC TABLET PO SCH (09:09)
[2022-06-11] MEDS: ACAMPROSATE CALCIUM 333 MG DR TABLET PO SCH ×3 (09:09→17:05)
[2022-06-11] MEDS: THIAMINE 100 MG TABLET PO SCH ×2 (09:09→17:06)
[2022-06-11] MEDS: FOLIC ACID 1 MG TABLET PO SCH (09:09)
[2022-06-11] MEDS: GABAPENTIN 300 MG CAPSULE PO SCH ×4 (09:09→20:06)
[2022-06-11] MEDS: METHADONE HCL 10 MG TABLET PO SCH (09:10)
[2022-06-11] MEDS: BACITRACIN 28 GM OINTMENT TP SCH (09:10)
[2022-06-11 09:13] VITALS: BP 108/66
[2022-06-11 12:58] VITALS: BP 110/67
[2022-06-11] MEDS ORDERED: GABAPENTIN 300 MG CAPSULE PO PRN (17:00)
[2022-06-11] MEDS: QUEtiapine FUMARATE 100 MG TABLET PO PRN (17:42)
[2022-06-11] MEDS: DIVALPROEX SODIUM 250 MG ER TABLET PO SCH (20:06)
[2022-06-11] MEDS: QUEtiapine FUMARATE 200 MG TABLET PO SCH (20:07)
[2022-06-11 21:07] VITALS: BP 111/64
[2022-06-11 21:52] VITALS: BP 120/73
[2022-06-12] VITALS (7 sets, daily range): BP systolic 86–113; BP diastolic 52–65
[2022-06-12] MEDS: CloNIDine HCL 0.1 MG TABLET PO SCH ×4 (06:00→22:00)
[2022-06-12] MEDS: GABAPENTIN 300 MG CAPSULE PO SCH ×4 (08:53→20:50)
[2022-06-12] MEDS: FOLIC ACID 1 MG TABLET PO SCH (08:53)
[2022-06-12] MEDS: AmLODIPine BESYLATE 5 MG TABLET PO SCH ×2 (08:53→09:00)
[2022-06-12] MEDS: MULTIVITAMINS WITH MINERALS, THERAPEUTIC TABLET PO SCH (08:53)
[2022-06-12] MEDS: METHADONE HCL 10 MG TABLET PO SCH (08:53)
[2022-06-12] MEDS: BACITRACIN 28 GM OINTMENT TP SCH (08:54)
[2022-06-12] MEDS: ACAMPROSATE CALCIUM 333 MG DR TABLET PO SCH ×3 (08:54→16:36)
[2022-06-12] MEDS: THIAMINE 100 MG TABLET PO SCH ×2 (08:54→16:36)
[2022-06-12] MEDS: QUEtiapine FUMARATE 100 MG TABLET PO PRN (15:01)
[2022-06-12] MEDS: DIVALPROEX SODIUM 250 MG ER TABLET PO SCH (20:50)
[2022-06-12] MEDS: QUEtiapine FUMARATE 200 MG TABLET PO SCH (20:51)
[2022-06-13 06:00] VITALS: BP 94/61
[2022-06-13] MEDS: CloNIDine HCL 0.1 MG TABLET PO SCH ×4 (06:00→21:32)
[2022-06-13] MEDS: FOLIC ACID 1 MG TABLET PO SCH (08:42)
[2022-06-13] MEDS: MULTIVITAMINS WITH MINERALS, THERAPEUTIC TABLET PO SCH (08:42)
[2022-06-13] MEDS: GABAPENTIN 400 MG CAPSULE PO SCH ×4 (08:42→21:31)
[2022-06-13] MEDS: THIAMINE 100 MG TABLET PO SCH ×2 (08:42→16:31)
[2022-06-13] MEDS: AmLODIPine BESYLATE 5 MG TABLET PO SCH (08:42)
[2022-06-13] MEDS: METHADONE HCL 10 MG TABLET PO SCH (08:43)
[2022-06-13] MEDS: ACAMPROSATE CALCIUM 333 MG DR TABLET PO SCH ×3 (08:43→16:31)
[2022-06-13] MEDS: BACITRACIN 28 GM OINTMENT TP SCH (08:45)
[2022-06-13 09:06] VITALS: BP 108/62
[2022-06-13 12:57] VITALS: BP 108/68
[2022-06-13 16:14] VITALS: BP 110/68
[2022-06-13] MEDS: DIVALPROEX SODIUM 250 MG ER TABLET PO SCH (21:31)
[2022-06-13] MEDS: QUEtiapine FUMARATE 200 MG TABLET PO SCH (21:31)
[2022-06-14] MEDS: CloNIDine HCL 0.1 MG TABLET PO SCH ×4 (06:06→20:48)
[2022-06-14] MEDS: METHADONE HCL 10 MG TABLET PO SCH (08:50)
[2022-06-14] MEDS: FOLIC ACID 1 MG TABLET PO SCH (08:51)
[2022-06-14] MEDS: GABAPENTIN 400 MG CAPSULE PO SCH ×4 (08:51→20:48)
[2022-06-14] MEDS: MULTIVITAMINS WITH MINERALS, THERAPEUTIC TABLET PO SCH (08:51)
[2022-06-14] MEDS: BACITRACIN 28 GM OINTMENT TP SCH (08:52)
[2022-06-14] MEDS: AmLODIPine BESYLATE 5 MG TABLET PO SCH (08:52)
[2022-06-14] MEDS: THIAMINE 100 MG TABLET PO SCH (08:52)
[2022-06-14] MEDS: ACAMPROSATE CALCIUM 333 MG DR TABLET PO SCH ×3 (08:52→16:32)
[2022-06-14 10:56] VITALS: BP 94/55
[2022-06-14 16:15] VITALS: BP 102/62
[2022-06-14] MEDS: LORazepam 1 MG TABLET PO PRN (19:20)
[2022-06-14] MEDS: DIVALPROEX SODIUM 250 MG ER TABLET PO SCH (20:47)
[2022-06-14] MEDS: QUEtiapine FUMARATE 200 MG TABLET PO SCH (20:48)
[2022-06-15] MEDS: CloNIDine HCL 0.1 MG TABLET PO SCH ×4 (06:00→22:00)
[2022-06-15 08:13] VITALS: BP 95/64
[2022-06-15] MEDS: ACAMPROSATE CALCIUM 333 MG DR TABLET PO SCH ×3 (08:49→16:42)
[2022-06-15] MEDS: AmLODIPine BESYLATE 5 MG TABLET PO SCH (08:52)
[2022-06-15] MEDS: MULTIVITAMINS WITH MINERALS, THERAPEUTIC TABLET PO SCH (08:52)
[2022-06-15] MEDS: BACITRACIN 28 GM OINTMENT TP SCH (08:52)
[2022-06-15] MEDS: METHADONE HCL 10 MG TABLET PO SCH (08:53)
[2022-06-15] MEDS: GABAPENTIN 400 MG CAPSULE PO SCH ×4 (08:53→20:16)
[2022-06-15 16:22] VITALS: BP 104/67
[2022-06-15 16:41] VITALS: BP 104/67
[2022-06-15] MEDS: ACETAMINOPHEN 325 MG TABLET PO PRN (16:41)
[2022-06-15] MEDS: QUEtiapine FUMARATE 100 MG TABLET PO PRN (16:41)
[2022-06-15] MEDS: QUEtiapine FUMARATE 200 MG TABLET PO SCH (20:16)
[2022-06-15] MEDS: DIVALPROEX SODIUM 250 MG ER TABLET PO SCH (20:16)
[2022-06-15 22:21] VITALS: BP 100/58
[2022-06-16] MEDS: CloNIDine HCL 0.1 MG TABLET PO SCH ×4 (06:00→22:05)
[2022-06-16 06:45] VITALS: BP 103/57
[2022-06-16] MEDS: GABAPENTIN 400 MG CAPSULE PO SCH ×4 (08:51→21:00)
[2022-06-16] MEDS: METHADONE HCL 10 MG TABLET PO SCH (08:51)
[2022-06-16] MEDS: MULTIVITAMINS WITH MINERALS, THERAPEUTIC TABLET PO SCH (08:51)
[2022-06-16] MEDS: ACAMPROSATE CALCIUM 333 MG DR TABLET PO SCH ×3 (08:52→16:06)
[2022-06-16] MEDS: AmLODIPine BESYLATE 5 MG TABLET PO SCH (08:52)
[2022-06-16 08:54] VITALS: BP 110/65
[2022-06-16] MEDS: BACITRACIN 28 GM OINTMENT TP SCH (08:54)
[2022-06-16 12:33] VITALS: BP 116/67
[2022-06-16] MEDS: QUEtiapine FUMARATE 100 MG TABLET PO PRN (14:19)
[2022-06-16 16:13] VITALS: BP 109/80
[2022-06-16] MEDS: QUEtiapine FUMARATE 200 MG TABLET PO SCH (21:00)
[2022-06-16] MEDS: DIVALPROEX SODIUM 250 MG ER TABLET PO SCH (21:01)
[2022-06-16] MEDS: ZOLPIDEM TARTRATE 10 MG TABLET PO PRN (21:01)
[2022-06-17] MEDS: CloNIDine HCL 0.1 MG TABLET PO SCH ×4 (05:09→22:27)
[2022-06-17 09:40] VITALS: BP 113/66
[2022-06-17] MEDS: GABAPENTIN 400 MG CAPSULE PO SCH ×4 (09:43→20:46)
[2022-06-17] MEDS: AmLODIPine BESYLATE 5 MG TABLET PO SCH (09:43)
[2022-06-17] MEDS: ACAMPROSATE CALCIUM 333 MG DR TABLET PO SCH ×3 (09:43→17:45)
[2022-06-17] MEDS: BACITRACIN 28 GM OINTMENT TP SCH (09:43)
[2022-06-17] MEDS: MULTIVITAMINS WITH MINERALS, THERAPEUTIC TABLET PO SCH (09:44)
[2022-06-17] MEDS: METHADONE HCL 10 MG TABLET PO SCH (09:46)
[2022-06-17 12:13] VITALS: BP 106/64
[2022-06-17] MEDS: ACETAMINOPHEN 325 MG TABLET PO PRN (12:13)
[2022-06-17 13:13] VITALS: BP 109/70
[2022-06-17 16:46] VITALS: BP 111/69
[2022-06-17] MEDS: QUEtiapine FUMARATE 100 MG TABLET PO PRN (17:45)
[2022-06-17] MEDS: DIVALPROEX SODIUM 250 MG ER TABLET PO SCH (20:46)
[2022-06-17] MEDS: QUEtiapine FUMARATE 200 MG TABLET PO SCH (20:47)
[2022-06-17 22:00] VITALS: BP 110/76
[2022-06-18] VITALS (8 sets, daily range): BP systolic 95–118; BP diastolic 61–96
[2022-06-18] MEDS: CloNIDine HCL 0.1 MG TABLET PO SCH ×4 (06:04→22:42)
[2022-06-18] MEDS: METHADONE HCL 10 MG TABLET PO SCH (09:17)
[2022-06-18] MEDS: GABAPENTIN 400 MG CAPSULE PO SCH ×4 (09:17→21:07)
[2022-06-18] MEDS: AmLODIPine BESYLATE 5 MG TABLET PO SCH (09:17)
[2022-06-18] MEDS: MULTIVITAMINS WITH MINERALS, THERAPEUTIC TABLET PO SCH (09:17)
[2022-06-18] MEDS: ACAMPROSATE CALCIUM 333 MG DR TABLET PO SCH ×3 (09:18→17:29)
[2022-06-18] MEDS: BACITRACIN 28 GM OINTMENT TP SCH (09:18)
[2022-06-18] MEDS: QUEtiapine FUMARATE 100 MG TABLET PO PRN ×2 (12:55→17:48)
[2022-06-18] MEDS: ACETAMINOPHEN 325 MG TABLET PO PRN ×2 (12:56→17:33)
[2022-06-18] MEDS ORDERED: GABA-1201 PO (15:17)
[2022-06-18] MEDS ORDERED: MELA5TAB40 PO (15:17)
[2022-06-18] MEDS ORDERED: DIVA-85 PO (15:17)
[2022-06-18] MEDS ORDERED: ACAM333T7 PO (15:17)
[2022-06-18] MEDS ORDERED: QUET200T30 PO (15:17)
[2022-06-18] MEDS ORDERED: OMEG-135 PO (15:17)
[2022-06-18] MEDS: QUEtiapine FUMARATE 200 MG TABLET PO SCH (21:06)
[2022-06-18] MEDS: DIVALPROEX SODIUM 250 MG ER TABLET PO SCH (21:07)
[2022-06-19 05:57] VITALS: BP 91/59
[2022-06-19] MEDS: CloNIDine HCL 0.1 MG TABLET PO SCH (06:00)
[2022-06-19] MEDS: METHADONE HCL 10 MG TABLET PO SCH (08:58)
[2022-06-19] MEDS: GABAPENTIN 400 MG CAPSULE PO SCH (08:59)
[2022-06-19] MEDS: ACAMPROSATE CALCIUM 333 MG DR TABLET PO SCH (08:59)
[2022-06-19] MEDS: MULTIVITAMINS WITH MINERALS, THERAPEUTIC TABLET PO SCH (08:59)
[2022-06-19] MEDS: AmLODIPine BESYLATE 5 MG TABLET PO SCH (08:59)
[2022-06-19] MEDS: BACITRACIN 28 GM OINTMENT TP SCH (09:00)
[2022-06-19 09:27] VITALS: BP 102/70
== END 2022-06-19 12:45 | disposition home or self-care (01) | DRG 750 ==
LOC: EMS 18:46 → 3EI 06-04 05:53 → 3EC 06-08 19:57 → 3EI 06-10 19:05
PROVIDERS: ADMIT Psychiatry & Neurology Psychiatry; ATTEND Psychiatry & Neurology Psychiatry
DX: F25.1 Schizoaffective disorder, depressive type (principal); R45.851 Suicidal ideations; G40.409 Other generalized epilepsy and epileptic syndromes, not intractable, without status epilepticus; M19.90 Unspecified osteoarthritis, unspecified site; G89.29 Other chronic pain; F10.10 Alcohol abuse, uncomplicated; Y90.9 Presence of alcohol in blood, level not specified; B18.2 Chronic viral hepatitis C; J44.9 Chronic obstructive pulmonary disease, unspecified; Z20.822 Contact with and (suspected) exposure to COVID-19; F17.200 Nicotine dependence, unspecified, uncomplicated; M54.2 Cervicalgia; F11.10 Opioid abuse, uncomplicated; I10 Essential (primary) hypertension; F15.10 Other stimulant abuse, uncomplicated; F12.10 Cannabis abuse, uncomplicated; F41.0 Panic disorder [episodic paroxysmal anxiety]; Z79.899 Other long term (current) drug therapy; Z88.8 Allergy status to other drugs, medicaments and biological substances; Z59.00 Homelessness unspecified; Z99.3 Dependence on wheelchair
CPT/HCPCS: 80053; 80164; 80307; 81001; 85025; 99285; G0480; J1200; J1630; J2060

== ENCOUNTER 2022-07-11 21:41 | Emergency (ER) | payer MEDICAID, OTHER ==
[~2022-07-11] VITALS: Ht 177.8 cm; Wt 63.6 kg
[~2022-07-11 21:41] MED LIST changes: -GABA-1216 PO; -LEVE500T8 PO; -QUET25TA36 PO
[2022-07-11 22:38] LABS: BASOPHILS % (AUTO) 0.5 % (0.0-2.0); EOSINOPHILS % (AUTO) 6.7 % (1.0-6.0); HEMATOCRIT 35.5 % (41-53); LYMPHOCYTES # (AUTO) 1.5 K/uL (1.0-4.8); LYMPHOCYTES % (AUTO) 36.8 % (22.0-44.0); MEAN CORPUSCULAR HEMOGLOBIN 31.7 pg (26.0-34.0); MEAN CORPUSCULAR HGB CONC 33.9 G/dL (31.0-37.0); MEAN CORPUSCULAR VOLUME 94 fL (80-100); MONOCYTES # (AUTO) 0.4 K/uL (0.1-1.0); MONOCYTES % (AUTO) 9.5 % (2.0-9.0); NEUTROPHILS # (AUTO) 1.9 K/uL (1.8-7.7); NEUTROPHILS % (AUTO) 46.5 % (40.0-70.0); PLATELET COUNT (AUTO) 163 K/uL (150-450)
[2022-07-11 22:57] LABS: COVID AG,FIA SOURCE NASOPHARYNGEAL
[2022-07-11 23:02] LABS: ANION GAP 7 mmol/L (8-16); CALCIUM, TOTAL 8.6 mg/dL (8.8-10.5); CARBON DIOXIDE 31 mmol/L (22-29); CHLORIDE 106 mmol/L (98-107); CREATININE 0.75 mg/dL (0.60-1.30); GLOMERULAR FILTR. RATE CALC > 60 mL/min (>60); GLUCOSE,RANDOM 123 mg/dL (70-110); POTASSIUM 4.3 mmol/L (3.5-5.1); SODIUM SERUM 144 mmol/L (136-145); UREA NITROGEN, BLOOD 16 mg/dL (7-18)
[2022-07-11 23:04] LABS: ALBUMIN 3.6 g/dL (3.4-5.0)
[2022-07-11 23:17] LABS: ALANINE AMINOTRANSFERASE 52 U/L (12-78); ALKALINE PHOSPHATASE 124 U/L (46-116); ASPARTATE AMINOTRANSFERASE 60 U/L (15-37); BILIRUBIN,TOTAL 0.3 mg/dL (0.1-1.0); TOTAL PROTEIN, SERUM 6.9 g/dL (6.4-8.2)
[2022-07-12] MEDS ORDERED: IBUPROFEN 600 MG TABLET PO ONE (05:45)
[2022-07-12 06:07] VITALS: BP 120/63
== END 2022-07-12 06:30 | disposition home or self-care (01) ==
LOC: EMS 21:50
DX: F25.1 Schizoaffective disorder, depressive type (principal); F10.20 Alcohol dependence, uncomplicated; M19.90 Unspecified osteoarthritis, unspecified site; G89.29 Other chronic pain; F17.210 Nicotine dependence, cigarettes, uncomplicated; F11.90 Opioid use, unspecified, uncomplicated; Z88.8 Allergy status to other drugs, medicaments and biological substances; Z20.822 Contact with and (suspected) exposure to COVID-19
CPT/HCPCS: 99285; 87426; 80053; 80164; 85025; G0480

== ENCOUNTER 2022-08-13 15:44 | Inpatient (IN) | payer MEDICAID, OTHER ==
[~2022-08-13] VITALS: Ht 177.8 cm; Wt 68.0 kg
[2022-08-13 18:22] LABS: BASOPHILS % (AUTO) 0.8 % (0.0-2.0); EOSINOPHILS % (AUTO) 2.4 % (1.0-6.0); HEMATOCRIT 37.4 % (41-53); HEMOGLOBIN 12.7 g/dL (13.5-17.5); LYMPHOCYTES # (AUTO) 1.3 K/uL (1.0-4.8); LYMPHOCYTES % (AUTO) 28.6 % (22.0-44.0); MEAN CORPUSCULAR HEMOGLOBIN 32.1 pg (26.0-34.0); MEAN CORPUSCULAR HGB CONC 33.9 G/dL (31.0-37.0); MEAN CORPUSCULAR VOLUME 95 fL (80-100); MONOCYTES # (AUTO) 0.4 K/uL (0.1-1.0); MONOCYTES % (AUTO) 8.1 % (2.0-9.0); NEUTROPHILS # (AUTO) 2.7 K/uL (1.8-7.7); NEUTROPHILS % (AUTO) 60.1 % (40.0-70.0); PLATELET COUNT (AUTO) 218 K/uL (150-450); RED BLOOD CELL COUNT(AUTO) 3.95 MIL/uL (4.50-5.90); RED CELL DISTRIBUTION WIDTH 13.2 % (11.5-14.5)
[2022-08-13 18:34] LABS: ANION GAP 7 mmol/L (8-16); CALCIUM, TOTAL 8.8 mg/dL (8.8-10.5); CARBON DIOXIDE 31 mmol/L (22-29); CHLORIDE 105 mmol/L (98-107); CREATININE 0.75 mg/dL (0.60-1.30); GLOMERULAR FILTR. RATE CALC > 60 mL/min (>60); GLUCOSE,RANDOM 134 mg/dL (70-110); POTASSIUM 3.7 mmol/L (3.5-5.1); SODIUM SERUM 143 mmol/L (136-145); UREA NITROGEN, BLOOD 15 mg/dL (7-18)
[2022-08-13 18:38] LABS: ALANINE AMINOTRANSFERASE 46 U/L (12-78); ALBUMIN 3.3 g/dL (3.4-5.0); ALKALINE PHOSPHATASE 124 U/L (46-116); ASPARTATE AMINOTRANSFERASE 55 U/L (15-37); BILIRUBIN,TOTAL 0.3 mg/dL (0.1-1.0); TOTAL PROTEIN, SERUM 7.1 g/dL (6.4-8.2)
[2022-08-13 22:29] LABS: COVID AG,FIA SOURCE NASAL SWAB
[2022-08-13 22:30] LABS: VALPROIC ACID < 3 mcg/mL (50-100)
[2022-08-13] MEDS ORDERED: QUEtiapine FUMARATE 100 MG TABLET PO ONE (22:30)
[2022-08-13] MEDS ORDERED: LORazepam 2 MG TABLET PO ONE (22:30)
[2022-08-14] MEDS ORDERED: ZOLPIDEM TARTRATE 10 MG TABLET PO PRN (03:00)
[2022-08-14] MEDS ORDERED: LORazepam 2 MG TABLET PO PRN (03:00)
[2022-08-14] MEDS ORDERED: QUEtiapine FUMARATE 100 MG TABLET PO PRN (03:00)
[2022-08-14 10:32] VITALS: BP 130/81
[2022-08-14] MEDS ORDERED: BACITRACIN 28 GM OINTMENT TP PRN (11:00)
[2022-08-14] MEDS ORDERED: METHADONE HCL 10 MG/5 ML SOLUTION ORAL.SYG PO ONE (11:45)
[2022-08-14] MEDS ORDERED: HydrOXYzine PAMOATE 50 MG CAPSULE PO PRN (15:45)
[2022-08-14] MEDS ORDERED: PROMETHAZINE HCL 25 MG TABLET PO PRN (15:45)
[2022-08-14] MEDS ORDERED: ACETAMINOPHEN 325 MG TABLET PO PRN (15:45)
[2022-08-14] MEDS ORDERED: MAGNESIUM HYDROXIDE SUSPENSION 30 ML UDCUP PO PRN (15:45)
[2022-08-14] MEDS ORDERED: GuaiFENesin/D-METHORPHAN [SUGAR-FREE] 200-20MG/10 ML SYRUP UDCUP PO PRN (15:45)
[2022-08-14] MEDS ORDERED: MAG HYDROX/AL HYDROX/SIMETH ES 30 ML SUSPENSION UDCUP PO PRN (15:45)
[2022-08-14] MEDS ORDERED: LOPERAMIDE HCL 2 MG CAPSULE PO PRN (15:45)
[2022-08-14] MEDS ORDERED: GABAPENTIN 300 MG CAPSULE PO PRN (15:45)
[2022-08-14] MEDS: THIAMINE 100 MG TABLET PO SCH (16:28)
[2022-08-14] MEDS: ACAMPROSATE CALCIUM 333 MG DR TABLET PO SCH (16:28)
[2022-08-14] MEDS: GABAPENTIN 300 MG CAPSULE PO SCH ×2 (16:28→20:29)
[2022-08-14 16:29] VITALS: BP 144/92
[2022-08-14] MEDS ORDERED: PALIPERIDONE PALMITATE 234 MG/1.5 ML SYRINGE IM ONE (20:15)
[2022-08-14] MEDS: DIVALPROEX SODIUM 250 MG ER TABLET PO SCH (20:28)
[2022-08-14] MEDS: MELATONIN 5 MG TABLET PO SCH (20:28)
[2022-08-14] MEDS: QUEtiapine FUMARATE 200 MG TABLET PO SCH (20:29)
[2022-08-14 20:44] VITALS: BP 128/72
[2022-08-15] MEDS ORDERED: CloNIDine HCL 0.1 MG TABLET PO PRN (08:30)
[2022-08-15] MEDS: THIAMINE 100 MG TABLET PO SCH ×2 (09:10→16:25)
[2022-08-15] MEDS: DULoxetine HCL 20 MG CAPSULE PO SCH (09:11)
[2022-08-15] MEDS: OMEGA-3/DHA/EPA/FISH OIL 1,000 MG CAPSULE PO SCH (09:11)
[2022-08-15] MEDS: MULTIVITAMINS WITH MINERALS, THERAPEUTIC TABLET PO SCH (09:11)
[2022-08-15] MEDS: GABAPENTIN 300 MG CAPSULE PO SCH ×4 (09:11→20:47)
[2022-08-15] MEDS: FOLIC ACID 1 MG TABLET PO SCH (09:11)
[2022-08-15] MEDS: ACAMPROSATE CALCIUM 333 MG DR TABLET PO SCH ×3 (09:12→16:25)
[2022-08-15] MEDS: METHADONE HCL 10 MG TABLET PO SCH (09:14)
[2022-08-15 09:19] VITALS: BP 129/73
[2022-08-15 12:25] LABS: HEMOGLOBIN A1C 5.2 % (3.8-5.6)
[2022-08-15 12:39] LABS: FREE T4 (FREE THYROXINE) 1.11 ng/dL (0.76-1.46); THYROID STIMULATING HORMONE 0.4 uIU/mL (0.36-3.74)
[2022-08-15 16:25] VITALS: BP 135/56
[2022-08-15] MEDS: DIVALPROEX SODIUM 250 MG ER TABLET PO SCH (20:47)
[2022-08-15] MEDS: MELATONIN 5 MG TABLET PO SCH (20:47)
[2022-08-15] MEDS: QUEtiapine FUMARATE 200 MG TABLET PO SCH (20:48)
[2022-08-15 21:33] VITALS: BP 127/74
[2022-08-15] MEDS ORDERED: PALIPERIDONE PALMITATE 234 MG/1.5 ML SYRINGE IM ONE (21:45)
[2022-08-16 09:01] VITALS: BP 112/79
[2022-08-16] MEDS: ACAMPROSATE CALCIUM 333 MG DR TABLET PO SCH ×3 (09:26→16:22)
[2022-08-16] MEDS: MULTIVITAMINS WITH MINERALS, THERAPEUTIC TABLET PO SCH (09:28)
[2022-08-16] MEDS: METHADONE HCL 10 MG TABLET PO SCH (09:28)
[2022-08-16] MEDS: DULoxetine HCL 20 MG CAPSULE PO SCH (09:29)
[2022-08-16] MEDS: THIAMINE 100 MG TABLET PO SCH ×2 (09:29→16:21)
[2022-08-16] MEDS: GABAPENTIN 300 MG CAPSULE PO SCH ×4 (09:29→21:53)
[2022-08-16] MEDS: FOLIC ACID 1 MG TABLET PO SCH (09:31)
[2022-08-16] MEDS: OMEGA-3/DHA/EPA/FISH OIL 1,000 MG CAPSULE PO SCH (10:23)
[2022-08-16 16:13] VITALS: BP 126/65
[2022-08-16] MEDS ORDERED: PALIPERIDONE PALMITATE 234 MG/1.5 ML SYRINGE IM ONE (16:15)
[2022-08-16 21:20] VITALS: BP 138/77
[2022-08-16] MEDS: MELATONIN 5 MG TABLET PO SCH (21:52)
[2022-08-16] MEDS: QUEtiapine FUMARATE 200 MG TABLET PO SCH (21:52)
[2022-08-16] MEDS: DIVALPROEX SODIUM 250 MG ER TABLET PO SCH (21:53)
[2022-08-17] MEDS: ACAMPROSATE CALCIUM 333 MG DR TABLET PO SCH ×3 (08:21→17:04)
[2022-08-17] MEDS: OMEGA-3/DHA/EPA/FISH OIL 1,000 MG CAPSULE PO SCH (08:21)
[2022-08-17] MEDS: GABAPENTIN 300 MG CAPSULE PO SCH ×4 (08:22→21:05)
[2022-08-17] MEDS: DULoxetine HCL 20 MG CAPSULE PO SCH (08:22)
[2022-08-17] MEDS: MULTIVITAMINS WITH MINERALS, THERAPEUTIC TABLET PO SCH (08:22)
[2022-08-17] MEDS: FOLIC ACID 1 MG TABLET PO SCH (08:22)
[2022-08-17] MEDS: METHADONE HCL 10 MG TABLET PO SCH (08:22)
[2022-08-17] MEDS: THIAMINE 100 MG TABLET PO SCH ×2 (09:31→17:04)
[2022-08-17 11:37] VITALS: BP 129/78
[2022-08-17 17:11] VITALS: BP 130/77
[2022-08-17 20:04] VITALS: BP 140/85
[2022-08-17] MEDS: MELATONIN 5 MG TABLET PO SCH (21:04)
[2022-08-17] MEDS: QUEtiapine FUMARATE 200 MG TABLET PO SCH (21:05)
[2022-08-17] MEDS: DIVALPROEX SODIUM 250 MG ER TABLET PO SCH (21:05)
[2022-08-18 08:07] VITALS: BP 136/82
[2022-08-18] MEDS: METHADONE HCL 10 MG TABLET PO SCH (08:35)
[2022-08-18] MEDS: ACAMPROSATE CALCIUM 333 MG DR TABLET PO SCH ×3 (08:35→16:17)
[2022-08-18] MEDS: OMEGA-3/DHA/EPA/FISH OIL 1,000 MG CAPSULE PO SCH (08:36)
[2022-08-18] MEDS: GABAPENTIN 300 MG CAPSULE PO SCH ×4 (08:37→20:15)
[2022-08-18] MEDS: DULoxetine HCL 20 MG CAPSULE PO SCH (08:37)
[2022-08-18] MEDS: MULTIVITAMINS WITH MINERALS, THERAPEUTIC TABLET PO SCH (08:37)
[2022-08-18] MEDS: FOLIC ACID 1 MG TABLET PO SCH (08:38)
[2022-08-18] MEDS: THIAMINE 100 MG TABLET PO SCH ×2 (08:38→16:16)
[2022-08-18] MEDS ORDERED: PALIPERIDONE PALMITATE 156 MG/ML SYRINGE IM ONE (09:00)
[2022-08-18 16:20] VITALS: BP 98/57
[2022-08-18] MEDS: QUEtiapine FUMARATE 300 MG TABLET PO SCH (20:15)
[2022-08-18] MEDS: MELATONIN 5 MG TABLET PO SCH (20:15)
[2022-08-18] MEDS: DIVALPROEX SODIUM 250 MG ER TABLET PO SCH (20:15)
[2022-08-18 20:54] VITALS: BP 108/66
[2022-08-19] MEDS: ACAMPROSATE CALCIUM 333 MG DR TABLET PO SCH ×3 (08:55→16:17)
[2022-08-19] MEDS: OMEGA-3/DHA/EPA/FISH OIL 1,000 MG CAPSULE PO SCH (08:55)
[2022-08-19] MEDS: MULTIVITAMINS WITH MINERALS, THERAPEUTIC TABLET PO SCH (08:56)
[2022-08-19] MEDS: GABAPENTIN 300 MG CAPSULE PO SCH ×4 (08:56→21:00)
[2022-08-19] MEDS: THIAMINE 100 MG TABLET PO SCH ×2 (08:56→16:17)
[2022-08-19] MEDS: FOLIC ACID 1 MG TABLET PO SCH (08:58)
[2022-08-19] MEDS: DULoxetine HCL 20 MG CAPSULE PO SCH (08:58)
[2022-08-19] MEDS: METHADONE HCL 10 MG TABLET PO SCH (08:58)
[2022-08-19] MEDS ORDERED: PALIPERIDONE PALMITATE 156 MG/ML SYRINGE IM ONE (09:00)
[2022-08-19 09:06] VITALS: BP 100/72
[2022-08-19 16:00] VITALS: BP 103/63
[2022-08-19 21:00] VITALS: BP 119/76
[2022-08-19] MEDS: MELATONIN 5 MG TABLET PO SCH ×3 (21:00→23:07)
[2022-08-19] MEDS: QUEtiapine FUMARATE 300 MG TABLET PO SCH ×3 (21:00→23:08)
[2022-08-19] MEDS: DIVALPROEX SODIUM 250 MG ER TABLET PO SCH ×3 (21:00→23:06)
[2022-08-19 21:01] VITALS: BP 119/76
[2022-08-20 08:15] VITALS: BP 100/78
[2022-08-20] MEDS: THIAMINE 100 MG TABLET PO SCH ×2 (08:43→16:54)
[2022-08-20] MEDS: MULTIVITAMINS WITH MINERALS, THERAPEUTIC TABLET PO SCH (08:43)
[2022-08-20] MEDS: FOLIC ACID 1 MG TABLET PO SCH (08:43)
[2022-08-20] MEDS: DULoxetine HCL 20 MG CAPSULE PO SCH (08:43)
[2022-08-20] MEDS: GABAPENTIN 300 MG CAPSULE PO SCH ×3 (08:43→16:54)
[2022-08-20] MEDS: ACAMPROSATE CALCIUM 333 MG DR TABLET PO SCH ×3 (08:43→16:54)
[2022-08-20] MEDS: OMEGA-3/DHA/EPA/FISH OIL 1,000 MG CAPSULE PO SCH (08:44)
[2022-08-20] MEDS: METHADONE HCL 10 MG TABLET PO SCH (08:45)
[2022-08-20] MEDS ORDERED: PALIPERIDONE PALMITATE 156 MG/ML SYRINGE IM ONE (09:00)
[2022-08-20 16:26] VITALS: BP 103/64
[2022-08-20 20:39] VITALS: BP 113/71
[2022-08-20] MEDS ORDERED: GABAPENTIN 400 MG CAPSULE PO SCH (21:00)
[2022-08-20] MEDS ORDERED: QUEtiapine FUMARATE 200 MG TABLET PO SCH (21:00)
[2022-08-20] MEDS: MELATONIN 5 MG TABLET PO SCH (21:26)
[2022-08-20] MEDS: DIVALPROEX SODIUM 250 MG ER TABLET PO SCH (21:26)
[2022-08-20] MEDS: GABAPENTIN 100 MG CAPSULE PO SCH (21:52)
[2022-08-20] MEDS ORDERED: GABAPENTIN 100 MG CAPSULE PO PRN (23:45)
[2022-08-21] MEDS: OMEGA-3/DHA/EPA/FISH OIL 1,000 MG CAPSULE PO SCH (08:43)
[2022-08-21] MEDS: FOLIC ACID 1 MG TABLET PO SCH (08:43)
[2022-08-21] MEDS: THIAMINE 100 MG TABLET PO SCH ×2 (08:43→16:21)
[2022-08-21] MEDS: ACAMPROSATE CALCIUM 333 MG DR TABLET PO SCH ×3 (08:43→16:21)
[2022-08-21] MEDS: METHADONE HCL 10 MG TABLET PO SCH (08:43)
[2022-08-21] MEDS: DULoxetine HCL 30 MG CAPSULE PO SCH (08:44)
[2022-08-21] MEDS: GABAPENTIN 100 MG CAPSULE PO SCH ×4 (08:44→21:19)
[2022-08-21] MEDS: MULTIVITAMINS WITH MINERALS, THERAPEUTIC TABLET PO SCH (08:44)
[2022-08-21 10:06] VITALS: BP 132/66
[2022-08-21 16:00] VITALS: BP 117/77
[2022-08-21] MEDS ORDERED: QUEtiapine FUMARATE 300 MG TABLET PO SCH (21:00)
[2022-08-21 21:04] VITALS: BP 124/76
[2022-08-21] MEDS: DIVALPROEX SODIUM 250 MG ER TABLET PO SCH (21:18)
[2022-08-21] MEDS: MELATONIN 5 MG TABLET PO SCH (21:18)
[2022-08-22 07:42] LABS: COVID AG,FIA SOURCE NASAL SWAB
[2022-08-22] MEDS: ACAMPROSATE CALCIUM 333 MG DR TABLET PO SCH ×3 (08:38→16:41)
[2022-08-22] MEDS: METHADONE HCL 10 MG TABLET PO SCH (08:39)
[2022-08-22] MEDS: MULTIVITAMINS WITH MINERALS, THERAPEUTIC TABLET PO SCH (08:39)
[2022-08-22] MEDS: GABAPENTIN 100 MG CAPSULE PO SCH ×3 (08:40→16:41)
[2022-08-22] MEDS: FOLIC ACID 1 MG TABLET PO SCH (08:41)
[2022-08-22] MEDS: THIAMINE 100 MG TABLET PO SCH ×2 (08:41→16:41)
[2022-08-22] MEDS: OMEGA-3/DHA/EPA/FISH OIL 1,000 MG CAPSULE PO SCH (08:41)
[2022-08-22] MEDS: DULoxetine HCL 30 MG CAPSULE PO SCH (08:43)
[2022-08-22 08:59] VITALS: BP 128/82
[2022-08-22 16:00] VITALS: BP 126/80
[2022-08-22 16:33] VITALS: BP 126/80
[2022-08-22] MEDS: GABAPENTIN 400 MG CAPSULE PO SCH ×2 (18:48→20:39)
[2022-08-22 20:25] VITALS: BP 123/84
[2022-08-22] MEDS: DIVALPROEX SODIUM 250 MG ER TABLET PO SCH (20:38)
[2022-08-22] MEDS: MELATONIN 5 MG TABLET PO SCH (20:38)
[2022-08-22] MEDS ORDERED: QUEtiapine FUMARATE 200 MG TABLET PO SCH (21:00)
[2022-08-23 08:00] VITALS: BP 125/98
[2022-08-23] MEDS ORDERED: ZOLPIDEM TARTRATE 5 MG TABLET PO PRN (09:30)
[2022-08-23 09:45] VITALS: BP 158/110
[2022-08-23] MEDS: THIAMINE 100 MG TABLET PO SCH ×2 (09:49→16:12)
[2022-08-23] MEDS: FOLIC ACID 1 MG TABLET PO SCH (09:49)
[2022-08-23] MEDS: MULTIVITAMINS WITH MINERALS, THERAPEUTIC TABLET PO SCH (09:50)
[2022-08-23] MEDS: METHADONE HCL 10 MG TABLET PO SCH (09:50)
[2022-08-23] MEDS: OMEGA-3/DHA/EPA/FISH OIL 1,000 MG CAPSULE PO SCH (09:50)
[2022-08-23] MEDS: ACAMPROSATE CALCIUM 333 MG DR TABLET PO SCH ×3 (09:50→16:10)
[2022-08-23] MEDS: GABAPENTIN 300 MG CAPSULE PO SCH ×2 (12:26→16:12)
[2022-08-23 16:00] VITALS: BP 110/83
[2022-08-23 20:19] VITALS: BP 121/78
[2022-08-23] MEDS: MELATONIN 5 MG TABLET PO SCH (20:22)
[2022-08-23] MEDS: DIVALPROEX SODIUM 250 MG ER TABLET PO SCH (20:22)
[2022-08-23] MEDS ORDERED: PREGABALIN 50 MG CAPSULE PO PRN (20:30)
[2022-08-23] MEDS ORDERED: QUEtiapine FUMARATE 200 MG TABLET PO SCH (21:00)
[2022-08-24 08:14] VITALS: BP 119/84
[2022-08-24] MEDS ORDERED: DULoxetine HCL 20 MG CAPSULE PO SCH (09:00)
[2022-08-24] MEDS ORDERED: PREGABALIN 50 MG CAPSULE PO SCH (09:00)
[2022-08-24] MEDS: ACAMPROSATE CALCIUM 333 MG DR TABLET PO SCH (09:26)
[2022-08-24] MEDS: FOLIC ACID 1 MG TABLET PO SCH (09:29)
[2022-08-24] MEDS: MULTIVITAMINS WITH MINERALS, THERAPEUTIC TABLET PO SCH (09:30)
[2022-08-24] MEDS: OMEGA-3/DHA/EPA/FISH OIL 1,000 MG CAPSULE PO SCH (09:30)
[2022-08-24] MEDS: THIAMINE 100 MG TABLET PO SCH (09:30)
[2022-08-24] MEDS: METHADONE HCL 10 MG TABLET PO SCH (09:31)
[2022-08-24] MEDS ORDERED: PREG50 PO (10:28)
[2022-08-24] MEDS ORDERED: DIVA-85 PO (10:28)
[2022-08-24] MEDS ORDERED: OMEG-135 PO (10:28)
[2022-08-24] MEDS ORDERED: QUET200T30 PO (10:28)
[2022-08-24] MEDS ORDERED: ACAM333T7 PO (10:28)
[2022-08-24] MEDS ORDERED: DULO20CA71 PO (10:28)
[2022-08-24] MEDS ORDERED: MELA5TAB40 PO (10:28)
[2022-08-24] MEDS ORDERED: NALT50TA PO (10:30)
== END 2022-08-24 12:58 | disposition home or self-care (01) | DRG 750 ==
LOC: EMS 15:44 → 3EI 08-14 04:00 → 3EX 08-21 16:03 → 3EI 08-22 18:23
PROVIDERS: ADMIT Psychiatry & Neurology Psychiatry; ATTEND Psychiatry & Neurology Psychiatry
DX: F25.1 Schizoaffective disorder, depressive type (principal); R45.851 Suicidal ideations; Z91.14 Patient's other noncompliance with medication regimen; B19.20 Unspecified viral hepatitis C without hepatic coma; D64.9 Anemia, unspecified; Z20.822 Contact with and (suspected) exposure to COVID-19; F17.200 Nicotine dependence, unspecified, uncomplicated; I10 Essential (primary) hypertension; L30.9 Dermatitis, unspecified; Z55.9 Problems related to education and literacy, unspecified; Z88.8 Allergy status to other drugs, medicaments and biological substances; Z59.9 Problem related to housing and economic circumstances, unspecified; Z63.9 Problem related to primary support group, unspecified; Z65.3 Problems related to other legal circumstances; Z79.899 Other long term (current) drug therapy
CPT/HCPCS: 70450; 80053; 80061; 80164; 83036; 84439; 84443; 85025; 86592; 99285; G0378; G0480; Q9967

== ENCOUNTER 2022-11-06 19:45 | Inpatient (IN) | payer MEDICAID, OTHER ==
[~2022-11-06] VITALS: Ht 170.2 cm; Wt 63.0 kg
[~2022-11-06 19:45] MED LIST changes: +DULO20CA71 PO; -GABA-1201 PO; +NALT50TA PO; +PREG50 PO
[2022-11-06 22:04] LABS: BASOPHILS % (AUTO) 0.5 % (0.0-2.0); HEMOGLOBIN 12.8 g/dL (13.5-17.5); LYMPHOCYTES # (AUTO) 1.3 K/uL (1.0-4.8); LYMPHOCYTES % (AUTO) 25.6 % (22.0-44.0); MEAN CORPUSCULAR HEMOGLOBIN 30.4 pg (26.0-34.0); MEAN CORPUSCULAR HGB CONC 32.8 G/dL (31.0-37.0); MEAN CORPUSCULAR VOLUME 93 fL (80-100); MONOCYTES # (AUTO) 0.5 K/uL (0.1-1.0); MONOCYTES % (AUTO) 9.8 % (2.0-9.0); NEUTROPHILS # (AUTO) 3.1 K/uL (1.8-7.7); NEUTROPHILS % (AUTO) 60.1 % (40.0-70.0); PLATELET COUNT (AUTO) 221 K/uL (150-450); RED BLOOD CELL COUNT(AUTO) 4.21 MIL/uL (4.50-5.90); RED CELL DISTRIBUTION WIDTH 13.3 % (11.5-14.5)
[2022-11-06 22:11] LABS: ANION GAP 6 mmol/L (8-16); CALCIUM, TOTAL 8.8 mg/dL (8.8-10.5); CARBON DIOXIDE 31 mmol/L (22-29); CHLORIDE 104 mmol/L (98-107); CREATININE 0.67 mg/dL (0.60-1.30); GLOMERULAR FILTR. RATE CALC > 60 mL/min (>60); GLUCOSE,RANDOM 103 mg/dL (70-110); POTASSIUM 4.3 mmol/L (3.5-5.1); SODIUM SERUM 141 mmol/L (136-145)
[2022-11-06 22:24] LABS: ALANINE AMINOTRANSFERASE 47 U/L (12-78); ALBUMIN 3.3 g/dL (3.4-5.0); ALKALINE PHOSPHATASE 116 U/L (46-116); ASPARTATE AMINOTRANSFERASE 54 U/L (15-37); BILIRUBIN,TOTAL 0.2 mg/dL (0.1-1.0); TOTAL PROTEIN, SERUM 7.4 g/dL (6.4-8.2)
[2022-11-07] VITALS (8 sets, daily range): BP systolic 119–150; BP diastolic 72–98; PULSE 60–80; RESP 17–19; TEMP 97.1–98.1; O2SAT 96–98
[2022-11-07] MEDS ORDERED: LORazepam 1 MG TABLET PO ONE (00:15)
[2022-11-07] MEDS ORDERED: OLANZapine 5 MG TABLET PO ONE (00:15)
[2022-11-07] MEDS ORDERED: QUEtiapine FUMARATE 100 MG TABLET PO PRN (00:45)
[2022-11-07] MEDS ORDERED: LORazepam 2 MG TABLET PO PRN (00:45)
[2022-11-07 00:54] LABS: COVID AG,FIA SOURCE NASAL SWAB
[2022-11-07] MEDS ORDERED: LOPERAMIDE HCL 2 MG CAPSULE PO PRN (16:15)
[2022-11-07] MEDS ORDERED: CloNIDine HCL 0.1 MG TABLET PO PRN (16:15)
[2022-11-07] MEDS ORDERED: PROMETHAZINE HCL 25 MG TABLET PO PRN (16:15)
[2022-11-07] MEDS ORDERED: IBUPROFEN 600 MG TABLET PO PRN (16:15)
[2022-11-07] MEDS ORDERED: HydrOXYzine PAMOATE 50 MG CAPSULE PO PRN ×2 (16:15)
[2022-11-07] MEDS ORDERED: GuaiFENesin/D-METHORPHAN [SUGAR-FREE] 200-20MG/10 ML SYRUP UDCUP PO PRN (16:15)
[2022-11-07] MEDS ORDERED: ACETAMINOPHEN 325 MG TABLET PO PRN (16:15)
[2022-11-07] MEDS ORDERED: MAG HYDROX/AL HYDROX/SIMETH ES 30 ML SUSPENSION UDCUP PO PRN ×2 (16:15)
[2022-11-07] MEDS ORDERED: MAGNESIUM HYDROXIDE SUSPENSION 30 ML UDCUP PO PRN (16:15)
[2022-11-07] MEDS: ACAMPROSATE CALCIUM 333 MG DR TABLET PO SCH (17:22)
[2022-11-07] MEDS: CloNIDine HCL 0.1 MG TABLET PO SCH ×2 (17:23→22:15)
[2022-11-07] MEDS: THIAMINE 100 MG TABLET PO SCH (17:23)
[2022-11-07] MEDS: PREGABALIN 50 MG CAPSULE PO SCH (17:23)
[2022-11-07] MEDS: QUEtiapine FUMARATE 25 MG TABLET PO SCH (17:23)
[2022-11-07] MEDS: DIVALPROEX SODIUM 250 MG ER TABLET PO SCH (20:35)
[2022-11-07] MEDS: MELATONIN 5 MG TABLET PO SCH (20:37)
[2022-11-07] MEDS ORDERED: QUEtiapine FUMARATE 200 MG TABLET PO SCH (21:00)
[2022-11-07] MEDS: ZOLPIDEM TARTRATE 10 MG TABLET PO PRN (21:45)
[2022-11-08] VITALS (7 sets, daily range): BP systolic 116–125; BP diastolic 75–87; PULSE 60–100; RESP 18–19; TEMP 97.9–98.2; O2SAT 97–99
[2022-11-08] MEDS: CloNIDine HCL 0.1 MG TABLET PO SCH ×4 (06:02→22:15)
[2022-11-08] MEDS: OMEGA-3/DHA/EPA/FISH OIL 1,000 MG CAPSULE PO SCH (08:18)
[2022-11-08] MEDS: DULoxetine HCL 20 MG CAPSULE PO SCH (08:18)
[2022-11-08] MEDS: QUEtiapine FUMARATE 25 MG TABLET PO SCH ×3 (08:19→17:10)
[2022-11-08] MEDS: THIAMINE 100 MG TABLET PO SCH ×2 (08:19→17:10)
[2022-11-08] MEDS: FOLIC ACID 1 MG TABLET PO SCH (08:19)
[2022-11-08] MEDS: MULTIVITAMINS WITH MINERALS, THERAPEUTIC TABLET PO SCH (08:19)
[2022-11-08] MEDS: ACAMPROSATE CALCIUM 333 MG DR TABLET PO SCH ×3 (08:19→17:10)
[2022-11-08] MEDS: PREGABALIN 50 MG CAPSULE PO SCH ×3 (08:20→17:10)
[2022-11-08] MEDS: METHADONE HCL 10 MG TABLET PO SCH (08:56)
[2022-11-08] MEDS ORDERED: DIAZEPAM 10 MG TABLET PO PRN (17:30)
[2022-11-08] MEDS ORDERED: LOPERAMIDE HCL 2 MG CAPSULE PO PRN (17:30)
[2022-11-08] MEDS: QUEtiapine FUMARATE 300 MG TABLET PO SCH (20:55)
[2022-11-08] MEDS: DIVALPROEX SODIUM 250 MG ER TABLET PO SCH (20:55)
[2022-11-08] MEDS: MELATONIN 5 MG TABLET PO SCH (20:55)
[2022-11-08] MEDS: ZOLPIDEM TARTRATE 10 MG TABLET PO PRN (21:35)
[2022-11-09] VITALS (8 sets, daily range): BP systolic 113–128; BP diastolic 66–77; PULSE 63–83; RESP 18–19; TEMP 97.5–98.9; O2SAT 97–99
[2022-11-09] MEDS: CloNIDine HCL 0.1 MG TABLET PO SCH ×4 (06:05→17:00)
[2022-11-09] MEDS ORDERED: DIAZEPAM 10 MG TABLET PO PRN (07:00)
[2022-11-09 07:25] LABS: HEMOGLOBIN A1C 5.4 % (3.8-5.6)
[2022-11-09 07:26] LABS: CHOL/HDL RATIO 2.6 (4.2-7.3)
[2022-11-09] MEDS: METHADONE HCL 10 MG TABLET PO SCH (08:58)
[2022-11-09] MEDS: FOLIC ACID 1 MG TABLET PO SCH (08:58)
[2022-11-09] MEDS: MULTIVITAMINS WITH MINERALS, THERAPEUTIC TABLET PO SCH (08:59)
[2022-11-09] MEDS: OMEGA-3/DHA/EPA/FISH OIL 1,000 MG CAPSULE PO SCH (08:59)
[2022-11-09] MEDS: DIAZEPAM 10 MG TABLET PO SCH ×5 (08:59→20:13)
[2022-11-09] MEDS: DULoxetine HCL 20 MG CAPSULE PO SCH (08:59)
[2022-11-09] MEDS: THIAMINE 100 MG TABLET PO SCH ×2 (08:59→17:25)
[2022-11-09] MEDS: QUEtiapine FUMARATE 25 MG TABLET PO SCH ×3 (09:00→17:25)
[2022-11-09] MEDS: PREGABALIN 25 MG CAPSULE PO SCH ×3 (09:00→17:25)
[2022-11-09] MEDS: ACAMPROSATE CALCIUM 333 MG DR TABLET PO SCH ×3 (09:05→17:29)
[2022-11-09] MEDS: BACITRACIN 28 GM OINTMENT TP SCH ×2 (11:15→16:12)
[2022-11-09] MEDS: DIVALPROEX SODIUM 250 MG ER TABLET PO SCH (20:12)
[2022-11-09] MEDS: MELATONIN 5 MG TABLET PO SCH (20:12)
[2022-11-09] MEDS: QUEtiapine FUMARATE 300 MG TABLET PO SCH (20:13)
[2022-11-10 08:54] VITALS: RESP 18
[2022-11-10] MEDS: OMEGA-3/DHA/EPA/FISH OIL 1,000 MG CAPSULE PO SCH (09:26)
[2022-11-10] MEDS: QUEtiapine FUMARATE 25 MG TABLET PO SCH ×3 (09:26→16:41)
[2022-11-10] MEDS: DULoxetine HCL 20 MG CAPSULE PO SCH (09:26)
[2022-11-10] MEDS: THIAMINE 100 MG TABLET PO SCH ×2 (09:27→16:40)
[2022-11-10] MEDS: MULTIVITAMINS WITH MINERALS, THERAPEUTIC TABLET PO SCH (09:27)
[2022-11-10] MEDS: FOLIC ACID 1 MG TABLET PO SCH (09:27)
[2022-11-10] MEDS: DIAZEPAM 10 MG TABLET PO SCH ×4 (09:27→21:11)
[2022-11-10] MEDS: PREGABALIN 25 MG CAPSULE PO SCH ×3 (09:27→16:40)
[2022-11-10] MEDS: BACITRACIN 28 GM OINTMENT TP SCH ×2 (09:28→16:41)
[2022-11-10] MEDS: METHADONE HCL 10 MG TABLET PO SCH (09:34)
[2022-11-10] MEDS: ACAMPROSATE CALCIUM 333 MG DR TABLET PO SCH ×3 (09:35→16:40)
[2022-11-10 10:14] VITALS: BP 102/74; PULSE 60; RESP 18; TEMP 97.8; O2SAT 96
[2022-11-10 20:12] VITALS: BP 125/77; PULSE 78; RESP 18; TEMP 98.1; O2SAT 98
[2022-11-10] MEDS: DIVALPROEX SODIUM 250 MG ER TABLET PO SCH (21:11)
[2022-11-10] MEDS: MELATONIN 5 MG TABLET PO SCH (21:12)
[2022-11-10] MEDS: QUEtiapine FUMARATE 300 MG TABLET PO SCH (21:12)
[2022-11-10] MEDS: ZOLPIDEM TARTRATE 10 MG TABLET PO PRN (21:54)
[2022-11-10 22:13] VITALS: BP 120/69; PULSE 74; RESP 18; TEMP 98; O2SAT 97
[2022-11-11] MEDS ORDERED: DIAZEPAM 5 MG TABLET PO PRN (07:00)
[2022-11-11 09:24] VITALS: BP 96/62; PULSE 60; RESP 18; TEMP 97.2; O2SAT 99
[2022-11-11 09:51] VITALS: BP 143/96; PULSE 114
[2022-11-11] MEDS: METHADONE HCL 10 MG TABLET PO SCH (09:54)
[2022-11-11] MEDS: DULoxetine HCL 20 MG CAPSULE PO SCH (09:54)
[2022-11-11] MEDS: MULTIVITAMINS WITH MINERALS, THERAPEUTIC TABLET PO SCH (09:54)
[2022-11-11] MEDS: OMEGA-3/DHA/EPA/FISH OIL 1,000 MG CAPSULE PO SCH (09:54)
[2022-11-11] MEDS: ACAMPROSATE CALCIUM 333 MG DR TABLET PO SCH ×3 (09:54→17:24)
[2022-11-11] MEDS: PREGABALIN 25 MG CAPSULE PO SCH ×3 (09:54→17:26)
[2022-11-11] MEDS: DIAZEPAM 5 MG TABLET PO SCH ×4 (09:55→20:26)
[2022-11-11] MEDS: QUEtiapine FUMARATE 25 MG TABLET PO SCH ×3 (09:55→17:25)
[2022-11-11] MEDS: FOLIC ACID 1 MG TABLET PO SCH (09:55)
[2022-11-11] MEDS: THIAMINE 100 MG TABLET PO SCH ×2 (09:55→17:24)
[2022-11-11] MEDS: BACITRACIN 28 GM OINTMENT TP SCH ×2 (12:47→17:25)
[2022-11-11 20:25] VITALS: BP 102/60; PULSE 71; RESP 20; TEMP 97.8; O2SAT 97
[2022-11-11] MEDS: MELATONIN 5 MG TABLET PO SCH (20:27)
[2022-11-11] MEDS: DIVALPROEX SODIUM 250 MG ER TABLET PO SCH (20:27)
[2022-11-11] MEDS: QUEtiapine FUMARATE 300 MG TABLET PO SCH (20:27)
[2022-11-12 09:26] VITALS: BP 103/79; PULSE 80; RESP 18; TEMP 97.5; O2SAT 98
[2022-11-12 09:27] VITALS: BP 103/79; PULSE 80; RESP 18; TEMP 97.5; O2SAT 100
[2022-11-12] MEDS: DIAZEPAM 5 MG TABLET PO PRN ×2 (09:40→16:05)
[2022-11-12] MEDS: METHADONE HCL 10 MG TABLET PO SCH (09:40)
[2022-11-12] MEDS: DULoxetine HCL 20 MG CAPSULE PO SCH (09:41)
[2022-11-12] MEDS: THIAMINE 100 MG TABLET PO SCH ×2 (09:41→16:05)
[2022-11-12] MEDS: ACAMPROSATE CALCIUM 333 MG DR TABLET PO SCH ×3 (09:41→16:05)
[2022-11-12] MEDS: OMEGA-3/DHA/EPA/FISH OIL 1,000 MG CAPSULE PO SCH (09:43)
[2022-11-12] MEDS: QUEtiapine FUMARATE 25 MG TABLET PO SCH ×3 (09:43→16:05)
[2022-11-12] MEDS: FOLIC ACID 1 MG TABLET PO SCH (09:45)
[2022-11-12] MEDS: PREGABALIN 25 MG CAPSULE PO SCH ×3 (09:46→16:06)
[2022-11-12] MEDS: MULTIVITAMINS WITH MINERALS, THERAPEUTIC TABLET PO SCH (09:47)
[2022-11-12] MEDS: BACITRACIN 28 GM OINTMENT TP SCH ×2 (09:50→16:06)
[2022-11-12 20:00] VITALS: BP 103/54; PULSE 67; RESP 18; TEMP 97.6; O2SAT 95
[2022-11-12 20:14] VITALS: BP 103/54; PULSE 67; RESP 18; TEMP 97.6; O2SAT 95
[2022-11-12] MEDS: MELATONIN 5 MG TABLET PO SCH (20:50)
[2022-11-12] MEDS: DIVALPROEX SODIUM 250 MG ER TABLET PO SCH (20:50)
[2022-11-12] MEDS: QUEtiapine FUMARATE 300 MG TABLET PO SCH (20:51)
[2022-11-13 09:05] VITALS: BP 104/70; PULSE 69; RESP 19; TEMP 97.7; O2SAT 97
[2022-11-13 09:16] VITALS: BP 104/70; PULSE 69; RESP 19; TEMP 97.7; O2SAT 97
[2022-11-13] MEDS: OMEGA-3/DHA/EPA/FISH OIL 1,000 MG CAPSULE PO SCH (09:25)
[2022-11-13] MEDS: THIAMINE 100 MG TABLET PO SCH ×2 (09:25→17:14)
[2022-11-13] MEDS: METHADONE HCL 10 MG TABLET PO SCH (09:25)
[2022-11-13] MEDS: DULoxetine HCL 30 MG CAPSULE PO SCH (09:26)
[2022-11-13] MEDS: ACAMPROSATE CALCIUM 333 MG DR TABLET PO SCH ×3 (09:26→17:14)
[2022-11-13] MEDS: MULTIVITAMINS WITH MINERALS, THERAPEUTIC TABLET PO SCH (09:27)
[2022-11-13] MEDS: QUEtiapine FUMARATE 25 MG TABLET PO SCH ×3 (09:27→17:15)
[2022-11-13] MEDS: PREGABALIN 25 MG CAPSULE PO SCH ×2 (09:27→13:11)
[2022-11-13] MEDS: FOLIC ACID 1 MG TABLET PO SCH (09:27)
[2022-11-13] MEDS: BACITRACIN 28 GM OINTMENT TP SCH ×2 (09:28→17:15)
[2022-11-13] MEDS ORDERED: GABAPENTIN 300 MG CAPSULE PO PRN (14:45)
[2022-11-13] MEDS: CARBAMIDE PEROXIDE 6.5% 15 ML OTIC SOLUTION AU SCH (15:29)
[2022-11-13] MEDS: GABAPENTIN 300 MG CAPSULE PO SCH ×2 (17:16→21:01)
[2022-11-13] MEDS: DIVALPROEX SODIUM 250 MG ER TABLET PO SCH (21:01)
[2022-11-13] MEDS: MELATONIN 5 MG TABLET PO SCH (21:01)
[2022-11-13] MEDS: QUEtiapine FUMARATE 200 MG TABLET PO SCH (21:01)
[2022-11-13 22:42] VITALS: BP 100/65; PULSE 74; RESP 18; TEMP 97.6; O2SAT 93
[2022-11-14] MEDS: DULoxetine HCL 30 MG CAPSULE PO SCH (09:07)
[2022-11-14] MEDS: QUEtiapine FUMARATE 25 MG TABLET PO SCH ×3 (09:07→16:18)
[2022-11-14] MEDS: MULTIVITAMINS WITH MINERALS, THERAPEUTIC TABLET PO SCH (09:07)
[2022-11-14] MEDS: GABAPENTIN 300 MG CAPSULE PO SCH ×4 (09:07→20:59)
[2022-11-14] MEDS: ACAMPROSATE CALCIUM 333 MG DR TABLET PO SCH ×3 (09:07→16:17)
[2022-11-14] MEDS: THIAMINE 100 MG TABLET PO SCH ×2 (09:07→16:17)
[2022-11-14] MEDS: OMEGA-3/DHA/EPA/FISH OIL 1,000 MG CAPSULE PO SCH (09:08)
[2022-11-14] MEDS: METHADONE HCL 10 MG TABLET PO SCH (09:10)
[2022-11-14] MEDS: CARBAMIDE PEROXIDE 6.5% 15 ML OTIC SOLUTION AU SCH (09:11)
[2022-11-14] MEDS: BACITRACIN 28 GM OINTMENT TP SCH ×2 (09:11→16:19)
[2022-11-14] MEDS: FOLIC ACID 1 MG TABLET PO SCH (09:15)
[2022-11-14 09:43] VITALS: BP 109/60; PULSE 77; RESP 17; TEMP 97.6
[2022-11-14 09:44] VITALS: BP 109/60; PULSE 77; RESP 17; TEMP 97.6; O2SAT 96
[2022-11-14] MEDS ORDERED: NICOTINE 21 MG/24 HOUR PATCH TD PRN (11:30)
[2022-11-14 20:30] VITALS: BP 101/78; PULSE 76; RESP 18; TEMP 97.9; O2SAT 97
[2022-11-14] MEDS: QUEtiapine FUMARATE 200 MG TABLET PO SCH (20:59)
[2022-11-14] MEDS: MELATONIN 5 MG TABLET PO SCH (20:59)
[2022-11-14] MEDS: DIVALPROEX SODIUM 250 MG ER TABLET PO SCH (20:59)
[2022-11-14] MEDS ORDERED: DULO-114 PO (21:33)
[2022-11-14] MEDS ORDERED: VARE1TAB25 PO (21:33)
[2022-11-14] MEDS ORDERED: QUET200T30 PO (21:33)
[2022-11-14] MEDS ORDERED: OMEG-135 PO (21:33)
[2022-11-14] MEDS ORDERED: MELA5TAB40 PO (21:33)
[2022-11-14] MEDS ORDERED: ACAM333T7 PO (21:33)
[2022-11-14] MEDS ORDERED: GABA-1181 PO (21:33)
[2022-11-14] MEDS ORDERED: QUET25TA36 PO (21:33)
[2022-11-14] MEDS ORDERED: DIVA-85 PO (21:33)
[2022-11-14 22:03] VITALS: BP 101/78; PULSE 76; RESP 16; TEMP 97.9; O2SAT 97
[2022-11-14 23:05] VITALS: BP 105/67; PULSE 71; RESP 18; TEMP 97.7
[2022-11-15] MEDS: CARBAMIDE PEROXIDE 6.5% 15 ML OTIC SOLUTION AU SCH (08:44)
[2022-11-15] MEDS: DULoxetine HCL 30 MG CAPSULE PO SCH (08:44)
[2022-11-15] MEDS: GABAPENTIN 300 MG CAPSULE PO SCH (08:44)
[2022-11-15] MEDS: FOLIC ACID 1 MG TABLET PO SCH (08:45)
[2022-11-15] MEDS: MULTIVITAMINS WITH MINERALS, THERAPEUTIC TABLET PO SCH (08:45)
[2022-11-15] MEDS: OMEGA-3/DHA/EPA/FISH OIL 1,000 MG CAPSULE PO SCH (08:45)
[2022-11-15] MEDS: THIAMINE 100 MG TABLET PO SCH (08:45)
[2022-11-15] MEDS: QUEtiapine FUMARATE 25 MG TABLET PO SCH (08:45)
[2022-11-15] MEDS: ACAMPROSATE CALCIUM 333 MG DR TABLET PO SCH (08:45)
[2022-11-15 08:46] VITALS: BP 91/63; PULSE 70; RESP 18; TEMP 97.3; O2SAT 99
[2022-11-15] MEDS: METHADONE HCL 10 MG TABLET PO SCH (08:47)
[2022-11-15 08:54] VITALS: BP 91/63; PULSE 70; RESP 18; TEMP 97.3; O2SAT 99
[2022-11-15] MEDS: BACITRACIN 28 GM OINTMENT TP SCH (10:10)
== END 2022-11-15 10:45 | disposition home or self-care (01) | DRG 750 ==
LOC: EMS 19:46 → 3EI 11-07 00:01
PROVIDERS: ADMIT Psychiatry & Neurology Psychiatry; ATTEND Psychiatry & Neurology Psychiatry
DX: F25.1 Schizoaffective disorder, depressive type (principal); G93.41 Metabolic encephalopathy; S81.812A Laceration without foreign body, left lower leg, initial encounter; S81.811A Laceration without foreign body, right lower leg, initial encounter; R45.851 Suicidal ideations; S41.111A Laceration without foreign body of right upper arm, initial encounter; E78.00 Pure hypercholesterolemia, unspecified; D64.9 Anemia, unspecified; Z20.822 Contact with and (suspected) exposure to COVID-19; F10.20 Alcohol dependence, uncomplicated; F41.9 Anxiety disorder, unspecified; S41.112A Laceration without foreign body of left upper arm, initial encounter; L30.9 Dermatitis, unspecified; X58.XXXA Exposure to other specified factors, initial encounter; M19.90 Unspecified osteoarthritis, unspecified site; I10 Essential (primary) hypertension; J44.9 Chronic obstructive pulmonary disease, unspecified; Z88.8 Allergy status to other drugs, medicaments and biological substances; Z79.899 Other long term (current) drug therapy; Z87.891 Personal history of nicotine dependence; Z91.148 Patient's other noncompliance with medication regimen for other reason; Y93.89 Activity, other specified; Y92.89 Other specified places as the place of occurrence of the external cause; Y99.8 Other external cause status
CPT/HCPCS: 80053; 80061; 80164; 83036; 85025; 87081; 99285; G0480; Q9967

== ENCOUNTER 2022-12-19 02:08 | Emergency (ER) | payer MEDICAID, OTHER ==
[~2022-12-19] VITALS: Ht 177.8 cm; Wt 68.0 kg
[~2022-12-19 02:08] MED LIST changes: +DULO-114 PO; -DULO20CA71 PO; +GABA-1181 PO; -NALT50TA PO; -PREG50 PO; +QUET25TA36 PO; +VARE1TAB25 PO
[2022-12-19 02:17] VITALS: BP 131/91; PULSE 74; RESP 18; TEMP 98.5
[2022-12-19] MEDS ORDERED: QUEtiapine FUMARATE 25 MG TABLET PO ONE (03:30)
[2022-12-19] MEDS ORDERED: PERMETHRIN 5% 60 GM CREAM TP ONE (03:30)
[2022-12-19] MEDS ORDERED: LORazepam 0.5 MG TABLET PO ONE (03:30)
== END 2022-12-19 04:03 | disposition home or self-care (01) ==
LOC: EMS 02:09
DX: B86 Scabies (principal); F20.9 Schizophrenia, unspecified; F10.20 Alcohol dependence, uncomplicated; M19.90 Unspecified osteoarthritis, unspecified site; F32.A Depression, unspecified; F17.210 Nicotine dependence, cigarettes, uncomplicated; F15.90 Other stimulant use, unspecified, uncomplicated; F11.90 Opioid use, unspecified, uncomplicated; Z98.890 Other specified postprocedural states; Z88.8 Allergy status to other drugs, medicaments and biological substances
CPT/HCPCS: 99284; Z7502; Z7610

== ENCOUNTER 2023-01-07 22:36 | Inpatient (IN) | payer MEDICAID, OTHER ==
[~2023-01-07] VITALS: Ht 177.8 cm; Wt 55.6 kg
[2023-01-08] MEDS ORDERED: HALOPERIDOL 5 MG TABLET PO ONE
[2023-01-08] MEDS ORDERED: LORazepam 2 MG/ML VIAL IM ONE
[2023-01-08] MEDS ORDERED: DiphenhydrAMINE HCL 25 MG CAPSULE PO ONE
[2023-01-08 00:04] LABS: COVID AG,FIA SOURCE NASOPHARYNGEAL
[2023-01-08 00:57] LABS: BASOPHILS % (AUTO) 0.5 % (0.0-2.0); EOSINOPHILS % (AUTO) 4.6 % (1.0-6.0); HEMATOCRIT 33.9 % (41-53); HEMOGLOBIN 11.4 g/dL (13.5-17.5); LYMPHOCYTES # (AUTO) 1.8 K/uL (1.0-4.8); LYMPHOCYTES % (AUTO) 35.5 % (22.0-44.0); MEAN CORPUSCULAR HEMOGLOBIN 31.5 pg (26.0-34.0); MEAN CORPUSCULAR HGB CONC 33.6 G/dL (31.0-37.0); MEAN CORPUSCULAR VOLUME 94 fL (80-100); MONOCYTES # (AUTO) 0.5 K/uL (0.1-1.0); NEUTROPHILS # (AUTO) 2.5 K/uL (1.8-7.7); NEUTROPHILS % (AUTO) 49.4 % (40.0-70.0); PLATELET COUNT (AUTO) 159 K/uL (150-450); RED BLOOD CELL COUNT(AUTO) 3.61 MIL/uL (4.50-5.90); RED CELL DISTRIBUTION WIDTH 13.6 % (11.5-14.5)
[2023-01-08 01:06] LABS: ANION GAP 7 mmol/L (8-16); CALCIUM, TOTAL 8.1 mg/dL (8.8-10.5); CARBON DIOXIDE 30 mmol/L (22-29); CHLORIDE 103 mmol/L (98-107); CREATININE 0.67 mg/dL (0.60-1.30); GLOMERULAR FILTR. RATE CALC > 60 mL/min (>60); GLUCOSE,RANDOM 121 mg/dL (70-110); POTASSIUM 3.8 mmol/L (3.5-5.1); SODIUM SERUM 140 mmol/L (136-145)
[2023-01-08 01:12] LABS: ALANINE AMINOTRANSFERASE 53 U/L (12-78); ALBUMIN 2.9 g/dL (3.4-5.0); ALKALINE PHOSPHATASE 134 U/L (46-116); ASPARTATE AMINOTRANSFERASE 65 U/L (15-37); BILIRUBIN,TOTAL 0.2 mg/dL (0.1-1.0); TOTAL PROTEIN, SERUM 5.9 g/dL (6.4-8.2); VALPROIC ACID < 3 mcg/mL (50-100)
[2023-01-08] MEDS ORDERED: QUEtiapine FUMARATE 100 MG TABLET PO PRN (02:45)
[2023-01-08] MEDS ORDERED: MAG HYDROX/AL HYDROX/SIMETH ES 30 ML SUSPENSION UDCUP PO PRN (02:45)
[2023-01-08] MEDS ORDERED: TUBERCULIN, PURIFIED PROTEIN DERIVATIVE 5 TU/0.1 ML SYRINGE ID ONE (02:45)
[2023-01-08] MEDS ORDERED: GuaiFENesin/D-METHORPHAN [SUGAR-FREE] 200-20MG/10 ML SYRUP UDCUP PO PRN (02:45)
[2023-01-08] MEDS ORDERED: HydrOXYzine PAMOATE 50 MG CAPSULE PO PRN (02:45)
[2023-01-08] MEDS ORDERED: MAGNESIUM HYDROXIDE SUSPENSION 30 ML UDCUP PO PRN (02:45)
[2023-01-08] MEDS ORDERED: PROMETHAZINE HCL 25 MG TABLET PO PRN (02:45)
[2023-01-08] MEDS ORDERED: LOPERAMIDE HCL 2 MG CAPSULE PO PRN (02:45)
[2023-01-08 04:49] LABS: AMPHET/METH SCREEN,URINE POSITIVE (NEGATIVE); BARBITURATE SCREEN, URINE NEGATIVE (NEGATIVE); BENZODIAZEPINES SCREEN,URINE POSITIVE (NEGATIVE); CANNABINOID SCREEN,URINE POSITIVE (NEGATIVE); COCAINE SCREEN,URINE NEGATIVE (NEGATIVE); METHADONE SCREEN, URINE POSITIVE (NEGATIVE); OPIATE SCREEN,URINE NEGATIVE (NEGATIVE); PHENCYCLIDINE SCREEN,URINE NEGATIVE (NEGATIVE)
[2023-01-08] MEDS: FOLIC ACID 1 MG TABLET PO SCH (09:02)
[2023-01-08] MEDS: DIVALPROEX SODIUM 500 MG ER TABLET PO SCH ×2 (09:02→16:29)
[2023-01-08] MEDS: THIAMINE 100 MG TABLET PO SCH (09:03)
[2023-01-08] MEDS: MULTIVITAMINS WITH MINERALS, THERAPEUTIC TABLET PO SCH (09:03)
[2023-01-08] MEDS: LORazepam 2 MG TABLET PO PRN (09:41)
[2023-01-08] MEDS: ACAMPROSATE CALCIUM 333 MG DR TABLET PO SCH ×2 (11:03→16:35)
[2023-01-08] MEDS: PREGABALIN 50 MG CAPSULE PO SCH ×2 (11:05→16:33)
[2023-01-08] MEDS: DULoxetine HCL 20 MG CAPSULE PO SCH (11:06)
[2023-01-08] MEDS: MELATONIN 5 MG TABLET PO SCH (21:00)
[2023-01-08] MEDS: QUEtiapine FUMARATE 200 MG TABLET PO SCH (21:00)
[2023-01-08 21:44] VITALS: BP 150/82; PULSE 55; RESP 16; TEMP 97.3
[2023-01-09 07:57] LABS: CHOL/HDL RATIO 2.7 (4.2-7.3); CHOLESTEROL 85 mg/dL (131-200); HDL CHOLESTEROL 31 mg/dL (40-60); LDL CHOL (CALC.) 25 mg/dL (0-130); TRIGLYCERIDES 143 mg/dL (15-150)
[2023-01-09] MEDS: DULoxetine HCL 20 MG CAPSULE PO SCH (10:18)
[2023-01-09] MEDS: DIVALPROEX SODIUM 500 MG ER TABLET PO SCH ×3 (10:18→17:42)
[2023-01-09] MEDS: FOLIC ACID 1 MG TABLET PO SCH (10:18)
[2023-01-09] MEDS: MULTIVITAMINS WITH MINERALS, THERAPEUTIC TABLET PO SCH (10:18)
[2023-01-09] MEDS: METHADONE HCL 10 MG TABLET PO SCH (10:18)
[2023-01-09] MEDS: LevETIRAcetam 500 MG TABLET PO SCH ×2 (10:24→17:41)
[2023-01-09] MEDS: THIAMINE 100 MG TABLET PO SCH ×2 (10:24→17:42)
[2023-01-09] MEDS: ACAMPROSATE CALCIUM 333 MG DR TABLET PO SCH ×3 (10:25→17:42)
[2023-01-09] MEDS: PREGABALIN 50 MG CAPSULE PO SCH ×3 (10:25→17:41)
[2023-01-09 11:03] VITALS: BP 140/90; PULSE 78; RESP 18; TEMP 98.3
[2023-01-09] MEDS ORDERED: BACITRACIN 28 GM OINTMENT TP PRN (12:00)
[2023-01-09 20:09] VITALS: BP 114/85; PULSE 69; RESP 18; TEMP 97.9
[2023-01-09] MEDS: QUEtiapine FUMARATE 200 MG TABLET PO SCH (20:37)
[2023-01-09] MEDS: MELATONIN 5 MG TABLET PO SCH (20:37)
[2023-01-09] MEDS ORDERED: PALIPERIDONE PALMITATE 234 MG/1.5 ML SYRINGE IM ONE (21:00)
[2023-01-10] MEDS ORDERED: IVERMECTIN 3 MG TABLET PO ONE (07:00)
[2023-01-10] MEDS: DULoxetine HCL 20 MG CAPSULE PO SCH (09:37)
[2023-01-10] MEDS: MULTIVITAMINS WITH MINERALS, THERAPEUTIC TABLET PO SCH (09:37)
[2023-01-10] MEDS: ACAMPROSATE CALCIUM 333 MG DR TABLET PO SCH ×3 (09:37→18:08)
[2023-01-10] MEDS: LevETIRAcetam 500 MG TABLET PO SCH ×2 (09:37→18:08)
[2023-01-10] MEDS: PREGABALIN 50 MG CAPSULE PO SCH ×3 (09:37→18:08)
[2023-01-10] MEDS: THIAMINE 100 MG TABLET PO SCH ×2 (09:37→18:06)
[2023-01-10] MEDS: DIVALPROEX SODIUM 500 MG ER TABLET PO SCH ×3 (09:37→18:08)
[2023-01-10] MEDS: FOLIC ACID 1 MG TABLET PO SCH (09:38)
[2023-01-10] MEDS: METHADONE HCL 10 MG TABLET PO SCH (09:38)
[2023-01-10 14:26] VITALS: BP 128/76; PULSE 72; RESP 18; TEMP 97.4
[2023-01-10] MEDS: ACETAMINOPHEN 325 MG TABLET PO PRN (14:26)
[2023-01-10 15:26] VITALS: RESP 18; TEMP 97.3
[2023-01-10] MEDS: MELATONIN 5 MG TABLET PO SCH (20:31)
[2023-01-10] MEDS: QUEtiapine FUMARATE 200 MG TABLET PO SCH (20:31)
[2023-01-10 21:28] VITALS: BP 100/60; PULSE 63; RESP 18; TEMP 98.1
[2023-01-11 09:15] VITALS: BP 103/68; PULSE 71; RESP 17; TEMP 97.7
[2023-01-11] MEDS: MULTIVITAMINS WITH MINERALS, THERAPEUTIC TABLET PO SCH (09:18)
[2023-01-11] MEDS: DULoxetine HCL 20 MG CAPSULE PO SCH (09:18)
[2023-01-11] MEDS: LevETIRAcetam 500 MG TABLET PO SCH ×2 (09:18→16:41)
[2023-01-11] MEDS: METHADONE HCL 10 MG TABLET PO SCH (09:19)
[2023-01-11] MEDS: FOLIC ACID 1 MG TABLET PO SCH (09:19)
[2023-01-11] MEDS: PREGABALIN 50 MG CAPSULE PO SCH ×3 (09:19→16:41)
[2023-01-11] MEDS: THIAMINE 100 MG TABLET PO SCH ×2 (09:19→16:41)
[2023-01-11] MEDS: DIVALPROEX SODIUM 500 MG ER TABLET PO SCH ×3 (09:19→16:41)
[2023-01-11] MEDS: ACAMPROSATE CALCIUM 333 MG DR TABLET PO SCH ×3 (09:19→16:41)
[2023-01-11] MEDS: LORazepam 2 MG TABLET PO PRN (19:45)
[2023-01-11] MEDS: QUEtiapine FUMARATE 200 MG TABLET PO SCH (20:15)
[2023-01-11] MEDS: MELATONIN 5 MG TABLET PO SCH (20:15)
[2023-01-11 20:39] VITALS: RESP 18
[2023-01-11] MEDS: ZOLPIDEM TARTRATE 10 MG TABLET PO PRN (21:10)
[2023-01-12] MEDS: DIVALPROEX SODIUM 500 MG ER TABLET PO SCH ×3 (09:15→17:24)
[2023-01-12] MEDS: ACAMPROSATE CALCIUM 333 MG DR TABLET PO SCH ×3 (09:15→17:24)
[2023-01-12] MEDS: MULTIVITAMINS WITH MINERALS, THERAPEUTIC TABLET PO SCH (09:15)
[2023-01-12] MEDS: PREGABALIN 50 MG CAPSULE PO SCH ×3 (09:15→17:24)
[2023-01-12] MEDS: LevETIRAcetam 500 MG TABLET PO SCH ×2 (09:15→17:24)
[2023-01-12] MEDS: DULoxetine HCL 30 MG CAPSULE PO SCH (09:16)
[2023-01-12] MEDS: THIAMINE 100 MG TABLET PO SCH ×2 (09:16→17:25)
[2023-01-12] MEDS: METHADONE HCL 10 MG TABLET PO SCH (09:16)
[2023-01-12] MEDS: FOLIC ACID 1 MG TABLET PO SCH (09:16)
[2023-01-12 12:33] VITALS: BP 100/61; PULSE 75; RESP 18; TEMP 97.4
[2023-01-12] MEDS: MELATONIN 5 MG TABLET PO SCH (20:15)
[2023-01-12] MEDS: QUEtiapine FUMARATE 200 MG TABLET PO SCH (20:15)
[2023-01-12] MEDS: LORazepam 2 MG TABLET PO PRN (20:40)
[2023-01-12] MEDS: ZOLPIDEM TARTRATE 10 MG TABLET PO PRN (21:31)
[2023-01-13] VITALS: BP 152/82; PULSE 62; RESP 18; TEMP 97.6; O2SAT 100
[2023-01-13 08:46] VITALS: BP 107/72; PULSE 76; RESP 18; TEMP 97.8
[2023-01-13] MEDS: THIAMINE 100 MG TABLET PO SCH ×2 (09:06→17:56)
[2023-01-13] MEDS: PREGABALIN 50 MG CAPSULE PO SCH ×3 (09:06→17:55)
[2023-01-13] MEDS: LevETIRAcetam 500 MG TABLET PO SCH ×2 (09:06→17:55)
[2023-01-13] MEDS: ACAMPROSATE CALCIUM 333 MG DR TABLET PO SCH ×3 (09:06→17:55)
[2023-01-13] MEDS: MULTIVITAMINS WITH MINERALS, THERAPEUTIC TABLET PO SCH (09:07)
[2023-01-13] MEDS: METHADONE HCL 10 MG TABLET PO SCH (09:07)
[2023-01-13] MEDS: FOLIC ACID 1 MG TABLET PO SCH (09:07)
[2023-01-13] MEDS: DIVALPROEX SODIUM 500 MG ER TABLET PO SCH ×3 (09:07→17:55)
[2023-01-13] MEDS: DULoxetine HCL 30 MG CAPSULE PO SCH (09:07)
[2023-01-13 20:12] VITALS: BP 153/80; PULSE 67; RESP 18; TEMP 97.1
[2023-01-13] MEDS: QUEtiapine FUMARATE 200 MG TABLET PO SCH (20:32)
[2023-01-13] MEDS: MELATONIN 5 MG TABLET PO SCH (20:32)
[2023-01-14 08:21] VITALS: BP 111/75; PULSE 65; RESP 18; TEMP 97.6
[2023-01-14] MEDS ORDERED: PALIPERIDONE PALMITATE 156 MG/ML SYRINGE IM ONE (09:00)
[2023-01-14] MEDS: METHADONE HCL 10 MG TABLET PO SCH (10:52)
[2023-01-14] MEDS: MULTIVITAMINS WITH MINERALS, THERAPEUTIC TABLET PO SCH (10:52)
[2023-01-14] MEDS: ACAMPROSATE CALCIUM 333 MG DR TABLET PO SCH ×3 (10:52→18:48)
[2023-01-14] MEDS: THIAMINE 100 MG TABLET PO SCH ×2 (10:52→18:49)
[2023-01-14] MEDS: LevETIRAcetam 500 MG TABLET PO SCH ×2 (10:53→18:48)
[2023-01-14] MEDS: DIVALPROEX SODIUM 500 MG ER TABLET PO SCH ×3 (10:53→18:48)
[2023-01-14] MEDS: PREGABALIN 50 MG CAPSULE PO SCH ×3 (10:53→18:48)
[2023-01-14] MEDS: DULoxetine HCL 30 MG CAPSULE PO SCH (10:53)
[2023-01-14] MEDS: FOLIC ACID 1 MG TABLET PO SCH (10:53)
[2023-01-14 20:48] VITALS: RESP 20; TEMP 97.2
[2023-01-14] MEDS: MELATONIN 5 MG TABLET PO SCH (21:59)
[2023-01-14] MEDS: QUEtiapine FUMARATE 300 MG TABLET PO SCH (21:59)
[2023-01-15 08:00] VITALS: BP 130/70; PULSE 79; RESP 20; TEMP 98
[2023-01-15] MEDS: DULoxetine HCL 30 MG CAPSULE PO SCH (10:16)
[2023-01-15] MEDS: FOLIC ACID 1 MG TABLET PO SCH (10:17)
[2023-01-15] MEDS: LevETIRAcetam 500 MG TABLET PO SCH ×2 (10:17→17:40)
[2023-01-15] MEDS: DIVALPROEX SODIUM 500 MG ER TABLET PO SCH ×3 (10:17→17:41)
[2023-01-15] MEDS: THIAMINE 100 MG TABLET PO SCH ×2 (10:17→17:40)
[2023-01-15] MEDS: METHADONE HCL 10 MG TABLET PO SCH (10:18)
[2023-01-15] MEDS: MULTIVITAMINS WITH MINERALS, THERAPEUTIC TABLET PO SCH (10:18)
[2023-01-15] MEDS: GABAPENTIN 300 MG CAPSULE PO SCH ×4 (10:18→21:10)
[2023-01-15] MEDS: ACAMPROSATE CALCIUM 333 MG DR TABLET PO SCH ×3 (10:20→17:41)
[2023-01-15 12:00] VITALS: TEMP 98.5
[2023-01-15 16:00] VITALS: BP 120/72; PULSE 76; RESP 18; TEMP 98
[2023-01-15] MEDS: LORazepam 2 MG TABLET PO PRN (17:42)
[2023-01-15] MEDS: MELATONIN 5 MG TABLET PO SCH (21:10)
[2023-01-15] MEDS: QUEtiapine FUMARATE 300 MG TABLET PO SCH (21:10)
[2023-01-15 22:48] VITALS: BP 112/71; PULSE 60; RESP 18; TEMP 98.4
[2023-01-16 08:30] VITALS: BP 116/82; PULSE 73; RESP 17; TEMP 98
[2023-01-16] MEDS: DIVALPROEX SODIUM 500 MG ER TABLET PO SCH ×3 (09:01→17:18)
[2023-01-16] MEDS: LevETIRAcetam 500 MG TABLET PO SCH ×2 (09:01→17:18)
[2023-01-16] MEDS: ACAMPROSATE CALCIUM 333 MG DR TABLET PO SCH ×3 (09:01→17:19)
[2023-01-16] MEDS: DULoxetine HCL 60 MG CAPSULE PO SCH (09:02)
[2023-01-16] MEDS: METHADONE HCL 10 MG TABLET PO SCH (09:02)
[2023-01-16] MEDS: THIAMINE 100 MG TABLET PO SCH ×2 (09:02→17:18)
[2023-01-16] MEDS: GABAPENTIN 300 MG CAPSULE PO SCH ×3 (09:03→17:18)
[2023-01-16] MEDS: FOLIC ACID 1 MG TABLET PO SCH (09:03)
[2023-01-16] MEDS: MULTIVITAMINS WITH MINERALS, THERAPEUTIC TABLET PO SCH (09:03)
[2023-01-16] MEDS: ACETAMINOPHEN 325 MG TABLET PO PRN (11:26)
[2023-01-16] MEDS: LORazepam 2 MG TABLET PO PRN (13:11)
[2023-01-16] MEDS: QUEtiapine FUMARATE 100 MG TABLET PO SCH (21:16)
[2023-01-16] MEDS: MELATONIN 5 MG TABLET PO SCH (21:16)
[2023-01-16 21:58] VITALS: BP 121/82; PULSE 86; RESP 18; TEMP 97.1
[2023-01-17] MEDS: THIAMINE 100 MG TABLET PO SCH ×2 (08:31→16:36)
[2023-01-17] MEDS: MULTIVITAMINS WITH MINERALS, THERAPEUTIC TABLET PO SCH (08:31)
[2023-01-17] MEDS: ACAMPROSATE CALCIUM 333 MG DR TABLET PO SCH ×3 (08:31→17:32)
[2023-01-17] MEDS: LevETIRAcetam 500 MG TABLET PO SCH ×2 (08:31→16:36)
[2023-01-17] MEDS: FOLIC ACID 1 MG TABLET PO SCH (08:32)
[2023-01-17] MEDS: METHADONE HCL 10 MG TABLET PO SCH (08:35)
[2023-01-17] MEDS: DULoxetine HCL 60 MG CAPSULE PO SCH (08:36)
[2023-01-17 10:04] VITALS: BP 139/90; PULSE 64; RESP 18; TEMP 97.8
[2023-01-17] MEDS ORDERED: GABAPENTIN 300 MG CAPSULE PO PRN (16:00)
[2023-01-17] MEDS ORDERED: DIVALPROEX SODIUM 500 MG ER TABLET PO SCH (21:00)
[2023-01-17] MEDS: QUEtiapine FUMARATE 100 MG TABLET PO SCH (21:07)
[2023-01-17] MEDS: MELATONIN 5 MG TABLET PO SCH (21:07)
[2023-01-17 21:13] VITALS: BP 101/59; PULSE 70; RESP 16; TEMP 98.3
[2023-01-18] MEDS: ACAMPROSATE CALCIUM 333 MG DR TABLET PO SCH ×3 (08:52→16:15)
[2023-01-18] MEDS: METHADONE HCL 10 MG TABLET PO SCH (08:53)
[2023-01-18] MEDS: MULTIVITAMINS WITH MINERALS, THERAPEUTIC TABLET PO SCH (08:53)
[2023-01-18] MEDS: LevETIRAcetam 500 MG TABLET PO SCH ×2 (08:54→16:15)
[2023-01-18] MEDS: DULoxetine HCL 60 MG CAPSULE PO SCH (08:54)
[2023-01-18 09:00] VITALS: TEMP 97.6
[2023-01-18] MEDS ORDERED: METH5SOL3 PO (18:01)
[2023-01-18] MEDS ORDERED: LEVE500T20 PO (18:02)
[2023-01-18] MEDS ORDERED: ACAM333T7 PO (18:49)
[2023-01-18] MEDS ORDERED: QUET100T34 PO (18:50)
[2023-01-18] MEDS ORDERED: DIVA500T69 PO (18:50)
[2023-01-18] MEDS ORDERED: MELA5TAB40 PO (18:50)
[2023-01-18] MEDS ORDERED: LEVE500T8 PO (18:50)
[2023-01-18] MEDS ORDERED: DULO-113 PO (18:50)
== END 2023-01-18 19:15 | disposition home or self-care (01) | DRG 750 ==
LOC: EMS 22:37 → 3EC 01-08 17:30 → 3EI 01-14 19:15
PROVIDERS: ADMIT Psychiatry & Neurology Psychiatry; ATTEND Psychiatry & Neurology Psychiatry
DX: F25.9 Schizoaffective disorder, unspecified (principal); G40.409 Other generalized epilepsy and epileptic syndromes, not intractable, without status epilepticus; K70.30 Alcoholic cirrhosis of liver without ascites; R45.851 Suicidal ideations; B19.20 Unspecified viral hepatitis C without hepatic coma; Z20.822 Contact with and (suspected) exposure to COVID-19; D64.9 Anemia, unspecified; E78.00 Pure hypercholesterolemia, unspecified; F03.93 Unspecified dementia, unspecified severity, with mood disturbance; F15.10 Other stimulant abuse, uncomplicated; F17.200 Nicotine dependence, unspecified, uncomplicated; I10 Essential (primary) hypertension; J44.9 Chronic obstructive pulmonary disease, unspecified; Z55.9 Problems related to education and literacy, unspecified; Z59.9 Problem related to housing and economic circumstances, unspecified; Z63.9 Problem related to primary support group, unspecified; Z65.3 Problems related to other legal circumstances; Z91.148 Patient's other noncompliance with medication regimen for other reason
CPT/HCPCS: 80053; 80061; 80164; 80307; 83036; 85025; 86592; 99291; G0480; J2060; Q9967

== ENCOUNTER 2023-03-30 21:59 | Emergency (ER) | payer MEDICAID, OTHER ==
[~2023-03-30] VITALS: Ht 177.8 cm; Wt 68.2 kg
[~2023-03-30 21:59] MED LIST changes: -DIVA-85 PO; +DIVA500T69 PO; +DULO-113 PO; -DULO-114 PO; -GABA-1181 PO; +LEVE500T8 PO; +METH5SOL3 PO; -OMEG-135 PO; +QUET100T34 PO; -QUET200T30 PO; -QUET25TA36 PO; -VARE1TAB25 PO
[2023-03-30 22:31] VITALS: TEMP 98.4
[2023-03-31 02:25] VITALS: BP 124/78; PULSE 90; RESP 18
[2023-03-31] MEDS ORDERED: CEPH-558 PO (02:31)
[2023-03-31] MEDS ORDERED: BACTDSB PO (02:31)
[2023-03-31] MEDS ORDERED: SULFAMETHOX/TRIMETH DS 800-160 MG/TABLET PO ONE (02:45)
[2023-03-31] MEDS ORDERED: CEPHALEXIN MONOHYDRATE 500 MG CAPSULE PO ONE (02:45)
== END 2023-03-31 03:15 | disposition home or self-care (01) ==
LOC: EMS 22:02
DX: L03.114 Cellulitis of left upper limb (principal); L03.113 Cellulitis of right upper limb; F10.20 Alcohol dependence, uncomplicated; F17.210 Nicotine dependence, cigarettes, uncomplicated; M19.90 Unspecified osteoarthritis, unspecified site; F32.A Depression, unspecified; F20.9 Schizophrenia, unspecified; F15.90 Other stimulant use, unspecified, uncomplicated; Z98.890 Other specified postprocedural states; Z88.8 Allergy status to other drugs, medicaments and biological substances
CPT/HCPCS: 99283

== ENCOUNTER 2023-04-16 13:29 | Inpatient (IN) | payer MEDICAID, OTHER ==
[~2023-04-16] VITALS: Ht 177.8 cm; Wt 55.7 kg
[~2023-04-16 13:29] MED LIST changes: +BACTDSB PO; +CEPH-558 PO
[2023-04-16] MEDS ORDERED: HALOPERIDOL 5 MG TABLET PO ONE (14:15)
[2023-04-16] MEDS ORDERED: LORazepam 1 MG TABLET PO ONE (14:15)
[2023-04-16 14:18] LABS: BASOPHILS % (AUTO) 0.5 % (0.0-2.0); EOSINOPHILS % (AUTO) 1.9 % (1.0-6.0); HEMATOCRIT 37.4 % (41-53); HEMOGLOBIN 12.4 g/dL (13.5-17.5); LYMPHOCYTES % (AUTO) 15.7 % (22.0-44.0); MEAN CORPUSCULAR HEMOGLOBIN 31.7 pg (26.0-34.0); MEAN CORPUSCULAR HGB CONC 33.3 G/dL (31.0-37.0); MEAN CORPUSCULAR VOLUME 95 fL (80-100); MONOCYTES # (AUTO) 0.5 K/uL (0.1-1.0); MONOCYTES % (AUTO) 8.6 % (2.0-9.0); NEUTROPHILS # (AUTO) 4.5 K/uL (1.8-7.7); NEUTROPHILS % (AUTO) 73.3 % (40.0-70.0); PLATELET COUNT (AUTO) 248 K/uL (150-450); RED BLOOD CELL COUNT(AUTO) 3.93 MIL/uL (4.50-5.90); RED CELL DISTRIBUTION WIDTH 13.1 % (11.5-14.5); WHITE BLOOD COUNT (AUTO) 6.2 K/uL (4.5-11.0)
[2023-04-16 14:28] LABS: ANION GAP 3 mmol/L (8-16); CARBON DIOXIDE 33 mmol/L (22-29); CHLORIDE 103 mmol/L (98-107); CREATININE 0.75 mg/dL (0.60-1.30); GLOMERULAR FILTR. RATE CALC > 60 mL/min (>60); GLUCOSE,RANDOM 119 mg/dL (70-110); POTASSIUM 4.2 mmol/L (3.5-5.1); SODIUM SERUM 139 mmol/L (136-145); UREA NITROGEN, BLOOD 6 mg/dL (7-18)
[2023-04-16 14:34] LABS: ALANINE AMINOTRANSFERASE 58 U/L (12-78); ALBUMIN 3.2 g/dL (3.4-5.0); ALKALINE PHOSPHATASE 107 U/L (46-116); ASPARTATE AMINOTRANSFERASE 69 U/L (15-37); BILIRUBIN,TOTAL 0.3 mg/dL (0.1-1.0); TOTAL PROTEIN, SERUM 7.7 g/dL (6.4-8.2); VALPROIC ACID 8 mcg/mL (50-100)
[2023-04-16 14:39] LABS: ALCOHOL, BLOOD (SERUM) < 3 mg/dL (0-10)
[2023-04-16] MEDS ORDERED: ONDANSETRON HCL 4 MG TABLET PO ONE (15:45)
[2023-04-16 16:54] LABS: COVID AG,FIA SOURCE NASAL SWAB
[2023-04-16 16:54] LABS: PH,URINE DRUG SCREEN 7.5 (5.0-8.0)
[2023-04-16] MEDS ORDERED: GuaiFENesin/D-METHORPHAN [SUGAR-FREE] 200-20MG/10 ML SYRUP UDCUP PO PRN (17:00)
[2023-04-16] MEDS ORDERED: QUEtiapine FUMARATE 100 MG TABLET PO PRN (17:00)
[2023-04-16] MEDS ORDERED: MAGNESIUM HYDROXIDE SUSPENSION 30 ML UDCUP PO PRN (17:00)
[2023-04-16] MEDS ORDERED: HydrOXYzine PAMOATE 50 MG CAPSULE PO PRN (17:00)
[2023-04-16] MEDS ORDERED: MAG HYDROX/ALUMINUM HYD/SIMETH ES 30 ML SUSPENSION UDCUP PO PRN (17:00)
[2023-04-16] MEDS ORDERED: LORazepam 2 MG TABLET PO PRN (17:00)
[2023-04-16] MEDS ORDERED: ZOLPIDEM TARTRATE 10 MG TABLET PO PRN (17:00)
[2023-04-16] MEDS ORDERED: LOPERAMIDE HCL 2 MG CAPSULE PO PRN (17:00)
[2023-04-16] MEDS ORDERED: PROMETHAZINE HCL 25 MG TABLET PO PRN (17:00)
[2023-04-16 17:02] LABS: ALCOHOL, URINE DRUG SCREEN NEGATIVE (NEGATIVE); AMPHET/METH SCREEN,URINE POSITIVE (NEGATIVE); BARBITURATE SCREEN, URINE NEGATIVE (NEGATIVE); BENZODIAZEPINES SCREEN,URINE POSITIVE (NEGATIVE); CANNABINOID SCREEN,URINE POSITIVE (NEGATIVE); COCAINE SCREEN,URINE NEGATIVE (NEGATIVE); METHADONE SCREEN, URINE POSITIVE (NEGATIVE); OPIATE SCREEN,URINE NEGATIVE (NEGATIVE); PHENCYCLIDINE SCREEN,URINE NEGATIVE (NEGATIVE)
[2023-04-16 17:16] LABS: SARS-COV2 (COVID) ANTIGEN,FIA Negative (Negative)
[2023-04-16 17:59] VITALS: BP 144/96; PULSE 78; RESP 18; TEMP 97
[2023-04-16] MEDS ORDERED: PNEUMOCOCCAL VACCINE POLYVALENT 0.5 ML SYRINGE [PPSV23] IM. ONE (18:45)
[2023-04-16] MEDS: THIAMINE 100 MG TABLET PO SCH (20:34)
[2023-04-16] MEDS: VARENICLINE TARTRATE 0.5 MG TABLET PO SCH (20:35)
[2023-04-16] MEDS: LevETIRAcetam 500 MG TABLET PO SCH (20:36)
[2023-04-16 21:17] VITALS: RESP 18
[2023-04-16] MEDS: DIVALPROEX SODIUM 500 MG ER TABLET PO SCH (21:38)
[2023-04-16] MEDS: QUEtiapine FUMARATE 200 MG TABLET PO SCH (21:38)
[2023-04-16] MEDS: MELATONIN 5 MG TABLET PO SCH (21:39)
[2023-04-17 09:32] VITALS: BP 118/77; PULSE 69; RESP 16; TEMP 97
[2023-04-17] MEDS: LevETIRAcetam 500 MG TABLET PO SCH ×2 (09:54→16:51)
[2023-04-17] MEDS: MULTIVITAMINS WITH MINERALS, THERAPEUTIC TABLET PO SCH (09:54)
[2023-04-17] MEDS: VARENICLINE TARTRATE 0.5 MG TABLET PO SCH ×2 (09:55→16:50)
[2023-04-17] MEDS: FOLIC ACID 1 MG TABLET PO SCH (09:55)
[2023-04-17] MEDS: OMEGA-3/DHA/EPA/FISH OIL 1,000 MG CAPSULE PO SCH (09:55)
[2023-04-17] MEDS: THIAMINE 100 MG TABLET PO SCH ×2 (09:55→16:51)
[2023-04-17] MEDS: NALTREXONE HCL 50 MG TABLET PO SCH (09:56)
[2023-04-17] MEDS: METHADONE HCL 10 MG/5 ML SOLUTION ORAL.SYG PO SCH (12:11)
[2023-04-17] MEDS ORDERED: CloNIDine HCL 0.1 MG TABLET PO PRN (19:00)
[2023-04-17] MEDS: DIVALPROEX SODIUM 500 MG ER TABLET PO SCH (20:57)
[2023-04-17] MEDS: QUEtiapine FUMARATE 200 MG TABLET PO SCH (20:57)
[2023-04-17] MEDS: MELATONIN 5 MG TABLET PO SCH (20:58)
[2023-04-17 22:23] VITALS: BP 150/81; PULSE 63; RESP 16; TEMP 97.4
[2023-04-18] MEDS: VARENICLINE TARTRATE 0.5 MG TABLET PO SCH ×2 (08:27→17:24)
[2023-04-18] MEDS: LevETIRAcetam 500 MG TABLET PO SCH ×2 (08:32→17:25)
[2023-04-18] MEDS: MULTIVITAMINS WITH MINERALS, THERAPEUTIC TABLET PO SCH (08:32)
[2023-04-18] MEDS: NALTREXONE HCL 50 MG TABLET PO SCH (08:32)
[2023-04-18] MEDS: THIAMINE 100 MG TABLET PO SCH ×2 (08:33→17:25)
[2023-04-18] MEDS: FOLIC ACID 1 MG TABLET PO SCH (08:36)
[2023-04-18] MEDS: METHADONE HCL 10 MG/5 ML SOLUTION ORAL.SYG PO SCH (08:38)
[2023-04-18] MEDS: OMEGA-3/DHA/EPA/FISH OIL 1,000 MG CAPSULE PO SCH (08:39)
[2023-04-18 09:04] VITALS: BP 141/84; PULSE 71; RESP 18; TEMP 97.7
[2023-04-18 20:07] VITALS: RESP 18
[2023-04-18] MEDS: QUEtiapine FUMARATE 200 MG TABLET PO SCH (21:16)
[2023-04-18] MEDS: DIVALPROEX SODIUM 500 MG ER TABLET PO SCH (21:16)
[2023-04-18] MEDS: MELATONIN 5 MG TABLET PO SCH (21:16)
[2023-04-19 09:47] VITALS: BP 129/79; PULSE 70; RESP 18; TEMP 97.6
[2023-04-19] MEDS: NALTREXONE HCL 50 MG TABLET PO SCH (10:10)
[2023-04-19] MEDS: MULTIVITAMINS WITH MINERALS, THERAPEUTIC TABLET PO SCH (10:10)
[2023-04-19] MEDS: LevETIRAcetam 500 MG TABLET PO SCH ×2 (10:10→18:39)
[2023-04-19] MEDS: OMEGA-3/DHA/EPA/FISH OIL 1,000 MG CAPSULE PO SCH (10:10)
[2023-04-19] MEDS: THIAMINE 100 MG TABLET PO SCH ×2 (10:10→18:38)
[2023-04-19] MEDS: FOLIC ACID 1 MG TABLET PO SCH (10:10)
[2023-04-19] MEDS: METHADONE HCL 10 MG/5 ML SOLUTION ORAL.SYG PO SCH (10:13)
[2023-04-19] MEDS: VARENICLINE TARTRATE 0.5 MG TABLET PO SCH ×2 (10:13→18:38)
[2023-04-19] MEDS: MELATONIN 5 MG TABLET PO SCH (20:46)
[2023-04-19] MEDS: DIVALPROEX SODIUM 500 MG ER TABLET PO SCH (20:46)
[2023-04-19] MEDS: QUEtiapine FUMARATE 200 MG TABLET PO SCH (20:46)
[2023-04-19 20:59] VITALS: RESP 18; TEMP 97.8
[2023-04-20] MEDS: MULTIVITAMINS WITH MINERALS, THERAPEUTIC TABLET PO SCH (10:21)
[2023-04-20] MEDS: OMEGA-3/DHA/EPA/FISH OIL 1,000 MG CAPSULE PO SCH (10:21)
[2023-04-20] MEDS: VARENICLINE TARTRATE 0.5 MG TABLET PO SCH ×2 (10:22→16:47)
[2023-04-20] MEDS: LevETIRAcetam 500 MG TABLET PO SCH ×2 (10:22→16:47)
[2023-04-20] MEDS: METHADONE HCL 10 MG/5 ML SOLUTION ORAL.SYG PO SCH (10:23)
[2023-04-20] MEDS: NALTREXONE HCL 50 MG TABLET PO SCH (10:28)
[2023-04-20] MEDS: THIAMINE 100 MG TABLET PO SCH ×2 (10:30→16:47)
[2023-04-20] MEDS: FOLIC ACID 1 MG TABLET PO SCH (10:30)
[2023-04-20 15:54] VITALS: BP 119/81; PULSE 74; RESP 19; TEMP 98
[2023-04-20] MEDS: DIVALPROEX SODIUM 500 MG ER TABLET PO SCH (21:42)
[2023-04-20] MEDS: MELATONIN 5 MG TABLET PO SCH (21:42)
[2023-04-20] MEDS: QUEtiapine FUMARATE 200 MG TABLET PO SCH (21:43)
[2023-04-20 23:11] VITALS: BP 120/72; PULSE 75; RESP 18; TEMP 98.4
[2023-04-21] MEDS: VARENICLINE TARTRATE 0.5 MG TABLET PO SCH ×2 (07:46→17:01)
[2023-04-21 07:47] VITALS: BP 149/84; PULSE 55; RESP 18; TEMP 97
[2023-04-21] MEDS: MULTIVITAMINS WITH MINERALS, THERAPEUTIC TABLET PO SCH (07:47)
[2023-04-21] MEDS: OMEGA-3/DHA/EPA/FISH OIL 1,000 MG CAPSULE PO SCH (07:47)
[2023-04-21] MEDS: ACETAMINOPHEN 325 MG TABLET PO PRN (07:47)
[2023-04-21] MEDS: FOLIC ACID 1 MG TABLET PO SCH (07:48)
[2023-04-21] MEDS: NALTREXONE HCL 50 MG TABLET PO SCH (07:48)
[2023-04-21] MEDS: THIAMINE 100 MG TABLET PO SCH ×2 (07:48→17:00)
[2023-04-21] MEDS: LevETIRAcetam 500 MG TABLET PO SCH ×2 (07:48→17:00)
[2023-04-21] MEDS: METHADONE HCL 10 MG/5 ML SOLUTION ORAL.SYG PO SCH (07:49)
[2023-04-21 08:47] VITALS: BP 132/83; PULSE 57; RESP 18; TEMP 98.6
[2023-04-21 10:53] VITALS: BP 149/84; PULSE 55; RESP 18; TEMP 97
[2023-04-21] MEDS: QUEtiapine FUMARATE 200 MG TABLET PO SCH (21:00)
[2023-04-21] MEDS: DIVALPROEX SODIUM 500 MG ER TABLET PO SCH (21:00)
[2023-04-21] MEDS: MELATONIN 5 MG TABLET PO SCH (21:00)
[2023-04-21 22:10] VITALS: RESP 17
[2023-04-22] MEDS: VARENICLINE TARTRATE 0.5 MG TABLET PO SCH ×2 (09:13→17:02)
[2023-04-22] MEDS: FOLIC ACID 1 MG TABLET PO SCH (09:13)
[2023-04-22] MEDS: MULTIVITAMINS WITH MINERALS, THERAPEUTIC TABLET PO SCH (09:13)
[2023-04-22] MEDS: NALTREXONE HCL 50 MG TABLET PO SCH (09:14)
[2023-04-22] MEDS: LevETIRAcetam 500 MG TABLET PO SCH ×2 (09:14→17:03)
[2023-04-22] MEDS: THIAMINE 100 MG TABLET PO SCH ×2 (09:14→17:02)
[2023-04-22] MEDS: OMEGA-3/DHA/EPA/FISH OIL 1,000 MG CAPSULE PO SCH (09:14)
[2023-04-22 09:15] VITALS: BP 128/65; PULSE 63; RESP 19
[2023-04-22] MEDS: METHADONE HCL 10 MG/5 ML SOLUTION ORAL.SYG PO SCH (09:15)
[2023-04-22] MEDS: QUEtiapine FUMARATE 100 MG TABLET PO PRN (13:23)
[2023-04-22] MEDS: GABAPENTIN 300 MG CAPSULE PO SCH ×2 (17:04→21:05)
[2023-04-22] MEDS ORDERED: QUEtiapine FUMARATE 200 MG TABLET PO SCH (21:00)
[2023-04-22] MEDS: MELATONIN 5 MG TABLET PO SCH (21:05)
[2023-04-22] MEDS: DIVALPROEX SODIUM 500 MG ER TABLET PO SCH (21:05)
[2023-04-22 23:18] VITALS: BP 125/67; PULSE 69; RESP 18; TEMP 97.4
[2023-04-23] MEDS: QUEtiapine FUMARATE 100 MG TABLET PO PRN (03:13)
[2023-04-23 08:56] VITALS: BP 107/63; PULSE 62; RESP 17; TEMP 97.4
[2023-04-23] MEDS: METHADONE HCL 10 MG/5 ML SOLUTION ORAL.SYG PO SCH (09:24)
[2023-04-23] MEDS: OMEGA-3/DHA/EPA/FISH OIL 1,000 MG CAPSULE PO SCH (09:24)
[2023-04-23] MEDS: MULTIVITAMINS WITH MINERALS, THERAPEUTIC TABLET PO SCH (09:24)
[2023-04-23] MEDS: THIAMINE 100 MG TABLET PO SCH ×2 (09:24→17:41)
[2023-04-23] MEDS: VARENICLINE TARTRATE 0.5 MG TABLET PO SCH ×2 (09:25→17:41)
[2023-04-23] MEDS: NALTREXONE HCL 50 MG TABLET PO SCH (09:27)
[2023-04-23] MEDS: LevETIRAcetam 500 MG TABLET PO SCH ×2 (09:27→17:41)
[2023-04-23] MEDS: FOLIC ACID 1 MG TABLET PO SCH (09:27)
[2023-04-23] MEDS: GABAPENTIN 300 MG CAPSULE PO SCH (09:28)
[2023-04-23] MEDS: GABAPENTIN 400 MG CAPSULE PO SCH ×3 (12:21→21:01)
[2023-04-23] MEDS: QUEtiapine FUMARATE 300 MG TABLET PO SCH (21:00)
[2023-04-23] MEDS: DIVALPROEX SODIUM 500 MG ER TABLET PO SCH (21:01)
[2023-04-23] MEDS: MELATONIN 5 MG TABLET PO SCH (21:01)
[2023-04-23] MEDS: PRAZOSIN HCL 1 MG CAPSULE PO SCH (21:01)
[2023-04-23 21:27] VITALS: BP 151/79; PULSE 67; RESP 18; TEMP 98.1
[2023-04-24] MEDS: FOLIC ACID 1 MG TABLET PO SCH (09:28)
[2023-04-24] MEDS: MULTIVITAMINS WITH MINERALS, THERAPEUTIC TABLET PO SCH (09:28)
[2023-04-24] MEDS: OMEGA-3/DHA/EPA/FISH OIL 1,000 MG CAPSULE PO SCH (09:28)
[2023-04-24] MEDS: LevETIRAcetam 500 MG TABLET PO SCH ×2 (09:28→16:35)
[2023-04-24] MEDS: NALTREXONE HCL 50 MG TABLET PO SCH (09:28)
[2023-04-24] MEDS: THIAMINE 100 MG TABLET PO SCH ×2 (09:29→16:35)
[2023-04-24] MEDS: VARENICLINE TARTRATE 0.5 MG TABLET PO SCH ×2 (09:29→16:36)
[2023-04-24] MEDS: GABAPENTIN 400 MG CAPSULE PO SCH ×4 (09:29→20:56)
[2023-04-24] MEDS: METHADONE HCL 10 MG/5 ML SOLUTION ORAL.SYG PO SCH (09:36)
[2023-04-24 09:58] VITALS: BP 128/52; PULSE 57; RESP 18; TEMP 97
[2023-04-24] MEDS: MELATONIN 5 MG TABLET PO SCH (20:56)
[2023-04-24] MEDS: PRAZOSIN HCL 1 MG CAPSULE PO SCH (20:56)
[2023-04-24] MEDS: DIVALPROEX SODIUM 500 MG ER TABLET PO SCH (20:56)
[2023-04-24] MEDS: QUEtiapine FUMARATE 300 MG TABLET PO SCH (20:56)
[2023-04-24 21:44] VITALS: BP 118/75; PULSE 71; RESP 18; TEMP 98.4
[2023-04-25] MEDS: FOLIC ACID 1 MG TABLET PO SCH (09:06)
[2023-04-25] MEDS: METHADONE HCL 10 MG/5 ML SOLUTION ORAL.SYG PO SCH (09:06)
[2023-04-25] MEDS: VARENICLINE TARTRATE 0.5 MG TABLET PO SCH ×3 (09:06→17:00)
[2023-04-25] MEDS: OMEGA-3/DHA/EPA/FISH OIL 1,000 MG CAPSULE PO SCH (09:06)
[2023-04-25] MEDS: MULTIVITAMINS WITH MINERALS, THERAPEUTIC TABLET PO SCH (09:06)
[2023-04-25] MEDS: NALTREXONE HCL 50 MG TABLET PO SCH (09:07)
[2023-04-25] MEDS: GABAPENTIN 400 MG CAPSULE PO SCH ×3 (09:07→16:38)
[2023-04-25] MEDS: THIAMINE 100 MG TABLET PO SCH ×3 (09:07→17:00)
[2023-04-25] MEDS: LevETIRAcetam 500 MG TABLET PO SCH ×3 (09:07→17:00)
[2023-04-25 20:38] VITALS: BP 112/82; PULSE 64; RESP 18; TEMP 97.1
[2023-04-25] MEDS: GABAPENTIN 100 MG CAPSULE PO SCH (21:09)
[2023-04-25] MEDS: MELATONIN 5 MG TABLET PO SCH (21:10)
[2023-04-25] MEDS: DIVALPROEX SODIUM 250 MG ER TABLET PO SCH (21:10)
[2023-04-25] MEDS: PRAZOSIN HCL 1 MG CAPSULE PO SCH (21:11)
[2023-04-25] MEDS: QUEtiapine FUMARATE 200 MG TABLET PO SCH (21:11)
[2023-04-26 08:50] VITALS: BP 102/60; PULSE 80; RESP 16; TEMP 97.1
[2023-04-26] MEDS: MULTIVITAMINS WITH MINERALS, THERAPEUTIC TABLET PO SCH (09:06)
[2023-04-26] MEDS: OMEGA-3/DHA/EPA/FISH OIL 1,000 MG CAPSULE PO SCH (09:06)
[2023-04-26] MEDS: VARENICLINE TARTRATE 0.5 MG TABLET PO SCH ×2 (09:06→17:11)
[2023-04-26] MEDS: METHADONE HCL 10 MG/5 ML SOLUTION ORAL.SYG PO SCH (09:06)
[2023-04-26] MEDS: THIAMINE 100 MG TABLET PO SCH (09:06)
[2023-04-26] MEDS: LevETIRAcetam 500 MG TABLET PO SCH ×2 (09:07→17:11)
[2023-04-26] MEDS: NALTREXONE HCL 50 MG TABLET PO SCH (09:07)
[2023-04-26] MEDS: GABAPENTIN 100 MG CAPSULE PO SCH ×3 (09:07→17:11)
[2023-04-26] MEDS: FOLIC ACID 1 MG TABLET PO SCH (09:07)
[2023-04-26] MEDS: GABAPENTIN 300 MG CAPSULE PO PRN (15:04)
[2023-04-26] MEDS: QUEtiapine FUMARATE 200 MG TABLET PO SCH (21:00)
[2023-04-26] MEDS: PRAZOSIN HCL 1 MG CAPSULE PO SCH (21:00)
[2023-04-26] MEDS: MELATONIN 5 MG TABLET PO SCH (21:00)
[2023-04-26] MEDS: DIVALPROEX SODIUM 250 MG ER TABLET PO SCH (21:00)
[2023-04-26 22:49] VITALS: BP 109/79; PULSE 64; RESP 18; TEMP 97.3
[2023-04-27] MEDS: GABAPENTIN 300 MG CAPSULE PO PRN ×2 (06:22→14:27)
[2023-04-27] MEDS: OMEGA-3/DHA/EPA/FISH OIL 1,000 MG CAPSULE PO SCH (08:06)
[2023-04-27] MEDS: NALTREXONE HCL 50 MG TABLET PO SCH (08:07)
[2023-04-27] MEDS: GABAPENTIN 100 MG CAPSULE PO SCH ×3 (08:07→16:31)
[2023-04-27] MEDS: MULTIVITAMINS WITH MINERALS, THERAPEUTIC TABLET PO SCH (08:07)
[2023-04-27] MEDS: LevETIRAcetam 500 MG TABLET PO SCH ×2 (08:07→16:31)
[2023-04-27] MEDS: VARENICLINE TARTRATE 0.5 MG TABLET PO SCH ×2 (08:07→16:31)
[2023-04-27] MEDS: METHADONE HCL 10 MG/5 ML SOLUTION ORAL.SYG PO SCH (08:09)
[2023-04-27 08:46] VITALS: BP 137/66; PULSE 79; RESP 18; TEMP 98.3
[2023-04-27] MEDS: QUEtiapine FUMARATE 200 MG TABLET PO SCH (20:53)
[2023-04-27] MEDS: MELATONIN 5 MG TABLET PO SCH (20:54)
[2023-04-27] MEDS: DIVALPROEX SODIUM 250 MG ER TABLET PO SCH (20:54)
[2023-04-27] MEDS: PRAZOSIN HCL 1 MG CAPSULE PO SCH (20:57)
[2023-04-27 22:24] VITALS: RESP 18
[2023-04-28] MEDS: LevETIRAcetam 500 MG TABLET PO SCH ×2 (09:15→17:32)
[2023-04-28] MEDS: MULTIVITAMINS WITH MINERALS, THERAPEUTIC TABLET PO SCH (09:15)
[2023-04-28] MEDS: GABAPENTIN 100 MG CAPSULE PO SCH ×3 (09:15→17:32)
[2023-04-28] MEDS: OMEGA-3/DHA/EPA/FISH OIL 1,000 MG CAPSULE PO SCH (09:15)
[2023-04-28] MEDS: NALTREXONE HCL 50 MG TABLET PO SCH (09:15)
[2023-04-28] MEDS: VARENICLINE TARTRATE 0.5 MG TABLET PO SCH ×2 (09:15→18:09)
[2023-04-28] MEDS: METHADONE HCL 10 MG/5 ML SOLUTION ORAL.SYG PO SCH (09:16)
[2023-04-28 09:20] VITALS: BP 114/68; PULSE 81; RESP 18
[2023-04-28] MEDS: ACETAMINOPHEN 325 MG TABLET PO PRN (09:20)
[2023-04-28 09:26] VITALS: BP 107/64; PULSE 81; RESP 18; TEMP 97.8
[2023-04-28 10:20] VITALS: RESP 17
[2023-04-28] MEDS: GABAPENTIN 300 MG CAPSULE PO PRN (14:08)
[2023-04-28] MEDS: PRAZOSIN HCL 1 MG CAPSULE PO SCH (20:55)
[2023-04-28] MEDS: MELATONIN 5 MG TABLET PO SCH (20:55)
[2023-04-28] MEDS: QUEtiapine FUMARATE 200 MG TABLET PO SCH (20:55)
[2023-04-28] MEDS: DIVALPROEX SODIUM 250 MG ER TABLET PO SCH (20:55)
[2023-04-28 21:13] VITALS: BP 101/69; PULSE 75; RESP 18; TEMP 98
[2023-04-29] MEDS: VARENICLINE TARTRATE 0.5 MG TABLET PO SCH ×2 (09:00→16:23)
[2023-04-29] MEDS: GABAPENTIN 100 MG CAPSULE PO SCH ×3 (09:03→16:23)
[2023-04-29] MEDS: MULTIVITAMINS WITH MINERALS, THERAPEUTIC TABLET PO SCH (09:03)
[2023-04-29] MEDS: NALTREXONE HCL 50 MG TABLET PO SCH (09:03)
[2023-04-29] MEDS: LevETIRAcetam 500 MG TABLET PO SCH ×2 (09:03→16:23)
[2023-04-29] MEDS: OMEGA-3/DHA/EPA/FISH OIL 1,000 MG CAPSULE PO SCH (09:04)
[2023-04-29] MEDS: METHADONE HCL 10 MG/5 ML SOLUTION ORAL.SYG PO SCH (09:04)
[2023-04-29] MEDS: GABAPENTIN 300 MG CAPSULE PO PRN (11:29)
[2023-04-29] MEDS ORDERED: MELA5TAB40 PO (11:54)
[2023-04-29] MEDS ORDERED: OMEG-135 PO (11:54)
[2023-04-29] MEDS ORDERED: VARE0.5T7 PO (11:54)
[2023-04-29] MEDS ORDERED: LEVE500T8 PO (11:54)
[2023-04-29] MEDS ORDERED: NALT50TA PO (11:54)
[2023-04-29] MEDS ORDERED: QUET200T30 PO (11:54)
[2023-04-29] MEDS ORDERED: DIVA-85 PO (11:54)
[2023-04-29] MEDS ORDERED: PRAZ1 PO (11:54)
== END 2023-04-29 17:30 | disposition home or self-care (01) | DRG 750 ==
LOC: EMS 13:38 → 3EI 16:51
PROVIDERS: ADMIT Psychiatry & Neurology Psychiatry; ATTEND Psychiatry & Neurology Psychiatry
PROC: GZHZZZZ Group Psychotherapy (ICD-10-PCS; principal; 2023-04-16)
DX: F25.0 Schizoaffective disorder, bipolar type (principal); E88.09 Other disorders of plasma-protein metabolism, not elsewhere classified; R45.851 Suicidal ideations; F17.210 Nicotine dependence, cigarettes, uncomplicated; F41.9 Anxiety disorder, unspecified; G89.29 Other chronic pain; I10 Essential (primary) hypertension; J44.9 Chronic obstructive pulmonary disease, unspecified; D64.9 Anemia, unspecified; F15.10 Other stimulant abuse, uncomplicated; F17.200 Nicotine dependence, unspecified, uncomplicated; B19.20 Unspecified viral hepatitis C without hepatic coma; Z20.822 Contact with and (suspected) exposure to COVID-19; F10.20 Alcohol dependence, uncomplicated; G47.00 Insomnia, unspecified; M19.90 Unspecified osteoarthritis, unspecified site; Z79.899 Other long term (current) drug therapy; Z88.8 Allergy status to other drugs, medicaments and biological substances; Z59.00 Homelessness unspecified
CPT/HCPCS: 80053; 80164; 80307; 85025; 99285; G0480; Q0162; Q9967

== ENCOUNTER 2023-09-30 16:28 | Emergency (ER) | payer MEDICAID, OTHER ==
[~2023-09-30] VITALS: Ht 167.6 cm; Wt 63.6 kg
[~2023-09-30 16:28] MED LIST changes: -ACAM333T7 PO; -BACTDSB PO; -CEPH-558 PO; +DIVA-85 PO; -DIVA500T69 PO; -DULO-113 PO; -METH5SOL3 PO; +NALT50TA6 PO; +OMEG-135 PO; +PRAZ1 PO; -QUET100T34 PO; +QUET200T30 PO; +VARE0.5T7 PO
[2023-09-30 16:50] VITALS: BP 130/85; PULSE 107; RESP 18; TEMP 97.9
== END 2023-09-30 18:24 | disposition left against medical advice (07) ==
LOC: EMS 16:28
DX: M79.605 Pain in left leg (principal); Z53.21 Procedure and treatment not carried out due to patient leaving prior to being seen by health care provider

== ENCOUNTER 2024-01-06 21:41 | Emergency (ER) | payer OTHER ==
[~2024-01-06] VITALS: Ht 175.3 cm; Wt 56.8 kg
[2024-01-06 22:03] VITALS: BP 132/75; PULSE 101; RESP 16; TEMP 98.3
[2024-01-06] MEDS ORDERED: DOXY100C5 PO (22:17)
[2024-01-06] MEDS ORDERED: PRED-554 PO (22:17)
== END 2024-01-07 | disposition left against medical advice (07) ==
LOC: EMS 21:41
DX: M79.605 Pain in left leg (principal); M79.604 Pain in right leg; M79.602 Pain in left arm; M79.601 Pain in right arm; Z53.21 Procedure and treatment not carried out due to patient leaving prior to being seen by health care provider

== ENCOUNTER 2024-01-11 10:29 | Inpatient (IN) | payer MEDICAID, OTHER ==
[~2024-01-11] VITALS: Ht 170.2 cm; Wt 58.0 kg
[~2024-01-11 10:29] MED LIST changes: +DOXY100C5 PO; +PRED-554 PO
[2024-01-11] MEDS ORDERED: METH5SOL20 PO (10:39)
[2024-01-11 11:30] LABS: BASOPHILS % (AUTO) 0.4 % (0.0-2.0); EOSINOPHILS % (AUTO) 0.6 % (1.0-6.0); HEMATOCRIT 37.7 % (41-53); HEMOGLOBIN 12.8 g/dL (13.5-17.5); LYMPHOCYTES # (AUTO) 1.6 K/uL (1.0-4.8); LYMPHOCYTES % (AUTO) 22.8 % (22.0-44.0); MEAN CORPUSCULAR HEMOGLOBIN 32.2 pg (26.0-34.0); MEAN CORPUSCULAR HGB CONC 33.8 G/dL (31.0-37.0); MEAN CORPUSCULAR VOLUME 95 fL (80-100); MONOCYTES # (AUTO) 0.6 K/uL (0.1-1.0); MONOCYTES % (AUTO) 8.8 % (2.0-9.0); NEUTROPHILS # (AUTO) 4.8 K/uL (1.8-7.7); NEUTROPHILS % (AUTO) 67.4 % (40.0-70.0); PLATELET COUNT (AUTO) 198 K/uL (150-450); RED BLOOD CELL COUNT(AUTO) 3.96 MIL/uL (4.50-5.90); RED CELL DISTRIBUTION WIDTH 13.5 % (11.5-14.5); WHITE BLOOD COUNT (AUTO) 7.1 K/uL (4.5-11.0)
[2024-01-11 11:40] LABS: ANION GAP 6 mmol/L (8-16); CALCIUM, TOTAL 8.4 mg/dL (8.8-10.5); CARBON DIOXIDE 30 mmol/L (22-29); CHLORIDE 106 mmol/L (98-107); GLOMERULAR FILTR. RATE CALC > 60 mL/min (>60); GLUCOSE,RANDOM 107 mg/dL (70-110); POTASSIUM 3.2 mmol/L (3.5-5.1); SODIUM SERUM 142 mmol/L (136-145); UREA NITROGEN, BLOOD 15 mg/dL (7-18)
[2024-01-11 11:43] LABS: LIPASE 15 U/L (16-77)
[2024-01-11] MEDS: DiphenhydrAMINE HCL 25 MG CAPSULE PO ONE (12:44)
[2024-01-11] MEDS: LORazepam 1 MG TABLET PO ONE (12:45)
[2024-01-11] MEDS: ONDANSETRON HCL 4 MG TABLET PO ONE ×2 (12:45→23:49)
[2024-01-11 12:51] LABS: ALANINE AMINOTRANSFERASE 42 U/L (12-78); ALBUMIN 2.9 g/dL (3.4-5.0); ALKALINE PHOSPHATASE 95 U/L (46-116); ASPARTATE AMINOTRANSFERASE 37 U/L (15-37); BILIRUBIN,TOTAL 0.4 mg/dL (0.1-1.0); TOTAL PROTEIN, SERUM 6.4 g/dL (6.4-8.2)
[2024-01-11] MEDS: POTASSIUM CHLORIDE 20 MEQ ER TABLET PO ONE (14:33)
[2024-01-11 15:01] LABS: APPEARANCE,URINE CLEAR (CLEAR); BILIRUBIN,URINE NEGATIVE (NEGATIVE); COLOR,URINE YELLOW (YELLOW); GLUCOSE, URINE (UA) NEGATIVE (NEGATIVE); KETONES,URINE NEGATIVE (NEGATIVE); LEUKOCYTE ESTERASE ,URINE NEGATIVE (NEGATIVE); NITRATE,URINE NEGATIVE (NEGATIVE); OCCULT BLOOD,URINE NEGATIVE (NEGATIVE); PROTEIN,URINE NEGATIVE (NEGATIVE); SPECIFIC GRAVITIY, URINE 1.024 (1.003-1.030)
[2024-01-11 15:10] LABS: COVID AG,FIA SOURCE NASAL SWAB
[2024-01-11 15:42] LABS: SARS-COV2 (COVID) ANTIGEN,FIA Negative (Negative)
[2024-01-11 18:10] LABS: ALCOHOL, URINE DRUG SCREEN NEGATIVE (NEGATIVE); AMPHET/METH SCREEN,URINE POSITIVE (NEGATIVE); BARBITURATE SCREEN, URINE NEGATIVE (NEGATIVE); BENZODIAZEPINES SCREEN,URINE POSITIVE (NEGATIVE); CANNABINOID SCREEN,URINE POSITIVE (NEGATIVE); COCAINE SCREEN,URINE NEGATIVE (NEGATIVE); METHADONE SCREEN, URINE POSITIVE (NEGATIVE); OPIATE SCREEN,URINE NEGATIVE (NEGATIVE); PHENCYCLIDINE SCREEN,URINE NEGATIVE (NEGATIVE)
[2024-01-12 00:22] VITALS: BP 143/78; PULSE 60; RESP 18; TEMP 97.9; O2SAT 97
[2024-01-12] MEDS ORDERED: LOPERAMIDE HCL 2 MG CAPSULE PO PRN (06:15)
[2024-01-12] MEDS ORDERED: PETROLATUM,WHITE 28 GM JELLY TP PRN (06:15)
[2024-01-12] MEDS ORDERED: MAGNESIUM HYDROXIDE SUSPENSION 30 ML UDCUP PO PRN (06:15)
[2024-01-12] MEDS ORDERED: NICOTINE 14 MG/24 HOUR PATCH TD PRN (06:15)
[2024-01-12] MEDS ORDERED: MAG HYDROX/ALUMINUM HYD/SIMETH ES 30 ML SUSPENSION UDCUP PO PRN (06:15)
[2024-01-12] MEDS ORDERED: CloNIDine HCL 0.1 MG TABLET PO PRN (06:15)
[2024-01-12] MEDS ORDERED: ACETAMINOPHEN 325 MG TABLET PO PRN (06:15)
[2024-01-12] MEDS ORDERED: IBUPROFEN 400 MG TABLET PO PRN (06:15)
[2024-01-12] MEDS ORDERED: ONDANSETRON HCL 4 MG TABLET PO PRN (06:15)
[2024-01-12] MEDS ORDERED: DOCUSATE SODIUM 100 MG CAPSULE PO PRN (06:15)
[2024-01-12] MEDS ORDERED: GuaiFENesin/D-METHORPHAN [SUGAR-FREE] 200-20MG/10 ML SYRUP UDCUP PO PRN (06:15)
[2024-01-12] MEDS ORDERED: ALBUTEROL SULFATE HFA 90 MCG/PUFF 8 GM INHALER IH PRN (06:15)
[2024-01-12] MEDS: METHADONE HCL 10 MG TABLET PO SCH (08:45)
[2024-01-12 12:06] LABS: ALANINE AMINOTRANSFERASE 47 U/L (12-78); ALBUMIN 2.9 g/dL (3.4-5.0); ALKALINE PHOSPHATASE 91 U/L (46-116); ANION GAP 6 mmol/L (8-16); ASPARTATE AMINOTRANSFERASE 50 U/L (15-37); BILIRUBIN,TOTAL 0.6 mg/dL (0.1-1.0); CALCIUM, TOTAL 8.5 mg/dL (8.8-10.5); CARBON DIOXIDE 30 mmol/L (22-29); CHLORIDE 102 mmol/L (98-107); CHOL/HDL RATIO 2.4 (4.2-7.3); CHOLESTEROL 92 mg/dL (131-200); CREATININE 0.68 mg/dL (0.60-1.30); GLOMERULAR FILTR. RATE CALC > 60 mL/min (>60); GLUCOSE,RANDOM 98 mg/dL (70-110); HDL CHOLESTEROL 38 mg/dL (40-60); LDL CHOL (CALC.) 43 mg/dL (0-130); SODIUM SERUM 138 mmol/L (136-145); THYROID STIMULATING HORMONE 0.45 uIU/mL (0.36-3.74); TOTAL PROTEIN, SERUM 6.8 g/dL (6.4-8.2); TRIGLYCERIDES 57 mg/dL (15-150); UREA NITROGEN, BLOOD 11 mg/dL (7-18)
[2024-01-12 12:38] LABS: HEMOGLOBIN A1C 5.3 % (3.8-5.6)
[2024-01-12] MEDS: MUPIROCIN CALCIUM 2% 15 GM CREAM TP SCH (13:36)
[2024-01-12] MEDS: LevETIRAcetam 500 MG TABLET PO SCH (17:27)
[2024-01-12] MEDS: QUEtiapine FUMARATE 100 MG TABLET PO SCH (20:43)
[2024-01-12] MEDS: ZOLPIDEM TARTRATE 10 MG TABLET PO PRN (22:32)
[2024-01-12 22:51] VITALS: RESP 18
[2024-01-13] MEDS: DULoxetine HCL 30 MG CAPSULE PO SCH (08:24)
[2024-01-13] MEDS: ASCORBIC ACID 500 MG TABLET PO SCH (08:24)
[2024-01-13] MEDS: MULTIVITAMINS, THERAPEUTIC TABLET PO SCH (08:29)
[2024-01-13 09:56] VITALS: BP 121/60; PULSE 77; RESP 18; TEMP 96.6; O2SAT 97
[2024-01-13 10:02] LABS: BASOPHILS % (AUTO) 0.2 % (0.0-2.0); EOSINOPHILS % (AUTO) 0.8 % (1.0-6.0); HEMATOCRIT 45.2 % (41-53); HEMOGLOBIN 15.1 g/dL (13.5-17.5); LYMPHOCYTES # (AUTO) 0.8 K/uL (1.0-4.8); MEAN CORPUSCULAR HEMOGLOBIN 31.7 pg (26.0-34.0); MEAN CORPUSCULAR HGB CONC 33.4 G/dL (31.0-37.0); MEAN CORPUSCULAR VOLUME 95 fL (80-100); MONOCYTES # (AUTO) 0.4 K/uL (0.1-1.0); MONOCYTES % (AUTO) 7.9 % (2.0-9.0); NEUTROPHILS # (AUTO) 3.6 K/uL (1.8-7.7); NEUTROPHILS % (AUTO) 75.1 % (40.0-70.0); PLATELET COUNT (AUTO) 227 K/uL (150-450); RED BLOOD CELL COUNT(AUTO) 4.76 MIL/uL (4.50-5.90); RED CELL DISTRIBUTION WIDTH 13.3 % (11.5-14.5); WHITE BLOOD COUNT (AUTO) 4.8 K/uL (4.5-11.0)
[2024-01-13 21:41] VITALS: BP 123/76; PULSE 84; RESP 18; TEMP 97.9; O2SAT 98
[2024-01-14 16:03] VITALS: BP 129/81; PULSE 104; RESP 18; TEMP 98; O2SAT 98
[2024-01-14 21:35] VITALS: RESP 18
[2024-01-15 10:16] VITALS: BP 100/59; PULSE 85; RESP 18; TEMP 97.8; O2SAT 98
[2024-01-15] MEDS: HALOPERIDOL 5 MG TABLET PO PRN (21:49)
[2024-01-15] MEDS: LORazepam 2 MG TABLET PO PRN (21:49)
[2024-01-15 22:47] VITALS: BP 98/58; PULSE 66; RESP 18; TEMP 97.8; O2SAT 96
[2024-01-16 08:30] VITALS: BP 97/56; PULSE 72; RESP 16; TEMP 97.6; O2SAT 98
[2024-01-16 22:52] VITALS: BP 96/62; PULSE 69; RESP 16; TEMP 97; O2SAT 97
[2024-01-17 08:33] VITALS: BP 96/61; PULSE 72; RESP 17; TEMP 97.8; O2SAT 98
[2024-01-17 09:32] VITALS: BP 120/69; PULSE 79; RESP 18; O2SAT 97
[2024-01-17] MEDS ORDERED: DULO-114 PO (12:46)
[2024-01-17] MEDS ORDERED: LEVE-71 PO (12:46)
[2024-01-17] MEDS ORDERED: QUET100T PO (12:47)
== END 2024-01-17 14:45 | disposition home or self-care (01) | DRG 750 ==
LOC: EMS 10:31 → 3EI 22:49
PROVIDERS: ADMIT Psychiatry & Neurology Child & Adolescent Psychiatry; ATTEND Psychiatry & Neurology Child & Adolescent Psychiatry
PROC: GZ56ZZZ Individual Psychotherapy, Supportive (ICD-10-PCS; principal; 2024-01-12)
DX: F25.9 Schizoaffective disorder, unspecified (principal); R45.851 Suicidal ideations; B18.2 Chronic viral hepatitis C; E87.6 Hypokalemia; F32.A Depression, unspecified; Z20.822 Contact with and (suspected) exposure to COVID-19; J44.9 Chronic obstructive pulmonary disease, unspecified; F19.10 Other psychoactive substance abuse, uncomplicated; I10 Essential (primary) hypertension; Z88.8 Allergy status to other drugs, medicaments and biological substances; Z59.00 Homelessness unspecified
CPT/HCPCS: 80048; 80053; 80061; 80076; 80307; 81003; 82140; 83036; 83690; 84443; 85025; 99285; G0480; G0482; Q0162